=== PATIENT | female | born 1945 | race Caucasian/White ===

== ENCOUNTER 2016-09-06 06:02 | Inpatient (IN) | payer MEDICARE, OTHER ==
[2016-09-06] VITALS (20 sets, daily range): BP systolic 85–204; BP diastolic 44–160; PULSE 69–83; RESP 13–21; TEMP 97.1; Ht 154.9 cm; Wt 81.5 kg
[~2016-09-06] VITALS: Ht 154.9 cm; Wt 81.5 kg
[2016-09-06] MEDS ORDERED: ETOMIDATE 20 MG INJ IV STA (06:34)
[2016-09-06] MEDS ORDERED: ROCURONIUM 50 MG INJ IV STA (06:34)
[2016-09-06] MEDS ORDERED: CEFEPIME 2GM/50 ML (PMX) 50 ML IVPB STA (06:34)
[2016-09-06] MEDS ORDERED: ACET80SU5 PR (06:55)
[2016-09-06] MEDS ORDERED: ACET-2047 PO (06:56)
[2016-09-06] MEDS ORDERED: SOD CHLORIDE 0.9% 1,000 ML IV ONE (07:00)
[2016-09-06] MEDS ORDERED: VANCOMYCIN 1 GM (PMX) 250 ML IVPB ONE (07:00)
[2016-09-06] MEDS ORDERED: DIPH25CA6 PO (07:01)
[2016-09-06 07:05] LABS: HEMATOCRIT 26.2 % (37.0-47.0); HEMOGLOBIN 8.7 g/dl (12.0-16.0); MEAN CORPUSCULAR HEMOGLOBIN 28.8 pg (29.0-33.0); MEAN CORPUSCULAR VOLUME 87.2 fl (82.0-101.0); MEAN PLATELET VOLUME 6.9 fl (7.4-10.4); PLATELET COUNT 260 10^3/UL (140-440); RED BLOOD COUNT 3.01 10^6/ul (4.20-5.40); RED CELL DISTRIBUTION WIDTH 25.8 % (11.5-14.5); UNCORRECTED WBC 9.8 10^3/ul (4.8-10.8); WHITE BLOOD COUNT 9.8 10^3/ul (4.8-10.8)
[2016-09-06] MEDS ORDERED: IPRA3AMP INHALATION (07:06)
[2016-09-06] MEDS ORDERED: AMIO200T2 NGT (07:07)
[2016-09-06] MEDS ORDERED: AMLO5TAB4 PO (07:07)
[2016-09-06] MEDS ORDERED: CARV6.2579 PO (07:08)
[2016-09-06 07:09] LABS: INR 2.21; PROTIME 24.8 Sec (12.2-14.2); PT RATIO 1.9
[2016-09-06 07:10] LABS: PARTIAL THROMBOPLASTIN TIME 52.5 Sec (25.0-35.0)
[2016-09-06] MEDS ORDERED: FURO40TA4 IV* (07:10)
[2016-09-06] MEDS ORDERED: HEP30MU30 INTRACATH (07:11)
--- NOTE | 2016-09-06 07:11 | RADRPT ---
PROCEDURE: Chest. CLINICAL INDICATION: Chest pain. TECHNIQUE: Single frontal view of the chest was obtained. COMPARISON: None. FINDINGS: There is an endotracheal tube 1.5 cm above the josé. There is a right-sided Perma-Cath extending to the SVC. The cardiac silhouette is enlarged. The aortic arch is unremarkable. There is mild ce ntral vascular congestion. There is mild bibasilar atelectasis and small left pleural effusion. Th ere is no pneumothorax. IMPRESSION: Cardiomegaly and mild central vascular congestion. Mild bibasilar atelectasis and small left pleural effusion. Tube and line in place. .Max Bella MD, Date Time Electronically viewed and signed by .Max Bella MD, on 09/06/2016 07:11 .T/
[2016-09-06] MEDS ORDERED: INSU100C SQ (07:12)
[2016-09-06] MEDS ORDERED: LEVO500T10 PO (07:13)
[2016-09-06] MEDS ORDERED: METR500T14 PO (07:13)
[2016-09-06] MEDS ORDERED: PANT40TA3 IV* (07:15)
[2016-09-06] MEDS ORDERED: POTA20TA96 PO (07:16)
[2016-09-06] MEDS ORDERED: NEPH PO (07:17)
[2016-09-06] MEDS ORDERED: VANC125C3 PO (07:18)
[2016-09-06] MEDS ORDERED: LACT1CAP24 PO (07:18)
[2016-09-06 07:26] LABS: CONDITION 1; LH ANALYZER COMMENTS 1; SUSPECT 1
--- NOTE | 2016-09-06 07:30 | ERA ---
ER Documentation Chief Complaint Date/Time DATE: 09/06/16 TIME: 07:23 Chief [facility] H[facility] Who was admitted at an outside hospital over the past few weeks for apparent sepsis. The patient was transferred to a stepdown unit yesterday. Prior to arrival the patient's family was visiting and told staff that the patient had a decreased mental status and was having a very hard time breathing. The family is the one that called 911. Family is not here and cannot give me any more history. This history was given by EMS. On arrival the patient is obtunded and having agonal respirations. Unfortunately, no other history is obtainable ROS All systems reviewed and are negative except as per history of present illness. Medications Home Meds Reported Medications Lactobac #2-S. Therm-Bifido #1 (Vsl#3 Capsule) 1 Each Capsule, 1 EACH PO DAILY, CAP 09/06/16 Vancomycin Hcl (Vancomycin Hcl Oral) 125 Mg Capsule, 125 MG PO Q6, CAP 09/06/16 Multivit/Ca Carb/B Cmplx/Fa* (Rose-Kelsea*) 1 Tab Tab, 1 TAB PO QPM, TAB 09/06/16 Potassium Chloride* (Potassium Chloride*) 20 Meq Tablet.er, 20 MEQ PO DAILY, TAB.SA 09/06/16 Pantoprazole* (Protonix*) 40 Mg Tablet.dr, 40 MG IV* QAM, TAB 09/06/16 Metronidazole* (Metronidazole*) 500 Mg Tablet, 500 MG PO TID, TAB 09/06/16 Levofloxacin* (Levofloxacin*) 500 Mg Tablet, 500 MG PO Q48H, TAB 09/06/16 Insulin Lispro (Humalog) 100 Unit/1 Ml Cartridge, 0 SQ AC MEALS AND BEDTIME 09/06/16 Heparin Sod (Porcine) (Heparin) 1,000 Unit/Ml Soln, [id number] UNIT INTRACATH AFTER DIALYSIS 09/06/16 Furosemide* (Furosemide*) 40 Mg Tablet, 40 MG IV* DAILY, TAB 09/06/16 Carvedilol* (Carvedilol*) 6.25 Mg Tablet, 6.25 MG PO BID, #60 TAB 09/06/16 Amlodipine Besylate* (Norvasc*) 5 Mg Tablet, 5 MG PO DAILY, TAB 09/06/16 Amiodarone Hcl* (Amiodarone Hcl*) 200 Mg Tablet, 200 MG NGT BID, #60 TAB 09/06/16 Ipratropium-Albuterol (Ipratropium-Albuterol) 0.5-3 Mg/3 Ml Ampul.neb, 3 ML INHALATION Q4H WHILE AWAKE Y for SHORTNESS OF BREATH, #30 VIAL 09/06/16 Discontinued Reported Medications Diphenhydramine Hcl* (Diphenhydramine Hcl*) 25 Mg Capsule, 25 MG PO Q6 Y for ITCHING, CAP 09/06/16 Acetaminophen* (Acetaminophen*) 650 Mg Tablet, 650 MG PO Q4 Y for PAIN AND OR ELEVATED TEMP, #30 TAB 09/06/16 Acetaminophen* (Tylenol* Supp) 80 Mg Supp, 650 MG OH Q4 Y for FEVER, SUPP 09/06/16 Allergies Allergies: Coded Allergies: Unknown: Unable to obtain (Unverified , 09/06/16) PMhx/Soc Smoking Status: Unknown if ever smoked FmHx Unable to obtain due to mental status Physical Exam Vitals Vital Signs Date Time Temp Pulse Resp B/P Pulse Ox O2 Delivery O2 Flow Rate FiO2 09/06/16 08:15 84 14 196/103 100 Mechanical Ventilator 09/06/16 07:45 87 14 197/107 100 Mechanical Ventilator 09/06/16 07:15 88 14 100 100 09/06/16 06:23 79 14 100 100 09/06/16 06:09 97.1 74 18 111/68 100 Physical Exam Const: [] Obtunded Head: Atraumatic, normocephalic Eyes: Normal Conjunctiva ENT: Normal External Ears, Nose and Mouth. Neck: Full range of motion..~ No meningismus. Resp: Diffuse mild rhonchi scattered throughout both lung eagle, agonal respirations Cardio: Regular rate and rhythm, no murmurs Abd: Soft, non distended. Normal bowel sounds Skin: No petechiae or rashes Back: Not inspected Ext: No cyanosis, or edema Neur: GCS of 3 unable to do exam Psych: Unable to obtain Result Diagram: 09/06/16 0610 09/06/16 0610 Results 24 hrs Laboratory Tests Test 09/06/16 06:10 09/06/16 07:00 09/06/16 07:10 Activated Partial Thromboplast Time 52.5Sec Alanine Aminotransferase (ALT/SGPT) 53IU/L Albumin 3.0g/dl Albumin/Globulin Ratio 1.11 Alkaline Phosphatase 110IU/L Anion Gap 18 Aspartate Amino Transf (AST/SGOT) 29IU/L B-Type Natriuretic Peptide 16517MS/ML Band Neutrophils % 2.0% Basophilic Stippling MODERATE Basophils # 0.110^3/ul Basophils % 1.0% Blood Morphology Comment Blood Urea Nitrogen 37mg/dl Calcium Level 7.6mg/dl Carbon Dioxide Level 25mmol/L Chloride Level 103mmol/L Creatinine 1.92mg/dl Direct Bilirubin 0.00mg/dl Globulin 2.70g/dl Glucose Level 204mg/dl Hematocrit 26.2% Hemoglobin 8.7g/dl INR International Normalized Ratio 2.21 Indirect Bilirubin 0.0mg/dl Lactic Acid Level 0.9mmol/L Lymphocytes # 0.910^3/ul Lymphocytes % 9.0% Mean Corpuscular Hemoglobin 28.8pg Mean Corpuscular Hemoglobin Concent 33.0g/dl Mean Corpuscular Volume 87.2fl Mean Platelet Volume 6.9fl Metamyelocytes # 0.2 Metamyelocytes % 2.0% Monocytes # 0.810^3/ul Monocytes % 8.0% Myelocytes # 0.2 Myelocytes % 2.0% Neutrophils # 7.410^3/ul Neutrophils % 76.0% Platelet Count 90198^3/UL Potassium Level 4.8mmol/L Prothrombin Time 24.8Sec Prothrombin Time Ratio 1.9 Red Blood Count 3.0110^6/ul Red Cell Distribution Width 25.8% Schistocytes FEW Sodium Level 141mmol/L Total Bilirubin 0.0mg/dl Total Protein 5.7g/dl Troponin I 0.083ng/ml White Blood Count 9.810^3/ul Arterial Blood HCO3 21.2mmol/L Arterial Blood Base Excess -2.5mmol/L Arterial Blood Oxygen Saturation 99.4mmHG Sage Test ACCEPTAB Arterial Blood Gas Puncture Site Right Radial Arterial Blood Carboxyhemoglobin 0.3% Arterial Blood Date Drawn 09/06/2016 8:37:03 AM Arterial Blood Methemoglobin 0.2% Arterial Blood pCO2 (Temp correct) 32.3mmhg Arterial Blood pH (Temp corrected) 7.435 Arterial Blood pO2 (Temp corrected) 431.8mmHG Blood Gas A-a O2 Differential 248.9mmHg Blood Gas Actual Respiration Rate 14 Blood Gas Critical Value Read Back DR. POE Blood Gas Low PEEP Setting 5.0cmH2O Blood Gas Modality VENT - AC Blood Gas Notified Time 09/06/2016 8:51:53 AM Blood Gas Notified Whom GLENYS RT Blood Gas Respiration Rate 14.0 Blood Gas Specimen Source Blood arterial Blood Gas Temperature 37.0C Blood Gas Tidal Volume 512.0mL FiO2 100.0% Oxyhemoglobin Percent 98.9% Total Hemoglobin 9.8g/dl Urine Bacteria FEW Urine Bilirubin 1+ Urine Clarity SLIGHTLY CLOUDY Urine Color BROWN Urine Cystine Crystals MANY Urine Glucose 0.1%% Urine Hemoglobin 3+ Urine Ictotest NEGATIVE Urine Ketones TRACE Urine Leukocyte Esterase 1+ Urine Microscopic RBC >200/HPF Urine Microscopic WBC 5-10/HPF Urine Nitrite NEGATIVE Urine Specific [place] 1.025 Urine Squamous Epithelial Cells FEW Urine Total Protein 4+ Urine Urobilinogen 0.2 E.U./dL Urine pH 6.5 Current Medications Medications (Trade) Dose Ordered Sig/Rosemary Route PRN Reason Start Time Stop Time Status Last Admin Dose Admin Cefepime HCl 50 ml @ 100 mls/hr ONCE STAT IVPB 09/06/16 06:34 09/06/16 07:03 DC 09/06/16 08:56 Vancomycin HCl 250 ml @ 125 mls/hr ONCE ONCE IVPB 09/06/16 07:00 09/06/16 08:59 DC Sodium Chloride (NS) 1,000 ml @ 1,000 mls/hr Q1H ONCE IV 09/06/16 07:00 09/06/16 07:59 DC Rocuronium Butler (Zemuron) 70 mg ONCE STAT IV 09/06/16 06:34 09/06/16 06:40 DC Etomidate (Amidate) 20 mg ONCE STAT IV 09/06/16 06:34 09/06/16 06:41 DC Hydralazine HCl (Apresoline) 10 mg ONCE ONCE IV 09/06/16 08:00 09/06/16 08:01 DC 09/06/16 08:15 Procedures/MDM Endotracheal Intubation by me: Pre assessment performed. See preceding note for details. Pre-oxygenation performed with 100% oxygen RSI: Performed w/o complication or hypoxic events. Medications as ordered. Blade: Mac 4 ET Tube: 7.5 cm Depth: 23 cm at the lip Intubation confirmed by colorimetric CO2, equal breath sounds, quiet over the stomach. EKG: Rate/Rhythm: Normal sinus rhythm with supraventricular complexes, right bundle branch QRS, ST, QT: NORMAL OH, prolonged QRS, QT] Impression: Abnormal EKG PROCEDURE: Chest. CLINICAL INDICATION: Chest pain. TECHNIQUE: Single frontal view of the chest was obtained. COMPARISON: None. FINDINGS: There is an endotracheal tube 1.5 cm above the josé. There is a right-sided Perma-Cath extending to the SVC. The cardiac silhouette is enlarged. The aortic arch is unremarkable. There is mild central vascular congestion. There is mild bibasilar atelectasis and small left pleural effusion. There is no pneumothorax. IMPRESSION: Cardiomegaly and mild central vascular congestion. Mild bibasilar atelectasis and small left pleural effusion. Tube and line in place. .Max Bella MD, MD Date Time Electronically viewed and signed by .Max Bella MD, MD on 09/06/2016 07:11 .T/ CC: ARIELLE POE DO Critical Care: Time: 35 minutes Treatments/Evaluations: Close monitoring and treatment of unstable vital signs, cardiorespiratory, and neurologic status, while maintaining tight balance of fluid, respiratory, and cardiac interventions, outside of billable procedures. PROCEDURE: CT Brain without. CLINICAL INDICATION: Headache TECHNIQUE: A CT of the brain was performed utilizing axial sections from the skull base through the vertex without contrast. The scan was reviewed in soft tissue brain and high frequency resolution bone algorithm windows. Images were reviewed on a high-resolution PACS workstation. The exam CTDI = 43.48 mGy, and the DLP = 720.23 mGy-cm. COMPARISON: None available FINDINGS: There is moderate prominence of the lateral ventricles and cerebral sulci, consistent with diffuse cerebral atrophy. There is no intracranial hemorrhage, midline shift, or mass effect. No abnormal extra-axial fluid collections are identified. There is hypoattenuation of the periventricular white matter. The norris-white differentiation is well preserved. There is mineralization of the basal ganglia and dentate nuclei. The basal cisterns are patent. The posterior fossa is unremarkable. Vascular calcifications are noted within the intracranial portions of the vertebral and internal carotid arteries. The visualized portions of the orbits are unremarkable. There is partial opacification of the left maxillary sinus with dense material and remodelling of the sinus wall. There is mucosal thickening of the sphenoid sinus. There is partial opacification of the mastoid air cells. No calvarial fracture or abnormality are identified. The soft tissues are unremarkable. IMPRESSION: 1. No acute intracranial abnormality. 2. Mineralization of the basal ganglia and dentate nuclei. 3. Age related senescent changes with mild diffuse cerebral atrophy. 4. Patchy periventricular hypoattenuation, nonspecific finding, most commonly associated with microvascular ischemic changes. 5. Arterial atherosclerosis. 6. Chronic-appearing paranasal sinus disease. There is also partial opacification of the mastoid air cells. Clinical correlation for mastoiditis recommended. RPTAT: HH .Mitra Díaz MD, MD Date Time Electronically viewed and signed by .Mitra Díaz MD, MD on 09/06/2016 08 :16 .G/ CC: ARIELLE POE DO The patient has elevated BNP chest x-ray does not show CHF. She may have some heart failure contributing to her shortness of breath. Brain CT scan shows no acute process but probably need an MRI. Possibly CT chest. No clear evidence of why she is obtunded or having difficulty breathing We will admit her to the ICU for further workup Departure Diagnosis: Primary Impression: Respiratory failure Qualified Code: J96.00 - Acute respiratory failure, unspecified whether with hypoxia or hypercapnia Condition: Serious ARIELLE POE DO Sep 06, 2016 07:30
[2016-09-06 07:44] LABS: ADD UMIC YES; URINE BILIRUBIN (Dip) 1+ (NEGATIVE); URINE BLOOD (Dip) 3+ (NEGATIVE); URINE COLOR BROWN (YELLOW); URINE KETONES (Dip) TRACE (NEGATIVE); URINE LEUKOCYTE ESTERASE (Dip) 1+ (NEGATIVE); URINE NITRITE (Dip) NEGATIVE (NEGATIVE); URINE TOTAL PROTEIN (Dip) 4+ (NEGATIVE); URINE UROBILINOGEN (Dip) 0.2 E.U./dL (0.1-1.0)
[2016-09-06 07:56] LABS: BASOPHIL # 0.1 10^3/ul (0.0-0.1); LYMPHOCYTES # 0.9 10^3/ul (0.8-2.9); MONOCYTE # 0.8 10^3/ul (0.3-0.9); MYELOCYTES # 0.2; NEUTROPHIL # 7.4 10^3/ul (1.6-7.5)
[2016-09-06 07:58] LABS: BURR CELLS FEW; SCHISTOCYTES FEW
[2016-09-06] MEDS ORDERED: hydrALAzine 20 MG INJ IV ONE (08:00)
[2016-09-06 08:11] LABS: BACTERIA,URINE FEW; CYSTINE CRYSTALS,URINE MANY; SQUAMOUS EPITHELIAL CELL,UR FEW; URINE RBCS >200 /HPF (0)
[2016-09-06 08:13] LABS: ICTOTEST NEGATIVE (NEGATIVE)
--- NOTE | 2016-09-06 08:16 | RADRPT ---
PROCEDURE: CT Brain without. CLINICAL INDICATION: Headache TECHNIQUE: A CT of the brain was performed utilizing axial sections from the skull base through th e vertex without contrast. The scan was reviewed in soft tissue brain and high frequency resolution bone algorithm windows. Images were reviewed on a high-resolution PACS workstation. The exam CTDI = 43.48 mGy, and the DLP = 720.23 mGy-cm. COMPARISON: None available FINDINGS: There is moderate prominence of the lateral ventricles and cerebral sulci, consistent with diffuse c erebral atrophy. There is no intracranial hemorrhage, midline shift, or mass effect. No abnormal ex tra-axial fluid collections are identified. There is hypoattenuation of the periventricular white m atter. The norris-white differentiation is well preserved. There is mineralization of the basal gang gamaliel and dentate nuclei. The basal cisterns are patent. The posterior fossa is unremarkable. Vascul ar calcifications are noted within the intracranial portions of the vertebral and internal carotid a rteries. The visualized portions of the orbits are unremarkable. There is partial opacification of the left m axillary sinus with dense material and remodelling of the sinus wall. There is mucosal thickening o f the sphenoid sinus. There is partial opacification of the mastoid air cells. No calvarial fracture or abnormality are identified. The soft tissues are unremarkable. IMPRESSION: 1. No acute intracranial abnormality. 2. Mineralization of the basal ganglia and dentate nuclei. 3. Age related senescent changes with mild diffuse cerebral atrophy. 4. Patchy periventricular hypoattenuation, nonspecific finding, most commonly associated with micro vascular ischemic changes. 5. Arterial atherosclerosis. 6. Chronic-appearing paranasal sinus disease. There is also partial opacification of the mastoid a ir cells. Clinical correlation for mastoiditis recommended. RPTAT: HH .Mitra Díaz MD, Date Time Electronically viewed and signed by .Mitra Díaz MD, MD on 09/06/2016 08:16 .G/
[2016-09-06 08:28] LABS: POTASSIUM 4.8 mmol/L (3.5-5.1)
[2016-09-06 08:30] LABS: ALBUMIN/GLOBULIN RATIO 1.11; CALCIUM 7.6 mg/dl (8.4-10.2); CREATININE 1.92 mg/dl (0.44-1.00); TOTAL PROTEIN 5.7 g/dl (6.1-8.1)
[2016-09-06 08:43] LABS: TROPONIN-I 0.083 ng/ml (0.00-0.12)
[2016-09-06 08:52] LABS: AADO2 Arterial 248.9 mmHg (7.0-24.0); Allen Test ACCEPTAB; Arterial Base Excess -2.5 mmol/L (-3.0-3); Arterial COHb 0.3 % (0.0-3.0); Arterial Fraction of Oxyhgb 98.9 % (93.0-99.0); Arterial HCO3 21.2 mmol/L (22.0-26.0); Arterial MetHb 0.2 % (0.0-1.5); Arterial Total Hemglobin 9.8 g/dl (12.0-18.0); MODE VENT - AC
[2016-09-06] MEDS ORDERED: SOD CHLORIDE 0.9% 100 ML ONE (10:41)
[2016-09-06] MEDS ORDERED: IOHEXOL 100 ML ONE (10:41)
[2016-09-06] MEDS ORDERED: ONDANSETRON 4 MG INJ IV PRN (11:30)
[2016-09-06] MEDS ORDERED: GLUCOSE GEL 15 GRAM TUBE PO PRN ×2 (12:00)
[2016-09-06] MEDS ORDERED: GLUCAGON 1 MG INJ IM PRN (12:00)
[2016-09-06] MEDS ORDERED: DEXTROSE 50% 50 ML SYRINGE IV PRN ×2 (12:00)
[2016-09-06] MEDS ORDERED: GLUCOSE GEL 15 GRAM TUBE BUCCAL PRN (12:00)
--- NOTE | 2016-09-06 12:24 | RADRPT ---
AMENDMENT: 09/06/2016 3:05:16 PM Ellie Sandoval M.D There is no CT evidence for pulmonary embolus. PROCEDURE: CTA Chest. CLINICAL INDICATION: Shortness of breath TECHNIQUE: The study was performed utilizing a multidetector CT scanner. Direct spiral 1 mm axial sections were obtained from the thoracic inlet to the upper abdomen with the use of 100 cc of Omnipa que 350 nonionic intravenous contrast material and reformatted at 3 mm. Coronal and sagittal reforma tions were obtained. The images were reviewed on a PACS workstation. DLP 653 mGycm CTDIvol 84.5 and 18.3 mGy COMPARISON: No prior studies are available for comparison. FINDINGS: There is an endotracheal tube which extends into the right mainstem bronchus and should be repositio blossom. There is a right-sided central line catheter extends into the superior cavoatrial junction. The pulmonary arteries are enlarged with no filling defects present to suggest pulmonary embolus. A ortic and coronary artery atherosclerotic plaque and calcification are present with no evidence of d issection. There is mild to moderate cardiomegaly. There is bilateral partial collapse the lower lobes with consolidation. There is a linear focus of consolidation in the right upper lobe posteriorly. Trace bilateral layering pleural fluid is presen t. The airways are patent. There is no suspicious nodule or mass. The airways are patent. There ar e no enlarged mediastinal or axillary lymph nodes. Upper abdominal structures are within normal limits. Degenerative changes are seen in the lumbar sp ine with no evidence of acute osseous abnormality. IMPRESSION: The endotracheal tube extends into the right mainstem bronchus and should be pulled back by approxim ately 3-4 cm. Pulmonary arteries are enlarged suggestive for pulmonary arterial hypertension. CT evidence for pul monary embolus. There is no aortic dissection. Cardiomegaly is seen with atherosclerotic disease. There is bilateral partial collapse of the lower lobes with consolidation along with a linear focus of consolidation of the right upper lobe and this could represent atelectatic changes however pneumo joseph is not excluded. Trace bilateral layering pleural fluid is present. The findings were given to the nurse Kirk 12:20 p.m. on 09/06/2016 RPTAT: AVH .Ellie Sandoval MD, MD Date Time Electronically viewed and signed by .Ellie Sandoval MD, MD on 09/06/2016 15:05 .J/
[2016-09-06 12:40] LABS: CK-MB 2.84 ng/ml (0.0-2.4)
[2016-09-06 12:43] LABS: TROPONIN-I 0.088 ng/ml (0.00-0.12)
[2016-09-06] MEDS: metroNIDAZOLE 500 MG/NS (PMX) 100 ML IVPB SCH ×2 (13:13→22:21)
[2016-09-06] MEDS: SOD CHLORIDE 0.9% 1,000 ML IV SCH (13:13)
[2016-09-06] MEDS: INSULIN ASPART [NOVOLOG] 3 ML PEN SC SCH ×3 (13:22→21:00)
--- NOTE | 2016-09-06 13:41 | RADRPT ---
PROCEDURE: US bilateral lower extremity veins. CLINICAL INDICATION: Bilateral leg pain and swelling. Shortness of breath. TECHNIQUE: Multiple longitudinal and transverse images of the bilateral lower extremity veins were obtained with norris scale and color Doppler imaging. The common femoral vein, femoral vein, and popl iteal vein were evaluated. 2D grayscale measurements with compression sonography, color Doppler, and pulsed Doppler with augmentation. COMPARISON: No prior studies are available for comparison. FINDINGS: The bilateral common femoral, femoral and popliteal veins are normally compressible throughout. Col or flow demonstrates normal filling of the vessels. Normal waveforms are visualized and there is no rmal response to augmentation. IMPRESSION: 1. No evidence of deep vein thrombosis involving either lower extremity. RPTAT: QQ .Esvin Mak MD, MD Date Time Electronically viewed and signed by .Esvin Mak MD, on 09/06/2016 13:40 .R/
[2016-09-06] MEDS: PIPER-TAZO 2.25 GM (PMX) 50 ML IVPB SCH ×2 (14:21→21:38)
--- NOTE | 2016-09-06 17:52 | HP ---
DATE OF ADMISSION: 09/06/2016 TIME: 11:30. PRESENTING COMPLAINT: Altered mental status and difficulty breathing. HISTORY OF PRESENTING COMPLAINT: The history, unfortunately, it is not very detail because it was obtained from medical records which there are not a whole lot of, as well as the patient's sister who unfortunately is not familiar with the patient's clinical history. However, this is a 71-year-old Filipina female who was supposedly sent here from the [facility] visiting with her cousin, but had fallen ill since what sounds like for a couple of months and has spent the last 1 month in [facility] where, per her sister, she was intubated for a long time, eventually extubated and sent to a residential. She arrived at the residential last night and was found to be in some respiratory distress. This resolved with oxygen management. However, they found her this morning agonal, unresponsive. EMS were called and the patient was brought to the hospital obtunded and had to be intubated emergently in the emergency room. Now she is intubated. She is not on any pressors at this time. She seems to be able to comprehend when her sister speaks to her, but unfortunately she is unable to give us any more detailed history. To the sister's knowledge, there has been no fever. As far as the sister knows, medical history is only of diabetes. She cannot even tell what she was in the hospital for so long. She refers to the niece who they were visiting as a person who might have more information, but unfortunately, she is not available at this time. PAST MEDICAL HISTORY: 1. Diabetes mellitus. 2. Recent prolonged hospitalization that involves respiratory failure and endotracheal intubation. 3. New end-stage renal disease on hemodialysis, just from this last hospitalization. 4. Obesity. 5. History of cardiac arrest. 6. COPD/asthma. 7. Clostridium difficile colitis. 8. Urinary tract infection. 9. Anemia. 10. Paroxysmal atrial fibrillation. PAST SURGICAL HISTORY: Positive for a PermCath placement. ALLERGIES: Unknown. FAMILY HISTORY: Per her sister, there is no significant family history. SOCIAL HISTORY: Her sister denies that the patient actively smokes, drink alcohol, or uses illicit drugs. She says she might have smoked in her youth, but does not smoke actively at this time. HOME MEDICATIONS: 1. Lactobacillus and acidophilus one tab daily. 2. Vancomycin 125 mg p.o. q 6. 3. Rose-Kelsea 1 tablet at bedtime. 4. Potassium 20 mEq daily. 5. Protonix 40 mg daily. 6. Flagyl 500 p.o. t.i.d. 7. Levaquin 500 q. 48h. 8. Humalog sliding scale. 9. Heparin with dialysis. 10. Lasix 40 IV daily. 11. Coreg 6.25 b.i.d. 12. Amlodipine 5 mg daily. 13. Amiodarone 200 mg per NG tube b.i.d. 14. Albuterol. 15. Ipratropium 0.5 per 3 mL every 4 hours while awake and as needed for shortness of breath. PHYSICAL EXAMINATION VITAL SIGNS: Temperature 97.1, pulse 84, respirations 14, blood pressure 196/ 103, saturations 100% on mechanical ventilator, FIO2 of 100%. GENERAL: The patient looks comfortable on vent. As mentioned earlier, when her sister speaks to her, she seems to try to nod, and she is not sedated at this time. HEENT: Head is normocephalic, atraumatic. Pupils equal and round, and reactive to light. NECK: No obvious JVD. CHEST: No evidence of anterior chest wall abnormalities. The patient has diffusely reduced air entry on on both sides. Endotracheal tube in place to ventilator support. CARDIOVASCULAR: The patient currently is in normal sinus rhythm. No murmurs appreciated on this evaluation. ABDOMEN: Obese, soft, with normal bowel sounds. EXTREMITIES: Negative for edema. The patient has not moved any extremities for me to despite stimulation. PSYCHIATRIC: Unable to assess. SKIN: Devoid of any gross rash. LABORATORY VALUES: Hemoglobin is low at 8.7, hematocrit low as well at 26.2 and there is a low MCH consistent with hypochromia. She has a bandemia of 2%. On her chemistry BUN is 37, creatinine is 1.9, her glucose is elevated at 204. Her calcium is low at 7.6. Her liver profile is completely normal. First troponin is 0.283 which is within normal range. Her BNP was 30,900. Albumin was low. Lactic acid x3 has been normal at 12 hours apart. Her coagulation profile was revealing an INR of 2.2 with a PT of 24.8 and a PTT of 52.5 without thrombocytopenia and without acute abnormalities. The patient is likely on a blood thinner medication. Unfortunately, we did not have a list of all her drugs at this time; however, with the history of paroxysmal atrial fibrillation , this is likely the case. EKG reviewed shows normal sinus rhythm with supraventricular complexes with PVCs and right bundle branch block. IMAGING: Chest x-ray showed cardiomegaly and mild central vascular congestion with mild bibasilar atelectasis and small left pleural effusion. CT scan of the brain showed no acute abnormality. There is mineralization of the basal ganglia and the dentate, likely microvascular ischemic changes and some chronic mastoiditis as well as some atherosclerosis. IMPRESSION: A 71-year-old female sent from residential because of altered mental status secondary to severe respiratory distress now with the followin. Acute respiratory failure, now presents with a recurrent episode of acute respiratory failure, the patient's second time being ventilator dependent in the last couple of months. 2. Mild pulmonary vascular congestion suggestive of congestive heart failure. 3. Patient discharged from hospital with ongoing therapy for pneumonia. 4. Diabetes mellitus: uncontrolled. 5. Accelerated hypertension. 6. Chronic hypochromic anemia, likely secondary to chronic kidney disease. 7. End-stage renal disease on hemodialysis. 8. Bandemia . 9. Paroxysmal atrial fibrillation 10. Probable UTI. 12. C. diff colitis, on treatment. PLAN OF CARE: At this time, the patient will be admitted to the intensive care unit and continued on ventilator support as well as close monitoring. We will wean her as tolerated. I will be obtaining pulmonary as well as nephrology consultation to assist us in her care. I will be contacting the residential for more information. She will also be continued on empiric broad spectrum antibiotics. The patient will need an NG tube to continue her probiotics, amiodarone and blood pressure medicines. We will obtain a tighter blood glucose as well as blood pressure control while she is here. We will also include ruling out an acute coronary syndrome. Obtain lower extremity Dopplers. I am also going to obtain a CT angiogram of the chest to ensure the patient does not have a pulmonary embolism. I have discussed this in detail with her sister, multiple orders have been put in. Questions have been answered. For prophylaxis, for now will have her on heparin and intravenous PPI. She may need full anticoagulation but will defer to cardiology. Evaluation time has been an hour. Dictated By: PAMELA MARTE MD BA/NTS Conf#: [id number] DID#: [id number] MTDD
[2016-09-06 19:49] LABS: CK-MB 2.81 ng/ml (0.0-2.4)
[2016-09-06] MEDS: PROPOFOL 100 ML IV SCH (19:59)
[2016-09-06 20:07] LABS: TROPONIN-I 0.123 ng/ml (0.00-0.12)
[2016-09-06] MEDS ORDERED: MAGNESIUM SULFATE 1 GM/D5W 100 ML IVPB ONE (20:30)
[2016-09-06] MEDS ORDERED: SOD CHLORIDE 0.9% 250 ML IV ONE (20:30)
[2016-09-06] MEDS: HEPARIN 5,000 UNIT/0.5 ML SYG SC SCH (21:50)
[2016-09-06] MEDS ORDERED: NORepinephrine 8MG/250 ML (PMX 250 ML IV SCH (22:30)
[2016-09-07] VITALS (67 sets, daily range): BP systolic 73–183; BP diastolic 41–167; PULSE 66–83; RESP 11–26
--- NOTE | 2016-09-07 02:03 | CONS ---
DATE OF ADMISSION: 09/06/2016 DATE OF CONSULTATION: 09/06/2016 REASON FOR CONSULTATION: End-stage renal disease, volume overload. PHYSICIAN REQUESTING CONSULTATION: Dr. Pizarro. HISTORY OF PRESENT ILLNESS: This is a 71-year-old female with a past medical history of chronic kid ramya disease stage IV, recent history of acute kidney injury, currently dialysis dependent, history o f hypertension, history of anemia, history of respiratory failure, who presents to [facility] with acute shortness of breath. The patient was recently admitted to [facility] where she had a prolonged course including sepsis and respiratory failure. The patient during that hospital course was placed on hemodialysis as she went into acute kidney injury with a previous baseline GFR between 20 to 25 mL per minute per patient's family. The patient yesterday was appare ntly discharged from the hospital to a snf facility. While at the [facility], the patient was noted to be in respiratory distress, unresponsive. As a result, 911 was called a nd the patient was brought into the emergency room, where the patient was subsequently intubated due to respiratory distress. In the emergency room, the patient had a CT angio which showed findings c onsistent with pulmonary hypertension, no evidence of PE. The patient had a CT scan of the brain wh ich showed no acute findings, chest x-ray which showed findings of pulmonary congestion. The patien t in the emergency room was started on IV antibiotics. There have been no reports of hemoptysis or hemetemesis. In terms of patient's renal history, per patient's family, the patient had CKD stage IV before her r ecent hospitalization at [place] where the patient went into acute kidney injury and was initiated o n hemodialysis, as stated above. The patient has a history of hypertension, history of diabetes. T here have been no recent episodes of hematuria or hemoptysis, as stated above. PAST MEDICAL HISTORY: History of chronic kidney disease, history of hypertension, history of diabet es, recent history of sepsis. PAST SURGICAL HISTORY: Status post PermCath placement. ALLERGIES: NO KNOWN DRUG ALLERGIES. FAMILY HISTORY: No family history of kidney disease or heart disease. SOCIAL HISTORY: Lives at a skilled [facility]. MEDICATIONS: The patient's medications have been reviewed. REVIEW OF SYSTEMS: Unable to do adequate review of systems as patient is intubated. Pertinent posit althea obtained by reviewing medical records, speaking to hospital staff, stated in HPI, otherwise neg ative. PHYSICAL EXAMINATION: VITAL SIGNS: Blood pressure is 134/77, respiration is 16, pulse 74, temperature 97.1. HEENT: Head is normocephalic. Pupils are reactive. NECK: Supple. HEART: Regular rate. LUNGS: Show diminished breath sounds at the base. ABDOMEN: Soft, nontender to palpation. No rebound or guarding. EXTREMITIES: Negative for clubbing or cyanosis. Positive edema. DERMATOLOGIC: No rashes. MUSCULOSKELETAL: No joint effusions. NEUROLOGIC: Limited exam as the patient is currently intubated and obtunded. LABORATORY DATA: Shows white count 9.8, hemoglobin 8.7, hematocrit 26.2, platelet count is 260. So dium 141, potassium 4.8, chloride 103, BUN 37, creatinine 1.92. pH 7.43, pCO2 of 32, PaO2 431. IMAGING STUDIES: As stated in HPI. ASSESSMENT AND PLAN: This is a 71-year-old female who presents with: 1. Acute kidney injury on top of chronic kidney disease stage IV, possibly, end-stage renal disease . The patient is currently dialysis dependent with access of a PermCath. The patient may have evid ence of some renal recovery as current creatinine is 1.92 mg/dL. Given the patient's volume overloa d state, acute respiratory failure, plan is for hemodialysis today. Will dialyze the patient for 3 hours on a 3 K bath, calcium 2.5. Will ultrafiltrate as tolerated and monitor closely. 2. Volume overload. The patient has noted pulmonary congestion and lower extremity edema. We will plan for dialysis today and ultrafiltrate goal between 2 to 3 liters. 3. Acute hypoxemic respiratory failure. The patient is status post intubation. Underlying etiolog y is unclear, possibly pneumonic, possibly cardiac, or volume overload. Plan at this point is to co ntinue current treatment plan, continue dialysis, continue IV antibiotics. Follow up with Pulmonary . 4. Anemia of chronic disease. Continue to monitor H and H levels. We will give Epogen as needed. 5. Mineral bone disorder. Monitor calcium and phosphorus levels. No need for phosphate binders. 6. Possible sepsis secondary to pneumonia. Patient's chest x-ray shows findings of consolidation r ight upper lobe and/or atelectatic changes. We will continue current antibiotic regimen. Follow up cultures. 7. Diabetes. Continue Accu-Cheks, insulin sliding scale. Thank you, Dr. Pizarro, for this interesting consult. It will be a pleasure to follow patient with you throughout the hospital course. Dictated By: STEFFANY JESUS/ADRIA Conf#: [id number] DID#: [id number]
[2016-09-07] MEDS: PROPOFOL 100 ML IV SCH ×2 (05:47→09:58)
[2016-09-07] MEDS: PIPER-TAZO 2.25 GM (PMX) 50 ML IVPB SCH ×3 (05:47→21:03)
[2016-09-07] MEDS: PANTOPRAZOLE 40 MG INJ IV SCH (05:47)
[2016-09-07] MEDS: metroNIDAZOLE 500 MG/NS (PMX) 100 ML IVPB SCH ×3 (06:33→21:52)
[2016-09-07] MEDS: INSULIN ASPART [NOVOLOG] 3 ML PEN SC SCH ×4 (07:35→21:00)
[2016-09-07 07:43] LABS: HEMATOCRIT 26.8 % (37.0-47.0); HEMOGLOBIN 9.1 g/dl (12.0-16.0); MEAN CORPUSCULAR HEMOGLOBIN 29.5 pg (29.0-33.0); MEAN CORPUSCULAR HGB CONC 34.1 g/dl (32.0-37.0); MEAN CORPUSCULAR VOLUME 86.5 fl (82.0-101.0); MEAN PLATELET VOLUME 6.9 fl (7.4-10.4); PLATELET COUNT 262 10^3/UL (140-440); RED CELL DISTRIBUTION WIDTH 26.3 % (11.5-14.5); UNCORRECTED WBC 11.4 10^3/ul (4.8-10.8); WHITE BLOOD COUNT 11.4 10^3/ul (4.8-10.8)
[2016-09-07 07:58] LABS: INR 2.77; PROTIME 29.6 Sec (12.2-14.2); PT RATIO 2.3
[2016-09-07 07:59] LABS: PARTIAL THROMBOPLASTIN TIME 51.5 Sec (25.0-35.0)
[2016-09-07 08:01] LABS: CONDITION 1; IRON 38 ug/dl (35-150); SUSPECT 1
[2016-09-07 08:02] LABS: ALBUMIN 2.9 g/dl (3.3-4.9); LH ANALYZER COMMENTS 1; POTASSIUM 3.5 mmol/L (3.5-5.1)
[2016-09-07 08:04] LABS: CHOLESTEROL 223 mg/dl (100-200)
[2016-09-07 08:05] LABS: CALCIUM 7.2 mg/dl (8.4-10.2); CHOL/HDL RATIO 3.4 RATIO; CREATININE 1.36 mg/dl (0.44-1.00); HDL CHOLESTEROL 64 mg/dl (33-92); PHOSPHORUS 2.8 mg/dl (2.5-4.9)
[2016-09-07 08:10] LABS: TOTAL IRON BINDING CAPACITY 181 ug/dl (241-421)
[2016-09-07] MEDS: ALBUMIN HUMAN 25% 100 ML IV SCH ×2 (08:47→15:37)
[2016-09-07] MEDS: HEPARIN 5,000 UNIT/0.5 ML SYG SC SCH ×2 (08:50→21:00)
--- NOTE | 2016-09-07 09:35 | PN ---
Date/Time of Note Date/Time of Note DATE: 09/07/16 TIME: 09:24 Assessment/Plan VTE Prophylaxis VTE Prophylaxis Intervention: heparin Lines/Catheters IV C[facility]ter Type (from [facility] Peripheral IV Urinary Cath still in place: Yes Reason Cath still needed: other (indicate) (intubated) Assessment/Plan Assessment/Plan A 71-year-old female sent from snf because of altered mental status secondary to severe respiratory distress now with the followin. Acute respiratory failure, the patient's second time being ventilator dependent in the last couple of months. Now on CPAP 2. Congestive heart failure (diastolic) Significant pulm edema on CXR Diuresis with HD/ appreciate Nephrology and cardiology recs 3. Elevated troponins / NSTEMI Cardiology consult / ?Heparin drip / defer to cardiology 3. Augustin pneumonia. Cont abx Vanc / Zosyn. Patient was d/c from [place] [facility] 09/04 with same. 4. Diabetes mellitus Type 2 controlled/SSI/no diet for now 5. Sepsis with Septic Shock 2/2 UTI / Pneumonia Now off pressors / cont abx / supportive care / ID consult 6. Hypertension. Currently mildly hypotensive / hold all antihypertensives 7. End-stage renal disease on hemodialysis. Nephrology managing dialysis 8. Paroxysmal atrial fibrillation amiodarone/ INR at goal despite no meds / monitor / serially monitor 9. UTI Cultures pending / empiric zosyn 10 C. diff colitis, on treatment. IV metronidazole / ?oral vanco / precautions 11. Chronic hypochromic anemia, likely secondary to chronic kidney disease / serial monitoring/ intervene PRN Dispo -Continue ICU care and monitoring -Prophylaxis: Heparin/ IV PPI Subjective 24 Hr Interval Summary Free Text/Dictation Patient seen and examined. Intubated and sedated for comfort, now off pressor support. Subjective hx not possible: pt critical status Exam/Review of Systems Vital Signs Vitals Vital Signs Date Time Temp Pulse Resp B/P Pulse Ox O2 Delivery O2 Flow Rate FiO2 09/07/16 08:15 72 14 74/61 98 09/07/16 08:00 97.5 09/07/16 07:30 Mechanical Ventilator 09/07/16 05:26 30 Intake and Output 09/06/16 09/06/16 09/07/16 15:00 23:00 07:00 Intake Total 50 ml 204.280 ml Output Total 425 ml 240 ml Balance -375 ml -35.720 ml Exam GENERAL: The patient looks comfortable on vent. HEENT: Head is normocephalic, atraumatic. Pupils equal and round, and reactive to light. NECK: No obvious JVD. CHEST: No evidence of anterior chest wall abnormalities. The patient has diffusely reduced air entry on on both sides. Endotracheal tube in place to ventilator support. CARDIOVASCULAR: The patient currently is in normal sinus rhythm. No murmurs appreciated on this evaluation. ABDOMEN: Obese, soft, with normal bowel sounds. EXTREMITIES: Negative for edema. The patient has not moved any extremities for me to despite stimulation. PSYCHIATRIC: Unable to assess. SKIN: Devoid of any gross rash. NEUROLOGY: Patient can open her eyes and seems responsive when spoken to Results Result Diagram: 09/07/16 0722 09/07/16 0722 Results 24 hrs Laboratory Tests Test 09/06/16 11:00 09/06/16 13:01 09/06/16 17:37 09/06/16 19:07 Creatine Kinase 36 26 Creatine Kinase Index 7.9 10.8 Creatinine Kinase MB (Mass) 2.84 H 2.81 H Lactic Acid Level 0.9 Magnesium Level 1.8 Troponin I 0.088 0.123 *H Bedside Glucose 172 149 Test 09/06/16 21:39 09/07/16 07:22 09/07/16 08:34 Bedside Glucose 120 106 Activated Partial Thromboplast Time 51.5 H Albumin 2.9 L Anion Gap 17 H Blood Morphology Comment Blood Urea Nitrogen 20 # Calcium Level 7.2 L Carbon Dioxide Level 24 Chloride Level 99 Cholesterol Level 223 H Cholesterol/HDL Ratio 3.4 Creatinine 1.36 H Glucose Level 88 # HDL Cholesterol 64 Hematocrit 26.8 L Hemoglobin 9.1 L INR International Normalized Ratio 2.77 Iron Level 38 LDL Cholesterol, Calculated Pending Mean Corpuscular Hemoglobin 29.5 Mean Corpuscular Hemoglobin Concent 34.1 Mean Corpuscular Volume 86.5 Mean Platelet Volume 6.9 L Percent Iron Saturation 21 L Phosphorus Level 2.8 Platelet Count 262 Potassium Level 3.5 Prothrombin Time 29.6 H Prothrombin Time Ratio 2.3 Red Blood Count 3.10 L Red Cell Distribution Width 26.3 H Sodium Level 136 Thyroid Stimulating Hormone (TSH) 1.520 Total Iron Binding Capacity 181 L Triglycerides Level Pending White Blood Count 11.4 H Medications Medications Current Medications Piperacillin Sod/ Tazobactam Sod (Zosyn 2.25gm/ 50ml (Pmx)) 50 ml @ 100 mls/hr Q8 IVPB Last administered on 09/07/16at 05:47; Admin Dose 100 MLS/HR; Start at 14:00 Pantoprazole (Protonix Iv) 40 mg DAILY@06 IV Last administered on 09/07/16at 05 :47; Admin Dose 40 MG; Start 09/07/16 at 06:00 Ondansetron HCl 4 mg 4 mg Q6H PRN IV NAUSEA AND/OR VOMITING; Start 09/06/16 at 11:30 Sodium Chloride (NS) 1,000 ml @ 40 mls/hr Q24H IV Last administered on at 13:13; Admin Dose 40 MLS/HR; Start 09/06/16 at 11:30 Heparin Sodium (Porcine) (Heparin (5000 Units/0.5 ml)) 5,000 unit BID SC Last administered on 09/07/16at 08:50; Admin Dose 5,000 UNIT; Start 09/06/16 at 21: 00 Miscellaneous Information 1 ea NOTE XX ; Start 09/06/16 at 12:00 Glucose (Glutose) 15 gm Q15M PRN PO DECREASED GLUCOSE; Start 09/06/16 at 12:00 Glucose (Glutose) 22.5 gm Q15M PRN PO DECREASED GLUCOSE; Start 09/06/16 at 12: 00 Dextrose (D50w Syringe) 25 ml Q15M PRN IV DECREASED GLUCOSE; Start 09/06/16 at 12:00 Dextrose (D50w Syringe) 50 ml Q15M PRN IV DECREASED GLUCOSE; Start 09/06/16 at 12:00 Glucagon (Glucagen) 1 mg Q15M PRN IM DECREASED GLUCOSE; Start 09/06/16 at 12: 00 Glucose 15 gm 15 gm Q15M PRN BUCCAL DECREASED GLUCOSE; Start 09/06/16 at 12:00 Metronidazole 100 ml @ 100 mls/hr Q8 IVPB Last administered on 09/07/16at 06: 33; Admin Dose 100 MLS/HR; Start 09/06/16 at 14:00 Propofol 100 ml @ 2.445 mls/ hr Q12H IV Last administered on 09/07/16at 05:47 ; Admin Dose 9.78 MLS/HR; Start 09/06/16 at 19:00 Norepinephrine 250 ml @ 1.875 mls/ hr TITRATE IV Last administered on at 23:02; Admin Dose 9.375 MLS/HR; Start 09/06/16 at 22:30 Norepinephrine 16 mg/Dextrose 500 ml @ 1.87 mls/hr TITRATE IV ; Start at 10:00 Albumin Human (Albumin Human 25%) 100 ml @ 100 mls/hr Q8H IV Last administered on 09/07/16at 08:47; Admin Dose 100 MLS/HR; Start 09/07/16 at 08: 00; Stop 09/08/16 at 00:59 Procedures Procedures AMENDMENT: 09/06/2016 3:05:16 PM Ellie Sandoval M.D There is no CT evidence for pulmonary embolus. PROCEDURE: CTA Chest. CLINICAL INDICATION: Shortness of breath TECHNIQUE: The study was performed utilizing a multidetector CT scanner. Direct spiral 1 mm axial sections were obtained from the thoracic inlet to the upper abdomen with the use of 100 cc of Omnipaque 350 nonionic intravenous contrast material and reformatted at 3 mm. Coronal and sagittal reformations were obtained. The images were reviewed on a PACS workstation. DLP 653 mGycm CTDIvol 84.5 and 18.3 mGy COMPARISON: No prior studies are available for comparison. FINDINGS: There is an endotracheal tube which extends into the right mainstem bronchus and should be repositioned. There is a right-sided central line catheter extends into the superior cavoatrial junction. The pulmonary arteries are enlarged with no filling defects present to suggest pulmonary embolus. Aortic and coronary artery atherosclerotic plaque and calcification are present with no evidence of dissection. There is mild to moderate cardiomegaly. There is bilateral partial collapse the lower lobes with consolidation. There is a linear focus of consolidation in the right upper lobe posteriorly. Trace bilateral layering pleural fluid is present. The airways are patent. There is no suspicious nodule or mass. The airways are patent. There are no enlarged mediastinal or axillary lymph nodes. Upper abdominal structures are within normal limits. Degenerative changes are seen in the lumbar spine with no evidence of acute osseous abnormality. IMPRESSION: The endotracheal tube extends into the right mainstem bronchus and should be pulled back by approximately 3-4 cm. Pulmonary arteries are enlarged suggestive for pulmonary arterial hypertension. CT evidence for pulmonary embolus. There is no aortic dissection. Cardiomegaly is seen with atherosclerotic disease. There is bilateral partial collapse of the lower lobes with consolidation along with a linear focus of consolidation of the right upper lobe and this could represent atelectatic changes however pneumonia is not excluded. Trace bilateral layering pleural fluid is present. The findings were given to the nurse Kirk 12:20 p.m. on 09/06/2016 RPTAT: AVH .Ellie Sandoval MD, MD Date Time Electronically viewed and signed by .Ellie Sandoval MD, MD on 09/06/2016 15:05 PROCEDURE: US bilateral lower extremity veins. CLINICAL INDICATION: Bilateral leg pain and swelling. Shortness of breath. TECHNIQUE: Multiple longitudinal and transverse images of the bilateral lower extremity veins were obtained with norris scale and color Doppler imaging. The common femoral vein, femoral vein, and popliteal vein were evaluated. 2D grayscale measurements with compression sonography, color Doppler, and pulsed Doppler with augmentation. COMPARISON: No prior studies are available for comparison. FINDINGS: The bilateral common femoral, femoral and popliteal veins are normally compressible throughout. Color flow demonstrates normal filling of the vessels. Normal waveforms are visualized and there is normal response to augmentation. IMPRESSION: 1. No evidence of deep vein thrombosis involving either lower extremity. RPTAT: QQ .Esvin Mak MD, Date Time Electronically viewed and signed by .Esvin Mak MD, on 09/06/2016 13:40 PAMELA MARTE Sep 07, 2016 09:34
[2016-09-07] MEDS ORDERED: LIDOCAINE 1% (MDV) 20 ML INJ SC ONE (10:00)
[2016-09-07 10:15] LABS: EOSINOPHILS # 0.1 10^3/ul (0.0-0.5); LYMPHOCYTES # 0.7 10^3/ul (0.8-2.9); NEUTROPHIL # 9.6 10^3/ul (1.6-7.5)
[2016-09-07 10:16] LABS: ANISOCYTOSIS 2+; BURR CELLS RARE
[2016-09-07 10:34] LABS: TRIGLYCERIDES > 525 mg/dl (0-149)
--- NOTE | 2016-09-07 10:42 | RADRPT ---
PROCEDURE: XR Chest. CLINICAL INDICATION: Shortness of breath. TECHNIQUE: Single frontal view. COMPARISON: 09/06/2016 FINDINGS: The endotracheal tube and right internal jugular vein tunneled dialysis catheter remain in satisfact ory position. Pulmonary edema and mild atelectasis at the lung bases is unchanged. There is elevat ion of the right hemidiaphragm. The heart is enlarged. There is a small left pleural effusion. There is no right pleural effusion. There is no pneumothorax. IMPRESSION: 1. No change from 09/06/2016. RPTAT: QQ .Esvin Mak MD, MD Date Time Electronically viewed and signed by .Esvin Mak MD, MD on 09/07/2016 10:42 .R/
[2016-09-07] MEDS: SOD CHLORIDE 0.9% 1,000 ML IV SCH (13:34)
--- NOTE | 2016-09-07 13:34 | PN ---
DATE: 09/07/2016 NEPHROLOGY FOLLOW UP NOTE SUBJECTIVE: The patient is critically ill on pressor support, on full ventilatory support. The pat ient yesterday was dialyzed with 1 liter removed. No other events noted. No hemoptysis, hematemesi s, hematochezia. OBJECTIVE: VITAL SIGNS: Blood pressure ____/54, respirations 15, pulse 70, temperature 98.6. I's AND O'S: The patient had 250 in with 1 liter removed with hemodialysis. HEENT: Head is normocephalic. NECK: Supple. HEART: Regular rate. LUNGS: Showed diminished breath sounds at the base. ABDOMEN: Soft, nontender to palpation without rebound or guarding. EXTREMITIES: Negative for clubbing, cyanosis. Positive edema. DERMATOLOGIC: No rashes. MUSCULOSKELETAL: No joint effusions. NEUROLOGIC: No change in exam. MEDICATIONS: The patient's medications have been reviewed. LABORATORY DATA: Currently pending. ASSESSMENT AND PLAN: 1. Nonoliguric acute kidney injury on top of chronic kidney disease stage IV, now possibly end-stag e renal disease. The patient's acute kidney injury was secondary to sepsis at an outside hospital. The patient was initiated on dialysis and has been dialysis dependent. The patient may be showing signs of renal recovery as last creatinine was noted to be 1.92 ____. Patient did have urgent hemo dialysis yesterday due to volume removal. Plan at this point is to monitor renal function for ronni nued signs of recovery. We will hold dialysis today. Would otherwise continue supportive care. Wou ld renally dose all meds, avoid nephrotoxins. 2. Volume overload. The patient's underlying etiology is multifactorial secondary to acute kidney injury, congestive heart failure, possible capillary leak. The patient is currently in shock, on pr essor support. Will hold any dialysis or ultrafiltration this morning and will monitor closely. 3. Ventilator dependent respiratory failure. Etiology is multifactorial secondary to pneumonia, vo lume overload and possible cardiac. The patient's vent settings and ABG have been reviewed. Contin ue to monitor. Follow up with Pulmonary. 4. Anemia of chronic disease. Continue to monitor hemoglobin and hematocrit levels. Will give Epo gen as needed. 5. Mineral bone disorder. Continue to monitor calcium and phosphorus levels. No need for phosphat e binders. 6. Septic shock secondary to pneumonia. The patient is currently on pressor support, on IV antibio tics. The patient is being weaned off pressors. Will give the patient a course of IV albumin to he lp mobilize fluid from interstitial space, intravascular space. Will monitor closely. 7. Diabetes. Continue Accu-Cheks and sliding scale. 8. Acute encephalopathy, etiology is toxic metabolic. Continue to monitor. Please note, I spent over 40 minutes of critical care time with this patient, discussed the case wit h the hospital staff. Dictated By: STEFFANY JESUS/ADRIA Conf#: [id number] DID#: [id number]
[2016-09-07 14:51] LABS: AADO2 Arterial 84.5 mmHg (7.0-24.0); Allen Test ACCEPTAB; Arterial Base Excess -1.6 mmol/L (-3.0-3); Arterial COHb 0.4 % (0.0-3.0); Arterial Fraction of Oxyhgb 95.2 % (93.0-99.0); Arterial HCO3 23.2 mmol/L (22.0-26.0); Arterial MetHb 0.3 % (0.0-1.5); Arterial Total Hemglobin 8.5 g/dl (12.0-18.0); Blood Gas PS 10; MODE VENT - CPAP
--- NOTE | 2016-09-07 17:30 | CONS ---
DATE OF ADMISSION: 09/06/2016 DATE OF CONSULTATION: REASON FOR CONSULTATION: Shortness of breath. Thank you, Dr. Marte, for this consultation. HISTORY OF PRESENT ILLNESS: This is an unfortunate 71-year-old lady with multiple medical problems, came in yesterday with altered mental status, shortness of breath, orthopnea, PND, found to have si gnificant hypoxemic respiratory failure requiring emergent intubation, having failed noninvasive po sitive pressure ventilation. Per chart, the patient was intubated recently at [facility] [place] a mo nth ago and had a prolonged intubation and mechanical ventilation at that time. From there, she was [facility]. PAST MEDICAL HISTORY: 1. Morbid obesity. 2. End-stage renal failure on hemodialysis. 3. History of cardiac arrest. 4. Probable underlying chronic obstructive pulmonary disease. 5. Clostridium difficile leukocytosis. MEDICATIONS: Per chart. ALLERGIES: NONE. SOCIAL HISTORY: Nonsmoker, no alcohol, no history of drug use. FAMILY HISTORY: Noncontributory. SYSTEMS REVIEW: A 12-point review of systems currently unable to perform. PHYSICAL EXAMINATION: GENERAL: Morbidly obese lady, opens eyes, nods to questions. VITAL SIGNS: Currently afebrile, pulse is 80, blood pressure 100/40, O2 saturation 97% on FIO2 of 3 0%. NECK: Obese, soft, nontender. CARDIAC: S1, S2, tachycardia. CHEST: Diminished air entry bilaterally. ABDOMEN: Obese, also. No guarding or rebound. EXTREMITIES: No cyanosis, clubbing, or edema. NEUROLOGIC: Generalized weakness. No focal deficits. LABORATORY DATA: White count 11.4, hemoglobin 9.1, platelets 262. BUN 20, creatinine 1.36. INR 2. 77. DIAGNOSTIC DATA: 1. Chest x-ray was reviewed, shows low lung volumes, pulmonary edema. 2. Lower extremity Dopplers negative for deep vein thrombosis. 3. CT chest shows low lung volumes, bibasilar atelectasis, no definitive pulmonary embolus, has no evidence of filling defect noted, although technically difficult study, given significantly low lung volumes and morbid obesity. ASSESSMENT AND PLAN: Hypoxemic and hypercapnic respiratory failure secondary to likely volume overl oad on top of significant morbid obesity and restrictive lung disease. The patient will require: 1. CPAP weaning trial. 2. Renal failure with volume removal. 3. Nocturnal noninvasive positive pressure ventilation. 4. Aspiration precautions. 5. Deep vein thrombosis and gastrointestinal prophylaxis. 6. Given her body habitus, the patient is at risk of recurrent hypoxemic and hypercapnic respirator y failure. She will almost certainly require nocturnal noninvasive positive pressure ventilation. However, ultimately may require tracheostomy for recurrent respiratory failure. Dictated By: MARCIA BAIN MD SV/ADRIA Conf#: [id number] DID#: [id number] CC: PAMELA MARTE MD;*EndCC*
[2016-09-07] MEDS ORDERED: SOD CHLORIDE 0.9% 250 ML IV* ONE (18:32)
--- NOTE | 2016-09-07 18:40 | RADRPT ---
PROCEDURE: Chest xray. CLINICAL INDICATION: PICC placement TECHNIQUE: A portable supine AP view of the chest was obtained. COMPARISON: 09/07/2016 06:11 a.m. FINDINGS: There has been interval placement of a left arm PICC with its tip projecting in the lower superior v rishabh cava. Endotracheal tube tip is approximately 4.5 cm above the level of the josé. The right i nternal jugular approach hemodialysis catheter tip remains in the superior vena cava. There is stab le mild enlargement of the cardiac silhouette. There is persistent elevation of the right hemidiaph ragm. Pulmonary vascular congestion and mild diffuse interstitial pulmonary edema remain. The left lateral costophrenic sulcus is excluded from the field of view. There is no evidence of a right pl eural effusion. No pneumothorax is seen. IMPRESSION: Interval placement of a left arm PICC with its tip projecting in the lower superior vena cava. Stable cardiomegaly, pulmonary vascular congestion, and mild diffuse interstitial pulmonary edema. RPTAT:PP .Madeline Rae MD, Date Time Electronically viewed and signed by .Madeline Rae MD, on 09/07/2016 18:40 .K/
--- NOTE | 2016-09-07 18:49 | CONS ---
DATE OF ADMISSION: 09/06/2016 DATE OF CONSULTATION: 09/07/2016 TYPE OF CONSULTATION: Cardiology. REFERRING PHYSICIAN: Dr. Pizarro. REASON FOR EVALUATION: Acute respiratory decompensation, CHF, fluid overload. HISTORY OF PRESENT ILLNESS: Ms. Esteban is a 71-year-old woman with hypertension, dyslipidemia, his tory of end-stage renal disease on hemodialysis, a history of recent prolonged hospitalization at an other hospital with pneumonia and CHF exacerbation who comes to the hospital now for evaluation of a cute respiratory decompensation. The patient was noted the emergency room to be in acute respirator y response. She has been intubated in the field and had a CT angio which showed pulmonary hypertens ion with no pulmonary embolus. The patient is with flash pulmonary edema now, I have been asked to see patient in consultation for further reevaluation. I reviewed the patient's EKG carefully. Ches t some nonspecific ST-T changes but no evidence of ST elevation. There is might be some underlying ischemia, but troponin is only mildly elevated. For now, continue therapy. As expected, we will co ntinue to optimize physical therapy as warranted. Continue to treat the patient as necessary. The plan is for her to have additional hemodialysis. We will follow up with a 2D echo if recently has b een done. One of the notes states that the patient has LV thrombus. We are going to repeat echo an d continue anticoagulation as tolerated. PAST MEDICAL HISTORY: 1. Hypertension. 2. Dyslipidemia. 3. History of coronary artery disease. 4. History of a right bundle branch block. 5. History of unusual T-wave pattern in her leads V1, V2 consistent with some ischemia. ALLERGIES: NO KNOWN DRUG ALLERGIES. SOCIAL HISTORY: The patient does not smoke, does not drink, does not use drugs. FAMILY HISTORY: Negative for sudden cardiac . There is history of diabetes in the family. REVIEW OF SYSTEMS: The patient is unable to provide as she is intubated. Please refer to history o f present illness. HEENT: No changes in vision or hearing. CARDIAC: No chest pain reported now, shortness of breath is positive. RESPIRATORY: No shortness of breath. GASTROINTESTINAL: No nausea, vomiting HEENT. GENITOURINARY: No dysuria, hematuria. The patient's fluid overload. NEUROLOGIC: No focal deficits. HEMATOLOGIC: No easy bruising. : ____ disease. RENAL: History of renal failure, chronic. PHYSICAL EXAMINATION: VITAL SIGNS: Temperature 97.5, heart 70, blood pressure 98.4, pulse 61. GENERAL: Obese woman in no acute distress, not alert and oriented, but opening her eyes. HEAD: Normocephalic, atraumatic. Eyes anicteric. NECK: Supple. JVD 6-7 cm. There is no lymphadenopathy. HEART: Regular, but tachycardic and distant. LUNGS: Coarse with scattered wheezes. ABDOMEN: Distended, bowel sounds are present. There is no hepatosplenomegaly. GENITOURINARY: Grossly intact. EXTREMITIES: Shows significant degree of edema. LABORATORY DATA: White blood cells 1.4, hemoglobin is 9.1, platelets 261. INR is 2.3. Sodium 136, potassium 3.5. Her BUN is 20, creatinine 1.36, hemoglobin is 6.1. ASSESSMENT AND PLAN: 1. Shortness of breath. The patient has an acute episode of shortness of breath requiring intubati on. There is a significant fluid overload, hemodialysis to follow. Continue to optimize fluid stat us, rule her out for acute ischemia. 2. Cardiomyopathy. The patient with cardiomyopathy, last EF ____ 45%. Continue to follow. Contin ue to adjust therapy as necessary with diuresis. One of the notes reports that LV thrombus. The pa tient is anticoagulated with an INR of 2.3. We will continue to track INR to make sure the patient does not become subtherapeutic. 3. End-stage renal disease, hemodialysis. follow up, and to follow respiratory failure. Dr. Daniel follows. Continue medical optimization and care. I would like to thank Dr. Pizarro for referring this patient for my evaluation. Dictated By: MILLY ARIZMENDI MD ML/NTS Conf#: [id number] DID#: [id number]
[2016-09-07] MEDS ORDERED: PHYTONADIONE 10 MG in DEXTROSE 5% 50 ML IVPB ONE (19:00)
--- NOTE | 2016-09-07 19:05 | RADRPT ---
PROCEDURE: US guidance for PICC line CLINICAL INDICATION: PICC line placement TECHNIQUE: Multiple real-time images were acquired of the patient's arm utilizing a high resolutio n transducer. This was performed by the PICC line nurse for venous access. COMPARISON: None FINDINGS: Ultrasound guidance for PICC line placement. IMPRESSION: Ultrasound guidance for PICC line placement. RPTAT: AA .Kirk Santillan MD, MD Date Time Electronically viewed and signed by .Kirk Santillan MD, on 09/07/2016 19:05 .S/
[2016-09-07 23:24] LABS: PROTIME 32.4 Sec (12.2-14.2); PT RATIO 2.5
[2016-09-07 23:25] LABS: INR 3.1
[2016-09-08] VITALS (43 sets, daily range): BP systolic 104–163; BP diastolic 55–83; PULSE 65–92; RESP 12–26
[2016-09-08] MEDS: ALBUMIN HUMAN 25% 100 ML IV SCH (01:18)
[2016-09-08 05:17] LABS: INR 2.74; PROTIME 29.4 Sec (12.2-14.2); PT RATIO 2.3
[2016-09-08 05:18] LABS: ALBUMIN 3.2 g/dl (3.3-4.9); PARTIAL THROMBOPLASTIN TIME 54.1 Sec (25.0-35.0)
[2016-09-08 05:20] LABS: CREATININE 1.87 mg/dl (0.44-1.00)
[2016-09-08 05:21] LABS: CALCIUM 7.6 mg/dl (8.4-10.2)
[2016-09-08 05:26] LABS: POTASSIUM 2.9 mmol/L (3.5-5.1)
[2016-09-08 05:54] LABS: CREATININE 1.84 mg/dl (0.44-1.00)
[2016-09-08 05:55] LABS: CALCIUM 7.6 mg/dl (8.4-10.2)
[2016-09-08] MEDS: PANTOPRAZOLE 40 MG INJ IV SCH (06:01)
[2016-09-08] MEDS: PIPER-TAZO 2.25 GM (PMX) 50 ML IVPB SCH ×3 (06:01→21:43)
[2016-09-08] MEDS: metroNIDAZOLE 500 MG/NS (PMX) 100 ML IVPB SCH (06:02)
[2016-09-08 06:27] LABS: HEMATOCRIT 20.2 % (37.0-47.0); MEAN CORPUSCULAR HEMOGLOBIN 29.5 pg (29.0-33.0); MEAN CORPUSCULAR HGB CONC 34.3 g/dl (32.0-37.0); MEAN CORPUSCULAR VOLUME 85.9 fl (82.0-101.0); MEAN PLATELET VOLUME 6.8 fl (7.4-10.4); PLATELET COUNT 201 10^3/UL (140-440); RED BLOOD COUNT 2.35 10^6/ul (4.20-5.40); RED CELL DISTRIBUTION WIDTH 25.6 % (11.5-14.5); UNCORRECTED WBC 7.7 10^3/ul (4.8-10.8); WHITE BLOOD COUNT 7.7 10^3/ul (4.8-10.8)
[2016-09-08 06:28] LABS: POTASSIUM 2.9 mmol/L (3.5-5.1)
[2016-09-08 06:39] LABS: CONDITION 1; HEMOGLOBIN 6.9 g/dl (12.0-16.0); LH ANALYZER COMMENTS 1; SUSPECT 1
[2016-09-08] MEDS: PROPOFOL 100 ML IV SCH ×2 (07:00→19:00)
[2016-09-08] MEDS: INSULIN ASPART [NOVOLOG] 3 ML PEN SC SCH ×3 (07:35→20:39)
[2016-09-08] MEDS: POTASSIUM CHLORIDE 250 ML IVPB SCH ×2 (07:39→15:43)
--- NOTE | 2016-09-08 07:53 | RADRPT ---
PROCEDURE: Chest 1 views. CLINICAL INDICATION: Shortness of breath, pneumonia, congestive heart failure. TECHNIQUE: AP views of the chest were obtained. COMPARISON: September 07, 2016 FINDINGS: The heart is large. Endotracheal tube is stable and appears in grossly appropriate location. Right- sided dialysis catheter is unchanged. Elevation right hemidiaphragm is stable. Associated right mid dle and lower lobe atelectasis/consolidation is unchanged. Central pulmonary vascular congestion an d interstitial prominence in both lungs is unchanged. Perihilar infiltrates throughout the left mauricio g combined with small pleural effusion are stable. Osseous structures are intact. IMPRESSION: Cardiomegaly . Stable central pulmonary vascular congestion and interstitial prominence in both lungs. Stable elevation right hemidiaphragm with associated right middle and lower lobe atelectasis/consoli dation. Stable perihilar infiltrates throughout the left lung combined with small pleural effusion. RPTAT: AA .Fahad Winslow MD, MD Date Time Electronically viewed and signed by .Fahad Winslow MD, on 09/08/2016 07:53 .P/
[2016-09-08 08:29] LABS: AADO2 Arterial 85.6 mmHg (7.0-24.0); Allen Test ACCEPTAB; Arterial Base Excess -5.4 mmol/L (-3.0-3); Arterial Fraction of Oxyhgb 95.3 % (93.0-99.0); Arterial HCO3 18.3 mmol/L (22.0-26.0); Arterial MetHb 0.6 % (0.0-1.5); Arterial Total Hemglobin 5.5 g/dl (12.0-18.0); Blood Gas Low PEEP Setting 0 cmH2O; MODE VENT - AC
[2016-09-08] MEDS: HEPARIN 5,000 UNIT/0.5 ML SYG SC SCH ×2 (09:00→20:28)
[2016-09-08 09:35] LABS: BASOPHIL # 0.1 10^3/ul (0.0-0.1); LYMPHOCYTES # 0.7 10^3/ul (0.8-2.9); MONOCYTE # 0.5 10^3/ul (0.3-0.9); NEUTROPHIL # 6.1 10^3/ul (1.6-7.5)
[2016-09-08 09:36] LABS: TARGET CELLS 1+
--- NOTE | 2016-09-08 11:21 | CONS ---
Date/Time of Note Date/Time of Note DATE: 09/08/16 TIME: 11:17 Consult Date/Type/Reason Admit Date/Time Sep 06, 2016 at 11:22 Initial Consult Date Type of Consultation: pulmonary Subjective Significant epistaxis yesterday following an attempted nasogastric tube placement Significant drop in hemoglobin also noted Patient remained hemodynamically stable Weaning process could not be continued yesterday This morning she is awake alert and oriented family at bedside Objective Vital Signs Date Time Temp Pulse Resp B/P Pulse Ox O2 Delivery O2 Flow Rate FiO2 09/08/16 11:00 65 15 149/75 100 Mechanical Ventilator 09/08/16 08:00 97.7 09/08/16 05:00 30 Intake and Output 09/07/16 09/07/16 09/08/16 14:59 22:59 06:59 Intake Total 330.25 ml 570 ml 420 ml Output Total 43 ml 60 ml 80 ml Balance 287.25 ml 510 ml 340 ml PHYSICAL EXAMINATION: GENERAL: Morbidly obese lady, opens eyes, nods to questions. Orally intubated VITAL SIGNS: as above NECK: Obese, soft, nontender. CARDIAC: S1, S2, tachycardia. CHEST: Diminished air entry bilaterally. ABDOMEN: Obese, also. No guarding or rebound. EXTREMITIES: No cyanosis, clubbing, or edema. NEUROLOGIC: Generalized weakness. No focal deficits. Results/Medications Result Diagram: 09/08/16 0555 09/08/16 0555 Results 24 hrs Laboratory Tests Test 09/07/16 14:30 09/07/16 18:11 09/07/16 20:34 09/07/16 21:01 Arterial Blood HCO3 23.2 Arterial Blood Base Excess -1.6 Arterial Blood Oxygen Saturation 95.9 Sage Test ACCEPTAB Arterial Blood Gas Puncture Site Right Radial Arterial Blood Carboxyhemoglobin 0.4 Arterial Blood Date Drawn 09/07/2016 2:40:41 PM Arterial Blood Methemoglobin 0.3 Arterial Blood pCO2 (Temp correct) 39.1 Arterial Blood pH (Temp corrected) 7.391 Arterial Blood pO2 (Temp corrected) 83.5 Blood Gas A-a O2 Differential 84.5 H Blood Gas Actual Respiration Rate 15 Blood Gas Low PEEP Setting 5.0 Blood Gas Modality VENT - CPAP Blood Gas Notified Time 09/07/2016 2:51:10 PM Blood Gas Notified Whom HG Blood Gas Pressure Support 10 Blood Gas Specimen Source Blood arterial Blood Gas Temperature 37.0 FiO2 30.0 Oxyhemoglobin Percent 95.2 Total Hemoglobin 8.5 L Bedside Glucose 96 91 Activated Partial Thromboplast Time 63.2 H INR International Normalized Ratio 3.10 Magnesium Level 2.0 Prothrombin Time 32.4 H Prothrombin Time Ratio 2.5 Test 09/08/16 04:30 09/08/16 05:55 09/08/16 07:00 09/08/16 07:41 Activated Partial Thromboplast Time 54.1 H Albumin 3.2 L Anion Gap 21 H 21 H Blood Urea Nitrogen 25 H 25 H Calcium Level 7.6 L 7.6 L Carbon Dioxide Level 21 21 Chloride Level 104 105 Creatinine 1.87 H 1.84 H Glucose Level 73 73 INR International Normalized Ratio 2.74 Phosphorus Level 3.0 3.0 Potassium Level 2.9 *L 2.9 *L Prothrombin Time 29.4 H Prothrombin Time Ratio 2.3 Sodium Level 143 144 Band Neutrophils % 4.0 Basophils # 0.1 Basophils % 1.0 Blood Morphology Comment Hematocrit 20.2 #L Hemoglobin 6.9 #*L Lymphocytes # 0.7 L Lymphocytes % 9.0 L Magnesium Level 2.0 Mean Corpuscular Hemoglobin 29.5 Mean Corpuscular Hemoglobin Concent 34.3 Mean Corpuscular Volume 85.9 Mean Platelet Volume 6.8 L Monocytes # 0.5 Monocytes % 7.0 Neutrophils # 6.1 Neutrophils % 79.0 H Platelet Count 201 # Red Blood Count 2.35 #L Red Cell Distribution Width 25.6 H Target Cells 1+ White Blood Count 7.7 # Arterial Blood HCO3 18.3 L Arterial Blood Base Excess -5.4 L Arterial Blood Oxygen Saturation 96.8 Sage Test ACCEPTAB Arterial Blood Gas Puncture Site Right Radial Arterial Blood Carboxyhemoglobin 1.0 Arterial Blood Date Drawn 09/08/2016 7:50:34 AM Arterial Blood Methemoglobin 0.6 Arterial Blood pCO2 (Temp correct) 27.8 L Arterial Blood pH (Temp corrected) 7.437 Arterial Blood pO2 (Temp corrected) 95.6 Blood Gas A-a O2 Differential 85.6 H Blood Gas Actual Respiration Rate 18 Blood Gas Low PEEP Setting 0 Blood Gas Modality VENT - AC Blood Gas Notified Time 09/08/2016 8:29:23 AM Blood Gas Notified Whom JLD Blood Gas Respiration Rate 14.0 Blood Gas Specimen Source Blood arterial Blood Gas Temperature 37.0 Blood Gas Tidal Volume 500.0 FiO2 30.0 Oxyhemoglobin Percent 95.3 Total Hemoglobin 5.5 L Bedside Glucose 85 Medications Current Medications Piperacillin Sod/ Tazobactam Sod (Zosyn 2.25gm/ 50ml (Pmx)) 50 ml @ 100 mls/hr Q8 IVPB Last administered on 09/08/16at 06:01; Admin Dose 100 MLS/HR; Start at 14:00 Pantoprazole (Protonix Iv) 40 mg DAILY@06 IV Last administered on 09/08/16at 06 :01; Admin Dose 40 MG; Start 09/07/16 at 06:00 Ondansetron HCl 4 mg 4 mg Q6H PRN IV NAUSEA AND/OR VOMITING; Start 09/06/16 at 11:30 Sodium Chloride (NS) 1,000 ml @ 40 mls/hr Q24H IV Last administered on at 13:34; Admin Dose 40 MLS/HR; Start 09/06/16 at 11:30 Heparin Sodium (Porcine) (Heparin (5000 Units/0.5 ml)) 5,000 unit BID SC Last administered on 09/07/16at 08:50; Admin Dose 5,000 UNIT; Start 09/06/16 at 21: 00 Miscellaneous Information 1 ea NOTE XX ; Start 09/06/16 at 12:00 Glucose (Glutose) 15 gm Q15M PRN PO DECREASED GLUCOSE; Start 09/06/16 at 12:00 Glucose (Glutose) 22.5 gm Q15M PRN PO DECREASED GLUCOSE; Start 09/06/16 at 12: 00 Dextrose (D50w Syringe) 25 ml Q15M PRN IV DECREASED GLUCOSE; Start 09/06/16 at 12:00 Dextrose (D50w Syringe) 50 ml Q15M PRN IV DECREASED GLUCOSE; Start 09/06/16 at 12:00 Glucagon (Glucagen) 1 mg Q15M PRN IM DECREASED GLUCOSE; Start 09/06/16 at 12: 00 Glucose 15 gm 15 gm Q15M PRN BUCCAL DECREASED GLUCOSE; Start 09/06/16 at 12:00 Metronidazole 100 ml @ 100 mls/hr Q8 IVPB Last administered on 09/08/16at 06: 02; Admin Dose 100 MLS/HR; Start 09/06/16 at 14:00 Propofol 100 ml @ 2.445 mls/ hr Q12H IV Last administered on 09/07/16at 09:58 ; Admin Dose 4.89 MLS/HR; Start 09/06/16 at 19:00 Norepinephrine 16 mg/Dextrose 500 ml @ 1.87 mls/hr TITRATE IV ; Start at 10:00 Potassium Chloride (KCl 40 MEQ/250 ML NS) 250 ml @ 62.5 mls/hr Q4H IVPB Last administered on 09/08/16at 07:39; Admin Dose 62.5 MLS/HR; Start 09/08/16 at 06: 30; Stop 09/08/16 at 14:29 Assessment/Plan Chief Complaint/Hosp Course ASSESSMENT AND PLAN: 1.Hypoxemic and hypercapnic respiratory failure secondary to likely volume overload on top of significant morbid obesity and restrictive lung disease. 2. Morbid obesity 3. Chronic kidney disease 4. Significant anemia following epistaxis 5. Questionable distal pulmonary embolus doubt any hemodynamic significance, negative Dopplers for deep vein thrombosis Plan 1. CPAP weaning trial. After hemodialysis this morning 2. Renal failure with volume removal. 3. Nocturnal noninvasive positive pressure ventilation postextubation 4. Aspiration precautions. 5. Deep vein thrombosis and gastrointestinal prophylaxis. 6. Given her body habitus, the patient is at risk of recurrent hypoxemic and hypercapnic respiratory failure. Case was discussed with patient's next of kin Problems: MARCIA BAIN MD, [facility] Sep 08, 2016 11:21
[2016-09-08] MEDS: SOD CHLORIDE 0.9% 1,000 ML IV SCH ×2 (11:30→16:00)
--- NOTE | 2016-09-08 11:38 | PN ---
DATE: 09/08/2016 SUBJECTIVE: The patient remains critically ill, on ventilatory support. The patient is receiving b lood transfusion this morning. No new events noted. No hemoptysis, hematemesis or hematochezia. OBJECTIVE: VITAL SIGNS: Blood pressure is 120/65, respiration 16, pulse 72, temperature 97.7. I's AND O'S: The patient had 1300 in with 180 out. HEENT: Head is normocephalic. NECK: Supple. HEART: Regular rate. LUNGS: Show diminished breath sounds at the base. ABDOMEN: Soft, nontender to palpation. No rebound or guarding. EXTREMITIES: Negative for clubbing, cyanosis. Positive edema. DERMATOLOGIC: No rashes. MUSCULOSKELETAL: No joint effusions. NEUROLOGIC: No change in exam. MEDICATIONS: The patient's medications have been reviewed. LABORATORY DATA: Showed sodium 144, potassium 2.9, chloride 125, BUN 25, creatinine 1.84. White co unt 7.7, hemoglobin 6.9, hematocrit 20.2, platelet count is 201. The patient's imaging studies have been reviewed. ASSESSMENT AND PLAN: 1. Oliguric acute kidney injury on top of chronic kidney disease stage IV, now possibly end-stage r enal disease. The patient's etiology of acute kidney injury was secondary to sepsis at outside hosp [facility]. The patient is currently dialysis dependent. Plan for dialysis today for 3 hours, 4K bath, c alcium 2.5, will ultrafiltrate as tolerated. 2. Volume overload. Etiology is multifactorial secondary to congestive heart failure, acute kidney injury. Continue ultrafiltration with dialysis. 3. Hypokalemia. We will replete with potassium chloride. The patient will be dialyzed on a 4 pota ssium bath. 4. Anemia. The patient is receiving blood transfusion. We will continue. Will give Epogen follow ing dialysis. 5. Mineral bone disorder. Continue to monitor calcium and phosphorus levels. No need for phosphat e binders. 6. Ventilator dependent respiratory failure. Etiology secondary to pneumonia and volume overload. Vent settings reviewed. ABG is reviewed. Continue follow up with pulmonary. 7. Sepsis, status post shock. The patient is currently off pressor support and continue IV antibio tics, followup cultures. 8. Diabetes, continue Accu-Cheks and sliding scale. 9. Acute encephalopathy, etiology toxic metabolic. Continue to monitor. 10. Hypertension. We will ultrafiltrate with hemodialysis. 11. Arrhythmia, paroxysmal atrial fibrillation, continue medical management and follow up with card iology. 12. Clostridium difficile colitis, continue current treatment plan. 13. Elevated troponin, non-ST elevation myocardial infarction, possibly type 2. Continue medical m anagement and follow up with cardiology. Dictated By: STEFFANY JESUS/ADRIA Conf#: [id number] DID#: [id number]
[2016-09-08] MEDS ORDERED: INSULIN ASPART [NOVOLOG] 3 ML PEN SC SCH (12:00)
--- NOTE | 2016-09-08 14:04 | CONS ---
Date/Time of Note Date/Time of Note DATE: 09/08/16 TIME: 13:59 Assessment/Plan Assessment/Plan Chief Complaint/Hosp Course Imp: 1.Positive troponin-minmal in setting of esrd 2.CHF-? systolic vs diastolic acute 3.HTN 4.ESRD on HD 5.anemia-requiring transfusions 6.Coagulopathy 7.H/O PAF in SR currently Recc: -Tele -serial ecg's -trend cardiac enzymes -Will f/u echo -HD for volume removal -Transfuse PRBC's and follow hgb closely Problems: Consultation Date/Type/Reason Admit Date/Time Sep 06, 2016 at 11:22 Initial Consult Date 09/07/2016 Type of Consultation: Cardiology Reason for Consultation nstemi/CHF Referring Provider: PAMELA MARTE Exam/Review of Systems Vital Signs Vitals Vital Signs Date Time Temp Pulse Resp B/P Pulse Ox O2 Delivery O2 Flow Rate FiO2 09/08/16 13:15 71 09/08/16 13:00 15 149/78 100 Mechanical Ventilator 09/08/16 12:00 97.8 09/08/16 05:00 30 Intake and Output 09/07/16 09/07/16 09/08/16 15:00 23:00 07:00 Intake Total 356.70 ml 670 ml 320 ml Output Total 33 ml 75 ml 75 ml Balance 323.70 ml 595 ml 245 ml Exam Review of Systems: CONSTITUTIONAL: No fevers, chills. PULMONARY: intubated CARDIOVASCULAR: No obvious chest pain/palpitations GASTROINTESTINAL: No nausea/vomiting. GENITOURINARY: No hematuria/dysuria. MUSCULOSKELETAL: No obvious myagias/arthalgias. PSYCHIATRIC: No documented depression. NEUROLOGIC: sedated Constitutional: alert Psych: no complaints Head: normocephalic ENMT: mucosa pink and moist Neck: jvd (9cm water), supple Respiratory: diminished breath sounds (at bases/B) Cardiovascular: regular rate and rhythm Gastrointestinal: non-tender, soft Musculoskeletal: muscle tone (normal) Extremities: edema (trace/B) Neurological: other (sedated) Results Result Diagram: 09/08/16 0555 09/08/16 0555 Results 24 hrs Laboratory Tests Test 09/07/16 14:30 09/07/16 18:11 09/07/16 20:34 09/07/16 21:01 Arterial Blood HCO3 23.2 Arterial Blood Base Excess -1.6 Arterial Blood Oxygen Saturation 95.9 Sage Test ACCEPTAB Arterial Blood Gas Puncture Site Right Radial Arterial Blood Carboxyhemoglobin 0.4 Arterial Blood Date Drawn 09/07/2016 2:40:41 PM Arterial Blood Methemoglobin 0.3 Arterial Blood pCO2 (Temp correct) 39.1 Arterial Blood pH (Temp corrected) 7.391 Arterial Blood pO2 (Temp corrected) 83.5 Blood Gas A-a O2 Differential 84.5 H Blood Gas Actual Respiration Rate 15 Blood Gas Low PEEP Setting 5.0 Blood Gas Modality VENT - CPAP Blood Gas Notified Time 09/07/2016 2:51:10 PM Blood Gas Notified Whom HG Blood Gas Pressure Support 10 Blood Gas Specimen Source Blood arterial Blood Gas Temperature 37.0 FiO2 30.0 Oxyhemoglobin Percent 95.2 Total Hemoglobin 8.5 L Bedside Glucose 96 91 Activated Partial Thromboplast Time 63.2 H INR International Normalized Ratio 3.10 Magnesium Level 2.0 Prothrombin Time 32.4 H Prothrombin Time Ratio 2.5 Test 09/08/16 04:30 09/08/16 05:55 09/08/16 07:00 09/08/16 07:41 Activated Partial Thromboplast Time 54.1 H Albumin 3.2 L Anion Gap 21 H 21 H Blood Urea Nitrogen 25 H 25 H Calcium Level 7.6 L 7.6 L Carbon Dioxide Level 21 21 Chloride Level 104 105 Creatinine 1.87 H 1.84 H Glucose Level 73 73 INR International Normalized Ratio 2.74 Phosphorus Level 3.0 3.0 Potassium Level 2.9 *L 2.9 *L Prothrombin Time 29.4 H Prothrombin Time Ratio 2.3 Sodium Level 143 144 Band Neutrophils % 4.0 Basophils # 0.1 Basophils % 1.0 Blood Morphology Comment Hematocrit 20.2 #L Hemoglobin 6.9 #*L Lymphocytes # 0.7 L Lymphocytes % 9.0 L Magnesium Level 2.0 Mean Corpuscular Hemoglobin 29.5 Mean Corpuscular Hemoglobin Concent 34.3 Mean Corpuscular Volume 85.9 Mean Platelet Volume 6.8 L Monocytes # 0.5 Monocytes % 7.0 Neutrophils # 6.1 Neutrophils % 79.0 H Platelet Count 201 # Red Blood Count 2.35 #L Red Cell Distribution Width 25.6 H Target Cells 1+ White Blood Count 7.7 # Arterial Blood HCO3 18.3 L Arterial Blood Base Excess -5.4 L Arterial Blood Oxygen Saturation 96.8 Sage Test ACCEPTAB Arterial Blood Gas Puncture Site Right Radial Arterial Blood Carboxyhemoglobin 1.0 Arterial Blood Date Drawn 09/08/2016 7:50:34 AM Arterial Blood Methemoglobin 0.6 Arterial Blood pCO2 (Temp correct) 27.8 L Arterial Blood pH (Temp corrected) 7.437 Arterial Blood pO2 (Temp corrected) 95.6 Blood Gas A-a O2 Differential 85.6 H Blood Gas Actual Respiration Rate 18 Blood Gas Low PEEP Setting 0 Blood Gas Modality VENT - AC Blood Gas Notified Time 09/08/2016 8:29:23 AM Blood Gas Notified Whom JLD Blood Gas Respiration Rate 14.0 Blood Gas Specimen Source Blood arterial Blood Gas Temperature 37.0 Blood Gas Tidal Volume 500.0 FiO2 30.0 Oxyhemoglobin Percent 95.3 Total Hemoglobin 5.5 L Bedside Glucose 85 Test 09/08/16 11:33 Bedside Glucose 86 Medications Medications Current Medications Piperacillin Sod/ Tazobactam Sod (Zosyn 2.25gm/ 50ml (Pmx)) 50 ml @ 100 mls/hr Q8 IVPB Last administered on 09/08/16at 06:01; Admin Dose 100 MLS/HR; Start at 14:00 Pantoprazole (Protonix Iv) 40 mg DAILY@06 IV Last administered on 09/08/16at 06 :01; Admin Dose 40 MG; Start 09/07/16 at 06:00 Ondansetron HCl 4 mg 4 mg Q6H PRN IV NAUSEA AND/OR VOMITING; Start 09/06/16 at 11:30 Sodium Chloride (NS) 1,000 ml @ 40 mls/hr Q24H IV Last administered on at 13:34; Admin Dose 40 MLS/HR; Start 09/06/16 at 11:30 Heparin Sodium (Porcine) (Heparin (5000 Units/0.5 ml)) 5,000 unit BID SC Last administered on 09/07/16at 08:50; Admin Dose 5,000 UNIT; Start 09/06/16 at 21: 00 Miscellaneous Information 1 ea NOTE XX ; Start 09/06/16 at 12:00 Glucose (Glutose) 15 gm Q15M PRN PO DECREASED GLUCOSE; Start 09/06/16 at 12:00 Glucose (Glutose) 22.5 gm Q15M PRN PO DECREASED GLUCOSE; Start 09/06/16 at 12: 00 Dextrose (D50w Syringe) 25 ml Q15M PRN IV DECREASED GLUCOSE; Start 09/06/16 at 12:00 Dextrose (D50w Syringe) 50 ml Q15M PRN IV DECREASED GLUCOSE; Start 09/06/16 at 12:00 Glucagon (Glucagen) 1 mg Q15M PRN IM DECREASED GLUCOSE; Start 09/06/16 at 12: 00 Glucose 15 gm 15 gm Q15M PRN BUCCAL DECREASED GLUCOSE; Start 09/06/16 at 12:00 Metronidazole 100 ml @ 100 mls/hr Q8 IVPB Last administered on 09/08/16at 06: 02; Admin Dose 100 MLS/HR; Start 09/06/16 at 14:00 Propofol 100 ml @ 2.445 mls/ hr Q12H IV Last administered on 09/07/16at 09:58 ; Admin Dose 4.89 MLS/HR; Start 09/06/16 at 19:00 Norepinephrine 16 mg/Dextrose 500 ml @ 1.87 mls/hr TITRATE IV ; Start at 10:00 Potassium Chloride (KCl 40 MEQ/250 ML NS) 250 ml @ 62.5 mls/hr Q4H IVPB Last administered on 09/08/16at 07:39; Admin Dose 62.5 MLS/HR; Start 09/08/16 at 06: 30; Stop 09/08/16 at 14:29 Insulin Aspart (Novolog Insulin Pen) NOVOLOG *MODERATE* ALGORITHM Q6H SC ; Start 09/08/16 at 12:00 KAJAL MCKINNEY Sep 08, 2016 14:04
--- NOTE | 2016-09-08 14:42 | PN ---
Date/Time of Note Date/Time of Note DATE: 09/08/16 TIME: 14:29 Assessment/Plan VTE Prophylaxis VTE Prophylaxis Intervention: heparin Assessment/Plan Chief Complaint/Hosp Course 1. Acute respiratory failure weaning trials, pulmonology on case 2. Congestive heart failure (diastolic) Significant pulm edema on CXR, continue diuresis with HD, nephrology and cardiology on the case 3. Elevated troponins / NSTEMI secondary to demand Cardiology consult appreciated 3. Pneumonia possibly secondary to aspiration Cont Zosyn 4. Diabetes mellitus Type 2-controlled NISS 5. Sepsis with Septic Shock 2/2 Pneumonia Now off pressors / cont abx / supportive care 6. Hypertension-stable Continue hold antihypertensives 7. End-stage renal disease on hemodialysis Nephrology managing dialysis 8. Paroxysmal atrial fibrillation amiodarone/ INR at goal despite no meds / monitor / serially monitor 9. UTI secondary to yeast 10. History of C. diff colitis status post treatment C. difficile toxin is negative, DC Flagyl 11. Chronic hypochromic anemia secondary to chronic disease Monitor Prophylaxis: Heparin Problems: Subjective 24 Hr Interval Summary Subjective hx not possible: pt non-verbal Exam/Review of Systems Vital Signs Vitals Vital Signs Date Time Temp Pulse Resp B/P Pulse Ox O2 Delivery O2 Flow Rate FiO2 09/08/16 14:00 70 17 154/80 100 Mechanical Ventilator 09/08/16 12:00 97.8 09/08/16 05:00 30 Intake and Output 09/07/16 09/07/16 09/08/16 15:00 23:00 07:00 Intake Total 356.70 ml 670 ml 320 ml Output Total 33 ml 75 ml 75 ml Balance 323.70 ml 595 ml 245 ml Exam Constitutional: non-verbal ENMT: intubated Respiratory: clear to auscultation Cardiovascular: regular rate and rhythm Gastrointestinal: soft, No distended Musculoskeletal: nl extremities to inspection Results Result Diagram: 09/08/16 0555 09/08/16 0555 Results 24 hrs Laboratory Tests Test 09/07/16 14:30 09/07/16 18:11 09/07/16 20:34 09/07/16 21:01 Arterial Blood HCO3 23.2 Arterial Blood Base Excess -1.6 Arterial Blood Oxygen Saturation 95.9 Sage Test ACCEPTAB Arterial Blood Gas Puncture Site Right Radial Arterial Blood Carboxyhemoglobin 0.4 Arterial Blood Date Drawn 09/07/2016 2:40:41 PM Arterial Blood Methemoglobin 0.3 Arterial Blood pCO2 (Temp correct) 39.1 Arterial Blood pH (Temp corrected) 7.391 Arterial Blood pO2 (Temp corrected) 83.5 Blood Gas A-a O2 Differential 84.5 H Blood Gas Actual Respiration Rate 15 Blood Gas Low PEEP Setting 5.0 Blood Gas Modality VENT - CPAP Blood Gas Notified Time 09/07/2016 2:51:10 PM Blood Gas Notified Whom HG Blood Gas Pressure Support 10 Blood Gas Specimen Source Blood arterial Blood Gas Temperature 37.0 FiO2 30.0 Oxyhemoglobin Percent 95.2 Total Hemoglobin 8.5 L Bedside Glucose 96 91 Activated Partial Thromboplast Time 63.2 H INR International Normalized Ratio 3.10 Magnesium Level 2.0 Prothrombin Time 32.4 H Prothrombin Time Ratio 2.5 Test 09/08/16 04:30 09/08/16 05:55 09/08/16 07:00 09/08/16 07:41 Activated Partial Thromboplast Time 54.1 H Albumin 3.2 L Anion Gap 21 H 21 H Blood Urea Nitrogen 25 H 25 H Calcium Level 7.6 L 7.6 L Carbon Dioxide Level 21 21 Chloride Level 104 105 Creatinine 1.87 H 1.84 H Glucose Level 73 73 INR International Normalized Ratio 2.74 Phosphorus Level 3.0 3.0 Potassium Level 2.9 *L 2.9 *L Prothrombin Time 29.4 H Prothrombin Time Ratio 2.3 Sodium Level 143 144 Band Neutrophils % 4.0 Basophils # 0.1 Basophils % 1.0 Blood Morphology Comment Hematocrit 20.2 #L Hemoglobin 6.9 #*L Lymphocytes # 0.7 L Lymphocytes % 9.0 L Magnesium Level 2.0 Mean Corpuscular Hemoglobin 29.5 Mean Corpuscular Hemoglobin Concent 34.3 Mean Corpuscular Volume 85.9 Mean Platelet Volume 6.8 L Monocytes # 0.5 Monocytes % 7.0 Neutrophils # 6.1 Neutrophils % 79.0 H Platelet Count 201 # Red Blood Count 2.35 #L Red Cell Distribution Width 25.6 H Target Cells 1+ White Blood Count 7.7 # Arterial Blood HCO3 18.3 L Arterial Blood Base Excess -5.4 L Arterial Blood Oxygen Saturation 96.8 Sage Test ACCEPTAB Arterial Blood Gas Puncture Site Right Radial Arterial Blood Carboxyhemoglobin 1.0 Arterial Blood Date Drawn 09/08/2016 7:50:34 AM Arterial Blood Methemoglobin 0.6 Arterial Blood pCO2 (Temp correct) 27.8 L Arterial Blood pH (Temp corrected) 7.437 Arterial Blood pO2 (Temp corrected) 95.6 Blood Gas A-a O2 Differential 85.6 H Blood Gas Actual Respiration Rate 18 Blood Gas Low PEEP Setting 0 Blood Gas Modality VENT - AC Blood Gas Notified Time 09/08/2016 8:29:23 AM Blood Gas Notified Whom JLD Blood Gas Respiration Rate 14.0 Blood Gas Specimen Source Blood arterial Blood Gas Temperature 37.0 Blood Gas Tidal Volume 500.0 FiO2 30.0 Oxyhemoglobin Percent 95.3 Total Hemoglobin 5.5 L Bedside Glucose 85 Test 09/08/16 11:33 Bedside Glucose 86 Medications Medications Current Medications Piperacillin Sod/ Tazobactam Sod (Zosyn 2.25gm/ 50ml (Pmx)) 50 ml @ 100 mls/hr Q8 IVPB Last administered on 09/08/16at 06:01; Admin Dose 100 MLS/HR; Start at 14:00 Pantoprazole (Protonix Iv) 40 mg DAILY@06 IV Last administered on 09/08/16at 06 :01; Admin Dose 40 MG; Start 09/07/16 at 06:00 Ondansetron HCl 4 mg 4 mg Q6H PRN IV NAUSEA AND/OR VOMITING; Start 09/06/16 at 11:30 Sodium Chloride (NS) 1,000 ml @ 40 mls/hr Q24H IV Last administered on at 13:34; Admin Dose 40 MLS/HR; Start 09/06/16 at 11:30 Heparin Sodium (Porcine) (Heparin (5000 Units/0.5 ml)) 5,000 unit BID SC Last administered on 09/07/16at 08:50; Admin Dose 5,000 UNIT; Start 09/06/16 at 21: 00 Miscellaneous Information 1 ea NOTE XX ; Start 09/06/16 at 12:00 Glucose (Glutose) 15 gm Q15M PRN PO DECREASED GLUCOSE; Start 09/06/16 at 12:00 Glucose (Glutose) 22.5 gm Q15M PRN PO DECREASED GLUCOSE; Start 09/06/16 at 12: 00 Dextrose (D50w Syringe) 25 ml Q15M PRN IV DECREASED GLUCOSE; Start 09/06/16 at 12:00 Dextrose (D50w Syringe) 50 ml Q15M PRN IV DECREASED GLUCOSE; Start 09/06/16 at 12:00 Glucagon (Glucagen) 1 mg Q15M PRN IM DECREASED GLUCOSE; Start 09/06/16 at 12: 00 Glucose 15 gm 15 gm Q15M PRN BUCCAL DECREASED GLUCOSE; Start 09/06/16 at 12:00 Metronidazole 100 ml @ 100 mls/hr Q8 IVPB Last administered on 09/08/16at 06: 02; Admin Dose 100 MLS/HR; Start 09/06/16 at 14:00 Propofol 100 ml @ 2.445 mls/ hr Q12H IV Last administered on 09/07/16at 09:58 ; Admin Dose 4.89 MLS/HR; Start 09/06/16 at 19:00 Norepinephrine 16 mg/Dextrose 500 ml @ 1.87 mls/hr TITRATE IV ; Start at 10:00 Potassium Chloride (KCl 40 MEQ/250 ML NS) 250 ml @ 62.5 mls/hr Q4H IVPB Last administered on 09/08/16at 07:39; Admin Dose 62.5 MLS/HR; Start 09/08/16 at 06: 30; Stop 09/08/16 at 14:29 Insulin Aspart (Novolog Insulin Pen) NOVOLOG *MODERATE* ALGORITHM Q6H SC ; Start 09/08/16 at 12:00 CONSTANZA SALINAS Sep 08, 2016 14:41
[2016-09-08] MEDS ORDERED: HEPARIN 1000 UNITS/ML 10 ML INJ CATHETER ONE (15:30)
--- NOTE | 2016-09-08 18:35 | RADRPT ---
Echocardiogram Report Patient Name: ANUM BLANTON Gender: Female Date: 1945 Study Date: 06-Sep-2016 Hardboard Grinder: Rey [place] RDCS Location: Ref. Physician: PAMELA MARTE Quality: Good Procedures: Transthoracic echocardiogram with complete 2D, M-Mode, and doppler examination. Indications: Evaluate Left Ventricular function. 2D/M Mode Doppler Measurement Value Normal Ranges Measurement Value Normal Ranges LVIDd 2D 5.2 3.5 - 5.6 cm AV Peak Jose 1.8 m/sec LVIDs 2D 2.6 2.1 - 4.1 cm AV Peak PG 12.9 mmHg LVPWd 2D 0.9 0.6 - 1.1 cm LVOT Peak Jose 1.1 m/sec IVSd 2D 0.9 0.6 - 1.1 cm LVOT Peak PG 4.9 mmHg AoR Diam 2D 2.4 2.0 - 3.7 cm MV E Peak Jose 0.8 m/sec EDV 2D 129.4 cm3 MV A Peak Jose 1.4 m/sec ESV 2D 17.4 cm3 MV E/A 0.6 LA Dimen 2D 3.6 2.3 - 4.0 cm MV Decel Time 156 msec MV Decel Zapata 5 MV E/A 0.6 TR Peak Jose 2.9 m/sec TR Peak PG 33.3 mmHg RVSP 41.0 mmHg Findings Left Ventricle: Normal left ventricular cavity size. Normal left ventricular wall thickness. Moderate left ventricular systolic dysfunction. Ejection fraction is visually estimated at 4045 %. Tissue Doppler/Mitral Doppler indices are consistent with impaired relaxation (Stage I diastolic dysfunction). These segments of the LV are hypokinetic apex. Right Ventricle: Normal right ventricular size. Normal right ventricular systolic function. Left Atrium: The left atrium is normal in size. Right Atrium: The right atrium is normal in size. Mitral Valve: Mitral valve leaflets appear mildly thickened. Mild mitral annular calcification. Aortic Valve: Aortic sclerosis without stenosis. Aortic cusps appear mildly calcified. Trace aortic valve regurgitation. Tricuspid Valve: Normal appearance of the tricuspid valve. Estimated peak PA systolic pressure 41 mmHg. There is mild tricuspid regurgitation. Pulmonic Valve: There is mild pulmonic regurgitation. Pericardium: Normal pericardium with no significant pericardial effusion. Aorta: Normal aortic root. IVC: Inferior vena cava without respiratory collapse, however, patient on ventilator. Pulmonary Artery: Normal pulmonary artery size. Conclusions 1.The left ventricle is normal in size with moderately reduced systolic function. 2.Estimated left ventricular ejection fraction of 40-45%. The apex is hypokinetic. Electronically Signed By: Joey Crandall 08-Sep-2016 18:35:10 -0800 Patient Name: ANUM BLANTON Study Date: 06-Sep-2016 [id number]
--- NOTE | 2016-09-08 19:43 | RADRPT ---
Echocardiogram Report ADDENDUM Patient Name: ANUM BLANTON Gender: Female Date: 1945 Study Date: 07-Sep-2016 Order Management Specialist: Rey Hill [facility] Location: 118 Ref. Physician: MILLY ARIZMENDI Quality: Good Procedures: Transthoracic echocardiogram with complete 2D, M-Mode, and doppler examination. Indications: Evaluate Left Ventricular function. 2D/M Mode Doppler Measurement Value Normal Ranges Measurement Value Normal Ranges AV Peak Jose 2.1 m/sec AV Peak PG 17.3 mmHg LVOT Peak Jose 1.4 m/sec TR Peak Jose 2.3 m/sec TR Peak PG 22.0 mmHg RVSP 30.0 mmHg Findings Left Ventricle: Normal left ventricular cavity size. Normal left ventricular wall thickness. Mild left ventricular systolic dysfunction. Ejection fraction is visually estimated at 45 %. Probable thrombus seen. Tissue Doppler/Mitral Doppler indices are consistent with impaired relaxation (Stage I diastolic dysfunction). These segments of the LV are hypokinetic apex. Right Ventricle: Normal right ventricular size. Moderate right ventricular hypokinesis. Left Atrium: The left atrium is normal in size. Right Atrium: The right atrium is normal in size. Mitral Valve: Mitral valve leaflets appear mildly thickened. Mild mitral annular calcification. Trace mitral regurgitation. Aortic Valve: Aortic sclerosis without stenosis. Aortic cusps appear mildly calcified. Trace aortic valve regurgitation. Tricuspid Valve: Normal appearance of the tricuspid valve. Estimated peak PA systolic pressure 30 mmHg. There is mild tricuspid regurgitation. Pulmonic Valve: There is mild pulmonic regurgitation. Pericardium: Normal pericardium with no significant pericardial effusion. Aorta: Normal aortic root. IVC: Inferior vena cava without respiratory collapse, however, patient on ventilator. Pulmonary Artery: Normal pulmonary artery size. Conclusions 1.Normal left ventricular cavity size. Normal left ventricular wall thickness. Mild left ventricular systolic dysfunction. Ejection fraction is visually estimated at 45 %. Probable thrombus seen. Tissue Doppler/Mitral Doppler indices are consistent with impaired relaxation (Stage I diastolic dysfunction). These segments of the LV are hypokinetic apex. 2.Normal right ventricular size. Moderate right ventricular hypokinesis. 3.Mitral valve leaflets appear mildly thickened. Mild mitral annular calcification. Trace mitral regurgitation. 4.Aortic sclerosis without stenosis. Aortic cusps appear mildly calcified. Trace aortic valve regurgitation. Due to focal thickening of aortic valve leaflet cannot completely rule out associated vegetations. Clinical correlation necessary. 5.Normal appearance of the tricuspid valve. Estimated peak PA systolic pressure 30 mmHg. There is mild tricuspid regurgitation. 6.There is mild pulmonic regurgitation. Electronically Signed By: Sukh Del Toro 08-Sep-2016 19:55:49 -0800 [ADDENDUM] Patient Name: ANUM BLANTON Study Date: 07-Sep-2016 [id number]
[2016-09-09] VITALS (44 sets, daily range): BP systolic 95–166; BP diastolic 56–110; PULSE 67–159; RESP 14–36
[2016-09-09] MEDS: INSULIN ASPART [NOVOLOG] 3 ML PEN SC SCH ×6 (00:50→21:16)
[2016-09-09] MEDS: SOD CHLORIDE 0.9% 1,000 ML IV SCH (01:55)
[2016-09-09 05:32] LABS: CREATINE KINASE < 20 IU/L (23-200)
[2016-09-09 05:33] LABS: CK-MB 0.66 ng/ml (0.0-2.4); POTASSIUM 3.3 mmol/L (3.5-5.1)
[2016-09-09 05:36] LABS: ALBUMIN 2.9 g/dl (3.3-4.9); CREATININE 1.61 mg/dl (0.44-1.00); POTASSIUM 3.4 mmol/L (3.5-5.1); TROPONIN-I 0.099 ng/ml (0.00-0.12)
[2016-09-09 05:37] LABS: MAGNESIUM 1.9 mg/dl (1.7-2.5)
[2016-09-09] MEDS: PANTOPRAZOLE 40 MG INJ IV SCH (05:37)
[2016-09-09] MEDS: PIPER-TAZO 2.25 GM (PMX) 50 ML IVPB SCH ×3 (05:37→21:09)
[2016-09-09 05:38] LABS: CREATININE 1.52 mg/dl (0.44-1.00)
[2016-09-09 05:39] LABS: CALCIUM 7.9 mg/dl (8.4-10.2)
[2016-09-09 05:40] LABS: INR 2.92; PROTIME 30.9 Sec (12.2-14.2); PT RATIO 2.4
[2016-09-09 05:41] LABS: PARTIAL THROMBOPLASTIN TIME 56.6 Sec (25.0-35.0)
[2016-09-09 05:44] LABS: HEMATOCRIT 27.3 % (37.0-47.0); HEMOGLOBIN 9.2 g/dl (12.0-16.0); MEAN CORPUSCULAR HEMOGLOBIN 29.1 pg (29.0-33.0); MEAN CORPUSCULAR HGB CONC 33.6 g/dl (32.0-37.0); MEAN CORPUSCULAR VOLUME 86.4 fl (82.0-101.0); PLATELET COUNT 180 10^3/UL (140-440); RED BLOOD COUNT 3.16 10^6/ul (4.20-5.40); RED CELL DISTRIBUTION WIDTH 20.1 % (11.5-14.5); UNCORRECTED WBC 8.3 10^3/ul (4.8-10.8); WHITE BLOOD COUNT 8.3 10^3/ul (4.8-10.8)
[2016-09-09 05:55] LABS: CONDITION 1
[2016-09-09 05:56] LABS: LH ANALYZER COMMENTS 1
[2016-09-09] MEDS: PROPOFOL 100 ML IV SCH ×2 (07:00→23:02)
[2016-09-09 07:35] LABS: ANISOCYTOSIS 2+; LYMPHOCYTES # 1.1 10^3/ul (0.8-2.9); MONOCYTE # 0.7 10^3/ul (0.3-0.9); NEUTROPHIL # 6.2 10^3/ul (1.6-7.5)
[2016-09-09 07:36] LABS: BURR CELLS 1+; PLATELET ESTIMATE PLT APPEAR ADEQUATE
[2016-09-09] MEDS ORDERED: POTASSIUM CHLORIDE 20 MEQ in SOD CHLORIDE 0.9% 100 ML IVPB ONE (08:00)
[2016-09-09 08:05] LABS: AADO2 Arterial 86.5 mmHg (7.0-24.0); Allen Test ACCEPTAB; Arterial Base Excess -3.9 mmol/L (-3.0-3); Arterial COHb 0.2 % (0.0-3.0); Arterial Fraction of Oxyhgb 96.7 % (93.0-99.0); Arterial HCO3 18.8 mmol/L (22.0-26.0); Arterial MetHb 0.3 % (0.0-1.5); MODE VENT - AC
[2016-09-09] MEDS: HEPARIN 5,000 UNIT/0.5 ML SYG SC SCH ×2 (08:11→21:00)
--- NOTE | 2016-09-09 08:11 | CONS ---
Date/Time of Note Date/Time of Note DATE: 09/09/16 TIME: 08:09 Assessment/Plan Assessment/Plan Additional Assessment/Plan 1.Positive troponin-minmal in setting of esrd - no intervention planned now 2.CHF-? systolic vs diastolic acute - s/p HD yest to remove fluids - better now 3.HTN - wel lRx - con't med rx 4.ESRD on HD - renal team follows 5.anemia-requiring transfusions - with nasal bleed yest - better now 6.Coagulopathy 7.H/O PAF in SR currently - will monitor, stable on monitor Consultation Date/Type/Reason Admit Date/Time Sep 06, 2016 at 11:22 Initial Consult Date Type of Consultation: Cardiology Referring Provider: PAMELA MARTE 24 HR Interval Summary Free Text/Dictation NO acute change - BP stable - hope to wean and extubate soon - better fluid status. ROS: No fever, no chills, no nausea, no vomiting, no diarrhea/constipation No recent weight changes No chest pain, no PND, no orthopnea No dizziness, blurred vision No thirst, no heat or cold intolerance Exam/Review of Systems Vital Signs Vitals Vital Signs Date Time Temp Pulse Resp B/P Pulse Ox O2 Delivery O2 Flow Rate FiO2 09/09/16 06:00 76 18 125/93 96 Mechanical Ventilator 09/09/16 05:47 30 09/09/16 04:00 99.4 Intake and Output 09/08/16 09/08/16 09/09/16 15:00 23:00 07:00 Intake Total 1050 ml 830 ml 330 ml Output Total 85 ml 3345 ml 40 ml Balance 965 ml -2515 ml 290 ml Exam General: WN/WD/NAD, AOx 2-3 HEENT: Unicetric/atraumatic/EOMI (follows commands) NECK: JVD elevated, no thyromegaly Lymph: no lymphadenopathy HEART: regular with no S3, II/ systolic murmur at apex LUNGS: Coarse sounds ABD: soft, NT, ND, +BS : Intact Neuro: non focal SKIN: chronic changes EXT: trace edema Results Result Diagram: 09/09/16 0403 09/09/16402 Results 24 hrs Laboratory Tests Test 09/08/16 11:33 09/08/16 14:02 09/08/16 16:37 09/08/16 20:38 Bedside Glucose 86 113 79 Potassium Level 3.6 Test 09/09/16 00:04 09/09/16 04:03 09/09/16 05:36 09/09/16 07:00 Bedside Glucose 82 77 Activated Partial Thromboplast Time 56.6 H Albumin 2.9 L Anion Gap 20 H Anisocytosis 2+ Band Neutrophils % 4.0 Blood Morphology Comment Blood Urea Nitrogen 17 Calcium Level 7.9 L Carbon Dioxide Level 21 Chloride Level 103 Creatine Kinase < 20 L Creatine Kinase Index Creatinine 1.52 H Creatinine Kinase MB (Mass) 0.66 Glucose Level 69 L Hematocrit 27.3 #L Hemoglobin 9.2 #L INR International Normalized Ratio 2.92 Lymphocytes # 1.1 Lymphocytes % 13.0 L Magnesium Level 1.9 Mean Corpuscular Hemoglobin 29.1 Mean Corpuscular Hemoglobin Concent 33.6 Mean Corpuscular Volume 86.4 Mean Platelet Volume 7.0 L Monocytes # 0.7 Monocytes % 8.0 Neutrophils # 6.2 Neutrophils % 75.0 Phosphorus Level 2.0 L Platelet Count 180 Platelet Estimate PLT APPEAR ADEQUATE Potassium Level 3.4 L Prothrombin Time 30.9 H Prothrombin Time Ratio 2.4 Red Blood Count 3.16 #L Red Cell Distribution Width 20.1 #H Sodium Level 141 Troponin I 0.099 White Blood Count 8.3 Arterial Blood HCO3 18.8 L Arterial Blood Base Excess -3.9 L Arterial Blood Oxygen Saturation 97.2 Sage Test ACCEPTAB Arterial Blood Gas Puncture Site Right Radial Arterial Blood Carboxyhemoglobin 0.2 Arterial Blood Date Drawn 09/09/2016 7:30:53 AM Arterial Blood Methemoglobin 0.3 Arterial Blood pCO2 (Temp correct) 26.7 L Arterial Blood pH (Temp corrected) 7.465 H Arterial Blood pO2 (Temp corrected) 96.0 Blood Gas A-a O2 Differential 86.5 H Blood Gas Actual Respiration Rate 23 Blood Gas Low PEEP Setting 5.0 Blood Gas Modality VENT - AC Blood Gas Notified Time 09/09/2016 8:05:33 AM Blood Gas Notified Whom JLD Blood Gas Respiration Rate 14.0 Blood Gas Specimen Source Blood arterial Blood Gas Temperature 37.0 Blood Gas Tidal Volume 500.0 FiO2 30.0 Oxyhemoglobin Percent 96.7 Total Hemoglobin 10.0 L Medications Medications Current Medications Piperacillin Sod/ Tazobactam Sod (Zosyn 2.25gm/ 50ml (Pmx)) 50 ml @ 100 mls/hr Q8 IVPB Last administered on 09/09/16at 05:37; Admin Dose 100 MLS/HR; Start at 14:00 Pantoprazole (Protonix Iv) 40 mg DAILY@06 IV Last administered on 09/09/16at 05 :37; Admin Dose 40 MG; Start 09/07/16 at 06:00 Ondansetron HCl 4 mg 4 mg Q6H PRN IV NAUSEA AND/OR VOMITING; Start 09/06/16 at 11:30 Sodium Chloride (NS) 1,000 ml @ 40 mls/hr Q24H IV Last administered on at 01:55; Admin Dose 40 MLS/HR; Start 09/06/16 at 11:30 Heparin Sodium (Porcine) (Heparin (5000 Units/0.5 ml)) 5,000 unit BID SC Last administered on 09/07/16at 08:50; Admin Dose 5,000 UNIT; Start 09/06/16 at 21: 00 Miscellaneous Information 1 ea NOTE XX ; Start 09/06/16 at 12:00 Glucose (Glutose) 15 gm Q15M PRN PO DECREASED GLUCOSE; Start 09/06/16 at 12:00 Glucose (Glutose) 22.5 gm Q15M PRN PO DECREASED GLUCOSE; Start 09/06/16 at 12: 00 Dextrose (D50w Syringe) 25 ml Q15M PRN IV DECREASED GLUCOSE; Start 09/06/16 at 12:00 Dextrose (D50w Syringe) 50 ml Q15M PRN IV DECREASED GLUCOSE; Start 09/06/16 at 12:00 Glucagon (Glucagen) 1 mg Q15M PRN IM DECREASED GLUCOSE; Start 09/06/16 at 12: 00 Glucose 15 gm 15 gm Q15M PRN BUCCAL DECREASED GLUCOSE; Start 09/06/16 at 12:00 Propofol 100 ml @ 2.445 mls/ hr Q12H IV Last administered on 09/07/16at 09:58 ; Admin Dose 4.89 MLS/HR; Start 09/06/16 at 19:00 Norepinephrine/ Dextrose (Levophed/D5W) 500 ml @ 1.87 mls/hr TITRATE IV ; Start 09/07/16 at 10:00 Insulin Aspart NOVOLOG *MILD* ALGORI... Q4 SC ; Start 09/08/16 at 17:00 Potassium Phosphate/Sodium Chloride (K Phos (Mm)/NS) 255 ml @ 63.75 mls/ hr ONCE ONCE IVPB ; Start 09/09/16 at 09:30; Stop 09/09/16 at 13:29 MILLY ARIZMENDI MD Sep 09, 2016 08:11
--- NOTE | 2016-09-09 08:58 | RADRPT ---
PROCEDURE: XR Chest. CLINICAL INDICATION: Pneumonia, CHF TECHNIQUE: A single AP view of the chest was obtained. COMPARISON: Chest x-ray dated 09/08/2016 FINDINGS: The endotracheal tube tip is approximately 5.1 cm above the josé. There is a right chest Perma-C ath with tip in the mid SVC. There is a left upper extremity PICC line with tip near the cavoatrial junction. Lung volumes are low with compressive changes, vascular crowding and basilar atelectasis. There is e levation of the right diaphragm. No focal airspace opacity, pleural effusion or pneumothorax is seen . The cardiomediastinal silhouette is within normal limits for size. The osseous structures are un remarkable. IMPRESSION: 1. Low lung volumes with compressive changes and basilar atelectasis. Lung aeration is mildly impro alessandra when compared to the prior examination. 2. Tubes and lines, as described above. RPTAT: HH .Mitra Díaz MD, Date Time Electronically viewed and signed by .Mitra Díaz MD, on 09/09/2016 08:57 .G/
[2016-09-09] MEDS ORDERED: POTASSIUM PHOSPHATE 15 MM in SOD CHLORIDE 0.9% 250 ML IVPB ONE (09:30)
--- NOTE | 2016-09-09 10:00 | PN ---
DATE: 09/09/2016 SUBJECTIVE: The patient remains intubated. The patient had hemodialysis yesterday, tolerated well, with approximately 1.5 to 2 liters removed. No other acute events noted. OBJECTIVE: VITAL SIGNS: Blood pressure is 140/76, respiration is 16, pulse 72, temperature 98.6. I's AND O'S: The patient had 2 liters in with 2.9 liters removed. HEENT: Head is normocephalic. NECK: Supple. HEART: Regular rate. LUNGS: Show diminished breath sounds at the base. ABDOMEN: Soft, nontender to palpation. No rebound or guarding. EXTREMITIES: Negative for clubbing, cyanosis. Positive edema, diffuse anasarca. DERMATOLOGIC: No rashes. MUSCULOSKELETAL: No joint effusions. NEUROLOGIC: No change in exam. MEDICATIONS: The patient's medications have been reviewed. LABORATORY DATA: Shows a sodium of 141, potassium 3.4, chloride 103, bicarbonate 21, BUN 17, creati nine 1.72, calcium 7.9, phosphorus 2.0. White count is 8.3, hemoglobin 9.2, hematocrit 37.3, platel et count is 180. ASSESSMENT AND PLAN: 1. Oliguric acute kidney injury on top of chronic kidney disease stage IV, now possibly end-stage renal disease. Etiology of acute kidney injury is secondary to sepsis at outside hospital . The patient is currently dialysis dependent. Plan for dialysis again today for solute clearance and volume removal. 3. Volume overload secondary to congestive heart failure, acute kidney injury. Continue ultrafiltr ation dialysis. 4. Hypokalemia. Continue dialysis on a 4 potassium K. Continue replacement. 5. Mineral bone disorder. The patient's phosphorus levels are low, will give 15 millimoles of K ph osphate today and monitor. 6. Anemia. The patient is status post blood transfusion. Continue to monitor H and H levels. 7. Ventilator dependent respiratory failure. Vent settings have been reviewed. ABG has been revie wed. Continue to monitor. 8. Sepsis, status post shock, currently off pressors. Continue IV antibiotics. 9. Diabetes. Continue Accu-Cheks and sliding scale. 10. Acute encephalopathy, etiology toxic metabolic. Continue to monitor. 11. Hypertension. Blood pressure controlled. Continue ultrafiltration with dialysis. 12. Arrhythmia, atrial fibrillation. Continue current medical management. Follow up with Ca rdiology. 13. Clostridium difficile colitis. Continue current treatment plan. 14. Elevated troponin, possible non-ST elevation myocardial infarction type 2. Continue current nd dical management. Dictated By: STEFFANY JESUS/ADRIA Conf#: [id number] DID#: [id number]
[2016-09-09 10:13] LABS: AADO2 Arterial 80.7 mmHg (7.0-24.0); Allen Test ACCEPTAB; Arterial Base Excess -3.3 mmol/L (-3.0-3); Arterial COHb 0.7 % (0.0-3.0); Arterial Fraction of Oxyhgb 96.3 % (93.0-99.0); Arterial HCO3 20.8 mmol/L (22.0-26.0); Arterial MetHb 0.3 % (0.0-1.5); Arterial Total Hemglobin 9.9 g/dl (12.0-18.0); Blood Gas PS 10; MODE VENT - CPAP
[2016-09-09] MEDS ORDERED: ALBUTEROL/IPRATROPIUM (NEB) 3 ML AMP HHN PRN (11:00)
[2016-09-09] MEDS ORDERED: LEVALBUTEROL (NEB) 1.25 MG/0.5 ML AMP ONE (12:09)
[2016-09-09] MEDS ORDERED: IPRATROPIUM (NEB) 0.5 MG/2.5 ML AMP ONE (12:09)
[2016-09-09] MEDS ORDERED: RACEPINEPHRINE 2.25%(NEB) 0.5 ML AMP HHN ONE (12:30)
[2016-09-09] MEDS ORDERED: LEVALBUTEROL (NEB) 1.25 MG/0.5 ML AMP HHN SCH (13:00)
[2016-09-09 13:05] LABS: Allen Test ACCEPTAB; Arterial Base Excess -9.6 mmol/L (-3.0-3); Arterial COHb 0.6 % (0.0-3.0); Arterial Fraction of Oxyhgb 84.6 % (93.0-99.0); Arterial HCO3 20.9 mmol/L (22.0-26.0); Arterial MetHb 0.3 % (0.0-1.5); Arterial Total Hemglobin 12.3 g/dl (12.0-18.0); MODE MASK - SIMPLE
--- NOTE | 2016-09-09 13:35 | EN ---
Date/Time of Note Date/Time of Note DATE: 09/09/16 TIME: 13:32 ER Progress Note ER consult for intubation. Was called to the bed 118 over the patient was becoming increasingly hypoxic over the last hour. She been admitted for respiratory failure with renal disease. She was obtunded with optic breathing. ET intubation note: Patient is PICU diagnosis ventilation was not able to be oxygenated over 82%. RSI was used with 20 of etomidate and 100 of rocuronium. Size 7.5 ET tube was easily introduced her visualized cords using a Mac 4 blade with one attempt. The tube was 23 cm at the lip with good bilateral strong breath sounds. Within 20 seconds the patient saturation was 100%. She tolerated the procedure well or no complications. I recommended that the previous vent settings be reinstated. Patient was still saturating 100%. Vital signs were stable. HUMA OMNTES DO Sep 09, 2016 13:35
[2016-09-09 15:07] LABS: AADO2 Arterial 323.2 mmHg (7.0-24.0); Allen Test ACCEPTAB; Arterial Base Excess -6.5 mmol/L (-3.0-3); Arterial COHb 0.1 % (0.0-3.0); Arterial Fraction of Oxyhgb 98.9 % (93.0-99.0); Arterial HCO3 18.9 mmol/L (22.0-26.0); Arterial MetHb 0.4 % (0.0-1.5); Arterial Total Hemglobin 11.7 g/dl (12.0-18.0); MODE VENT - AC
--- NOTE | 2016-09-09 15:23 | RADRPT ---
PROCEDURE: XR Chest 1 view. CLINICAL INDICATION: Shortness of breath, status post intubation TECHNIQUE: AP views of the chest were obtained. COMPARISON: September 09, 2016 at 06:04 a.m. FINDINGS: The heart is large. Calcified atherosclerosis is noted in the aorta. Endotracheal tube has its tip approximately 3.0 cm above the josé. Left-sided PICC line is stable. Right-sided dialysis cathet er is unchanged. Elevation right hemidiaphragm continues to be identified. Right middle and lower lobe infiltrates have increased and may be combined with small pleural effusion. Patchy retrocardia c opacities are stable. Osseous structures are intact. IMPRESSION: Cardiomegaly with calcified atherosclerosis in the aorta. Endotracheal tube with its tip approximately 3.0 cm above the josé. Continued elevation right hemidiaphragm. Interval increase in right middle and lower lobe infiltrates, possibly combined small pleural effusi on. Continued patchy retrocardiac opacities that may reflect left lower lobe atelectasis or infiltrates. RPTAT: AA .Fahad Winslow MD, MD Date Time Electronically viewed and signed by .Fahad Winslow MD, on 09/09/2016 15:22 .P/
--- NOTE | 2016-09-09 16:08 | CONS ---
Date/Time of Note Date/Time of Note DATE: 09/09/16 TIME: 16:06 Consult Date/Type/Reason Admit Date/Time Sep 06, 2016 at 11:22 Type of Consultation: pulmonary Ordering Provider: PAMELA MARTE Subjective patient tolerated CPAP trial this morning did well and was extubated Shortly after extubation she developed stridor and respiratory distress and then became apneic She required emergent reintubation and is now back on mechanical ventilation Objective Vital Signs Date Time Temp Pulse Resp B/P Pulse Ox O2 Delivery O2 Flow Rate FiO2 09/09/16 14:00 100 16 133/71 100 Venturi Mask 09/09/16 13:25 100 09/09/16 13:00 99.0 Intake and Output 09/08/16 09/08/16 09/09/16 15:00 23:00 07:00 Intake Total 1050 ml 830 ml 330 ml Output Total 85 ml 3345 ml 40 ml Balance 965 ml -2515 ml 290 ml PHYSICAL EXAMINATION: GENERAL: Morbidly obese lady, opens eyes, nods to questions. Orally intubated VITAL SIGNS: as above NECK: Obese, soft, nontender. CARDIAC: S1, S2, tachycardia. CHEST: Diminished air entry bilaterally. ABDOMEN: Obese, also. No guarding or rebound. EXTREMITIES: No cyanosis, clubbing, or edema. NEUROLOGIC: Generalized weakness. No focal deficits. Results/Medications Result Diagram: 09/09/16 0403 09/09/16 0403 Results 24 hrs Laboratory Tests Test 09/08/16 16:37 09/08/16 20:38 09/09/16 00:04 09/09/16 04:03 Bedside Glucose 113 79 82 Activated Partial Thromboplast Time 56.6 H Albumin 2.9 L Anion Gap 20 H Anisocytosis 2+ Band Neutrophils % 4.0 Blood Morphology Comment Blood Urea Nitrogen 17 Calcium Level 7.9 L Carbon Dioxide Level 21 Chloride Level 103 Creatine Kinase < 20 L Creatine Kinase Index Creatinine 1.52 H Creatinine Kinase MB (Mass) 0.66 Glucose Level 69 L Hematocrit 27.3 #L Hemoglobin 9.2 #L INR International Normalized Ratio 2.92 Lymphocytes # 1.1 Lymphocytes % 13.0 L Magnesium Level 1.9 Mean Corpuscular Hemoglobin 29.1 Mean Corpuscular Hemoglobin Concent 33.6 Mean Corpuscular Volume 86.4 Mean Platelet Volume 7.0 L Monocytes # 0.7 Monocytes % 8.0 Neutrophils # 6.2 Neutrophils % 75.0 Phosphorus Level 2.0 L Platelet Count 180 Platelet Estimate PLT APPEAR ADEQUATE Potassium Level 3.4 L Prothrombin Time 30.9 H Prothrombin Time Ratio 2.4 Red Blood Count 3.16 #L Red Cell Distribution Width 20.1 #H Sodium Level 141 Troponin I 0.099 White Blood Count 8.3 Test 09/09/16 05:36 09/09/16 07:00 09/09/16 09:32 09/09/16 13:02 Bedside Glucose 77 Arterial Blood HCO3 18.8 L 20.8 L 20.9 L Arterial Blood Base Excess -3.9 L -3.3 L -9.6 L Arterial Blood Oxygen Saturation 97.2 97.3 85.4 L Sage Test ACCEPTAB ACCEPTAB ACCEPTAB Arterial Blood Gas Puncture Site Right Radial Right Radial Right Radial Arterial Blood Carboxyhemoglobin 0.2 0.7 0.6 Arterial Blood Date Drawn 09/09/2016 7:30:53 AM 09/09/2016 10:04:36 AM 09/09/2016 12:55:58 PM Arterial Blood Methemoglobin 0.3 0.3 0.3 Arterial Blood pCO2 (Temp correct) 26.7 L 33.5 L 69.1 H Arterial Blood pH (Temp corrected) 7.465 H 7.410 7.098 *L Arterial Blood pO2 (Temp corrected) 96.0 93.8 63.1 L Blood Gas A-a O2 Differential 86.5 H 80.7 H 296.0 H Blood Gas Actual Respiration Rate 23 21 Blood Gas Low PEEP Setting 5.0 5.0 Blood Gas Modality VENT - AC VENT - CPAP MASK - SIMPLE Blood Gas Notified Time 09/09/2016 8:05:33 AM 09/09/2016 10:13:11 AM 09/09/2016 1:05:53 PM Blood Gas Notified Whom LUZ ESCOBAR Blood Gas Respiration Rate 14.0 Blood Gas Specimen Source Blood arterial Blood arterial Blood arterial Blood Gas Temperature 37.0 37.0 37.0 Blood Gas Tidal Volume 500.0 FiO2 30.0 30.0 61.0 Oxyhemoglobin Percent 96.7 96.3 84.6 L Total Hemoglobin 10.0 L 9.9 L 12.3 Blood Gas Pressure Support 10 Blood Gas Critical Value Read Back L XIMENA SANTIZO Test 09/09/16 14:26 Arterial Blood HCO3 18.9 L Arterial Blood Base Excess -6.5 L Arterial Blood Oxygen Saturation 99.4 H Sage Test ACCEPTAB Arterial Blood Gas Puncture Site Right Radial Arterial Blood Carboxyhemoglobin 0.1 Arterial Blood Date Drawn 09/09/2016 2:55:22 PM Arterial Blood Methemoglobin 0.4 Arterial Blood pCO2 (Temp correct) 37.6 Arterial Blood pH (Temp corrected) 7.320 L Arterial Blood pO2 (Temp corrected) 352.2 H Blood Gas A-a O2 Differential 323.2 H Blood Gas Actual Respiration Rate 14 Blood Gas Low PEEP Setting 5.0 Blood Gas Modality VENT - AC Blood Gas Notified Time 09/09/2016 3:07:11 PM Blood Gas Notified Whom JLD Blood Gas Respiration Rate 14.0 Blood Gas Specimen Source Blood arterial Blood Gas Temperature 37.0 Blood Gas Tidal Volume 500.0 FiO2 100.0 Oxyhemoglobin Percent 98.9 Total Hemoglobin 11.7 L Medications Current Medications Piperacillin Sod/ Tazobactam Sod (Zosyn 2.25gm/ 50ml (Pmx)) 50 ml @ 100 mls/hr Q8 IVPB Last administered on 09/09/16at 05:37; Admin Dose 100 MLS/HR; Start at 14:00 Pantoprazole (Protonix Iv) 40 mg DAILY@06 IV Last administered on 09/09/16at 05 :37; Admin Dose 40 MG; Start 09/07/16 at 06:00 Ondansetron HCl 4 mg 4 mg Q6H PRN IV NAUSEA AND/OR VOMITING; Start 09/06/16 at 11:30 Sodium Chloride (NS) 1,000 ml @ 40 mls/hr Q24H IV Last administered on at 01:55; Admin Dose 40 MLS/HR; Start 09/06/16 at 11:30 Heparin Sodium (Porcine) (Heparin (5000 Units/0.5 ml)) 5,000 unit BID SC Last administered on 09/07/16at 08:50; Admin Dose 5,000 UNIT; Start 09/06/16 at 21: 00 Miscellaneous Information 1 ea NOTE XX ; Start 09/06/16 at 12:00 Glucose (Glutose) 15 gm Q15M PRN PO DECREASED GLUCOSE; Start 09/06/16 at 12:00 Glucose (Glutose) 22.5 gm Q15M PRN PO DECREASED GLUCOSE; Start 09/06/16 at 12: 00 Dextrose (D50w Syringe) 25 ml Q15M PRN IV DECREASED GLUCOSE; Start 09/06/16 at 12:00 Dextrose (D50w Syringe) 50 ml Q15M PRN IV DECREASED GLUCOSE; Start 09/06/16 at 12:00 Glucagon (Glucagen) 1 mg Q15M PRN IM DECREASED GLUCOSE; Start 09/06/16 at 12: 00 Glucose 15 gm 15 gm Q15M PRN BUCCAL DECREASED GLUCOSE; Start 09/06/16 at 12:00 Propofol 100 ml @ 2.445 mls/ hr Q12H IV Last administered on 09/07/16at 09:58 ; Admin Dose 4.89 MLS/HR; Start 09/06/16 at 19:00 Norepinephrine/ Dextrose (Levophed/D5W) 500 ml @ 1.87 mls/hr TITRATE IV ; Start 09/07/16 at 10:00 Insulin Aspart (Novolog Insulin Pen) NOVOLOG *MILD* ALGORI... Q4 SC ; Start at 17:00 Assessment/Plan Chief Complaint/Hosp Course ASSESSMENT AND PLAN: 1.Hypoxemic and hypercapnic respiratory failure secondary to likely volume overload on top of significant morbid obesity and restrictive lung disease. Failed extubation 2. Morbid obesity 3. Chronic kidney disease 4. Significant anemia following epistaxis 5. Questionable distal pulmonary embolus doubt any hemodynamic significance, negative Dopplers for deep vein thrombosis Plan 1. Continue assist-control mechanical ventilation 2. Renal failure with volume removal. 3. Nocturnal noninvasive positive pressure ventilation postextubation if extubated 4. Aspiration precautions. 5. Deep vein thrombosis and gastrointestinal prophylaxis. 6. Given her body habitus, the patient is at risk of recurrent hypoxemic and hypercapnic respiratory failure. Palliative care evaluation overall prognosis is guarded Problems: MARCIA BAIN MD, [facility] Sep 09, 2016 16:08
--- NOTE | 2016-09-09 18:59 | PN ---
Date/Time of Note Date/Time of Note DATE: 09/09/16 TIME: 18:49 Assessment/Plan VTE Prophylaxis VTE Prophylaxis Intervention: heparin Lines/Catheters IV Catheter Type (from Nrsg): PICC Line Central line still needed: Yes (for IV access ) Urinary Cath still in place: Yes Reason Cath still needed: other (indicate) (monitor UOP ) Assessment/Plan Assessment/Plan 71 yo female with 1. Acute respiratory failure: 2ry to CHF exacerbation and volume overload, on HD She had to be reintubated today due to stridors and respiratory failure, also on Solumedrol Continue weaning trials Dr Daniel following 2. Congestive heart failure, systolic, acute on chronic and also with ESRD On HD for volume management and Cardiology following Continue current medications Follow up Nephrology and cardiology recommendations 3. Elevated troponin / NSTEMI secondary to demand ischemia Appreciate Cardiology recommendations 3. Pneumonia possibly secondary to aspiration, continue Zosyn 4. Diabetes mellitus Type 2-controlled, continue SSI 5. Sepsis with Septic Shock 2/2 Pneumonia, off pressors, continue Zosyn and back on Vent. Continue supportive care. 6. Hypertension: Continue holding antihypertensives until more stable 7. End-stage renal disease on hemodialysis Follow up Nephrology. 8. Chronic hypochromic anemia secondary to chronic disease, stable H/H, continue monitor 9. Paroxysmal atrial fibrillation, controlled rate for now, monitor, further recs per cariology 10. UTI secondary to yeast: will monitor Prophylaxis: Heparin for DVT ppx and Protonix for GI ppx Disposition: Back on Vent today and HD now on Subjective 24 Hr Interval Summary Free Text/Dictation Patient had to be reintubated this AM after being extubated for a few hours on HD currently Exam/Review of Systems Vital Signs Vitals Vital Signs Date Time Temp Pulse Resp B/P Pulse Ox O2 Delivery O2 Flow Rate FiO2 09/09/16 18:30 30 09/09/16 18:00 83 14 95/69 100 Mechanical Ventilator 09/09/16 16:00 98.2 09/09/16 11:50 6.0 Intake and Output 09/08/16 09/08/16 09/09/16 15:00 23:00 07:00 Intake Total 1050 ml 830 ml 330 ml Output Total 85 ml 3345 ml 40 ml Balance 965 ml -2515 ml 290 ml Exam Constitutional: alert, other (awake on the vent ) Respiratory: diminished breath sounds (bilaterally ) Gastrointestinal: non-tender, soft Extremities: edema (+2 upper extremities and +1 lower ext ), normal pulses Neurological: other (inribated but awake ) Results Result Diagram: 09/09/16 0403 09/09/16 0403 Results 24 hrs Laboratory Tests Test 09/08/16 20:38 09/09/16 00:04 09/09/16 04:03 09/09/16 05:36 Bedside Glucose 79 82 77 Activated Partial Thromboplast Time 56.6 H Albumin 2.9 L Anion Gap 20 H Anisocytosis 2+ Band Neutrophils % 4.0 Blood Morphology Comment Blood Urea Nitrogen 17 Calcium Level 7.9 L Carbon Dioxide Level 21 Chloride Level 103 Creatine Kinase < 20 L Creatine Kinase Index Creatinine 1.52 H Creatinine Kinase MB (Mass) 0.66 Glucose Level 69 L Hematocrit 27.3 #L Hemoglobin 9.2 #L INR International Normalized Ratio 2.92 Lymphocytes # 1.1 Lymphocytes % 13.0 L Magnesium Level 1.9 Mean Corpuscular Hemoglobin 29.1 Mean Corpuscular Hemoglobin Concent 33.6 Mean Corpuscular Volume 86.4 Mean Platelet Volume 7.0 L Monocytes # 0.7 Monocytes % 8.0 Neutrophils # 6.2 Neutrophils % 75.0 Phosphorus Level 2.0 L Platelet Count 180 Platelet Estimate PLT APPEAR ADEQUATE Potassium Level 3.4 L Prothrombin Time 30.9 H Prothrombin Time Ratio 2.4 Red Blood Count 3.16 #L Red Cell Distribution Width 20.1 #H Sodium Level 141 Troponin I 0.099 White Blood Count 8.3 Test 09/09/16 07:00 09/09/16 09:32 09/09/16 13:02 09/09/16 14:26 Arterial Blood HCO3 18.8 L 20.8 L 20.9 L 18.9 L Arterial Blood Base Excess -3.9 L -3.3 L -9.6 L -6.5 L Arterial Blood Oxygen Saturation 97.2 97.3 85.4 L 99.4 H Sage Test ACCEPTAB ACCEPTAB ACCEPTAB ACCEPTAB Arterial Blood Gas Puncture Site Right Radial Right Radial Right Radial Right Radial Arterial Blood Carboxyhemoglobin 0.2 0.7 0.6 0.1 Arterial Blood Date Drawn 09/09/2016 7:30:53 AM 09/09/2016 10:04:36 AM 09/09/2016 12:55:58 PM 09/09/2016 2:55:22 PM Arterial Blood Methemoglobin 0.3 0.3 0.3 0.4 Arterial Blood pCO2 (Temp correct) 26.7 L 33.5 L 69.1 H 37.6 Arterial Blood pH (Temp corrected) 7.465 H 7.410 7.098 *L 7.320 L Arterial Blood pO2 (Temp corrected) 96.0 93.8 63.1 L 352.2 H Blood Gas A-a O2 Differential 86.5 H 80.7 H 296.0 H 323.2 H Blood Gas Actual Respiration Rate 23 21 14 Blood Gas Low PEEP Setting 5.0 5.0 5.0 Blood Gas Modality VENT - AC VENT - CPAP MASK - SIMPLE VENT - AC Blood Gas Notified Time 09/09/2016 8:05:33 AM 09/09/2016 10:13:11 AM 09/09/2016 1:05:53 PM 09/09/2016 3:07:11 PM Blood Gas Notified Whom LUZ ESCOBAR Blood Gas Respiration Rate 14.0 14.0 Blood Gas Specimen Source Blood arterial Blood arterial Blood arterial Blood arterial Blood Gas Temperature 37.0 37.0 37.0 37.0 Blood Gas Tidal Volume 500.0 500.0 FiO2 30.0 30.0 61.0 100.0 Oxyhemoglobin Percent 96.7 96.3 84.6 L 98.9 Total Hemoglobin 10.0 L 9.9 L 12.3 11.7 L Blood Gas Pressure Support 10 Blood Gas Critical Value Read Back L XIMENA RN Test 09/09/16 16:29 Bedside Glucose 142 Medications Medications Current Medications Piperacillin Sod/ Tazobactam Sod (Zosyn 2.25gm/ 50ml (Pmx)) 50 ml @ 100 mls/hr Q8 IVPB Last administered on 09/09/16at 16:10; Admin Dose 100 MLS/HR; Start at 14:00 Pantoprazole (Protonix Iv) 40 mg DAILY@06 IV Last administered on 09/09/16at 05 :37; Admin Dose 40 MG; Start 09/07/16 at 06:00 Ondansetron HCl 4 mg 4 mg Q6H PRN IV NAUSEA AND/OR VOMITING; Start 09/06/16 at 11:30 Sodium Chloride (NS) 1,000 ml @ 40 mls/hr Q24H IV Last administered on at 01:55; Admin Dose 40 MLS/HR; Start 09/06/16 at 11:30 Heparin Sodium (Porcine) (Heparin (5000 Units/0.5 ml)) 5,000 unit BID SC Last administered on 09/07/16at 08:50; Admin Dose 5,000 UNIT; Start 09/06/16 at 21: 00 Miscellaneous Information 1 ea NOTE XX ; Start 09/06/16 at 12:00 Glucose (Glutose) 15 gm Q15M PRN PO DECREASED GLUCOSE; Start 09/06/16 at 12:00 Glucose (Glutose) 22.5 gm Q15M PRN PO DECREASED GLUCOSE; Start 09/06/16 at 12: 00 Dextrose (D50w Syringe) 25 ml Q15M PRN IV DECREASED GLUCOSE; Start 09/06/16 at 12:00 Dextrose (D50w Syringe) 50 ml Q15M PRN IV DECREASED GLUCOSE; Start 09/06/16 at 12:00 Glucagon (Glucagen) 1 mg Q15M PRN IM DECREASED GLUCOSE; Start 09/06/16 at 12: 00 Glucose 15 gm 15 gm Q15M PRN BUCCAL DECREASED GLUCOSE; Start 09/06/16 at 12:00 Propofol 100 ml @ 2.445 mls/ hr Q12H IV Last administered on 09/07/16at 09:58 ; Admin Dose 4.89 MLS/HR; Start 09/06/16 at 19:00 Norepinephrine/ Dextrose (Levophed/D5W) 500 ml @ 1.87 mls/hr TITRATE IV ; Start 09/07/16 at 10:00 Insulin Aspart (Novolog Insulin Pen) NOVOLOG *MILD* ALGORI... Q4 SC ; Start at 17:00 Procedures Procedures PROCEDURE: XR Chest 1 view. CLINICAL INDICATION: Shortness of breath, status post intubation TECHNIQUE: AP views of the chest were obtained. COMPARISON: September 09, 2016 at 06:04 a.m. FINDINGS: The heart is large. Calcified atherosclerosis is noted in the aorta. Endotracheal tube has its tip approximately 3.0 cm above the josé. Left- sided PICC line is stable. Right-sided dialysis catheter is unchanged. Elevation right hemidiaphragm continues to be identified. Right middle and lower lobe infiltrates have increased and may be combined with small pleural effusion. Patchy retrocardiac opacities are stable. Osseous structures are intact. IMPRESSION: Cardiomegaly with calcified atherosclerosis in the aorta. Endotracheal tube with its tip approximately 3.0 cm above the josé. Continued elevation right hemidiaphragm. Interval increase in right middle and lower lobe infiltrates, possibly combined small pleural effusion. Continued patchy retrocardiac opacities that may reflect left lower lobe atelectasis or infiltrates. CRISTY INMAN Sep 09, 2016 18:59
[2016-09-09] MEDS: IPRATROPIUM (HFA) 12.9 GM INHALER INH SCH (20:34)
[2016-09-10] VITALS (64 sets, daily range): BP systolic 98–180; BP diastolic 43–134; PULSE 63–82; RESP 14–30
[2016-09-10] MEDS: INSULIN ASPART [NOVOLOG] 3 ML PEN SC SCH ×6 (01:28→21:36)
[2016-09-10] MEDS: IPRATROPIUM (HFA) 12.9 GM INHALER INH SCH ×4 (01:46→20:00)
[2016-09-10 04:55] LABS: HEMATOCRIT 29.1 % (37.0-47.0); HEMOGLOBIN 9.6 g/dl (12.0-16.0); MEAN CORPUSCULAR HEMOGLOBIN 28.5 pg (29.0-33.0); MEAN CORPUSCULAR HGB CONC 33.2 g/dl (32.0-37.0); MEAN CORPUSCULAR VOLUME 85.7 fl (82.0-101.0); MEAN PLATELET VOLUME 6.8 fl (7.4-10.4); PLATELET COUNT 198 10^3/UL (140-440); RED BLOOD COUNT 3.39 10^6/ul (4.20-5.40); RED CELL DISTRIBUTION WIDTH 20.4 % (11.5-14.5); UNCORRECTED WBC 7.6 10^3/ul (4.8-10.8); WHITE BLOOD COUNT 7.6 10^3/ul (4.8-10.8)
[2016-09-10 05:09] LABS: PHOSPHORUS 3.2 mg/dl (2.5-4.9)
[2016-09-10 05:10] LABS: CONDITION 1; LH ANALYZER COMMENTS 1; SUSPECT 1
[2016-09-10] MEDS: PANTOPRAZOLE 40 MG INJ IV SCH (05:25)
[2016-09-10] MEDS: PIPER-TAZO 2.25 GM (PMX) 50 ML IVPB SCH ×3 (05:25→21:32)
[2016-09-10 05:35] LABS: POTASSIUM 3.7 mmol/L (3.5-5.1)
[2016-09-10 05:38] LABS: CREATININE 1.63 mg/dl (0.44-1.00)
[2016-09-10 05:39] LABS: CALCIUM 8.6 mg/dl (8.4-10.2)
[2016-09-10] MEDS ORDERED: DEXTROSE 5%-0.45% NACL 1,000 ML IV SCH (07:00)
[2016-09-10] MEDS: PROPOFOL 100 ML IV SCH ×3 (07:00→19:38)
[2016-09-10 08:03] LABS: AADO2 Arterial 97.7 mmHg (7.0-24.0); Allen Test ACCEPTAB; Arterial Base Excess -3.7 mmol/L (-3.0-3); Arterial COHb 0.3 % (0.0-3.0); Arterial Fraction of Oxyhgb 94.9 % (93.0-99.0); Arterial HCO3 20.2 mmol/L (22.0-26.0); Arterial MetHb 0.3 % (0.0-1.5); Arterial Total Hemglobin 10.3 g/dl (12.0-18.0); MODE VENT - AC
--- NOTE | 2016-09-10 08:30 | RADRPT ---
PROCEDURE: XR Chest. CLINICAL INDICATION: Shortness of breath. TECHNIQUE: Single frontal view. COMPARISON: 09/09/2016. FINDINGS: The endotracheal tube, left arm PICC line, and tunneled right internal jugular vein dialysis cathete r are unchanged. There is elevation of the right hemidiaphragm, unchanged. Mild atelectasis is present at the lung b ases, unchanged. The heart is mildly enlarged. There is no pleural effusion. There is no pneumothorax. IMPRESSION: 1. No change from 09/09/2016. RPTAT: QQ .Esvin Mak MD, MD Date Time Electronically viewed and signed by .Esvin Mak MD, MD on 09/10/2016 08:29 .R/
[2016-09-10] MEDS: HEPARIN 5,000 UNIT/0.5 ML SYG SC SCH (09:00)
--- NOTE | 2016-09-10 09:06 | PN ---
DATE: 09/10/2016 SUBJECTIVE: The patient had hemodialysis yesterday with 3.5 liters removed, tolerated well. No oth er acute events noted overnight. No hemoptysis, hematemesis or hematochezia. OBJECTIVE: VITAL SIGNS: Blood pressure is 122/102, respirations 16, pulse 68, temperature 98.6. I's AND O'S: The patient had 500 in, 2.5 liters out. HEENT: Head is normocephalic. NECK: Supple. HEART: Regular rate. LUNGS: Show diminished breath sounds at base. ABDOMEN: Soft, nontender to palpation. No rebound or guarding. EXTREMITIES: Negative for clubbing, cyanosis. Positive edema. DERMATOLOGIC: No rashes. MUSCULOSKELETAL: No joint effusions. NEUROLOGIC: No change in exam. MEDICATIONS: The patient's medications have been reviewed. LABORATORY DATA: Sodium 145, potassium 2.7, chloride 107, BUN 15, creatinine 1.63. White count 7.6 , hemoglobin 9.6, hematocrit 29.1, platelet count 198. IMAGING: The patient's chest x-ray shows increase in right middle and lower lobe infiltrates. ASSESSMENT AND PLAN: 1. Oliguric acute kidney injury on top of chronic kidney disease stage IV with possible progression to end-stage renal disease. Etiology of acute kidney injury is secondary to sepsis from outside [facility]. The patient is currently dialysis dependent. The patient has been receiving daily dialysis for solute clearance and volume removal. Plan for dialysis again today for 2 hours with dry UF wit h goal of ultrafiltration 2 to 3 liters. 2. Volume overload secondary to congestive heart failure, acute kidney injury. Continue ultrafiltr ation with dialysis. 3. Hypokalemia, improved. Continue to monitor, continue repleting as needed. 4. Mineral bone disorder. Continue to monitor calcium and phosphorus levels. 5. Anemia. The patient is status post blood transfusion. Continue to monitor hemoglobin and hemat ocrit levels. 6. Ventilator dependent respiratory failure. Etiology secondary to pneumonia and pulmonary congest ion. Continue current treatment plan. Continue ultrafiltration dialysis. Continue antibiotics. A BG and vent settings have been reviewed. 7. Sepsis, status post shock. The patient is currently on pressors. Continue current antibiotic reg imen. 8. Diabetes. Continue Accu-Cheks and sliding scale. 9. Acute encephalopathy, etiology toxic metabolic. Continue to monitor. 10. Hypertension. Blood pressure controlled. Continue ultrafiltration dialysis. 11. Arrhythmia, currently stable. Continue medical management. Follow up with Cardiology. 12. History of Clostridium difficile colitis. The patient is status post treatment. 13. Elevated troponin, possible non-ST elevation myocardial infarction type 2. Continue to monitor . Continue current treatment plan. Follow up with cardiology. Dictated By: STEFFANY JESUS/ADRIA Conf#: [id number] DID#: [id number]
--- NOTE | 2016-09-10 10:19 | CONS ---
Date/Time of Note Date/Time of Note DATE: 09/10/16 TIME: 10:16 Assessment/Plan Assessment/Plan Chief Complaint/Hosp Course Imp: 1.Positive troponin-minmal in setting of esrd-Now trended negative 2.CHF-? systolic vs diastolic acute 3.HTN 4.ESRD on HD 5.anemia-requiring transfusions 6.Coagulopathy-ongoing 7.H/O PAF in SR currently Recc: -Tele -serial ecg's -trend cardiac enzymes -HD for volume removal -Follow hgb closely Problems: Consultation Date/Type/Reason Admit Date/Time Sep 06, 2016 at 11:22 Initial Consult Date 09/07/2016 Type of Consultation: Cardiology Reason for Consultation Nstemi Referring Provider: PAMELA MARTE Exam/Review of Systems Vital Signs Vitals Vital Signs Date Time Temp Pulse Resp B/P Pulse Ox O2 Delivery O2 Flow Rate FiO2 09/10/16 09:30 69 14 133/72 97 09/10/16 09:00 Mechanical Ventilator 09/10/16 08:40 30 09/10/16 08:00 96.9 09/09/16 11:50 6.0 Intake and Output 09/09/16 09/09/16 09/10/16 15:00 23:00 07:00 Intake Total 550 ml 76.88 ml Output Total 0 ml 3530 ml 90 ml Balance 0 ml -2980 ml -13.12 ml Exam Review of Systems: CONSTITUTIONAL: No fevers, chills. PULMONARY: intubated CARDIOVASCULAR: No chest pain/palpitations GASTROINTESTINAL: No nausea/vomiting. GENITOURINARY: No hematuria/dysuria. MUSCULOSKELETAL: No myagias/arthalgias. PSYCHIATRIC: The patient denies depression. NEUROLOGIC: sedated Constitutional: other (sedated) ENMT: intubated Neck: jvd (9 cm water), supple Respiratory: diminished breath sounds (at bases/B) Cardiovascular: regular rate and rhythm Gastrointestinal: non-tender, soft Musculoskeletal: muscle tone (normal) Extremities: edema (trace/B) Neurological: other (No focal deficits) Results Result Diagram: 09/10/16 0428 09/10/16 0428 Results 24 hrs Laboratory Tests Test 09/09/16 13:02 09/09/16 14:26 09/09/16 16:29 09/09/16 21:14 Arterial Blood HCO3 20.9 L 18.9 L Arterial Blood Base Excess -9.6 L -6.5 L Arterial Blood Oxygen Saturation 85.4 L 99.4 H Sage Test ACCEPTAB ACCEPTAB Arterial Blood Gas Puncture Site Right Radial Right Radial Arterial Blood Carboxyhemoglobin 0.6 0.1 Arterial Blood Date Drawn 09/09/2016 12:55:58 PM 09/09/2016 2:55:22 PM Arterial Blood Methemoglobin 0.3 0.4 Arterial Blood pCO2 (Temp correct) 69.1 H 37.6 Arterial Blood pH (Temp corrected) 7.098 *L 7.320 L Arterial Blood pO2 (Temp corrected) 63.1 L 352.2 H Blood Gas A-a O2 Differential 296.0 H 323.2 H Blood Gas Critical Value Read Back L XIMENA RN Blood Gas Modality MASK - SIMPLE VENT - AC Blood Gas Notified Time 09/09/2016 1:05:53 PM 09/09/2016 3:07:11 PM Blood Gas Notified Whom LUZ ESCOBAR Blood Gas Specimen Source Blood arterial Blood arterial Blood Gas Temperature 37.0 37.0 FiO2 61.0 100.0 Oxyhemoglobin Percent 84.6 L 98.9 Total Hemoglobin 12.3 11.7 L Blood Gas Actual Respiration Rate 14 Blood Gas Low PEEP Setting 5.0 Blood Gas Respiration Rate 14.0 Blood Gas Tidal Volume 500.0 Bedside Glucose 142 160 Test 09/10/16 01:26 09/10/16 04:28 09/10/16 05:20 09/10/16 07:00 Bedside Glucose 146 141 Anion Gap 19 H Blood Morphology Comment Blood Urea Nitrogen 15 Calcium Level 8.6 Carbon Dioxide Level 23 Chloride Level 107 Creatinine 1.63 H Glucose Level 161 Hematocrit 29.1 L Hemoglobin 9.6 L Magnesium Level 2.0 Mean Corpuscular Hemoglobin 28.5 L Mean Corpuscular Hemoglobin Concent 33.2 Mean Corpuscular Volume 85.7 Mean Platelet Volume 6.8 L Phosphorus Level 3.2 Platelet Count 198 Potassium Level 3.7 Red Blood Count 3.39 L Red Cell Distribution Width 20.4 H Sodium Level 145 H White Blood Count 7.6 Arterial Blood HCO3 20.2 L Arterial Blood Base Excess -3.7 L Arterial Blood Oxygen Saturation 95.5 Sage Test ACCEPTAB Arterial Blood Gas Puncture Site Right Radial Arterial Blood Carboxyhemoglobin 0.3 Arterial Blood Date Drawn 09/10/2016 7:42:13 AM Arterial Blood Methemoglobin 0.3 Arterial Blood pCO2 (Temp correct) 32.6 L Arterial Blood pH (Temp corrected) 7.410 Arterial Blood pO2 (Temp corrected) 77.9 L Blood Gas A-a O2 Differential 97.7 H Blood Gas Actual Respiration Rate 14 Blood Gas Low PEEP Setting 5.0 Blood Gas Modality VENT - AC Blood Gas Notified Time 09/10/2016 8:02:53 AM Blood Gas Notified Whom JLD Blood Gas Respiration Rate 14.0 Blood Gas Specimen Source Blood arterial Blood Gas Temperature 37.0 Blood Gas Tidal Volume 500.0 FiO2 30.0 Oxyhemoglobin Percent 94.9 Total Hemoglobin 10.3 L Test 09/10/16 08:07 Bedside Glucose 136 Medications Medications Current Medications Piperacillin Sod/ Tazobactam Sod (Zosyn 2.25gm/ 50ml (Pmx)) 50 ml @ 100 mls/hr Q8 IVPB Last administered on 09/10/16at 05:25; Admin Dose 100 MLS/HR; Start at 14:00 Pantoprazole (Protonix Iv) 40 mg DAILY@06 IV Last administered on 09/10/16at 05 :25; Admin Dose 40 MG; Start 09/07/16 at 06:00 Ondansetron HCl (Zofran Inj) 4 mg Q6H PRN IV NAUSEA AND/OR VOMITING; Start at 11:30 Heparin Sodium (Porcine) (Heparin (5000 Units/0.5 ml)) 5,000 unit BID SC Last administered on 09/07/16at 08:50; Admin Dose 5,000 UNIT; Start 09/06/16 at 21: 00 Miscellaneous Information 1 ea NOTE XX ; Start 09/06/16 at 12:00 Glucose (Glutose) 15 gm Q15M PRN PO DECREASED GLUCOSE; Start 09/06/16 at 12:00 Glucose (Glutose) 22.5 gm Q15M PRN PO DECREASED GLUCOSE; Start 09/06/16 at 12: 00 Dextrose (D50w Syringe) 25 ml Q15M PRN IV DECREASED GLUCOSE; Start 09/06/16 at 12:00 Dextrose (D50w Syringe) 50 ml Q15M PRN IV DECREASED GLUCOSE; Start 09/06/16 at 12:00 Glucagon (Glucagen) 1 mg Q15M PRN IM DECREASED GLUCOSE; Start 09/06/16 at 12: 00 Glucose 15 gm 15 gm Q15M PRN BUCCAL DECREASED GLUCOSE; Start 09/06/16 at 12:00 Propofol 100 ml @ 2.445 mls/ hr Q12H IV Last administered on 09/09/16at 23:02 ; Admin Dose 2.445 MLS/HR; Start 09/06/16 at 19:00 Norepinephrine/ Dextrose (Levophed/D5W) 500 ml @ 1.87 mls/hr TITRATE IV ; Start 09/07/16 at 10:00 Insulin Aspart NOVOLOG *MILD* ALGORI... Q4 SC Last administered on 09/10/16at 05:24; Admin Dose 1 UNIT; Start 09/08/16 at 17:00 Dextrose/Sodium Chloride (D5-1/2ns) 1,000 ml @ 40 mls/hr Q24H IV Last administered on 09/10/16at 09:58; Admin Dose 40 MLS/HR; Start 09/10/16 at 07:00 KAJAL MCKINNEY Sep 10, 2016 10:19
[2016-09-10 10:25] LABS: ANISOCYTOSIS 2+; EOSINOPHILS # 0.1 10^3/ul (0.0-0.5); LYMPHOCYTES # 0.4 10^3/ul (0.8-2.9); MONOCYTE # 0.8 10^3/ul (0.3-0.9); NEUTROPHIL # 6.3 10^3/ul (1.6-7.5)
[2016-09-10 10:26] LABS: BURR CELLS FEW; HYPOCHROMASIA 1+
--- NOTE | 2016-09-10 10:28 | CONS ---
Date/Time of Note Date/Time of Note DATE: 09/10/16 TIME: 10:26 Consult Date/Type/Reason Admit Date/Time Sep 06, 2016 at 11:22 Type of Consultation: pulmonary Ordering Provider: PAMELA MARTE Subjective Patient reintubated yesterday following stridor post extubation Continues mechanical ventilation Awake alert oriented and agitated Family at bedside Objective Vital Signs Date Time Temp Pulse Resp B/P Pulse Ox O2 Delivery O2 Flow Rate FiO2 09/10/16 09:30 69 14 133/72 97 09/10/16 09:00 Mechanical Ventilator 09/10/16 08:40 30 09/10/16 08:00 96.9 09/09/16 11:50 6.0 Intake and Output 09/09/16 09/09/16 09/10/16 15:00 23:00 07:00 Intake Total 550 ml 76.88 ml Output Total 0 ml 3530 ml 90 ml Balance 0 ml -2980 ml -13.12 ml PHYSICAL EXAMINATION: GENERAL: Morbidly obese lady, opens eyes, nods to questions. Orally intubated VITAL SIGNS: as above NECK: Obese, soft, nontender. CARDIAC: S1, S2, tachycardia. CHEST: Diminished air entry bilaterally. ABDOMEN: Obese, also. No guarding or rebound. EXTREMITIES: No cyanosis, clubbing, or edema. NEUROLOGIC: Generalized weakness. No focal deficits. Results/Medications Result Diagram: 09/10/16 0428 09/10/16 0428 Results 24 hrs Laboratory Tests Test 09/09/16 13:02 09/09/16 14:26 09/09/16 16:29 09/09/16 21:14 Arterial Blood HCO3 20.9 L 18.9 L Arterial Blood Base Excess -9.6 L -6.5 L Arterial Blood Oxygen Saturation 85.4 L 99.4 H Sage Test ACCEPTAB ACCEPTAB Arterial Blood Gas Puncture Site Right Radial Right Radial Arterial Blood Carboxyhemoglobin 0.6 0.1 Arterial Blood Date Drawn 09/09/2016 12:55:58 PM 09/09/2016 2:55:22 PM Arterial Blood Methemoglobin 0.3 0.4 Arterial Blood pCO2 (Temp correct) 69.1 H 37.6 Arterial Blood pH (Temp corrected) 7.098 *L 7.320 L Arterial Blood pO2 (Temp corrected) 63.1 L 352.2 H Blood Gas A-a O2 Differential 296.0 H 323.2 H Blood Gas Critical Value Read Back L XIMENA RN Blood Gas Modality MASK - SIMPLE VENT - AC Blood Gas Notified Time 09/09/2016 1:05:53 PM 09/09/2016 3:07:11 PM Blood Gas Notified Whom LUZ ESCOBAR Blood Gas Specimen Source Blood arterial Blood arterial Blood Gas Temperature 37.0 37.0 FiO2 61.0 100.0 Oxyhemoglobin Percent 84.6 L 98.9 Total Hemoglobin 12.3 11.7 L Blood Gas Actual Respiration Rate 14 Blood Gas Low PEEP Setting 5.0 Blood Gas Respiration Rate 14.0 Blood Gas Tidal Volume 500.0 Bedside Glucose 142 160 Test 09/10/16 01:26 09/10/16 04:28 09/10/16 05:20 09/10/16 07:00 Bedside Glucose 146 141 Anion Gap 19 H Blood Morphology Comment Blood Urea Nitrogen 15 Calcium Level 8.6 Carbon Dioxide Level 23 Chloride Level 107 Creatinine 1.63 H Differential Comment MANUAL DIFF Glucose Level 161 Hematocrit 29.1 L Hemoglobin 9.6 L Magnesium Level 2.0 Mean Corpuscular Hemoglobin 28.5 L Mean Corpuscular Hemoglobin Concent 33.2 Mean Corpuscular Volume 85.7 Mean Platelet Volume 6.8 L Phosphorus Level 3.2 Platelet Count 198 Potassium Level 3.7 Red Blood Count 3.39 L Red Cell Distribution Width 20.4 H Sodium Level 145 H White Blood Count 7.6 Arterial Blood HCO3 20.2 L Arterial Blood Base Excess -3.7 L Arterial Blood Oxygen Saturation 95.5 Sage Test ACCEPTAB Arterial Blood Gas Puncture Site Right Radial Arterial Blood Carboxyhemoglobin 0.3 Arterial Blood Date Drawn 09/10/2016 7:42:13 AM Arterial Blood Methemoglobin 0.3 Arterial Blood pCO2 (Temp correct) 32.6 L Arterial Blood pH (Temp corrected) 7.410 Arterial Blood pO2 (Temp corrected) 77.9 L Blood Gas A-a O2 Differential 97.7 H Blood Gas Actual Respiration Rate 14 Blood Gas Low PEEP Setting 5.0 Blood Gas Modality VENT - AC Blood Gas Notified Time 09/10/2016 8:02:53 AM Blood Gas Notified Whom LUZ Blood Gas Respiration Rate 14.0 Blood Gas Specimen Source Blood arterial Blood Gas Temperature 37.0 Blood Gas Tidal Volume 500.0 FiO2 30.0 Oxyhemoglobin Percent 94.9 Total Hemoglobin 10.3 L Test 09/10/16 08:07 Bedside Glucose 136 Medications Current Medications Piperacillin Sod/ Tazobactam Sod (Zosyn 2.25gm/ 50ml (Pmx)) 50 ml @ 100 mls/hr Q8 IVPB Last administered on 09/10/16at 05:25; Admin Dose 100 MLS/HR; Start at 14:00 Pantoprazole (Protonix Iv) 40 mg DAILY@06 IV Last administered on 09/10/16at 05 :25; Admin Dose 40 MG; Start 09/07/16 at 06:00 Ondansetron HCl (Zofran Inj) 4 mg Q6H PRN IV NAUSEA AND/OR VOMITING; Start at 11:30 Heparin Sodium (Porcine) (Heparin (5000 Units/0.5 ml)) 5,000 unit BID SC Last administered on 09/07/16at 08:50; Admin Dose 5,000 UNIT; Start 09/06/16 at 21: 00 Miscellaneous Information 1 ea NOTE XX ; Start 09/06/16 at 12:00 Glucose (Glutose) 15 gm Q15M PRN PO DECREASED GLUCOSE; Start 09/06/16 at 12:00 Glucose (Glutose) 22.5 gm Q15M PRN PO DECREASED GLUCOSE; Start 09/06/16 at 12: 00 Dextrose (D50w Syringe) 25 ml Q15M PRN IV DECREASED GLUCOSE; Start 09/06/16 at 12:00 Dextrose (D50w Syringe) 50 ml Q15M PRN IV DECREASED GLUCOSE; Start 09/06/16 at 12:00 Glucagon (Glucagen) 1 mg Q15M PRN IM DECREASED GLUCOSE; Start 09/06/16 at 12: 00 Glucose 15 gm 15 gm Q15M PRN BUCCAL DECREASED GLUCOSE; Start 09/06/16 at 12:00 Propofol 100 ml @ 2.445 mls/ hr Q12H IV Last administered on 09/09/16at 23:02 ; Admin Dose 2.445 MLS/HR; Start 09/06/16 at 19:00 Norepinephrine/ Dextrose (Levophed/D5W) 500 ml @ 1.87 mls/hr TITRATE IV ; Start 09/07/16 at 10:00 Insulin Aspart NOVOLOG *MILD* ALGORI... Q4 SC Last administered on 09/10/16at 05:24; Admin Dose 1 UNIT; Start 09/08/16 at 17:00 Dextrose/Sodium Chloride (D5-1/2ns) 1,000 ml @ 40 mls/hr Q24H IV Last administered on 09/10/16at 09:58; Admin Dose 40 MLS/HR; Start 09/10/16 at 07:00 Assessment/Plan Chief Complaint/Hosp Course ASSESSMENT AND PLAN: 1.Hypoxemic and hypercapnic respiratory failure secondary to likely volume overload on top of significant morbid obesity and restrictive lung disease. Failed extubation 2. Morbid obesity 3. Chronic kidney disease 4. Significant anemia following epistaxis 5. Questionable distal pulmonary embolus doubt any hemodynamic significance, negative Dopplers for deep vein thrombosis Plan 1. Continue assist-control mechanical ventilation 2. Renal failure with volume removal. 3. Nocturnal noninvasive positive pressure ventilation postextubation if extubated 4. Aspiration precautions. 5. Deep vein thrombosis and gastrointestinal prophylaxis. 6. Given her body habitus, the patient is at risk of recurrent hypoxemic and hypercapnic respiratory failure. 7. Trial of steroids for probable laryngeal edema Palliative care evaluation overall prognosis is guarded Problems: MARCIA BAIN MD, [facility] Sep 10, 2016 10:28
[2016-09-10] MEDS: METHYLPREDNISOLONE 125 MG INJ IV SCH ×2 (10:54→17:24)
--- NOTE | 2016-09-10 14:06 | PN ---
Date/Time of Note Date/Time of Note DATE: 09/10/16 TIME: 13:59 Assessment/Plan VTE Prophylaxis VTE Prophylaxis Intervention: heparin Lines/Catheters IV Catheter Type (from Nrsg): PICC Line Central line still needed: Yes (IV access ) Urinary Cath still in place: Yes Reason Cath still needed: other (indicate) (Lazo catheter ) Assessment/Plan Assessment/Plan 71 yo female with 1. Acute respiratory failure: 2ry to CHF exacerbation and volume overload, on HD She had to be reintubated yesterday due to stridors and respiratory failure, also on Solumedrol Continue weaning trials Dr Daniel following 2. Congestive heart failure, systolic acute on chronic, cardiomyopathy with LVEF 40-45,and also with ESRD On HD for volume management and Cardiology following Continue current medications Follow up Nephrology and cardiology recommendations 3. Elevated troponin / NSTEMI secondary to demand ischemia Appreciate Cardiology recommendations 3. Pneumonia possibly secondary to aspiration, continue Zosyn 4. Diabetes mellitus Type 2-controlled, continue SSI 5. Sepsis with Septic Shock 2/2 Pneumonia, off pressors, continue Zosyn and back on Vent. Continue supportive care. 6. Hypertension: Continue holding antihypertensives until more stable 7. End-stage renal disease on hemodialysis Follow up Nephrology. 8. Chronic hypochromic anemia secondary to chronic disease, stable H/H, continue monitor 9. Paroxysmal atrial fibrillation, controlled rate for now, monitor, further recs per cardiology, patient coagulopathic and in SR, f/u further Cardiology recs 10. UTI secondary to yeast: will monitor and repeat UA and cx for decision regarding treatment Prophylaxis: Heparin for DVT ppx and Protonix for GI ppx Disposition: Back on Vent and HD now Subjective 24 Hr Interval Summary Free Text/Dictation Patient sedated with Propofol Intubated and stable in Sinus, controlled rate Afebrile and WBC wnl Exam/Review of Systems Vital Signs Vitals Vital Signs Date Time Temp Pulse Resp B/P Pulse Ox O2 Delivery O2 Flow Rate FiO2 09/10/16 13:00 70 14 157/74 99 Mechanical Ventilator 09/10/16 12:00 98.3 09/10/16 11:46 30 09/09/16 11:50 6.0 Intake and Output 09/09/16 09/09/16 09/10/16 15:00 23:00 07:00 Intake Total 550 ml 76.88 ml Output Total 0 ml 3530 ml 90 ml Balance 0 ml -2980 ml -13.12 ml Exam Constitutional: other (sedated and intubated ) Respiratory: clear to auscultation, normal air movement Cardiovascular: nl pulses, regular rate and rhythm Gastrointestinal: non-tender, soft Musculoskeletal: nl extremities to inspection Extremities: edema (Upper ext better today ), normal pulses, other ( clubbing or cyanosis ) Neurological: other (sedated and intubated ) Results Result Diagram: 09/10/168 09/10/16 0428 Results 24 hrs Laboratory Tests Test 09/09/16 14:26 09/09/16 16:29 09/09/16 21:14 09/10/16 01:26 Arterial Blood HCO3 18.9 L Arterial Blood Base Excess -6.5 L Arterial Blood Oxygen Saturation 99.4 H Sage Test ACCEPTAB Arterial Blood Gas Puncture Site Right Radial Arterial Blood Carboxyhemoglobin 0.1 Arterial Blood Date Drawn 09/09/2016 2:55:22 PM Arterial Blood Methemoglobin 0.4 Arterial Blood pCO2 (Temp correct) 37.6 Arterial Blood pH (Temp corrected) 7.320 L Arterial Blood pO2 (Temp corrected) 352.2 H Blood Gas A-a O2 Differential 323.2 H Blood Gas Actual Respiration Rate 14 Blood Gas Low PEEP Setting 5.0 Blood Gas Modality VENT - AC Blood Gas Notified Time 09/09/2016 3:07:11 PM Blood Gas Notified Whom JLD Blood Gas Respiration Rate 14.0 Blood Gas Specimen Source Blood arterial Blood Gas Temperature 37.0 Blood Gas Tidal Volume 500.0 FiO2 100.0 Oxyhemoglobin Percent 98.9 Total Hemoglobin 11.7 L Bedside Glucose 142 160 146 Test 09/10/16 04:28 09/10/16 05:20 09/10/16 07:00 09/10/16 08:07 Anion Gap 19 H Anisocytosis 2+ Blood Morphology Comment Blood Urea Nitrogen 15 Calcium Level 8.6 Carbon Dioxide Level 23 Chloride Level 107 Creatinine 1.63 H Differential Comment MANUAL DIFF Dimorphic Red Blood Cells RARE Eosinophils # 0.1 Eosinophils % 1.0 Glucose Level 161 Hematocrit 29.1 L Hemoglobin 9.6 L Hypochromasia 1+ Lymphocytes # 0.4 L Lymphocytes % 5.0 L Magnesium Level 2.0 Mean Corpuscular Hemoglobin 28.5 L Mean Corpuscular Hemoglobin Concent 33.2 Mean Corpuscular Volume 85.7 Mean Platelet Volume 6.8 L Monocytes # 0.8 Monocytes % 11.0 Neutrophils # 6.3 Neutrophils % 83.0 H Phosphorus Level 3.2 Platelet Count 198 Potassium Level 3.7 Red Blood Count 3.39 L Red Cell Distribution Width 20.4 H Sodium Level 145 H White Blood Count 7.6 Bedside Glucose 141 136 Arterial Blood HCO3 20.2 L Arterial Blood Base Excess -3.7 L Arterial Blood Oxygen Saturation 95.5 Sage Test ACCEPTAB Arterial Blood Gas Puncture Site Right Radial Arterial Blood Carboxyhemoglobin 0.3 Arterial Blood Date Drawn 09/10/2016 7:42:13 AM Arterial Blood Methemoglobin 0.3 Arterial Blood pCO2 (Temp correct) 32.6 L Arterial Blood pH (Temp corrected) 7.410 Arterial Blood pO2 (Temp corrected) 77.9 L Blood Gas A-a O2 Differential 97.7 H Blood Gas Actual Respiration Rate 14 Blood Gas Low PEEP Setting 5.0 Blood Gas Modality VENT - AC Blood Gas Notified Time 09/10/2016 8:02:53 AM Blood Gas Notified Whom JLD Blood Gas Respiration Rate 14.0 Blood Gas Specimen Source Blood arterial Blood Gas Temperature 37.0 Blood Gas Tidal Volume 500.0 FiO2 30.0 Oxyhemoglobin Percent 94.9 Total Hemoglobin 10.3 L Test 09/10/16 12:29 Bedside Glucose 152 Medications Medications Current Medications Piperacillin Sod/ Tazobactam Sod (Zosyn 2.25gm/ 50ml (Pmx)) 50 ml @ 100 mls/hr Q8 IVPB Last administered on 09/10/16at 05:25; Admin Dose 100 MLS/HR; Start at 14:00 Pantoprazole (Protonix Iv) 40 mg DAILY@06 IV Last administered on 09/10/16at 05 :25; Admin Dose 40 MG; Start 09/07/16 at 06:00 Ondansetron HCl (Zofran Inj) 4 mg Q6H PRN IV NAUSEA AND/OR VOMITING; Start at 11:30 Heparin Sodium (Porcine) (Heparin (5000 Units/0.5 ml)) 5,000 unit BID SC Last administered on 09/07/16at 08:50; Admin Dose 5,000 UNIT; Start 09/06/16 at 21: 00 Miscellaneous Information 1 ea NOTE XX ; Start 09/06/16 at 12:00 Glucose (Glutose) 15 gm Q15M PRN PO DECREASED GLUCOSE; Start 09/06/16 at 12:00 Glucose (Glutose) 22.5 gm Q15M PRN PO DECREASED GLUCOSE; Start 09/06/16 at 12: 00 Dextrose (D50w Syringe) 25 ml Q15M PRN IV DECREASED GLUCOSE; Start 09/06/16 at 12:00 Dextrose (D50w Syringe) 50 ml Q15M PRN IV DECREASED GLUCOSE; Start 09/06/16 at 12:00 Glucagon (Glucagen) 1 mg Q15M PRN IM DECREASED GLUCOSE; Start 09/06/16 at 12: 00 Glucose 15 gm 15 gm Q15M PRN BUCCAL DECREASED GLUCOSE; Start 09/06/16 at 12:00 Propofol 100 ml @ 2.445 mls/ hr Q12H IV Last administered on 09/10/16at 12:00 ; Admin Dose 7.335 MLS/HR; Start 09/06/16 at 19:00 Norepinephrine/ Dextrose (Levophed/D5W) 500 ml @ 1.87 mls/hr TITRATE IV ; Start 09/07/16 at 10:00 Insulin Aspart NOVOLOG *MILD* ALGORI... Q4 SC Last administered on 09/10/16at 12:30; Admin Dose 1 UNIT; Start 09/08/16 at 17:00 Dextrose/Sodium Chloride (D5-1/2ns) 1,000 ml @ 40 mls/hr Q24H IV Last administered on 09/10/16at 09:58; Admin Dose 40 MLS/HR; Start 09/10/16 at 07:00 Methylprednisolone Sodium Succinate (Solu-Medrol) 60 mg Q6 IV Last administered on 09/10/16at 10:54; Admin Dose 60 MG; Start 09/10/16 at 11:00 Procedures Procedures PROCEDURE: XR Chest. CLINICAL INDICATION: Shortness of breath. TECHNIQUE: Single frontal view. COMPARISON: 09/09/2016. FINDINGS: The endotracheal tube, left arm PICC line, and tunneled right internal jugular vein dialysis catheter are unchanged. There is elevation of the right hemidiaphragm, unchanged. Mild atelectasis is present at the lung bases, unchanged. The heart is mildly enlarged. There is no pleural effusion. There is no pneumothorax. IMPRESSION: 1. No change from 09/09/2016. RPTAT: CRISTY WINN Sep 10, 2016 14:06
[2016-09-10 18:07] LABS: ADD UMIC YES; URINE BILIRUBIN (Dip) 2+ (NEGATIVE); URINE BLOOD (Dip) 2+ (NEGATIVE); URINE COLOR YELLOW (YELLOW); URINE GLUCOSE (Dip) NEGATIVE (NEGATIVE); URINE KETONES (Dip) 15 (NEGATIVE); URINE LEUKOCYTE ESTERASE (Dip) 2+ (NEGATIVE); URINE NITRITE (Dip) NEGATIVE (NEGATIVE); URINE TOTAL PROTEIN (Dip) 4+ (NEGATIVE); URINE UROBILINOGEN (Dip) 0.2 E.U./dL (0.1-1.0)
[2016-09-10 18:21] LABS: BACTERIA,URINE MODERATE; ICTOTEST NEGATIVE (NEGATIVE)
--- NOTE | 2016-09-10 20:56 | RADRPT ---
PROCEDURE: Left upper extremity Doppler US. CLINICAL INDICATION: Left upper extremity swelling. TECHNIQUE: Multiple sonographic images of the left upper extremity were obtained with and without Doppler interrogation. The images were reviewed on a PACS workstation. COMPARISON: No prior studies are available for comparison. FINDINGS: The left internal jugular, subclavian and axillary veins are normal in appearance without evidence o f thrombus. There is a PICC seen in the left axillary and subclavian vein, however the tip is not d emonstrated in the upper arm veins. There is no evidence of thrombus adjacent to the PIP. There is thrombus seen in the left cephalic vein in the upper arm, without significant induration of the adj acent soft tissues. The left brachial, basilic, radial and ulnar veins are normal in appearance wit hout evidence of thrombus. No evidence of DVT. There is no significant soft tissue swelling. IMPRESSION: 1. Superficial venous thrombosis in the left cephalic vein in the upper arm. 2. Otherwise, normal left upper extremity Doppler ultrasound. No evidence of DVT. 3. PICC seen in the axillary and subclavian veins without evidence of adjacent thrombus. Of note, the PICC is not demonstrated in the upper arm veins. The above findings were discussed with Patient's Nurse Jane by telephone on 09/10/2016 8:53:34 P M. RPTAT: HGAS .Butch Anne MD, Date Time Electronically viewed and signed by .Butch Anne MD, on 09/10/2016 20:55 .S/
[2016-09-11] VITALS (74 sets, daily range): BP systolic 82–170; BP diastolic 43–119; PULSE 63–81; RESP 13–24
[2016-09-11] MEDS: METHYLPREDNISOLONE 125 MG INJ IV SCH ×4 (00:26→18:34)
[2016-09-11] MEDS: INSULIN ASPART [NOVOLOG] 3 ML PEN SC SCH ×6 (00:30→21:15)
[2016-09-11] MEDS: PROPOFOL 100 ML IV SCH ×5 (00:49→20:22)
[2016-09-11] MEDS: IPRATROPIUM (HFA) 12.9 GM INHALER INH SCH ×4 (03:24→19:40)
[2016-09-11] MEDS: PIPER-TAZO 2.25 GM (PMX) 50 ML IVPB SCH ×3 (05:31→21:13)
[2016-09-11] MEDS: PANTOPRAZOLE 40 MG INJ IV SCH (05:31)
[2016-09-11 06:12] LABS: HEMOGLOBIN 10.3 g/dl (12.0-16.0); MEAN CORPUSCULAR HEMOGLOBIN 30.4 pg (29.0-33.0); MEAN CORPUSCULAR HGB CONC 35.5 g/dl (32.0-37.0); MEAN CORPUSCULAR VOLUME 85.6 fl (82.0-101.0); MEAN PLATELET VOLUME 7.4 fl (7.4-10.4); PLATELET COUNT 191 10^3/UL (140-440); RED BLOOD COUNT 3.38 10^6/ul (4.20-5.40); RED CELL DISTRIBUTION WIDTH 20.4 % (11.5-14.5); UNCORRECTED WBC 4.9 10^3/ul (4.8-10.8); WHITE BLOOD COUNT 4.9 10^3/ul (4.8-10.8)
[2016-09-11 06:22] LABS: INR 1.86; PROTIME 21.6 Sec (12.2-14.2); PT RATIO 1.7
[2016-09-11 06:23] LABS: PARTIAL THROMBOPLASTIN TIME 39.2 Sec (25.0-35.0)
[2016-09-11 06:30] LABS: CONDITION 1; LH ANALYZER COMMENTS 1; POTASSIUM 3.2 mmol/L (3.5-5.1)
[2016-09-11 06:34] LABS: CALCIUM 8.3 mg/dl (8.4-10.2); CREATININE 1.82 mg/dl (0.44-1.00); MAGNESIUM 1.9 mg/dl (1.7-2.5); PHOSPHORUS 3.2 mg/dl (2.5-4.9)
[2016-09-11 07:37] LABS: LYMPHOCYTES # 0.3 10^3/ul (0.8-2.9); MONOCYTE # 0.2 10^3/ul (0.3-0.9); NEUTROPHIL # 4.2 10^3/ul (1.6-7.5)
[2016-09-11] MEDS ORDERED: POTASSIUM CHLORIDE 50 ML IVPB ONE (07:45)
[2016-09-11] MEDS ORDERED: POTASSIUM CHLORIDE 250 ML IVPB ONE (08:30)
--- NOTE | 2016-09-11 09:00 | RADRPT ---
PROCEDURE: XR Chest. CLINICAL INDICATION: Shortness of breath. TECHNIQUE: Single frontal view. COMPARISON: 09/10/2016. FINDINGS: The endotracheal tube, left arm PICC line, and right internal jugular vein tunneled dialysis cathete r remain in satisfactory position. The heart is enlarged. Mild pulmonary edema is slightly worse than seen previously. There is mild left basilar atelectasis and elevation of the right hemidiaphragm. There is no pleural effusion or pneumothorax. There is right shoulder calcific tendonitis. IMPRESSION: 1. Slightly worse appearance of the lungs. 2. No other change from 09/10/2016. RPTAT: QQ .Esvin Mak MD, MD Date Time Electronically viewed and signed by .Esvin Mak MD, MD on 09/11/2016 08:59 .R/
[2016-09-11] MEDS: SOD CHLORIDE 0.45% 1,000 ML IV SCH (09:34)
--- NOTE | 2016-09-11 10:40 | PN ---
DATE: 09/11/2016 SUBJECTIVE: The patient remains critically ill, on pressor support. The patient had dialysis yeste rday, with 3.5 liters removed. No other events noted. OBJECTIVE: VITAL SIGNS: Blood pressure is 150/80, respirations 15, pulse 65, temperature 98.6. HEENT: Head is normocephalic. NECK: Supple. HEART: Regular rate. LUNGS: Showed diminished breath sounds at the base. ABDOMEN: Soft, nontender to palpation. No rebound or guarding. EXTREMITIES: Negative for clubbing or cyanosis. Positive edema. DERMATOLOGIC: No rashes. MUSCULOSKELETAL: Have no joint effusion. NEUROLOGIC: No change in exam. MEDICATIONS: The patient's medications have been reviewed. LABORATORY DATA: Showed sodium 137, potassium , chloride 100, bicarbonate 16, BUN 17, creatini ne 1.82, calcium 8.3. White count 4.9, hemoglobin 10.2, hematocrit 29.0, platelet count is 191. Th e patient's chest x-ray was reviewed. Upper extremity ultrasound shows superficial venous thrombosi s. ASSESSMENT AND PLAN: 1. Oliguric acute kidney injury on top of chronic kidney disease stage IV, with likely progression to end-stage renal disease. The patient is currently dialysis dependent with an access Perm-A-Cath. The patient has been receiving daily dialysis for solute clearance and volume removal. Plan for d ialysis again for 3 hours on a 4K bath, calcium 2.5, with an ultrafiltration goal of 2-3 liters. 2. Volume overload secondary to acute kidney injury and congestive heart failure. Continue ultrafi ltration dialysis. 3. Hypokalemia. Will replete with 40 mEq of potassium chloride. Will dialyze on a 4 potassium bat h. 4. Anemia. Continue to monitor H and H levels. Will transfuse as needed. 5. Ventilator-dependent respiratory failure. Vent settings have been reviewed. ABG has been revie wed. Continue to monitor. Follow up with pulmonary. 6. Sepsis. Status post shock. Currently on antibiotics. Will continue. 7. Diabetes. Continue Accu-Cheks and insulin sliding scale. 8. Hypertension. Blood pressure is elevated. Continue the current blood pressure regimen. Contin ue ultrafiltration dialysis. 9. Acute encephalopathy. Etiology is toxic metabolic. Continue to monitor. 10. Arrhythmia. Currently stable. Follow up with cardiology. 11. History of Clostridium difficile colitis. Status post treatment. 12. Elevated troponin and possible non-ST elevation myocardial infarction. Continue current medica l management. Dictated By: STEFFANY JESUS/ADRIA Conf#: [id number] DID#: [id number]
--- NOTE | 2016-09-11 11:57 | PN ---
Date/Time of Note Date/Time of Note DATE: 09/11/16 TIME: 11:33 Assessment/Plan VTE Prophylaxis VTE Prophylaxis Intervention: SCD's Lines/Catheters IV Catheter Type (from Nrsg): permacath Urinary Cath still in place: Yes Reason Cath still needed: other (indicate) (monitor UOP ) Assessment/Plan Assessment/Plan 71 yo female with 1. Acute respiratory failure: 2ry to CHF exacerbation and volume overload, on HD She had to be reintubated this week due to stridors and respiratory failure, On Solumedrol now Continue weaning trials Pulmonary/Dr Daniel following 2. Congestive heart failure, systolic acute on chronic, cardiomyopathy with LVEF 40-45,and also with ESRD On HD for volume management and Cardiology following Continue current medications Follow up Nephrology and cardiology recommendations 3. Elevated troponin / NSTEMI secondary to demand ischemia Appreciate Cardiology recommendations 3. Pneumonia possibly secondary to aspiration, continue Zosyn 4. Diabetes mellitus Type 2, now with hyperglycemia due to D5 fluids and also on steroids now Change to moderate SSI Glucerna Lantus if needed 5. Sepsis with Septic Shock 2/2 Pneumonia, off pressors, continue Zosyn and back on Vent. Continue supportive care. 6. Hypertension: Continue holding antihypertensives until more stable 7. End-stage renal disease on hemodialysis. HD today again for volume management. Follow up Nephrology. 8. Chronic hypochromic anemia secondary to chronic disease, stable H/H, continue monitor 9. Paroxysmal atrial fibrillation, controlled rate for now, monitor, further recs per cardiology, patient coagulopathic and in SR, f/u further Cardiology recs 10. UTI secondary to yeast: will monitor Repeat UA with LE and yeast, may need Voriconazole and change Lazo 11. Coagulopathy: resolving slowly Episode of bleeding with suctioning yesterday so d/c Heparin ppx 12. Superficial venous thrombosis in the left cephalic vein in the upper arm. warm compresses since patient with coagulopathy Repeat Doppler in 1 to 2 weeks Prophylaxis: Heparin for DVT ppx and Protonix for GI ppx Disposition: Back on Vent and HD today. Subjective 24 Hr Interval Summary Free Text/Dictation Patient remains stable HD today again Apparently to be extubated after Smoot Exam/Review of Systems Vital Signs Vitals Vital Signs Date Time Temp Pulse Resp B/P Pulse Ox O2 Delivery O2 Flow Rate FiO2 12/22/16 11:00 67 15 152/77 97 Mechanical Ventilator 09/11/16 08:33 30 09/11/16 08:00 98.0 09/09/16 11:50 6.0 Intake and Output 09/10/16 09/10/16 09/11/16 15:00 23:00 07:00 Intake Total 745.790 ml 1037.580 ml 474.255 ml Output Total 3545 ml 60 ml Balance 745.790 ml -2507.420 ml 414.255 ml Exam Constitutional: other (sedated and intubated ) Respiratory: diminished breath sounds (bilaterally ), other (on Vent ) Cardiovascular: nl pulses, regular rate and rhythm Gastrointestinal: non-tender, soft Musculoskeletal: nl extremities to inspection Extremities: normal pulses, other (no edema, clubbing or cyanosis ) Neurological: [employer] II-XII intact, other (sedated and intubated ) Results Result Diagram: 09/11/16 0400 09/11/16 0400 Results 24 hrs Laboratory Tests Test 09/10/16 12:29 09/10/16 17:00 09/10/16 17:23 09/10/16 21:34 Bedside Glucose 152 204 238 H Urine Bacteria MODERATE Urine Bilirubin 2+ H Urine Clarity CLOUDY Urine Color YELLOW Urine Epithelial Cells FEW Urine Glucose NEGATIVE Urine Hemoglobin 2+ H Urine Ictotest NEGATIVE Urine Ketones 15 Urine Leukocyte Esterase 2+ H Urine Microscopic RBC 10-25 Urine Microscopic WBC 25-50 Urine Nitrite NEGATIVE Urine Specific [place] 1.020 Urine Total Protein 4+ H Urine Urobilinogen 0.2 E.U./dL Urine Yeast MANY Urine pH 6.0 Test 09/11/16 00:27 09/11/16 04:00 09/11/16 04:51 09/11/16 09:21 Bedside Glucose 266 H 243 H 251 H Activated Partial Thromboplast Time 39.2 H Anion Gap 24 H Band Neutrophils % 4.0 Blood Morphology Comment Blood Urea Nitrogen 17 Calcium Level 8.3 L Carbon Dioxide Level 16 L Chloride Level 100 Creatinine 1.82 H Differential Comment MANUAL DIFF Glucose Level 194 Hematocrit 29.0 L Hemoglobin 10.3 L INR International Normalized Ratio 1.86 Lymphocytes # 0.3 L Lymphocytes % 6.0 L Magnesium Level 1.9 Mean Corpuscular Hemoglobin 30.4 Mean Corpuscular Hemoglobin Concent 35.5 Mean Corpuscular Volume 85.6 Mean Platelet Volume 7.4 Monocytes # 0.2 L Monocytes % 5.0 Neutrophils # 4.2 Neutrophils % 85.0 H Phosphorus Level 3.2 Platelet Count 191 Potassium Level 3.2 L Prothrombin Time 21.6 #H Prothrombin Time Ratio 1.7 Red Blood Count 3.38 L Red Cell Distribution Width 20.4 H Sodium Level 137 White Blood Count 4.9 # Medications Medications Current Medications Piperacillin Sod/ Tazobactam Sod (Zosyn 2.25gm/ 50ml (Pmx)) 50 ml @ 100 mls/hr Q8 IVPB Last administered on 09/11/16at 05:31; Admin Dose 100 MLS/HR; Start at 14:00 Pantoprazole (Protonix Iv) 40 mg DAILY@06 IV Last administered on 09/11/16at 05 :31; Admin Dose 40 MG; Start 09/07/16 at 06:00 Ondansetron HCl (Zofran Inj) 4 mg Q6H PRN IV NAUSEA AND/OR VOMITING; Start at 11:30 Miscellaneous Information 1 ea NOTE XX ; Start 09/06/16 at 12:00 Glucose (Glutose) 15 gm Q15M PRN PO DECREASED GLUCOSE; Start 09/06/16 at 12:00 Glucose (Glutose) 22.5 gm Q15M PRN PO DECREASED GLUCOSE; Start 09/06/16 at 12: 00 Dextrose (D50w Syringe) 25 ml Q15M PRN IV DECREASED GLUCOSE; Start 09/06/16 at 12:00 Dextrose (D50w Syringe) 50 ml Q15M PRN IV DECREASED GLUCOSE; Start 09/06/16 at 12:00 Glucagon (Glucagen) 1 mg Q15M PRN IM DECREASED GLUCOSE; Start 09/06/16 at 12: 00 Glucose 15 gm 15 gm Q15M PRN BUCCAL DECREASED GLUCOSE; Start 09/06/16 at 12:00 Propofol 100 ml @ 2.445 mls/ hr Q12H IV Last administered on 09/11/16at 06:05 ; Admin Dose 19.56 MLS/HR; Start 09/06/16 at 19:00 Norepinephrine/ Dextrose (Levophed/D5W) 500 ml @ 1.87 mls/hr TITRATE IV ; Start 09/07/16 at 10:00 Insulin Aspart (Novolog Insulin Pen) NOVOLOG *MILD* ALGORI... Q4 SC Last administered on 09/11/16at 09:35; Admin Dose 3 UNIT; Start 09/08/16 at 17:00 Methylprednisolone Sodium Succinate 60 mg 60 mg Q6 IV Last administered on at 05:31; Admin Dose 60 MG; Start 09/10/16 at 11:00 Potassium Chloride 250 ml @ 62.5 mls/hr ONCE ONCE IVPB Last administered on 09/11/16at 09:33; Admin Dose 62.5 MLS/HR; Start 09/11/16 at 08:30; Stop at 12:29 Sodium Chloride (1/2 NS) 1,000 ml @ 50 mls/hr Q20H IV Last administered on at 09:34; Admin Dose 50 MLS/HR; Start 09/11/16 at 08:30 Procedures Procedures PROCEDURE: Left upper extremity Doppler US. CLINICAL INDICATION: Left upper extremity swelling. TECHNIQUE: Multiple sonographic images of the left upper extremity were obtained with and without Doppler interrogation. The images were reviewed on a PACS workstation. COMPARISON: No prior studies are available for comparison. FINDINGS: The left internal jugular, subclavian and axillary veins are normal in appearance without evidence of thrombus. There is a PICC seen in the left axillary and subclavian vein, however the tip is not demonstrated in the upper arm veins. There is no evidence of thrombus adjacent to the PIP. There is thrombus seen in the left cephalic vein in the upper arm, without significant induration of the adjacent soft tissues. The left brachial, basilic, radial and ulnar veins are normal in appearance without evidence of thrombus. No evidence of DVT. There is no significant soft tissue swelling. IMPRESSION: 1. 2. Otherwise, normal left upper extremity Doppler ultrasound. No evidence of DVT. 3. PICC seen in the axillary and subclavian veins without evidence of adjacent thrombus. Of note, the PICC is not demonstrated in the upper arm veins. The above findings were discussed with Patient's Nurse Jane by telephone on 09/10/2016 8:53:34 PM. CRISTY INMAN Sep 11, 2016 11:43
[2016-09-11 12:48] LABS: INR 1.61; PROTIME 19.3 Sec (12.2-14.2); PT RATIO 1.5
[2016-09-11 12:49] LABS: PARTIAL THROMBOPLASTIN TIME 34.3 Sec (25.0-35.0)
[2016-09-11] MEDS ORDERED: HYPOGLYCEMIA PROTOCOL when Glucose is <70 mg/dL or symptomatic <90 mg/dL. XX ONE (13:00)
[2016-09-11] MEDS ORDERED: Discontinue Glyburide, Glipizide, and/or Glimepiride prior to starting Insulin XX ONE (13:00)
[2016-09-11] MEDS ORDERED: ALBUMIN HUMAN 25% 100 ML ONE (13:55)
[2016-09-11] MEDS ORDERED: ALBUMIN HUMAN 25% 100 ML IV ONE (14:00)
--- NOTE | 2016-09-11 14:16 | CONS ---
Date/Time of Note Date/Time of Note DATE: 09/11/16 TIME: 14:10 Assessment/Plan Assessment/Plan Chief Complaint/Hosp Course Imp: 1.Positive troponin-minmal in setting of esrd-Now trended negative 2.CHF-? systolic vs diastolic acute 3.HTN 4.ESRD on HD 5.anemia-requiring transfusions 6.Coagulopathy-ongoing 7.H/O PAF in SR currently Recc: -Tele -serial ecg's -trend cardiac enzymes -HD for volume removal -Follow hgb closely -start low dose BB as tolerated -PRN IVP anti-hypertensives Problems: Consultation Date/Type/Reason Admit Date/Time Sep 06, 2016 at 11:22 Initial Consult Date 09/07/2016 Type of Consultation: Cardiology Reason for Consultation CHF Referring Provider: PAMELA MARTE Exam/Review of Systems Vital Signs Vitals Vital Signs Date Time Temp Pulse Resp B/P Pulse Ox O2 Delivery O2 Flow Rate FiO2 09/11/16 13:30 67 09/11/16 12:00 14 09/11/16 11:26 100 30 09/11/16 11:00 152/77 Mechanical Ventilator 09/11/16 08:00 98.0 09/09/16 11:50 6.0 Intake and Output 09/10/16 09/10/16 09/11/16 15:00 23:00 07:00 Intake Total 745.790 ml 1037.580 ml 474.255 ml Output Total 3545 ml 60 ml Balance 745.790 ml -2507.420 ml 414.255 ml Exam Review of Systems: CONSTITUTIONAL: No fevers, chills. PULMONARY: No sob CARDIOVASCULAR: No chest pain/palpitations GASTROINTESTINAL: No nausea/vomiting. GENITOURINARY: No hematuria/dysuria. MUSCULOSKELETAL: No myagias/arthalgias. PSYCHIATRIC: The patient denies depression. NEUROLOGIC: No weakness Constitutional: other (sedated) Head: normocephalic ENMT: intubated Neck: jvd (9 cm water), supple Respiratory: diminished breath sounds (at bases/B) Cardiovascular: regular rate and rhythm Gastrointestinal: non-tender, soft Musculoskeletal: muscle tone (normal) Extremities: pitting pedal edema (Bilateral ) Neurological: other (sedated) Results Result Diagram: 09/11/16 0400 09/11/16 0400 Results 24 hrs Laboratory Tests Test 09/10/16 17:00 09/10/16 17:23 09/10/16 21:34 09/11/16 00:27 Urine Bacteria MODERATE Urine Bilirubin 2+ H Urine Clarity CLOUDY Urine Color YELLOW Urine Epithelial Cells FEW Urine Glucose NEGATIVE Urine Hemoglobin 2+ H Urine Ictotest NEGATIVE Urine Ketones 15 Urine Leukocyte Esterase 2+ H Urine Microscopic RBC 10-25 Urine Microscopic WBC 25-50 Urine Nitrite NEGATIVE Urine Specific [place] 1.020 Urine Total Protein 4+ H Urine Urobilinogen 0.2 E.U./dL Urine Yeast MANY Urine pH 6.0 Bedside Glucose 204 238 H 266 H Test 09/11/16 04:00 09/11/16 04:51 09/11/16 09:21 09/11/16 11:32 Activated Partial Thromboplast Time 39.2 H Anion Gap 24 H Band Neutrophils % 4.0 Blood Morphology Comment Blood Urea Nitrogen 17 Calcium Level 8.3 L Carbon Dioxide Level 16 L Chloride Level 100 Creatinine 1.82 H Differential Comment MANUAL DIFF Glucose Level 194 Hematocrit 29.0 L Hemoglobin 10.3 L INR International Normalized Ratio 1.86 Lymphocytes # 0.3 L Lymphocytes % 6.0 L Magnesium Level 1.9 Mean Corpuscular Hemoglobin 30.4 Mean Corpuscular Hemoglobin Concent 35.5 Mean Corpuscular Volume 85.6 Mean Platelet Volume 7.4 Monocytes # 0.2 L Monocytes % 5.0 Neutrophils # 4.2 Neutrophils % 85.0 H Phosphorus Level 3.2 Platelet Count 191 Potassium Level 3.2 L Prothrombin Time 21.6 #H Prothrombin Time Ratio 1.7 Red Blood Count 3.38 L Red Cell Distribution Width 20.4 H Sodium Level 137 White Blood Count 4.9 # Bedside Glucose 243 H 251 H 240 H Test 09/11/16 12:15 Activated Partial Thromboplast Time 34.3 INR International Normalized Ratio 1.61 Prothrombin Time 19.3 H Prothrombin Time Ratio 1.5 Medications Medications Current Medications Piperacillin Sod/ Tazobactam Sod (Zosyn 2.25gm/ 50ml (Pmx)) 50 ml @ 100 mls/hr Q8 IVPB Last administered on 09/11/16at 13:11; Admin Dose 100 MLS/HR; Start at 14:00 Pantoprazole (Protonix Iv) 40 mg DAILY@06 IV Last administered on 09/11/16at 05 :31; Admin Dose 40 MG; Start 09/07/16 at 06:00 Ondansetron HCl (Zofran Inj) 4 mg Q6H PRN IV NAUSEA AND/OR VOMITING; Start at 11:30 Miscellaneous Information 1 ea NOTE XX ; Start 09/06/16 at 12:00 Glucose (Glutose) 15 gm Q15M PRN PO DECREASED GLUCOSE; Start 09/06/16 at 12:00 Glucose (Glutose) 22.5 gm Q15M PRN PO DECREASED GLUCOSE; Start 09/06/16 at 12: 00 Dextrose (D50w Syringe) 25 ml Q15M PRN IV DECREASED GLUCOSE; Start 09/06/16 at 12:00 Dextrose (D50w Syringe) 50 ml Q15M PRN IV DECREASED GLUCOSE; Start 09/06/16 at 12:00 Glucagon (Glucagen) 1 mg Q15M PRN IM DECREASED GLUCOSE; Start 09/06/16 at 12: 00 Glucose 15 gm 15 gm Q15M PRN BUCCAL DECREASED GLUCOSE; Start 09/06/16 at 12:00 Propofol 100 ml @ 2.445 mls/ hr Q12H IV Last administered on 09/11/16at 06:05 ; Admin Dose 19.56 MLS/HR; Start 09/06/16 at 19:00 Norepinephrine/ Dextrose (Levophed/D5W) 500 ml @ 1.87 mls/hr TITRATE IV ; Start 09/07/16 at 10:00 Methylprednisolone Sodium Succinate 60 mg 60 mg Q6 IV Last administered on at 13:11; Admin Dose 60 MG; Start 09/10/16 at 11:00 Sodium Chloride (1/2 NS) 1,000 ml @ 50 mls/hr Q20H IV Last administered on at 09:34; Admin Dose 50 MLS/HR; Start 09/11/16 at 08:30 Insulin Aspart NOVOLOG *MODERATE* ALGORI... Q4 SC ; Start 09/11/16 at 13:00 Albumin Human (Albumin Human 25%) 100 ml @ 100 mls/hr ONCE ONCE IV ; Start at 14:00; Stop 09/11/16 at 14:59 KAJAL MCKINNEY Sep 11, 2016 14:16
[2016-09-11] MEDS ORDERED: INSULIN ASPART [NOVOLOG] 3 ML PEN SC SCH (17:35)
--- NOTE | 2016-09-11 17:38 | RADRPT ---
PROCEDURE: XR Abdomen. CLINICAL INDICATION: Orogastric tube placement. TECHNIQUE: Single AP view of the abdomen is available for review. COMPARISON: Chest radiograph from earlier the same date.. FINDINGS: There is an orogastric tube with the tip descending into the body of the stomach. Right sided tunne led catheter and endotracheal tube appear chain unchanged from the prior study. Abdominal gas patter n appears unremarkable. There is no evidence of obstruction. There are no abnormal calcifications overlying the urinary tra cts. There is a ureteral stent on the left. The osseous structures are unremarkable. IMPRESSION: 1. Orogastric tube with the tip descending into the body of the stomach. RPTAT: [facility] Physician Arnold Date Time Electronically viewed and signed by Physician Arnold on 09/11/2016 17:38 HOLLY/
[2016-09-11] MEDS: ALBUTEROL HFA 8 GM INHALER INH PRN (19:40)
[2016-09-12] VITALS (59 sets, daily range): BP systolic 93–160; BP diastolic 59–110; PULSE 7–82; RESP 14–22
[2016-09-12] MEDS: IPRATROPIUM (HFA) 12.9 GM INHALER INH SCH ×4 (01:16→19:39)
[2016-09-12] MEDS: ALBUTEROL HFA 8 GM INHALER INH PRN ×4 (01:16→19:39)
[2016-09-12] MEDS ORDERED: ACCUCHECK XX SCH (02:00)
[2016-09-12] MEDS: INSULIN ASPART [NOVOLOG] 3 ML PEN SC SCH ×5 (02:01→17:45)
[2016-09-12] MEDS: PROPOFOL 100 ML IV SCH ×5 (02:08→22:41)
[2016-09-12] MEDS: SOD CHLORIDE 0.45% 1,000 ML IV SCH (05:21)
[2016-09-12] MEDS: PIPER-TAZO 2.25 GM (PMX) 50 ML IVPB SCH ×2 (05:21→14:13)
[2016-09-12] MEDS: PANTOPRAZOLE 40 MG INJ IV SCH (05:21)
[2016-09-12] MEDS: METHYLPREDNISOLONE 125 MG INJ IV SCH ×4 (05:21→17:38)
[2016-09-12 05:34] LABS: HEMOGLOBIN 9.9 g/dl (12.0-16.0); MEAN CORPUSCULAR HEMOGLOBIN 29.9 pg (29.0-33.0); MEAN CORPUSCULAR HGB CONC 35.1 g/dl (32.0-37.0); MEAN CORPUSCULAR VOLUME 85.1 fl (82.0-101.0); MEAN PLATELET VOLUME 7.2 fl (7.4-10.4); PLATELET COUNT 191 10^3/UL (140-440); RED CELL DISTRIBUTION WIDTH 20.4 % (11.5-14.5); UNCORRECTED WBC 4.1 10^3/ul (4.8-10.8); WHITE BLOOD COUNT 4.1 10^3/ul (4.8-10.8)
[2016-09-12 05:46] LABS: CONDITION 1; LH ANALYZER COMMENTS 1
[2016-09-12 06:00] LABS: POTASSIUM 3.4 mmol/L (3.5-5.1)
[2016-09-12 06:03] LABS: CREATININE 1.79 mg/dl (0.44-1.00)
[2016-09-12 06:04] LABS: CALCIUM 8.2 mg/dl (8.4-10.2); MAGNESIUM 1.7 mg/dl (1.7-2.5); PHOSPHORUS 2.9 mg/dl (2.5-4.9)
[2016-09-12] MEDS ORDERED: POTASSIUM CHLORIDE 250 ML IVPB ONE (08:30)
[2016-09-12 10:56] LABS: EOSINOPHILS # 0.1 10^3/ul (0.0-0.5); LYMPHOCYTES # 0.2 10^3/ul (0.8-2.9); NEUTROPHIL # 3.6 10^3/ul (1.6-7.5)
--- NOTE | 2016-09-12 13:21 | CONS ---
Date/Time of Note Date/Time of Note DATE: 09/12/16 TIME: 13:19 Assessment/Plan Assessment/Plan Chief Complaint/Hosp Course Imp: 1.Positive troponin-minmal in setting of esrd-Now trended negative 2.CHF-? systolic vs diastolic acute 3.HTN 4.ESRD on HD 5.anemia-requiring transfusions 6.Coagulopathy-ongoing 7.H/O PAF in SR currently 8. Edema-LE Recc: -Tele -serial ecg's -trend cardiac enzymes -HD for volume removal -Follow hgb closely -start low dose BB as tolerated only Problems: Consultation Date/Type/Reason Admit Date/Time Sep 06, 2016 at 11:22 Initial Consult Date 09/07/2016 Type of Consultation: Cardiology Reason for Consultation positive troponin Referring Provider: PAMELA MARTE Exam/Review of Systems Vital Signs Vitals Vital Signs Date Time Temp Pulse Resp B/P Pulse Ox O2 Delivery O2 Flow Rate FiO2 09/12/16 13:00 64 09/12/16 12:45 14 100 30 09/12/16 12:30 105/66 Mechanical Ventilator 09/12/16 12:00 98.1 09/09/16 11:50 6.0 Intake and Output 09/11/16 09/11/16 09/12/16 15:00 23:00 07:00 Intake Total 918.98 ml 1206.48 ml 449.56 ml Output Total 3045 ml 2665 ml 180 ml Balance -2126.02 ml -1458.52 ml 269.56 ml Exam Review of Systems: CONSTITUTIONAL: No fevers, chills. PULMONARY: No sob CARDIOVASCULAR: No chest pain/palpitations GASTROINTESTINAL: No nausea/vomiting. GENITOURINARY: No hematuria/dysuria. MUSCULOSKELETAL: No myagias/arthalgias. PSYCHIATRIC: The patient denies depression. NEUROLOGIC: No weakness Constitutional: other (sedated) Psych: no complaints Head: normocephalic ENMT: intubated, mucosa pink and moist Neck: jvd (9 cm water), supple Respiratory: diminished breath sounds (at bases/B) Cardiovascular: regular rate and rhythm Gastrointestinal: non-tender, soft Musculoskeletal: muscle tone (normal) Extremities: pitting pedal edema (Bilateral LE) Neurological: other (No focal deficits) Results Result Diagram: 09/12/16 04209/12/16 0420 Results 24 hrs Laboratory Tests Test 09/11/16 14:22 09/11/16 16:48 09/11/16 21:13 09/12/16 01:59 Bedside Glucose 235 H 245 H 204 307 H Test 09/12/16 04:20 09/12/16 05:30 09/12/16 09:16 Anion Gap 21 H Band Neutrophils % 5.0 Blood Morphology Comment Blood Urea Nitrogen 27 H Calcium Level 8.2 L Carbon Dioxide Level 21 Chloride Level 97 Creatinine 1.79 H Eosinophils # 0.1 Eosinophils % 3.0 Glucose Level 282 H Hematocrit 28.0 L Hemoglobin 9.9 L Lymphocytes # 0.2 L Lymphocytes % 5.0 L Magnesium Level 1.7 Mean Corpuscular Hemoglobin 29.9 Mean Corpuscular Hemoglobin Concent 35.1 Mean Corpuscular Volume 85.1 Mean Platelet Volume 7.2 L Neutrophils # 3.6 Neutrophils % 87.0 H Phosphorus Level 2.9 Platelet Count 191 Potassium Level 3.4 L Red Blood Count 3.30 L Red Cell Distribution Width 20.4 H Sodium Level 136 White Blood Count 4.1 L Bedside Glucose 342 H 322 H Medications Medications Current Medications Piperacillin Sod/ Tazobactam Sod (Zosyn 2.25gm/ 50ml (Pmx)) 50 ml @ 100 mls/hr Q8 IVPB Last administered on 09/12/16at 05:21; Admin Dose 100 MLS/HR; Start at 14:00 Pantoprazole (Protonix Iv) 40 mg DAILY@06 IV Last administered on 09/12/16at 05 :21; Admin Dose 40 MG; Start 09/07/16 at 06:00 Ondansetron HCl (Zofran Inj) 4 mg Q6H PRN IV NAUSEA AND/OR VOMITING; Start at 11:30 Miscellaneous Information 1 ea NOTE XX ; Start 09/06/16 at 12:00 Glucose (Glutose) 15 gm Q15M PRN PO DECREASED GLUCOSE; Start 09/06/16 at 12:00 Glucose (Glutose) 22.5 gm Q15M PRN PO DECREASED GLUCOSE; Start 09/06/16 at 12: 00 Dextrose (D50w Syringe) 25 ml Q15M PRN IV DECREASED GLUCOSE; Start 09/06/16 at 12:00 Dextrose (D50w Syringe) 50 ml Q15M PRN IV DECREASED GLUCOSE; Start 09/06/16 at 12:00 Glucagon (Glucagen) 1 mg Q15M PRN IM DECREASED GLUCOSE; Start 09/06/16 at 12: 00 Glucose 15 gm 15 gm Q15M PRN BUCCAL DECREASED GLUCOSE; Start 09/06/16 at 12:00 Propofol 100 ml @ 2.445 mls/ hr Q12H IV Last administered on 09/12/16at 11:37 ; Admin Dose 20.538 MLS/HR; Start 09/06/16 at 19:00 Norepinephrine/ Dextrose (Levophed/D5W) 500 ml @ 1.87 mls/hr TITRATE IV ; Start 09/07/16 at 10:00 Methylprednisolone Sodium Succinate 60 mg 60 mg Q6 IV Last administered on at 05:21; Admin Dose 60 MG; Start 09/10/16 at 11:00 Sodium Chloride (1/2 NS) 1,000 ml @ 50 mls/hr Q20H IV Last administered on at 05:21; Admin Dose 50 MLS/HR; Start 09/11/16 at 08:30 Insulin Aspart (Novolog Insulin Pen) NOVOLOG *MODERATE* ALGORI... Q4 SC Last administered on 09/12/16at 09:18; Admin Dose 10 UNIT; Start 09/11/16 at 13:00 Epoetin Kobi (Epogen (Esrd)) 10,000 units MoWeFr@17 SC ; Start 09/12/16 at 17: 00 KAJAL MCKINNEY Sep 12, 2016 13:21
--- NOTE | 2016-09-12 14:37 | PN ---
DATE: 09/12/2016 SUBJECTIVE: The patient had hemodialysis yesterday with approximately .5 liters removed. No o ther acute events noted. No hemoptysis, hematemesis or hematochezia. OBJECTIVE: VITAL SIGNS: Blood pressure is 134/71, respirations 15, pulse 75, temperature 98.3. I's AND O'S: The patient had 2.4 L in, 3.3 liters out. HEENT: Head is normocephalic. NECK: Supple. HEART: Regular rate. LUNGS: Show diminished breath sounds at the base. ABDOMEN: Soft, nontender to palpation. No rebound or guarding. EXTREMITIES: Negative for clubbing, cyanosis. Positive edema, improved. DERMATOLOGIC: No rashes. MUSCULOSKELETAL EXAMINATION: No joint effusions. NEUROLOGIC: No change in exam. MEDICATIONS: The patient's medications have been reviewed. LABORATORY DATA: Shows sodium 136, potassium 3.4, chloride 97, BUN 27, creatinine 1.79. White coun t 4.1, hemoglobin .9, hematocrit of 28.0, platelet count is 191. IMAGING: Chest x-ray on 09/11/2016 shows worsening infiltrates. ASSESSMENT AND PLAN: 1. Anuric acute kidney injury on top of chronic kidney disease stage IV, most likely with progressi on to end-stage renal disease. The patient is currently dialysis dependent. The patient has been r eceiving daily dialysis for solute clearance and volume removal. We will plan for 2 hours of dry ul trafiltration today with a goal of approximately 2 to 3 liters volume removal. We will monitor clos don. 2. Volume overload secondary to congestive heart failure, acute kidney injury. The patient is near ing euvolemic status. We will continue ultrafiltration with dialysis today. 3. Hypokalemia, replete with potassium chloride. We will use 4 potassium bath with dialysis. 4. Anemia. Continue to monitor hemoglobin and hematocrit levels, transfuse as needed. We will give Epogen as needed as well. 5. Respiratory dependent respiratory failure. Vent settings have been reviewed. ABG has been revi ewed. Continue to monitor. 6. Sepsis, status post shock, currently on antibiotics, continue. 7. Diabetes. Continue current insulin regimen. 8. Hypertension. Continue current blood pressure regimen. Continue ultrafiltration dialysis. 9. Acute encephalopathy. Etiology is toxic metabolic. Continue to monitor. 10. Arrhythmia, currently stable. Follow up with cardiology. 11. History of Clostridium difficile colitis status post treatment. 12. Elevated troponin, possible non-ST segment elevation myocardial infarction, questionable demand ischemia. Continue current medical management. Dictated By: STEFFANY JESUS/ADRIA Conf#: [id number] DID#: [id number]
[2016-09-12] MEDS: EPOETIN 10000 UNITS/1 ML INJ (ESRD) SC SCH (17:40)
--- NOTE | 2016-09-12 18:37 | PN ---
Date/Time of Note Date/Time of Note DATE: 09/12/16 TIME: 18:33 Assessment/Plan VTE Prophylaxis VTE Prophylaxis Intervention: SCD's Lines/Catheters IV Catheter Type (from Nrs): Permacath Urinary Cath still in place: Yes Reason Cath still needed: other (indicate) (monitor UOP ) Assessment/Plan Assessment/Plan 71 yo female with 1. Acute respiratory failure: 2ry to CHF exacerbation and volume overload, on HD She had to be reintubated this week due to stridors and respiratory failure, On Solumedrol now Continue weaning trials Pulmonary/Dr Daniel following 2. Congestive heart failure, systolic acute on chronic, cardiomyopathy with LVEF 40-45,and also with ESRD On HD for volume management and Cardiology following Continue current medications Follow up Nephrology and cardiology recommendations 3. Elevated troponin / NSTEMI secondary to demand ischemia Appreciate Cardiology recommendations 3. Pneumonia possibly secondary to aspiration, continue Zosyn for now 4. Diabetes mellitus Type 2, now with hyperglycemia due to D5 fluids and also on steroids now Change to moderate SSI Continue tube feeding to goal of 50 cc/hr will start Lantus 15 u qhs 5. Sepsis with Septic Shock 2/2 Pneumonia, off pressors, continue Zosyn and back on Vent. Continue supportive care. 6. Hypertension: Continue holding antihypertensives until more stable 7. End-stage renal disease on hemodialysis. HD today with removal of 2L. Follow up Nephrology. 8. Chronic hypochromic anemia secondary to chronic disease, stable H/H, continue monitor 9. Paroxysmal atrial fibrillation, controlled rate for now, monitor, further recs per cardiology, patient coagulopathic and in SR, f/u further Cardiology recs 10. UTI secondary to yeast: Repeat UA with LE and culture with yeast >100K, likely non albicans again. Start Voriconazole 200 mg per OGT bid D/c Lazo 11. Coagulopathy: resolving slowly Episode of bleeding with suctioning yesterday so d/c Heparin ppx 12. Superficial venous thrombosis in the left cephalic vein in the upper arm. warm compresses since patient with coagulopathy Repeat Doppler in 1 to 2 weeks Prophylaxis: SCDs for DVT ppx and Protonix for GI ppx Disposition: On Vent and s/p HD today. Subjective 24 Hr Interval Summary Free Text/Dictation Patient on the vent for now and on Steroids No acute events, HD today -2L Exam/Review of Systems Vital Signs Vitals Vital Signs Date Time Temp Pulse Resp B/P Pulse Ox O2 Delivery O2 Flow Rate FiO2 09/12/16 17:29 74 15 100 30 09/12/16 15:30 120/79 09/12/16 14:30 Mechanical Ventilator 09/12/16 12:00 98.1 09/09/16 11:50 6.0 Intake and Output 09/11/16 09/11/16 09/12/16 15:00 23:00 07:00 Intake Total 918.98 ml 1206.48 ml 449.56 ml Output Total 3045 ml 2665 ml 180 ml Balance -2126.02 ml -1458.52 ml 269.56 ml Exam Constitutional: alert, oriented, well developed Respiratory: clear to auscultation, normal air movement Cardiovascular: nl pulses, regular rate and rhythm Gastrointestinal: non-tender, soft Extremities: edema (much improved anasarca ), normal pulses, other (no clubbing or cyanosis ) Neurological: lethargic, other (sedated and intubated ) Results Result Diagram: 09/12/16 0420 09/12/16 0420 Results 24 hrs Laboratory Tests Test 09/11/16 21:13 09/12/16 01:59 09/12/16 04:20 09/12/16 05:30 Bedside Glucose 204 307 H 342 H Anion Gap 21 H Band Neutrophils % 5.0 Blood Morphology Comment Blood Urea Nitrogen 27 H Calcium Level 8.2 L Carbon Dioxide Level 21 Chloride Level 97 Creatinine 1.79 H Eosinophils # 0.1 Eosinophils % 3.0 Glucose Level 282 H Hematocrit 28.0 L Hemoglobin 9.9 L Lymphocytes # 0.2 L Lymphocytes % 5.0 L Magnesium Level 1.7 Mean Corpuscular Hemoglobin 29.9 Mean Corpuscular Hemoglobin Concent 35.1 Mean Corpuscular Volume 85.1 Mean Platelet Volume 7.2 L Neutrophils # 3.6 Neutrophils % 87.0 H Phosphorus Level 2.9 Platelet Count 191 Potassium Level 3.4 L Red Blood Count 3.30 L Red Cell Distribution Width 20.4 H Sodium Level 136 White Blood Count 4.1 L Test 09/12/16 09:16 09/12/16 14:09 09/12/16 17:42 Bedside Glucose 322 H 339 H 378 H Medications Medications Current Medications Piperacillin Sod/ Tazobactam Sod (Zosyn 2.25gm/ 50ml (Pmx)) 50 ml @ 100 mls/hr Q8 IVPB Last administered on 09/12/16at 14:13; Admin Dose 100 MLS/HR; Start at 14:00 Pantoprazole (Protonix Iv) 40 mg DAILY@06 IV Last administered on 09/12/16at 05 :21; Admin Dose 40 MG; Start 09/07/16 at 06:00 Ondansetron HCl (Zofran Inj) 4 mg Q6H PRN IV NAUSEA AND/OR VOMITING; Start at 11:30 Miscellaneous Information 1 ea NOTE XX ; Start 09/06/16 at 12:00 Glucose (Glutose) 15 gm Q15M PRN PO DECREASED GLUCOSE; Start 09/06/16 at 12:00 Glucose (Glutose) 22.5 gm Q15M PRN PO DECREASED GLUCOSE; Start 09/06/16 at 12: 00 Dextrose (D50w Syringe) 25 ml Q15M PRN IV DECREASED GLUCOSE; Start 09/06/16 at 12:00 Dextrose (D50w Syringe) 50 ml Q15M PRN IV DECREASED GLUCOSE; Start 09/06/16 at 12:00 Glucagon (Glucagen) 1 mg Q15M PRN IM DECREASED GLUCOSE; Start 09/06/16 at 12: 00 Glucose 15 gm 15 gm Q15M PRN BUCCAL DECREASED GLUCOSE; Start 09/06/16 at 12:00 Propofol 100 ml @ 2.445 mls/ hr Q12H IV Last administered on 09/12/16at 17:09 ; Admin Dose 20.53 MLS/HR; Start 09/06/16 at 19:00 Norepinephrine/ Dextrose (Levophed/D5W) 500 ml @ 1.87 mls/hr TITRATE IV ; Start 09/07/16 at 10:00 Methylprednisolone Sodium Succinate 60 mg 60 mg Q6 IV Last administered on at 17:38; Admin Dose 60 MG; Start 09/10/16 at 11:00 Sodium Chloride (1/2 NS) 1,000 ml @ 50 mls/hr Q20H IV Last administered on at 05:21; Admin Dose 50 MLS/HR; Start 09/11/16 at 08:30 Insulin Aspart (Novolog Insulin Pen) NOVOLOG *MODERATE* ALGORI... Q4 SC Last administered on 09/12/16at 17:45; Admin Dose 12 UNIT; Start 09/11/16 at 13:00 Epoetin Kobi (Epogen (Esrd)) 10,000 units MoWeFr@17 SC Last administered on at 17:40; Admin Dose 10,000 UNITS; Start 09/12/16 at 17:00 Metoprolol Tartrate (Lopressor) 12.5 mg BID PO ; Start 09/12/16 at 21:00 CRISTY INMAN Sep 12, 2016 18:37
[2016-09-12] MEDS ORDERED: INSULIN GLARGINE [LANtus] 3 ML PEN SC SCH (21:00)
[2016-09-12] MEDS: METOPROLOL 25 MG TAB PO SCH (23:09)
[2016-09-12] MEDS: VORICONAZOLE 200 MG TAB NGT SCH (23:10)
[2016-09-13] VITALS (62 sets, daily range): BP systolic 77–164; BP diastolic 7–91; PULSE 63–95; RESP 14–30
[2016-09-13] MEDS: INSULIN ASPART [NOVOLOG] 3 ML PEN SC SCH ×7 (00:37→21:19)
[2016-09-13] MEDS: PIPER-TAZO 2.25 GM (PMX) 50 ML IVPB SCH ×4 (00:43→21:20)
[2016-09-13] MEDS: METHYLPREDNISOLONE 125 MG INJ IV SCH ×5 (00:54→23:52)
[2016-09-13] MEDS: IPRATROPIUM (HFA) 12.9 GM INHALER INH SCH ×4 (01:04→19:26)
[2016-09-13] MEDS ORDERED: INSULIN GLARGINE [LANtus] 3 ML PEN SC ONE (02:00)
[2016-09-13] MEDS: PROPOFOL 100 ML IV SCH ×5 (03:43→23:52)
[2016-09-13] MEDS: PANTOPRAZOLE 40 MG INJ IV SCH (05:22)
[2016-09-13 06:54] LABS: HEMATOCRIT 28.3 % (37.0-47.0); MEAN CORPUSCULAR HEMOGLOBIN 30.3 pg (29.0-33.0); MEAN CORPUSCULAR HGB CONC 35.4 g/dl (32.0-37.0); MEAN CORPUSCULAR VOLUME 85.8 fl (82.0-101.0); MEAN PLATELET VOLUME 7.4 fl (7.4-10.4); PLATELET COUNT 184 10^3/UL (140-440); RED BLOOD COUNT 3.31 10^6/ul (4.20-5.40); RED CELL DISTRIBUTION WIDTH 19.9 % (11.5-14.5); UNCORRECTED WBC 5.5 10^3/ul (4.8-10.8); WHITE BLOOD COUNT 5.5 10^3/ul (4.8-10.8)
[2016-09-13 07:00] LABS: POTASSIUM 3.8 mmol/L (3.5-5.1)
[2016-09-13 07:02] LABS: CREATININE 2.2 mg/dl (0.44-1.00)
[2016-09-13 07:03] LABS: CALCIUM 8.3 mg/dl (8.4-10.2); MAGNESIUM 1.8 mg/dl (1.7-2.5); PHOSPHORUS 2.7 mg/dl (2.5-4.9)
[2016-09-13 07:10] LABS: CONDITION 1; LH ANALYZER COMMENTS 1
[2016-09-13] MEDS: ALBUTEROL HFA 8 GM INHALER INH PRN ×2 (08:11→19:26)
[2016-09-13] MEDS: METOPROLOL 25 MG TAB PO SCH ×2 (08:33→21:17)
[2016-09-13] MEDS: VORICONAZOLE 200 MG TAB NGT SCH ×2 (08:33→21:16)
--- NOTE | 2016-09-13 09:28 | CONS ---
Date/Time of Note Date/Time of Note DATE: 09/13/16 TIME: 09:25 Consult Date/Type/Reason Admit Date/Time Sep 06, 2016 at 11:22 Initial Consult Date Type of Consultation: neph Ordering Provider: PAMELA MARTE The patient is on hd today. poc reviewed with dr. cornelius and nurse. No other acute events noted. No hemoptysis, hematemesis or hematochezia. Objective Vital Signs Date Time Temp Pulse Resp B/P Pulse Ox O2 Delivery O2 Flow Rate FiO2 09/13/16 08:30 68 14 136/62 97 Mechanical Ventilator 09/13/16 08:02 30 09/13/16 08:00 98.0 09/09/16 11:50 6.0 Intake and Output 09/12/16 09/12/16 09/13/16 15:00 23:00 07:00 Intake Total 1300.36 ml 603.750 ml 743.766 ml Output Total 2630 ml 40 ml 200 ml Balance -1329.64 ml 563.750 ml 543.766 ml HEENT: Head is normocephalic. NECK: Supple. HEART: Regular rate. LUNGS: Show diminished breath sounds at the base. ABDOMEN: Soft, nontender to palpation. No rebound or guarding. EXTREMITIES: Negative for clubbing, cyanosis. Positive edema, improved. DERMATOLOGIC: No rashes. MUSCULOSKELETAL EXAMINATION: No joint effusions. NEUROLOGIC: No change in exam. Results/Medications Result Diagram: 09/13/16 0500 09/13/16 0500 Results 24 hrs Laboratory Tests Test 09/12/16 14:09 09/12/16 17:42 09/12/16 22:51 09/12/16 23:09 Bedside Glucose 339 H 378 H 402 *H Glucose Level 405 *H Test 09/13/16 01:21 09/13/16 01:38 09/13/16 05:00 09/13/16 05:19 Bedside Glucose 428 *H 282 H Glucose Level 369 H 270 H Anion Gap 19 H Blood Morphology Comment Blood Urea Nitrogen 47 #H Calcium Level 8.3 L Carbon Dioxide Level 21 Chloride Level 99 Creatinine 2.20 H Hematocrit 28.3 L Hemoglobin 10.0 L Magnesium Level 1.8 Mean Corpuscular Hemoglobin 30.3 Mean Corpuscular Hemoglobin Concent 35.4 Mean Corpuscular Volume 85.8 Mean Platelet Volume 7.4 Phosphorus Level 2.7 Platelet Count 184 Potassium Level 3.8 Red Blood Count 3.31 L Red Cell Distribution Width 19.9 H Sodium Level 135 White Blood Count 5.5 # Test 09/13/16 08:37 Bedside Glucose 303 H Medications Current Medications Piperacillin Sod/ Tazobactam Sod (Zosyn 2.25gm/ 50ml (Pmx)) 50 ml @ 100 mls/hr Q8 IVPB Last administered on 09/13/16at 05:22; Admin Dose 100 MLS/HR; Start at 14:00 Pantoprazole (Protonix Iv) 40 mg DAILY@06 IV Last administered on 09/13/16at 05 :22; Admin Dose 40 MG; Start 09/07/16 at 06:00 Ondansetron HCl (Zofran Inj) 4 mg Q6H PRN IV NAUSEA AND/OR VOMITING; Start at 11:30 Miscellaneous Information 1 ea NOTE XX ; Start 09/06/16 at 12:00 Glucose (Glutose) 15 gm Q15M PRN PO DECREASED GLUCOSE; Start 09/06/16 at 12:00 Glucose (Glutose) 22.5 gm Q15M PRN PO DECREASED GLUCOSE; Start 09/06/16 at 12: 00 Dextrose (D50w Syringe) 25 ml Q15M PRN IV DECREASED GLUCOSE; Start 09/06/16 at 12:00 Dextrose (D50w Syringe) 50 ml Q15M PRN IV DECREASED GLUCOSE; Start 09/06/16 at 12:00 Glucagon (Glucagen) 1 mg Q15M PRN IM DECREASED GLUCOSE; Start 09/06/16 at 12: 00 Glucose 15 gm 15 gm Q15M PRN BUCCAL DECREASED GLUCOSE; Start 09/06/16 at 12:00 Propofol 100 ml @ 2.445 mls/ hr Q12H IV Last administered on 09/13/16at 09:25 ; Admin Dose 20.538 MLS/HR; Start 09/06/16 at 19:00 Norepinephrine/ Dextrose (Levophed/D5W) 500 ml @ 1.87 mls/hr TITRATE IV ; Start 09/07/16 at 10:00 Methylprednisolone Sodium Succinate (Solu-Medrol) 60 mg Q6 IV Last administered on 09/13/16at 05:22; Admin Dose 60 MG; Start 09/10/16 at 11:00 Insulin Aspart (Novolog Insulin Pen) NOVOLOG *MODERATE* ALGORI... Q4 SC Last administered on 09/13/16at 08:38; Admin Dose 10 UNIT; Start 09/11/16 at 13:00 Epoetin Kobi (Epogen (Esrd)) 10,000 units MoWeFr@17 SC Last administered on at 17:40; Admin Dose 10,000 UNITS; Start 09/12/16 at 17:00 Metoprolol Tartrate (Lopressor) 12.5 mg BID PO Last administered on 09/13/16at 08:33; Admin Dose 12.5 MG; Start 09/12/16 at 21:00 Voriconazole (Vfend) 200 mg BID NGT Last administered on 09/13/16at 08:33; Admin Dose 200 MG; Start 09/12/16 at 21:00 Insulin Glargine (Lantus) 20 unit BID SC ; Start 09/13/16 at 09:30 Heparin Sodium (Porcine) (Heparin (5000 Units/0.5 ml)) 5,000 unit BID SC ; Start 09/13/16 at 21:00; Status UNV Assessment/Plan Chief Complaint/Hosp Course 1. Anuric acute kidney injury on top of chronic kidney disease stage IV, most likely with progression to end-stage renal disease. The patient is currently dialysis dependent. The patient has been receiving daily dialysis for solute clearance and volume removal. We will plan for 2 hours of dry ultrafiltration today with a goal of approximately 2 to 3 liters volume removal. We will monitor closely. 2. Volume overload secondary to congestive heart failure, acute kidney injury. The patient is nearing euvolemic status. We will continue ultrafiltration with dialysis today. 3. Hypokalemia, replete with potassium chloride. We will use 4 potassium bath with dialysis. 4. Anemia. Continue to monitor hemoglobin and hematocrit levels, transfuse as needed. We will give Epogen as needed as well. 5. Respiratory dependent respiratory failure. Vent settings have been reviewed. ABG has been reviewed. Continue to monitor. 6. Sepsis, status post shock, currently on antibiotics, continue. 7. Diabetes. Continue current insulin regimen. 8. Hypertension. Continue current blood pressure regimen. Continue ultrafiltration dialysis. 9. Acute encephalopathy. Etiology is toxic metabolic. Continue to monitor. 10. Arrhythmia, currently stable. Follow up with cardiology. 11. History of Clostridium difficile colitis status post treatment. 12. Elevated troponin, possible non-ST segment elevation myocardial infarction , questionable demand ischemia. Continue current medical management. Problems: GORDY CHAMBERLAIN MD Sep 13, 2016 09:28
--- NOTE | 2016-09-13 09:33 | PN ---
Date/Time of Note Date/Time of Note DATE: 09/13/16 TIME: 09:14 Assessment/Plan VTE Prophylaxis VTE Prophylaxis Intervention: SCD's Lines/Catheters IV Catheter Type (from Nrs): permacath Urinary Cath still in place: No Assessment/Plan Assessment/Plan 71 yo female with 1. Acute respiratory failure: 2ry to CHF exacerbation and volume overload, on HD She had to be reintubated this week due to stridors and respiratory failure, On Solumedrol now Pulmonary/Dr Daniel following Weaning after [place] 2. Congestive heart failure, systolic acute on chronic, cardiomyopathy with LVEF 40-45,and also with ESRD On HD for volume management and Cardiology following Continue current medications Follow up Nephrology and cardiology recommendations 3. Elevated troponin / NSTEMI secondary to demand ischemia Appreciate Cardiology recommendations 3. Pneumonia possibly secondary to aspiration, continue Zosyn for now 4. Diabetes mellitus Type 2, now with hyperglycemia due to D5 fluids and also on steroids now, d/c IVF and increase Lantus to 20 units bid, continue moderate SSI Continue tube feeding to goal of 50 cc/hr 5. Sepsis with Septic Shock 2/2 Pneumonia, off pressors, continue Zosyn and back on Vent. Continue supportive care. Afebrile and WBC wnl 6. Hypertension: Back on low dose Bblock. 7. End-stage renal disease on hemodialysis. HD thu/thu/thu. Follow up Nephrology. 8. Chronic hypochromic anemia secondary to chronic disease, stable H/H, continue monitor. 9. Paroxysmal atrial fibrillation, controlled rate for now, monitor, further recs per cardiology, patient coagulopathic and in SR, f/u further Cardiology recs 10. UTI secondary to yeast: Repeat UA with LE and culture with yeast >100K, likely non albicans again. Start Voriconazole 200 mg per OGT bid D/c [place] 11. Coagulopathy: resolving slowly Episode of bleeding with suctioning yesterday so d/c Heparin ppx 12. Superficial venous thrombosis in the left cephalic vein in the upper arm. warm compresses since patient with coagulopathy Repeat Doppler in 1 to 2 weeks Prophylaxis: SCDs for DVT ppx and Protonix for GI ppx Disposition: On Vent and HD today. Subjective 24 Hr Interval Summary Free Text/Dictation Patient doing Ok, remains stable HD today Exam/Review of Systems Vital Signs Vitals Vital Signs Date Time Temp Pulse Resp B/P Pulse Ox O2 Delivery O2 Flow Rate FiO2 09/13/16 08:30 68 14 136/62 97 Mechanical Ventilator 09/13/16 08:02 30 09/13/16 08:00 98.0 09/09/16 11:50 6.0 Intake and Output 09/12/16 09/12/16 09/13/16 15:00 23:00 07:00 Intake Total 1300.36 ml 603.750 ml 743.766 ml Output Total 2630 ml 40 ml 200 ml Balance -1329.64 ml 563.750 ml 543.766 ml Exam Constitutional: other (sedated and intubated ) Respiratory: clear to auscultation, normal air movement Cardiovascular: nl pulses, regular rate and rhythm Gastrointestinal: non-tender, soft Musculoskeletal: nl extremities to inspection, other Extremities: normal pulses, other (no edema, clubbingor cyanosis ) Neurological: other (sedated and intubated ) Results Result Diagram: 09/13/16 0500 09/13/16 0500 Results 24 hrs Laboratory Tests Test 09/12/16 09:16 09/12/16 14:09 09/12/16 17:42 09/12/16 22:51 Bedside Glucose 322 H 339 H 378 H 402 *H Test 09/12/16 23:09 09/13/16 01:21 09/13/16 01:38 09/13/16 05:00 Glucose Level 405 *H 369 H 270 H Bedside Glucose 428 *H Anion Gap 19 H Blood Morphology Comment Blood Urea Nitrogen 47 #H Calcium Level 8.3 L Carbon Dioxide Level 21 Chloride Level 99 Creatinine 2.20 H Hematocrit 28.3 L Hemoglobin 10.0 L Magnesium Level 1.8 Mean Corpuscular Hemoglobin 30.3 Mean Corpuscular Hemoglobin Concent 35.4 Mean Corpuscular Volume 85.8 Mean Platelet Volume 7.4 Phosphorus Level 2.7 Platelet Count 184 Potassium Level 3.8 Red Blood Count 3.31 L Red Cell Distribution Width 19.9 H Sodium Level 135 White Blood Count 5.5 # Test 09/13/16 05:19 09/13/16 08:37 Bedside Glucose 282 H 303 H Medications Medications Current Medications Piperacillin Sod/ Tazobactam Sod (Zosyn 2.25gm/ 50ml (Pmx)) 50 ml @ 100 mls/hr Q8 IVPB Last administered on 09/13/16at 05:22; Admin Dose 100 MLS/HR; Start at 14:00 Pantoprazole (Protonix Iv) 40 mg DAILY@06 IV Last administered on 09/13/16at 05 :22; Admin Dose 40 MG; Start 09/07/16 at 06:00 Ondansetron HCl (Zofran Inj) 4 mg Q6H PRN IV NAUSEA AND/OR VOMITING; Start at 11:30 Miscellaneous Information 1 ea NOTE XX ; Start 09/06/16 at 12:00 Glucose (Glutose) 15 gm Q15M PRN PO DECREASED GLUCOSE; Start 09/06/16 at 12:00 Glucose (Glutose) 22.5 gm Q15M PRN PO DECREASED GLUCOSE; Start 09/06/16 at 12: 00 Dextrose (D50w Syringe) 25 ml Q15M PRN IV DECREASED GLUCOSE; Start 09/06/16 at 12:00 Dextrose (D50w Syringe) 50 ml Q15M PRN IV DECREASED GLUCOSE; Start 09/06/16 at 12:00 Glucagon (Glucagen) 1 mg Q15M PRN IM DECREASED GLUCOSE; Start 09/06/16 at 12: 00 Glucose 15 gm 15 gm Q15M PRN BUCCAL DECREASED GLUCOSE; Start 09/06/16 at 12:00 Propofol 100 ml @ 2.445 mls/ hr Q12H IV Last administered on 09/13/16at 03:43 ; Admin Dose 20.538 MLS/HR; Start 09/06/16 at 19:00 Norepinephrine/ Dextrose (Levophed/D5W) 500 ml @ 1.87 mls/hr TITRATE IV ; Start 09/07/16 at 10:00 Methylprednisolone Sodium Succinate (Solu-Medrol) 60 mg Q6 IV Last administered on 09/13/16at 05:22; Admin Dose 60 MG; Start 09/10/16 at 11:00 Insulin Aspart (Novolog Insulin Pen) NOVOLOG *MODERATE* ALGORI... Q4 SC Last administered on 09/13/16at 08:38; Admin Dose 10 UNIT; Start 09/11/16 at 13:00 Epoetin Kobi (Epogen (Esrd)) 10,000 units MoWeFr@17 SC Last administered on at 17:40; Admin Dose 10,000 UNITS; Start 09/12/16 at 17:00 Metoprolol Tartrate (Lopressor) 12.5 mg BID PO Last administered on 09/13/16at 08:33; Admin Dose 12.5 MG; Start 09/12/16 at 21:00 Voriconazole (Vfend) 200 mg BID NGT Last administered on 09/13/16at 08:33; Admin Dose 200 MG; Start 09/12/16 at 21:00 Insulin Glargine (Lantus) 20 unit BID SC ; Start 09/13/16 at 09:30; Status UNCRISTY WARREN Sep 13, 2016 09:26
[2016-09-13] MEDS: INSULIN GLARGINE [LANtus] 3 ML PEN SC SCH ×2 (10:02→21:20)
[2016-09-13 10:47] LABS: LYMPHOCYTES # 0.4 10^3/ul (0.8-2.9); MONOCYTE # 0.3 10^3/ul (0.3-0.9); MYELOCYTES # 0.1; NEUTROPHIL # 4.1 10^3/ul (1.6-7.5)
--- NOTE | 2016-09-13 15:10 | CONS ---
Date/Time of Note Date/Time of Note DATE: 09/13/16 TIME: 15:03 Assessment/Plan Assessment/Plan Additional Assessment/Plan Abnormal electrocardiogram with PAF, CHF, VDRF, Anemia ESRD on HD Hemodynamically stable Heart failure clinically compensated Continue Vent support Continue Metoprolol Continue Voriconazole Continue GI and DVT Prophylaxis Continue Pulmonary Toiletry HD as scheduled Consultation Date/Type/Reason Admit Date/Time Sep 06, 2016 at 11:22 Psychological: no complaints Social History Smoking Status: Unknown if ever smoked Exam/Review of Systems Vital Signs Vitals Vital Signs Date Time Temp Pulse Resp B/P Pulse Ox O2 Delivery O2 Flow Rate FiO2 09/13/16 14:46 82 14 09/13/16 13:00 146/62 99 Mechanical Ventilator 09/13/16 12:30 98.3 09/13/16 11:40 30 09/09/16 11:50 6.0 Intake and Output 09/12/16 09/12/16 09/13/16 15:00 23:00 07:00 Intake Total 1300.36 ml 603.750 ml 764.304 ml Output Total 2630 ml 40 ml 200 ml Balance -1329.64 ml 563.750 ml 564.304 ml Exam Intubated and sedated Heent: NAD Neck No JVD CVS; RRR, no m/r/g Chest Mechanical breath sounds heard bilaterally Abdomen Soft BS present Extremities: Bilateral pedal edema Results Result Diagram: 09/13/16 0500 09/13/16 0500 Results 24 hrs Laboratory Tests Test 09/12/16 17:42 09/12/16 22:51 09/12/16 23:09 09/13/16 01:21 Bedside Glucose 378 H 402 *H 428 *H Glucose Level 405 *H Test 09/13/16 01:38 09/13/16 05:00 09/13/16 05:19 09/13/16 08:37 Glucose Level 369 H 270 H Anion Gap 19 H Band Neutrophils % 11.0 H Blood Morphology Comment Blood Urea Nitrogen 47 #H Calcium Level 8.3 L Carbon Dioxide Level 21 Chloride Level 99 Creatinine 2.20 H Hematocrit 28.3 L Hemoglobin 10.0 L Lymphocytes # 0.4 L Lymphocytes % 7.0 L Magnesium Level 1.8 Mean Corpuscular Hemoglobin 30.3 Mean Corpuscular Hemoglobin Concent 35.4 Mean Corpuscular Volume 85.8 Mean Platelet Volume 7.4 Monocytes # 0.3 Monocytes % 6.0 Myelocytes # 0.1 Myelocytes % 1.0 H Neutrophils # 4.1 Neutrophils % 75.0 Phosphorus Level 2.7 Platelet Count 184 Potassium Level 3.8 Red Blood Count 3.31 L Red Cell Distribution Width 19.9 H Sodium Level 135 White Blood Count 5.5 # Bedside Glucose 282 H 303 H Test 09/13/16 13:55 Bedside Glucose 257 H Medications Medications Current Medications Piperacillin Sod/ Tazobactam Sod (Zosyn 2.25gm/ 50ml (Pmx)) 50 ml @ 100 mls/hr Q8 IVPB Last administered on 09/13/16at 05:22; Admin Dose 100 MLS/HR; Start at 14:00 Pantoprazole (Protonix Iv) 40 mg DAILY@06 IV Last administered on 09/13/16at 05 :22; Admin Dose 40 MG; Start 09/07/16 at 06:00 Ondansetron HCl (Zofran Inj) 4 mg Q6H PRN IV NAUSEA AND/OR VOMITING; Start at 11:30 Miscellaneous Information 1 ea NOTE XX ; Start 09/06/16 at 12:00 Glucose (Glutose) 15 gm Q15M PRN PO DECREASED GLUCOSE; Start 09/06/16 at 12:00 Glucose (Glutose) 22.5 gm Q15M PRN PO DECREASED GLUCOSE; Start 09/06/16 at 12: 00 Dextrose (D50w Syringe) 25 ml Q15M PRN IV DECREASED GLUCOSE; Start 09/06/16 at 12:00 Dextrose (D50w Syringe) 50 ml Q15M PRN IV DECREASED GLUCOSE; Start 09/06/16 at 12:00 Glucagon (Glucagen) 1 mg Q15M PRN IM DECREASED GLUCOSE; Start 09/06/16 at 12: 00 Glucose 15 gm 15 gm Q15M PRN BUCCAL DECREASED GLUCOSE; Start 09/06/16 at 12:00 Propofol 100 ml @ 2.445 mls/ hr Q12H IV Last administered on 09/13/16at 14:31 ; Admin Dose 20.538 MLS/HR; Start 09/06/16 at 19:00 Norepinephrine/ Dextrose (Levophed/D5W) 500 ml @ 1.87 mls/hr TITRATE IV ; Start 09/07/16 at 10:00 Methylprednisolone Sodium Succinate (Solu-Medrol) 60 mg Q6 IV Last administered on 09/13/16at 05:22; Admin Dose 60 MG; Start 09/10/16 at 11:00 Insulin Aspart (Novolog Insulin Pen) NOVOLOG *MODERATE* ALGORI... Q4 SC Last administered on 09/13/16at 14:03; Admin Dose 6 UNIT; Start 09/11/16 at 13:00 Epoetin Kobi (Epogen (Esrd)) 10,000 units MoWeFr@17 SC Last administered on at 17:40; Admin Dose 10,000 UNITS; Start 09/12/16 at 17:00 Metoprolol Tartrate (Lopressor) 12.5 mg BID PO Last administered on 09/13/16at 08:33; Admin Dose 12.5 MG; Start 09/12/16 at 21:00 Voriconazole (Vfend) 200 mg BID NGT Last administered on 09/13/16at 08:33; Admin Dose 200 MG; Start 09/12/16 at 21:00 Insulin Glargine (Lantus) 20 unit BID SC Last administered on 09/13/16at 10:02 ; Admin Dose 20 UNIT; Start 09/13/16 at 09:30 Heparin Sodium (Porcine) (Heparin (5000 Units/0.5 ml)) 5,000 unit BID SC ; Start 09/13/16 at 21:00 GREGG SANCHEZ M.D. Sep 13, 2016 15:10
[2016-09-13] MEDS: HEPARIN 5,000 UNIT/0.5 ML SYG SC SCH (21:19)
[2016-09-14] VITALS (53 sets, daily range): BP systolic 126–160; BP diastolic 61–94; PULSE 64–77; RESP 14–19
[2016-09-14] MEDS: INSULIN ASPART [NOVOLOG] 3 ML PEN SC SCH ×6 (01:07→22:14)
[2016-09-14] MEDS: PROPOFOL 100 ML IV SCH ×4 (05:00→20:04)
[2016-09-14] MEDS: PANTOPRAZOLE 40 MG INJ IV SCH (05:07)
[2016-09-14] MEDS: METHYLPREDNISOLONE 125 MG INJ IV SCH ×2 (05:07→14:16)
[2016-09-14] MEDS: PIPER-TAZO 2.25 GM (PMX) 50 ML IVPB SCH ×3 (05:08→22:01)
[2016-09-14 05:42] LABS: INR 0.98
[2016-09-14 05:43] LABS: HEMATOCRIT 30.8 % (37.0-47.0); HEMOGLOBIN 10.6 g/dl (12.0-16.0); MEAN CORPUSCULAR HEMOGLOBIN 29.8 pg (29.0-33.0); MEAN CORPUSCULAR HGB CONC 34.5 g/dl (32.0-37.0); MEAN CORPUSCULAR VOLUME 86.4 fl (82.0-101.0); MEAN PLATELET VOLUME 7.7 fl (7.4-10.4); PARTIAL THROMBOPLASTIN TIME 30.8 Sec (25.0-35.0); PLATELET COUNT 186 10^3/UL (140-440); RED BLOOD COUNT 3.56 10^6/ul (4.20-5.40); RED CELL DISTRIBUTION WIDTH 19.6 % (11.5-14.5); UNCORRECTED WBC 6.9 10^3/ul (4.8-10.8); WHITE BLOOD COUNT 6.9 10^3/ul (4.8-10.8)
[2016-09-14 05:47] LABS: MAGNESIUM 1.8 mg/dl (1.7-2.5); PHOSPHORUS 2.3 mg/dl (2.5-4.9)
[2016-09-14 05:48] LABS: POTASSIUM 3.9 mmol/L (3.5-5.1)
[2016-09-14 05:50] LABS: CREATININE 2.05 mg/dl (0.44-1.00)
[2016-09-14 05:51] LABS: CALCIUM 8.3 mg/dl (8.4-10.2)
[2016-09-14 05:52] LABS: CONDITION 1; LH ANALYZER COMMENTS 1
[2016-09-14] MEDS: IPRATROPIUM (HFA) 12.9 GM INHALER INH SCH ×3 (08:34→20:22)
[2016-09-14] MEDS: ALBUTEROL HFA 8 GM INHALER INH PRN ×3 (08:34→20:22)
[2016-09-14 08:38] LABS: ANISOCYTOSIS 1+; HYPOCHROMASIA 1+; LYMPHOCYTES # 0.3 10^3/ul (0.8-2.9); MONOCYTE # 0.1 10^3/ul (0.3-0.9); NEUTROPHIL # 6.4 10^3/ul (1.6-7.5); PLATELET ESTIMATE PLT APPEAR ADEQUATE
[2016-09-14] MEDS: HEPARIN 5,000 UNIT/0.5 ML SYG SC SCH ×2 (08:38→22:07)
[2016-09-14] MEDS: VORICONAZOLE 200 MG TAB NGT SCH ×2 (08:41→22:01)
[2016-09-14] MEDS: METOPROLOL 25 MG TAB PO SCH ×2 (08:41→22:02)
[2016-09-14] MEDS: INSULIN GLARGINE [LANtus] 3 ML PEN SC SCH ×2 (08:53→22:13)
--- NOTE | 2016-09-14 09:38 | CONS ---
Date/Time of Note Date/Time of Note DATE: 09/14/16 TIME: 09:35 Consult Date/Type/Reason Admit Date/Time Sep 06, 2016 at 11:22 Type of Consultation: neph Ordering Provider: PAMELA MARTE Subjective The patient tolerated hd yesterday. poc reviewed with dr. cornelius and nurse. No other acute events noted. No hemoptysis, hematemesis or hematochezia. HEENT: Head is normocephalic. NECK: Supple. HEART: Regular rate. LUNGS: Show diminished breath sounds at the base. ABDOMEN: Soft, nontender to palpation. No rebound or guarding. EXTREMITIES: Negative for clubbing, cyanosis. Positive edema, improved. DERMATOLOGIC: No rashes. MUSCULOSKELETAL EXAMINATION: No joint effusions. NEUROLOGIC: No change in exam. Objective Vital Signs Date Time Temp Pulse Resp B/P Pulse Ox O2 Delivery O2 Flow Rate FiO2 09/14/16 06:30 64 15 141/74 99 Mechanical Ventilator 09/14/16 04:44 30 09/14/16 04:00 98.1 Intake and Output 09/13/16 09/13/16 09/14/16 15:00 23:00 07:00 Intake Total 1264.296 ml 623.228 ml 493.766 ml Output Total 2000 ml 75 ml 200 ml Balance -735.704 ml 548.228 ml 293.766 ml Results/Medications Result Diagram: 09/14/16 0400 09/14/16 0400 Results 24 hrs Laboratory Tests Test 09/13/16 13:55 09/13/16 16:11 09/13/16 21:16 09/14/16 01:05 Bedside Glucose 257 H 327 H 387 H 386 H Test 09/14/16 04:00 09/14/16 05:06 09/14/16 08:49 Activated Partial Thromboplast Time 30.8 Anion Gap 21 H Anisocytosis 1+ Band Neutrophils % 2.0 Blood Morphology Comment Blood Urea Nitrogen 52 H Calcium Level 8.3 L Carbon Dioxide Level 21 Chloride Level 97 Creatinine 2.05 H Glucose Level 324 H Hematocrit 30.8 L Hemoglobin 10.6 L Hypochromasia 1+ INR International Normalized Ratio 0.98 Lymphocytes # 0.3 L Lymphocytes % 4.0 L Magnesium Level 1.8 Mean Corpuscular Hemoglobin 29.8 Mean Corpuscular Hemoglobin Concent 34.5 Mean Corpuscular Volume 86.4 Mean Platelet Volume 7.7 Monocytes # 0.1 L Monocytes % 1.0 Neutrophils # 6.4 Neutrophils % 93.0 H Nucleated Red Blood Cells % 2.0 H Phosphorus Level 2.3 L Platelet Count 186 Platelet Estimate PLT APPEAR ADEQUATE Potassium Level 3.9 Prothrombin Time 13.0 # Prothrombin Time Ratio 1.0 Red Blood Count 3.56 L Red Cell Distribution Width 19.6 H Sodium Level 135 White Blood Count 6.9 # Bedside Glucose 376 H 300 H Medications Current Medications Piperacillin Sod/ Tazobactam Sod (Zosyn 2.25gm/ 50ml (Pmx)) 50 ml @ 100 mls/hr Q8 IVPB Last administered on 09/14/16at 05:08; Admin Dose 100 MLS/HR; Start at 14:00 Pantoprazole (Protonix Iv) 40 mg DAILY@06 IV Last administered on 09/14/16at 05 :07; Admin Dose 40 MG; Start 09/07/16 at 06:00 Ondansetron HCl (Zofran Inj) 4 mg Q6H PRN IV NAUSEA AND/OR VOMITING; Start at 11:30 Miscellaneous Information 1 ea NOTE XX ; Start 09/06/16 at 12:00 Glucose (Glutose) 15 gm Q15M PRN PO DECREASED GLUCOSE; Start 09/06/16 at 12:00 Glucose (Glutose) 22.5 gm Q15M PRN PO DECREASED GLUCOSE; Start 09/06/16 at 12: 00 Dextrose (D50w Syringe) 25 ml Q15M PRN IV DECREASED GLUCOSE; Start 09/06/16 at 12:00 Dextrose (D50w Syringe) 50 ml Q15M PRN IV DECREASED GLUCOSE; Start 09/06/16 at 12:00 Glucagon (Glucagen) 1 mg Q15M PRN IM DECREASED GLUCOSE; Start 09/06/16 at 12: 00 Glucose 15 gm 15 gm Q15M PRN BUCCAL DECREASED GLUCOSE; Start 09/06/16 at 12:00 Propofol 100 ml @ 2.445 mls/ hr Q12H IV Last administered on 09/14/16at 05:00 ; Admin Dose 20.538 MLS/HR; Start 09/06/16 at 19:00 Norepinephrine/ Dextrose (Levophed/D5W) 500 ml @ 1.87 mls/hr TITRATE IV ; Start 09/07/16 at 10:00 Methylprednisolone Sodium Succinate (Solu-Medrol) 60 mg Q6 IV Last administered on 09/14/16 05:07; Admin Dose 60 MG; Start 09/10/16 at 11:00 Insulin Aspart (Novolog Insulin Pen) NOVOLOG *MODERATE* ALGORI... Q4 SC Last administered on 09/14/16 08:51; Admin Dose 8 UNIT; Start 09/11/16 at 13:00 Epoetin Kobi (Epogen (Esrd)) 10,000 units MoWeFr@17 SC Last administered on 17:40; Admin Dose 10,000 UNITS; Start 09/12/16 at 17:00 Metoprolol Tartrate (Lopressor) 12.5 mg BID PO Last administered on 09/14/16 08:41; Admin Dose 12.5 MG; Start 09/12/16 at 21:00 Voriconazole (Vfend) 200 mg BID NGT Last administered on 09/14/16 08:41; Admin Dose 200 MG; Start 09/12/16 at 21:00 Insulin Glargine (Lantus) 20 unit BID SC Last administered on 09/14/16 08:53 ; Admin Dose 20 UNIT; Start 09/13/16 at 09:30 Heparin Sodium (Porcine) (Heparin (5000 Units/0.5 ml)) 5,000 unit BID SC Last administered on 09/14/16 08:38; Admin Dose 5,000 UNIT; Start 09/13/16 at 21: 00 Assessment/Plan Chief Complaint/Hosp Course 1. Anuric acute kidney injury on top of chronic kidney disease stage IV, most likely with progression to end-stage renal disease. The patient is currently dialysis dependent. The patient has been receiving daily dialysis for solute clearance and volume removal. We will plan for 2 hours of dry ultrafiltration tomorrow with a goal of approximately 2 to 3 liters volume removal. We will monitor closely. 2. Volume overload secondary to congestive heart failure, acute kidney injury. The patient is nearing euvolemic status. We will continue ultrafiltration with dialysis as needed. 3. Hypokalemia, repleted with potassium chloride. 4. Anemia. Continue to monitor hemoglobin and hematocrit levels, transfuse as needed. We will give Epogen as needed as well. 5. Respiratory dependent respiratory failure. Vent settings have been reviewed. ABG has been reviewed. Continue to monitor. 6. Sepsis, status post shock, currently on antibiotics, continue. 7. Diabetes. Continue current insulin regimen. 8. Hypertension. Continue current blood pressure regimen. Continue ultrafiltration dialysis. 9. Acute encephalopathy. Etiology is toxic metabolic. Continue to monitor. 10. Arrhythmia, currently stable. Follow up with cardiology. 11. History of Clostridium difficile colitis status post treatment. 12. Elevated troponin, possible non-ST segment elevation myocardial infarction , questionable demand ischemia. Continue current medical management. Problems: GORDY CHAMBERLAIN MD Sep 14, 2016 09:38
--- NOTE | 2016-09-14 14:48 | PN ---
Date/Time of Note Date/Time of Note DATE: 09/14/16 TIME: 14:42 Assessment/Plan VTE Prophylaxis VTE Prophylaxis Intervention: SCD's Lines/Catheters IV Catheter Type (from Nrsg): PT. PERMACATH Urinary Cath still in place: No Assessment/Plan Assessment/Plan 71 yo female with 1. Acute respiratory failure: 2ry to CHF exacerbation and volume overload, on HD She had to be reintubated this week due to stridors and respiratory failure, On Solumedrol, will decrease to 40 mg IV q12 after discussion with Pulmonary Pulmonary/Dr Daniel following Weaning after [place] 2. Congestive heart failure, systolic acute on chronic, cardiomyopathy with LVEF 40-45,and also with ESRD On HD for volume management and Cardiology following Continue current medications Follow up Nephrology and cardiology recommendations 3. Elevated troponin / NSTEMI secondary to demand ischemia Appreciate Cardiology recommendations 3. Pneumonia possibly secondary to aspiration, continue Zosyn for now 4. Diabetes mellitus Type 2, now with hyperglycemia due to D5 fluids and also on steroids now, d/c IVF and increase Lantus to 30 units bid, continue moderate SSI Continue tube feeding to goal of 50 cc/hr 5. Sepsis with Septic Shock 2/2 Pneumonia, off pressors, continue Zosyn and back on Vent. Continue supportive care. Afebrile and WBC wnl 6. Hypertension: Back on low dose Bblock. 7. End-stage renal disease on hemodialysis. HD mon/thu/fri. Follow up Nephrology. 8. Chronic hypochromic anemia secondary to chronic disease, stable H/H, continue monitor. 9. Paroxysmal atrial fibrillation, controlled rate for now, monitor, further recs per cardiology, patient coagulopathic and in SR, f/u further Cardiology recs 10. UTI secondary to yeast: Repeat UA with LE and culture with yeast >100K, likely non albicans again. Start Voriconazole 200 mg per OGT bid D/c Violet 11. Coagulopathy: resolving slowly Episode of bleeding with suctioning yesterday so d/c Heparin ppx 12. Superficial venous thrombosis in the left cephalic vein in the upper arm. warm compresses since patient with coagulopathy Repeat Doppler in 1 to 2 weeks Prophylaxis: SCDs for DVT ppx and Protonix for GI ppx Disposition: On Vent and HD today. Subjective 24 Hr Interval Summary Free Text/Dictation Patient still intubated and sedated awaiting family decision re extubation/ DNR vs trach as patient with multiple intubations. Afebrile and remains stable Exam/Review of Systems Vital Signs Vitals Vital Signs Date Time Temp Pulse Resp B/P Pulse Ox O2 Delivery O2 Flow Rate FiO2 09/14/16 12:00 73 09/14/16 11:00 16 149/69 98 Mechanical Ventilator 09/14/16 07:30 98.3 09/14/16 04:44 30 Intake and Output 09/13/16 09/13/16 09/14/16 15:00 23:00 07:00 Intake Total 1264.296 ml 623.228 ml 514.304 ml Output Total 2000 ml 75 ml 200 ml Balance -735.704 ml 548.228 ml 314.304 ml Exam Constitutional: other (Intubated and sedated ) Respiratory: clear to auscultation, normal air movement Cardiovascular: nl pulses, regular rate and rhythm Gastrointestinal: non-tender, soft Musculoskeletal: other (much less edema and anasarca ) Extremities: normal pulses Neurological: other (sedated and intubated ) Results Result Diagram: 09/14/16 0400 09/14/16 0400 Results 24 hrs Laboratory Tests Test 09/13/16 16:11 09/13/16 21:16 09/14/16 01:05 09/14/16 04:00 Bedside Glucose 327 H 387 H 386 H Activated Partial Thromboplast Time 30.8 Anion Gap 21 H Anisocytosis 1+ Band Neutrophils % 2.0 Blood Morphology Comment Blood Urea Nitrogen 52 H Calcium Level 8.3 L Carbon Dioxide Level 21 Chloride Level 97 Creatinine 2.05 H Glucose Level 324 H Hematocrit 30.8 L Hemoglobin 10.6 L Hypochromasia 1+ INR International Normalized Ratio 0.98 Lymphocytes # 0.3 L Lymphocytes % 4.0 L Magnesium Level 1.8 Mean Corpuscular Hemoglobin 29.8 Mean Corpuscular Hemoglobin Concent 34.5 Mean Corpuscular Volume 86.4 Mean Platelet Volume 7.7 Monocytes # 0.1 L Monocytes % 1.0 Neutrophils # 6.4 Neutrophils % 93.0 H Nucleated Red Blood Cells % 2.0 H Phosphorus Level 2.3 L Platelet Count 186 Platelet Estimate PLT APPEAR ADEQUATE Potassium Level 3.9 Prothrombin Time 13.0 # Prothrombin Time Ratio 1.0 Red Blood Count 3.56 L Red Cell Distribution Width 19.6 H Sodium Level 135 White Blood Count 6.9 # Test 09/14/16 05:06 09/14/16 08:49 09/14/16 14:17 Bedside Glucose 376 H 300 H 393 H Medications Medications Current Medications Piperacillin Sod/ Tazobactam Sod (Zosyn 2.25gm/ 50ml (Pmx)) 50 ml @ 100 mls/hr Q8 IVPB Last administered on 09/14/16at 14:16; Admin Dose 100 MLS/HR; Start at 14:00 Pantoprazole (Protonix Iv) 40 mg DAILY@06 IV Last administered on 09/14/16at 05 :07; Admin Dose 40 MG; Start 09/07/16 at 06:00 Ondansetron HCl (Zofran Inj) 4 mg Q6H PRN IV NAUSEA AND/OR VOMITING; Start at 11:30 Miscellaneous Information 1 ea NOTE XX ; Start 09/06/16 at 12:00 Glucose (Glutose) 15 gm Q15M PRN PO DECREASED GLUCOSE; Start 09/06/16 at 12:00 Glucose (Glutose) 22.5 gm Q15M PRN PO DECREASED GLUCOSE; Start 09/06/16 at 12: 00 Dextrose (D50w Syringe) 25 ml Q15M PRN IV DECREASED GLUCOSE; Start 09/06/16 at 12:00 Dextrose (D50w Syringe) 50 ml Q15M PRN IV DECREASED GLUCOSE; Start 09/06/16 at 12:00 Glucagon (Glucagen) 1 mg Q15M PRN IM DECREASED GLUCOSE; Start 09/06/16 at 12: 00 Glucose 15 gm 15 gm Q15M PRN BUCCAL DECREASED GLUCOSE; Start 09/06/16 at 12:00 Propofol 100 ml @ 2.445 mls/ hr Q12H IV Last administered on 09/14/16at 09:41 ; Admin Dose 20.528 MLS/HR; Start 09/06/16 at 19:00 Norepinephrine/ Dextrose (Levophed/D5W) 500 ml @ 1.87 mls/hr TITRATE IV ; Start 09/07/16 at 10:00 Methylprednisolone Sodium Succinate (Solu-Medrol) 60 mg Q6 IV Last administered on 09/14/16at 14:16; Admin Dose 60 MG; Start 12/21/16 at 11:00 Insulin Aspart (Novolog Insulin Pen) NOVOLOG *MODERATE* ALGORI... Q4 SC Last administered on 09/14/16 14:20; Admin Dose 12 UNIT; Start 09/11/16 at 13:00 Epoetin Kobi (Epogen (Esrd)) 10,000 units MoWeFr@17 SC Last administered on 17:40; Admin Dose 10,000 UNITS; Start 09/12/16 at 17:00 Metoprolol Tartrate (Lopressor) 12.5 mg BID PO Last administered on 09/14/16 08:41; Admin Dose 12.5 MG; Start 09/12/16 at 21:00 Voriconazole (Vfend) 200 mg BID NGT Last administered on 09/14/16 08:41; Admin Dose 200 MG; Start 09/12/16 at 21:00 Insulin Glargine (Lantus) 20 unit BID SC Last administered on 09/14/16 08:53 ; Admin Dose 20 UNIT; Start 09/13/16 at 09:30 Heparin Sodium (Porcine) (Heparin (5000 Units/0.5 ml)) 5,000 unit BID SC Last administered on 09/14/16 08:38; Admin Dose 5,000 UNIT; Start 09/13/16 at 21: 00 CRISTY INMAN Sep 14, 2016 14:48
--- NOTE | 2016-09-14 16:44 | CONS ---
Date/Time of Note Date/Time of Note DATE: 09/14/16 TIME: 16:42 Assessment/Plan Assessment/Plan Additional Assessment/Plan Abnormal electrocardiogram with PAF, CHF, VDRF, Anemia ESRD on HD Hemodynamically stable Heart failure clinically compensated Continue Vent support Continue Metoprolol Continue Voriconazole Continue GI and DVT Prophylaxis Continue Pulmonary Toiletry HD as scheduled Consultation Date/Type/Reason Admit Date/Time Sep 06, 2016 at 11:22 Initial Consult Date Type of Consultation: neph Referring Provider: PAMELA MARTE Exam/Review of Systems Vital Signs Vitals Vital Signs Date Time Temp Pulse Resp B/P Pulse Ox O2 Delivery O2 Flow Rate FiO2 09/14/16 16:23 67 09/14/16 15:28 15 99 30 09/14/16 11:00 149/69 Mechanical Ventilator 09/14/16 07:30 98.3 Intake and Output 09/13/16 09/13/16 09/14/16 15:00 23:00 07:00 Intake Total 1264.296 ml 623.228 ml 514.304 ml Output Total 2000 ml 75 ml 200 ml Balance -735.704 ml 548.228 ml 314.304 ml Exam Intubated and sedated Heent: NAD Neck No JVD CVS; RRR, no m/r/g Chest Mechanical breath sounds heard bilaterally Abdomen Soft BS present Extremities: Bilateral pedal edema Results Result Diagram: 09/14/16 0400 09/14/16 0400 Results 24 hrs Laboratory Tests Test 09/13/16 21:16 09/14/16 01:05 09/14/16 04:00 09/14/16 05:06 Bedside Glucose 387 H 386 H 376 H Activated Partial Thromboplast Time 30.8 Anion Gap 21 H Anisocytosis 1+ Band Neutrophils % 2.0 Blood Morphology Comment Blood Urea Nitrogen 52 H Calcium Level 8.3 L Carbon Dioxide Level 21 Chloride Level 97 Creatinine 2.05 H Glucose Level 324 H Hematocrit 30.8 L Hemoglobin 10.6 L Hypochromasia 1+ INR International Normalized Ratio 0.98 Lymphocytes # 0.3 L Lymphocytes % 4.0 L Magnesium Level 1.8 Mean Corpuscular Hemoglobin 29.8 Mean Corpuscular Hemoglobin Concent 34.5 Mean Corpuscular Volume 86.4 Mean Platelet Volume 7.7 Monocytes # 0.1 L Monocytes % 1.0 Neutrophils # 6.4 Neutrophils % 93.0 H Nucleated Red Blood Cells % 2.0 H Phosphorus Level 2.3 L Platelet Count 186 Platelet Estimate PLT APPEAR ADEQUATE Potassium Level 3.9 Prothrombin Time 13.0 # Prothrombin Time Ratio 1.0 Red Blood Count 3.56 L Red Cell Distribution Width 19.6 H Sodium Level 135 White Blood Count 6.9 # Test 09/14/16 08:49 09/14/16 14:17 Bedside Glucose 300 H 393 H Medications Medications Current Medications Piperacillin Sod/ Tazobactam Sod (Zosyn 2.25gm/ 50ml (Pmx)) 50 ml @ 100 mls/hr Q8 IVPB Last administered on 09/14/16at 14:16; Admin Dose 100 MLS/HR; Start at 14:00 Pantoprazole (Protonix Iv) 40 mg DAILY@06 IV Last administered on 09/14/16at 05 :07; Admin Dose 40 MG; Start 09/07/16 at 06:00 Ondansetron HCl (Zofran Inj) 4 mg Q6H PRN IV NAUSEA AND/OR VOMITING; Start at 11:30 Miscellaneous Information 1 ea NOTE XX ; Start 09/06/16 at 12:00 Glucose (Glutose) 15 gm Q15M PRN PO DECREASED GLUCOSE; Start 09/06/16 at 12:00 Glucose (Glutose) 22.5 gm Q15M PRN PO DECREASED GLUCOSE; Start 09/06/16 at 12: 00 Dextrose (D50w Syringe) 25 ml Q15M PRN IV DECREASED GLUCOSE; Start 09/06/16 at 12:00 Dextrose (D50w Syringe) 50 ml Q15M PRN IV DECREASED GLUCOSE; Start 09/06/16 at 12:00 Glucagon (Glucagen) 1 mg Q15M PRN IM DECREASED GLUCOSE; Start 09/06/16 at 12: 00 Glucose 15 gm 15 gm Q15M PRN BUCCAL DECREASED GLUCOSE; Start 09/06/16 at 12:00 Propofol 100 ml @ 2.445 mls/ hr Q12H IV Last administered on 09/14/16at 15:38 ; Admin Dose 20.528 MLS/HR; Start 09/06/16 at 19:00 Norepinephrine/ Dextrose (Levophed/D5W) 500 ml @ 1.87 mls/hr TITRATE IV ; Start 09/07/16 at 10:00 Insulin Aspart (Novolog Insulin Pen) NOVOLOG *MODERATE* ALGORI... Q4 SC Last administered on 09/14/16 14:20; Admin Dose 12 UNIT; Start 09/11/16 at 13:00 Epoetin Kobi (Epogen (Esrd)) 10,000 units MoWeFr@17 SC Last administered on 17:40; Admin Dose 10,000 UNITS; Start 09/12/16 at 17:00 Metoprolol Tartrate (Lopressor) 12.5 mg BID PO Last administered on 09/14/16 08:41; Admin Dose 12.5 MG; Start 09/12/16 at 21:00 Voriconazole (Vfend) 200 mg BID NGT Last administered on 09/14/16 08:41; Admin Dose 200 MG; Start 09/12/16 at 21:00 Heparin Sodium (Porcine) (Heparin (5000 Units/0.5 ml)) 5,000 unit BID SC Last administered on 09/14/16at 08:38; Admin Dose 5,000 UNIT; Start 09/13/16 at 21: 00 Insulin Glargine (Lantus) 30 unit BID SC ; Start 09/14/16 at 21:00 Methylprednisolone Sodium Succinate (Solu-Medrol) 40 mg Q12 IV ; Start at 21:00 GREGG SANCHEZ M.D. Sep 14, 2016 16:44
--- NOTE | 2016-09-14 19:06 | RADRPT ---
PROCEDURE: XR Chest. CLINICAL INDICATION: Shortness of breath. TECHNIQUE: Single frontal view. COMPARISON: 09/11/1960. FINDINGS: The endotracheal tube and right internal jugular vein dialysis catheter remain in satisfactory posit ion. There is a new nasogastric tube with the tip in the stomach. The left arm PICC line is in sat isfactory and unchanged position with the tip in the cavoatrial junction region. The heart is enlarged. There is calcification in the aorta consistent with atherosclerosis. There is mild pulmonary edema, improved. There is mild atelectasis at the lung bases. There is no pleural effusion. There is no pneumothorax. IMPRESSION: 1. New nasogastric tube tip in the stomach. 2. Mild pulmonary edema, improved. 3. No other change from 09/11/2016. RPTAT: QQ .Esvin Mak MD, MD Date Time Electronically viewed and signed by .Esvin Mak MD, MD on 09/14/2016 19:06 .R/
[2016-09-14] MEDS: METHYLPREDNISOLONE 40 MG INJ IV SCH (22:01)
[2016-09-15] VITALS (72 sets, daily range): BP systolic 53–149; BP diastolic 44–94; PULSE 66–129; RESP 13–19
[2016-09-15] MEDS: PROPOFOL 100 ML IV SCH ×5 (01:01→17:20)
[2016-09-15] MEDS: INSULIN ASPART [NOVOLOG] 3 ML PEN SC SCH ×6 (01:04→21:26)
[2016-09-15] MEDS: IPRATROPIUM (HFA) 12.9 GM INHALER INH SCH ×4 (01:36→19:51)
[2016-09-15] MEDS: ALBUTEROL HFA 8 GM INHALER INH PRN ×3 (01:36→14:21)
[2016-09-15] MEDS: PANTOPRAZOLE 40 MG INJ IV SCH (05:50)
[2016-09-15] MEDS: PIPER-TAZO 2.25 GM (PMX) 50 ML IVPB SCH ×3 (05:50→21:20)
[2016-09-15 05:54] LABS: HEMATOCRIT 31.8 % (37.0-47.0); MEAN CORPUSCULAR HEMOGLOBIN 29.5 pg (29.0-33.0); MEAN CORPUSCULAR HGB CONC 34.6 g/dl (32.0-37.0); MEAN CORPUSCULAR VOLUME 85.1 fl (82.0-101.0); MEAN PLATELET VOLUME 7.9 fl (7.4-10.4); PLATELET COUNT 201 10^3/UL (140-440); RED BLOOD COUNT 3.74 10^6/ul (4.20-5.40); RED CELL DISTRIBUTION WIDTH 19.2 % (11.5-14.5); UNCORRECTED WBC 9.1 10^3/ul (4.8-10.8); WHITE BLOOD COUNT 9.1 10^3/ul (4.8-10.8)
[2016-09-15 06:15] LABS: CONDITION 1; LH ANALYZER COMMENTS 1
[2016-09-15 06:41] LABS: CREATININE 2.44 mg/dl (0.44-1.00); PHOSPHORUS 2.8 mg/dl (2.5-4.9)
[2016-09-15 06:42] LABS: CALCIUM 8.7 mg/dl (8.4-10.2); MAGNESIUM 1.9 mg/dl (1.7-2.5)
[2016-09-15] MEDS: VORICONAZOLE 200 MG TAB NGT SCH ×2 (08:49→21:19)
[2016-09-15] MEDS: METHYLPREDNISOLONE 40 MG INJ IV SCH ×2 (08:50→21:20)
[2016-09-15] MEDS: METOPROLOL 25 MG TAB PO SCH ×2 (08:50→21:19)
[2016-09-15] MEDS: INSULIN GLARGINE [LANtus] 3 ML PEN SC SCH ×2 (08:55→21:26)
[2016-09-15] MEDS: HEPARIN 5,000 UNIT/0.5 ML SYG SC SCH ×2 (08:55→21:25)
[2016-09-15 09:02] LABS: LYMPHOCYTES # 0.6 10^3/ul (0.8-2.9); MONOCYTE # 0.5 10^3/ul (0.3-0.9); NEUTROPHIL # 7.5 10^3/ul (1.6-7.5)
[2016-09-15 09:03] LABS: BURR CELLS 2+; POLYCHROMASIA 1+
--- NOTE | 2016-09-15 10:01 | PN ---
DATE: 09/15/2016 SUBJECTIVE: The patient remains critically ill on full ventilatory support. No other acute events noted, no hemoptysis, no hematemesis, hematochezia. OBJECTIVE: VITAL SIGNS: Blood pressure is 120/67, respirations 15, pulse 72, temperature 98.9. HEENT: Head is normocephalic. NECK: Supple. HEART: Regular rate. LUNGS: Show diminished breath sounds at the base. ABDOMEN: Soft, nontender to palpation. No rebound or guarding. EXTREMITIES: Negative for clubbing, cyanosis. Patient is positive for edema. DERMATOLOGIC: No rashes. MUSCULOSKELETAL: No joint effusions. NEUROLOGIC: No change in exam. LABORATORY DATA: Shows sodium 134, potassium 4.0, chloride 95, BUN 74, creatinine 2.44. White coun t 9.1, hemoglobin 11.0, hematocrit 31.8, platelet count is 201. ASSESSMENT AND PLAN: 1. Anuric acute kidney injury on top of chronic kidney disease stage IV with likely progression to end-stage renal disease. The patient is currently dialysis dependent, has been receiving daily dial ysis for solute clearance and volume removal. Plan for dialysis today for 3 hours, 3K bath calcium 2.5, will ultrafiltrate as tolerated. 4. Volume overload secondary to heart failure, acute kidney injury. We will continue daily dialysi s with ultrafiltration. 5. Hypokalemia, improved. 6. Anemia. Continue to monitor hemoglobin and hematocrit levels. Will give Epogen as needed. 7. Ventilator dependent respiratory failure. Vent settings have been reviewed. ABG reviewed. Con tinue to monitor. Follow up with Pulmonary. Continue weaning trials. 8. Sepsis, status post shock. Continue current antibiotic regimen. 9. Diabetes. Follow up with endocrinology for management. 10. Hypertension. Continue current blood pressure regimen. 11. Acute encephalopathy. Etiology is toxic metabolic. Continue to monitor. 12. Arrhythmia, currently stable. Continue to monitor. 13. Coronary artery disease, history of non-STEMI. Continue medical management. Dictated By: STEFFANY JESUS/ADRIA Conf#: [id number] DID#: [id number]
--- NOTE | 2016-09-15 10:21 | PN ---
Date/Time of Note Date/Time of Note DATE: 09/15/16 TIME: 09:56 Assessment/Plan VTE Prophylaxis VTE Prophylaxis Intervention: heparin Lines/Catheters IV Catheter Type (from Nrsg): PICC Line Central line still needed: Yes (for IV access ) Urinary Cath still in place: No Assessment/Plan Assessment/Plan 71 yo female with 1. Acute respiratory failure: 2ry to CHF exacerbation and volume overload, on HD. She also had to be reintubated this week due to stridors and respiratory failure, On Solumedrol, will decrease to 40 mg IV q12 after discussion with Pulmonary yesterday Pulmonary/Dr Daniel following Weaning protocol today after HD? discussed with family, they will discuss re DNR post extubation if able to wean vs Terminal wean vs Trach 2. Congestive heart failure, systolic acute on chronic, cardiomyopathy with LVEF 40-45,and also with ESRD On HD for volume management and Cardiology following, HD today again Continue current medications Follow up Nephrology and cardiology recommendations 3. Elevated troponin / NSTEMI secondary to demand ischemia Appreciate Cardiology recommendations 3. Pneumonia possibly secondary to aspiration, continue Zosyn for now 4. Diabetes mellitus Type 2, now with hyperglycemia due to D5 fluids and also on steroids now, on Lantus to 30 units bid, continue moderate SSI Continue tube feeding to goal of 50 cc/hr 5. Sepsis with Septic Shock 2/2 Pneumonia, off pressors, continue Zosyn and back on Vent. Continue supportive care. Afebrile and WBC wnl 6. Hypertension: Back on low dose Bblock. 7. End-stage renal disease on hemodialysis. HD mon/wed/fri. Follow up Nephrology. 8. Chronic hypochromic anemia secondary to chronic disease, stable H/H, continue monitor. 9. Paroxysmal atrial fibrillation, controlled rate for now, monitor, further recs per cardiology, in SR, f/u further Cardiology recs 10. UTI secondary to yeast: Repeat UA with LE and culture with yeast >100K, likely non albicans again. On Voriconazole 200 mg per OGT bid D/c [place] 11. Coagulopathy: resolved, resuming Heparin ppx dose 12. Superficial venous thrombosis in the left cephalic vein in the upper arm. warm compresses since patient with coagulopathy Repeat Doppler in 1 to 2 weeks Prophylaxis: Heparin for DVT ppx and Protonix for GI ppx Disposition: On Vent and HD today again and weaning protocol. Subjective 24 Hr Interval Summary Free Text/Dictation Patient sedated and intubated, HD today fo volume overload and weaning protocol if possible. Discussed with sisters and asked for them to make a decision regarding code status DNR do not re intubate after weaning and extubation if able to. Will attempt weaning but if not able will need to decide trach vs terminal extubation also Exam/Review of Systems Vital Signs Vitals Vital Signs Date Time Temp Pulse Resp B/P Pulse Ox O2 Delivery O2 Flow Rate FiO2 09/15/16 08:00 69 09/15/16 06:00 15 120/67 99 09/15/16 05:58 30 09/15/16 04:00 98.9 09/15/16 00:00 Mechanical Ventilator Intake and Output 09/14/16 09/14/16 09/15/16 15:00 23:00 07:00 Intake Total 56710.650 ml 532.496 ml 450 ml Output Total 0 ml 50 ml 300 ml Balance 08794.650 ml 482.496 ml 150 ml Exam Constitutional: other (sedated and intubated ) Respiratory: diminished breath sounds (bases ), other (on Vent ) Cardiovascular: nl pulses, regular rate and rhythm Gastrointestinal: non-tender, soft Extremities: normal pulses, other (diffuse anasarca ) Neurological: other (sedated and intubated ) Results Result Diagram: 09/15/16 0500 09/15/16 0500 Results 24 hrs Laboratory Tests Test 09/14/16 14:17 09/14/16 18:50 09/14/16 22:03 09/15/16 01:02 Bedside Glucose 393 H 333 H 363 H 302 H Test 09/15/16 04:50 09/15/16 05:00 09/15/16 08:43 Bedside Glucose 203 204 Anion Gap 24 H Band Neutrophils % 2.0 Blood Morphology Comment Blood Urea Nitrogen 74 H Calcium Level 8.7 Carbon Dioxide Level 19 L Chloride Level 95 L Creatinine 2.44 H Differential Comment MANUAL DIFF Glucose Level 167 # Hematocrit 31.8 L Hemoglobin 11.0 L Lymphocytes # 0.6 L Lymphocytes % 7.0 L Magnesium Level 1.9 Mean Corpuscular Hemoglobin 29.5 Mean Corpuscular Hemoglobin Concent 34.6 Mean Corpuscular Volume 85.1 Mean Platelet Volume 7.9 Metamyelocytes # 0.3 Metamyelocytes % 3.0 H Monocytes # 0.5 Monocytes % 6.0 Neutrophils # 7.5 Neutrophils % 82.0 H Nucleated Red Blood Cells # Nucleated Red Blood Cells % 4.0 H Phosphorus Level 2.8 Platelet Count 201 Polychromasia 1+ Potassium Level 4.0 Red Blood Count 3.74 L Red Cell Distribution Width 19.2 H Sodium Level 134 L White Blood Count 9.1 # Medications Medications Current Medications Piperacillin Sod/ Tazobactam Sod (Zosyn 2.25gm/ 50ml (Pmx)) 50 ml @ 100 mls/hr Q8 IVPB Last administered on 09/15/16at 05:50; Admin Dose 100 MLS/HR; Start at 14:00 Pantoprazole (Protonix Iv) 40 mg DAILY@06 IV Last administered on 09/15/16at 05 :50; Admin Dose 40 MG; Start 09/07/16 at 06:00 Ondansetron HCl (Zofran Inj) 4 mg Q6H PRN IV NAUSEA AND/OR VOMITING; Start at 11:30 Miscellaneous Information 1 ea NOTE XX ; Start 09/06/16 at 12:00 Glucose (Glutose) 15 gm Q15M PRN PO DECREASED GLUCOSE; Start 09/06/16 at 12:00 Glucose (Glutose) 22.5 gm Q15M PRN PO DECREASED GLUCOSE; Start 09/06/16 at 12: 00 Dextrose (D50w Syringe) 25 ml Q15M PRN IV DECREASED GLUCOSE; Start 09/06/16 at 12:00 Dextrose (D50w Syringe) 50 ml Q15M PRN IV DECREASED GLUCOSE; Start 09/06/16 at 12:00 Glucagon (Glucagen) 1 mg Q15M PRN IM DECREASED GLUCOSE; Start 09/06/16 at 12: 00 Glucose 15 gm 15 gm Q15M PRN BUCCAL DECREASED GLUCOSE; Start 09/06/16 at 12:00 Propofol 100 ml @ 2.445 mls/ hr Q12H IV Last administered on 09/15/16at 08:03 ; Admin Dose 19.56 MLS/HR; Start 09/06/16 at 19:00 Norepinephrine/ Dextrose (Levophed/D5W) 500 ml @ 1.87 mls/hr TITRATE IV ; Start 09/07/16 at 10:00 Insulin Aspart (Novolog Insulin Pen) NOVOLOG *MODERATE* ALGORI... Q4 SC Last administered on 09/15/16 08:54; Admin Dose 4 UNIT; Start 09/11/16 at 13:00 Epoetin Kobi (Epogen (Esrd)) 10,000 units MoWeFr@17 SC Last administered on 17:40; Admin Dose 10,000 UNITS; Start 09/12/16 at 17:00 Metoprolol Tartrate (Lopressor) 12.5 mg BID PO Last administered on 09/15/16 08:50; Admin Dose 12.5 MG; Start 09/12/16 at 21:00 Voriconazole (Vfend) 200 mg BID NGT Last administered on 09/15/16 08:49; Admin Dose 200 MG; Start 09/12/16 at 21:00 Heparin Sodium (Porcine) (Heparin (5000 Units/0.5 ml)) 5,000 unit BID SC Last administered on 09/15/16 08:55; Admin Dose 5,000 UNIT; Start 09/13/16 at 21: 00 Insulin Glargine (Lantus) 30 unit BID SC Last administered on 09/15/16 08:55 ; Admin Dose 30 UNIT; Start 09/14/16 at 21:00 Methylprednisolone Sodium Succinate (Solu-Medrol) 40 mg Q12 IV Last administered on 09/15/16 08:50; Admin Dose 40 MG; Start 09/14/16 at 21:00 CRISTY INMAN Sep 15, 2016 10:21
[2016-09-15] MEDS ORDERED: HEPARIN 5,000 UNIT/0.5 ML SYG SC SCH (10:30)
--- NOTE | 2016-09-15 16:56 | CONS ---
Date/Time of Note Date/Time of Note DATE: 09/15/16 TIME: 16:54 Assessment/Plan Assessment/Plan Additional Assessment/Plan Abnormal electrocardiogram with PAF, CHF, VDRF, Anemia ESRD on HD Hemodynamically stable Heart failure clinically compensated Getting Dialyzed Continue Vent support Continue Metoprolol Continue Voriconazole Continue Insulin Continue GI and DVT Prophylaxis Continue Pulmonary Toiletry HD as scheduled Consultation Date/Type/Reason Admit Date/Time Sep 06, 2016 at 11:22 Type of Consultation: neph Referring Provider: PAMELA MARTE Exam/Review of Systems Vital Signs Vitals Vital Signs Date Time Temp Pulse Resp B/P Pulse Ox O2 Delivery O2 Flow Rate FiO2 09/15/16 16:15 80 16 99/65 100 09/15/16 16:00 98.0 09/15/16 16:00 30 09/15/16 00:00 Mechanical Ventilator Intake and Output 09/14/16 09/14/16 09/15/16 14:59 22:59 06:59 Intake Total 97684.660 ml 553.024 ml 500 ml Output Total 0 ml 50 ml 300 ml Balance 43635.660 ml 503.024 ml 200 ml Exam Intubated and sedated Heent: NAD Neck No JVD CVS; RRR, no m/r/g Chest Mechanical breath sounds heard bilaterally Abdomen Soft BS present Extremities: Bilateral pedal edema Results Result Diagram: 09/15/16 0500 09/15/16 0500 Results 24 hrs Laboratory Tests Test 09/14/16 18:50 09/14/16 22:03 09/15/16 01:02 09/15/16 04:50 Bedside Glucose 333 H 363 H 302 H 203 Test 09/15/16 05:00 09/15/16 08:43 09/15/16 13:06 Anion Gap 24 H Band Neutrophils % 2.0 Blood Morphology Comment Blood Urea Nitrogen 74 H Calcium Level 8.7 Carbon Dioxide Level 19 L Chloride Level 95 L Creatinine 2.44 H Differential Comment MANUAL DIFF Glucose Level 167 # Hematocrit 31.8 L Hemoglobin 11.0 L Lymphocytes # 0.6 L Lymphocytes % 7.0 L Magnesium Level 1.9 Mean Corpuscular Hemoglobin 29.5 Mean Corpuscular Hemoglobin Concent 34.6 Mean Corpuscular Volume 85.1 Mean Platelet Volume 7.9 Metamyelocytes # 0.3 Metamyelocytes % 3.0 H Monocytes # 0.5 Monocytes % 6.0 Neutrophils # 7.5 Neutrophils % 82.0 H Nucleated Red Blood Cells # Nucleated Red Blood Cells % 4.0 H Phosphorus Level 2.8 Platelet Count 201 Polychromasia 1+ Potassium Level 4.0 Red Blood Count 3.74 L Red Cell Distribution Width 19.2 H Sodium Level 134 L White Blood Count 9.1 # Bedside Glucose 204 337 H Medications Medications Current Medications Piperacillin Sod/ Tazobactam Sod (Zosyn 2.25gm/ 50ml (Pmx)) 50 ml @ 100 mls/hr Q8 IVPB Last administered on 09/15/16at 14:16; Admin Dose 100 MLS/HR; Start at 14:00 Pantoprazole (Protonix Iv) 40 mg DAILY@06 IV Last administered on 09/15/16at 05 :50; Admin Dose 40 MG; Start 09/07/16 at 06:00 Ondansetron HCl (Zofran Inj) 4 mg Q6H PRN IV NAUSEA AND/OR VOMITING; Start at 11:30 Miscellaneous Information 1 ea NOTE XX ; Start 09/06/16 at 12:00 Glucose (Glutose) 15 gm Q15M PRN PO DECREASED GLUCOSE; Start 09/06/16 at 12:00 Glucose (Glutose) 22.5 gm Q15M PRN PO DECREASED GLUCOSE; Start 09/06/16 at 12: 00 Dextrose (D50w Syringe) 25 ml Q15M PRN IV DECREASED GLUCOSE; Start 09/06/16 at 12:00 Dextrose (D50w Syringe) 50 ml Q15M PRN IV DECREASED GLUCOSE; Start 09/06/16 at 12:00 Glucagon (Glucagen) 1 mg Q15M PRN IM DECREASED GLUCOSE; Start 09/06/16 at 12: 00 Glucose 15 gm 15 gm Q15M PRN BUCCAL DECREASED GLUCOSE; Start 09/06/16 at 12:00 Propofol 100 ml @ 2.445 mls/ hr Q12H IV Last administered on 09/15/16at 11:30 ; Admin Dose 22.005 MLS/HR; Start 09/06/16 at 19:00 Norepinephrine/ Dextrose (Levophed/D5W) 500 ml @ 1.87 mls/hr TITRATE IV ; Start 09/07/16 at 10:00 Insulin Aspart (Novolog Insulin Pen) NOVOLOG *MODERATE* ALGORI... Q4 SC Last administered on 09/15/16 13:12; Admin Dose 10 UNIT; Start 09/11/16 at 13:00 Epoetin Kobi (Epogen (Esrd)) 10,000 units MoWeFr@17 SC Last administered on 17:40; Admin Dose 10,000 UNITS; Start 09/12/16 at 17:00 Metoprolol Tartrate (Lopressor) 12.5 mg BID PO Last administered on 09/15/16 08:50; Admin Dose 12.5 MG; Start 09/12/16 at 21:00 Voriconazole (Vfend) 200 mg BID NGT Last administered on 09/15/16 08:49; Admin Dose 200 MG; Start 09/12/16 at 21:00 Heparin Sodium (Porcine) (Heparin (5000 Units/0.5 ml)) 5,000 unit BID SC Last administered on 09/15/16 08:55; Admin Dose 5,000 UNIT; Start 09/13/16 at 21: 00 Insulin Glargine (Lantus) 30 unit BID SC Last administered on 09/15/16 08:55 ; Admin Dose 30 UNIT; Start 09/14/16 at 21:00 Methylprednisolone Sodium Succinate (Solu-Medrol) 40 mg Q12 IV Last administered on 09/15/16 08:50; Admin Dose 40 MG; Start 09/14/16 at 21:00 GREGG SANCHEZ M.D. Sep 15, 2016 16:56
[2016-09-15] MEDS: EPOETIN 10000 UNITS/1 ML INJ (ESRD) SC SCH (17:38)
[2016-09-16] VITALS (60 sets, daily range): BP systolic 82–159; BP diastolic 25–91; PULSE 69–103; RESP 14–21
[2016-09-16] MEDS: IPRATROPIUM (HFA) 12.9 GM INHALER INH SCH ×4 (01:25→19:18)
[2016-09-16] MEDS: ALBUTEROL HFA 8 GM INHALER INH PRN ×2 (01:26→19:18)
[2016-09-16] MEDS: INSULIN ASPART [NOVOLOG] 3 ML PEN SC SCH ×6 (01:33→21:15)
[2016-09-16 02:19] LABS: ALBUMIN 3.1 g/dl (3.3-4.9)
[2016-09-16 02:20] LABS: POTASSIUM 4.1 mmol/L (3.5-5.1)
[2016-09-16 02:22] LABS: ALBUMIN/GLOBULIN RATIO 1.06; BILIRUBIN,DIRECT 1.1 mg/dl (0.00-0.20); BILIRUBIN,INDIRECT 0.1 mg/dl (0-1.1); BILIRUBIN,TOTAL 1.2 mg/dl (0.2-1.3); CREATININE 1.67 mg/dl (0.44-1.00)
[2016-09-16 02:23] LABS: CALCIUM 8.4 mg/dl (8.4-10.2); MAGNESIUM 1.8 mg/dl (1.7-2.5)
[2016-09-16 05:21] LABS: HEMATOCRIT 32.2 % (37.0-47.0); HEMOGLOBIN 10.9 g/dl (12.0-16.0); MEAN CORPUSCULAR VOLUME 85.4 fl (82.0-101.0); PLATELET COUNT 218 10^3/UL (140-440); POTASSIUM 4.4 mmol/L (3.5-5.1); RED BLOOD COUNT 3.77 10^6/ul (4.20-5.40); RED CELL DISTRIBUTION WIDTH 19.6 % (11.5-14.5); UNCORRECTED WBC 10.8 10^3/ul (4.8-10.8); WHITE BLOOD COUNT 10.8 10^3/ul (4.8-10.8)
[2016-09-16] MEDS: PANTOPRAZOLE 40 MG INJ IV SCH (05:21)
[2016-09-16] MEDS: PIPER-TAZO 2.25 GM (PMX) 50 ML IVPB SCH ×3 (05:22→21:12)
[2016-09-16 05:23] LABS: CREATININE 1.66 mg/dl (0.44-1.00)
[2016-09-16 05:24] LABS: CALCIUM 8.3 mg/dl (8.4-10.2); MAGNESIUM 1.8 mg/dl (1.7-2.5); PHOSPHORUS 2.8 mg/dl (2.5-4.9)
[2016-09-16 05:55] LABS: CONDITION 1; LH ANALYZER COMMENTS 1
[2016-09-16] MEDS: PROPOFOL 100 ML IV SCH ×2 (07:10→21:11)
--- NOTE | 2016-09-16 08:47 | RADRPT ---
PROCEDURE: XR Chest. CLINICAL INDICATION: Respiratory distress TECHNIQUE: A single AP view of the chest was obtained. COMPARISON: Chest x-ray dated 09/14/2016 FINDINGS: The endotracheal tube tip is approximately 3.4 cm above the josé. The tip of the enteric tube ex tends below the left diaphragm. There is a right upper extremity PICC line with tip near the cavoatr ial junction. There is a right chest Perm-A-Cath with tip in the mid SVC. Lung volumes are low with compressive changes, vascular crowding and basilar atelectasis. There are small bilateral pleural effusions. No pneumothorax is seen. The cardiomediastinal silhouette is wi thin normal limits for size. The osseous structures are unremarkable. IMPRESSION: 1. Low lung volumes with interstitial edema and small bilateral pleural effusions. Lung aeration is mildly improved when compared to the prior examination. 2. Mild cardiomegaly and aortic atherosclerosis. 3. Tubes and lines, as described above. RPTAT: .Mitra Díaz MD, MD Date Time Electronically viewed and signed by .Mitra Díaz MD, on 09/16/2016 08:47 .G/
[2016-09-16] MEDS: METOPROLOL 25 MG TAB PO SCH ×2 (09:00→21:12)
[2016-09-16] MEDS: INSULIN GLARGINE [LANtus] 3 ML PEN SC SCH ×2 (09:05→21:16)
--- NOTE | 2016-09-16 09:11 | PN ---
DATE: 09/16/2016 SUBJECTIVE: The patient is stable, had hemodialysis yesterday with 1500 mL removed. No other event s noted. No hemoptysis, hematemesis or hematochezia. OBJECTIVE: VITAL SIGNS: Blood pressure 127/78, respirations 17, pulse 79, temperature 98.7. HEENT: Head is normocephalic. NECK: Supple. HEART: Regular rate. LUNGS: Show diminished breath sounds at the base. ABDOMEN: Soft, nontender to palpation without rebound or guarding. EXTREMITIES: Negative for clubbing, cyanosis. Positive edema. DERMATOLOGIC: No rashes. MUSCULOSKELETAL: No joint effusions. NEUROLOGIC: No change in exam. MEDICATIONS: The patient's medications have been reviewed. LABORATORY DATA: Shows sodium 133, potassium 4.4, chloride 95, BUN 56, creatinine 1.66. White coun t 10.8, hemoglobin 10.9, hematocrit 32.2, platelet count is 218. ASSESSMENT AND PLAN: 1. Anuric acute kidney injury on top of chronic kidney disease stage IV with likely progression to end-stage renal disease. The patient is currently dialysis dependent, has been receiving daily dial ysis with solute clearance and volume removal. Anticipate 2 hours of dry UF today, possible hemodia lysis tomorrow. 2. Volume overload secondary to acute kidney injury. Will continue ultrafiltration with hemodialysi s. The patient still is edematous. 3. Hypokalemia, improved. 4. Anemia. Continue to monitor hemoglobin and hematocrit levels. Continue Epogen with dialysis. 5. Ventilator dependent respiratory failure. Vent settings have been reviewed. ABG has been revie wed. Continue to monitor. Follow up with pulmonary. 6. Sepsis, status post shock. Continue current antibiotic regimen. 7. Diabetes, continue management per endocrinology. 8. Hypertension. Current blood pressure regimen. 9. Encephalopathy, etiology toxic metabolic. Continue to monitor. 10. Arrhythmia, stable. 11. Dysphagia status post nasogastric 0G-tube. Continue tube feeding. 12. History of coronary artery disease. Continue medical management. Dictated By: STEFFANY JESUS/ADRIA Conf#: [id number] DID#: [id number]
[2016-09-16] MEDS: HEPARIN 5,000 UNIT/0.5 ML SYG SC SCH ×2 (09:13→21:15)
[2016-09-16] MEDS: VORICONAZOLE 200 MG TAB NGT SCH ×2 (09:13→21:11)
[2016-09-16] MEDS: METHYLPREDNISOLONE 40 MG INJ IV SCH ×2 (09:16→21:12)
[2016-09-16 10:47] LABS: AADO2 Arterial 82.1 mmHg (7.0-24.0); Allen Test ACCEPTAB; Arterial Base Excess -1.6 mmol/L (-3.0-3); Arterial COHb 0.1 % (0.0-3.0); Arterial Fraction of Oxyhgb 96.4 % (93.0-99.0); Arterial HCO3 22.6 mmol/L (22.0-26.0); Arterial MetHb 0.2 % (0.0-1.5); Arterial Total Hemglobin 12.1 g/dl (12.0-18.0); Blood Gas PS 15; MODE VENT - SIMV
[2016-09-16 11:08] LABS: LYMPHOCYTES # 0.5 10^3/ul (0.8-2.9); MONOCYTE # 1.3 10^3/ul (0.3-0.9); NEUTROPHIL # 7.6 10^3/ul (1.6-7.5)
--- NOTE | 2016-09-16 12:24 | CONS ---
Date/Time of Note Date/Time of Note DATE: 09/16/16 TIME: 12:21 Assessment/Plan Assessment/Plan Chief Complaint/Hosp Course Imp: 1.Positive troponin-minmal in setting of esrd-Now trended negative 2.CHF-? systolic vs diastolic acute 3.HTN 4.ESRD on HD 5.anemia-requiring transfusions 6.Coagulopathy-resolved 7.H/O PAF in SR currently 8. Edema-LE ongoing Recc: -Tele -serial ecg's -trend cardiac enzymes -HD for volume removal -Follow hgb closely -Contiue low dose BB as tolerated only -Continue abx's/anti-fungals Problems: Consultation Date/Type/Reason Admit Date/Time Sep 06, 2016 at 11:22 Initial Consult Date 09/07/2016 Type of Consultation: Cardiology Reason for Consultation CHF/nstemi Referring Provider: PAMELA MARTE Exam/Review of Systems Vital Signs Vitals Vital Signs Date Time Temp Pulse Resp B/P Pulse Ox O2 Delivery O2 Flow Rate FiO2 09/16/16 10:00 78 19 135/80 98 Mechanical Ventilator 09/16/16 08:00 98.4 09/16/16 08:00 30 Intake and Output 09/15/16 09/15/16 09/16/16 15:00 23:00 07:00 Intake Total 807.825 ml 2094.005 ml 562.22 ml Output Total 0 ml 2780 ml 30 ml Balance 807.825 ml -685.995 ml 532.22 ml Exam Review of Systems: CONSTITUTIONAL: No fevers, chills. PULMONARY: intubated CARDIOVASCULAR: No obvious chest pain/palpitations GASTROINTESTINAL: No nausea/vomiting. GENITOURINARY: No hematuria/dysuria. MUSCULOSKELETAL: No obvious myagias/arthalgias. PSYCHIATRIC: No documented depression. NEUROLOGIC: sedated Constitutional: other (sedated) ENMT: intubated Neck: jvd (9 cm water), supple Respiratory: diminished breath sounds (at bases/B) Cardiovascular: regular rate and rhythm Gastrointestinal: non-tender, soft Musculoskeletal: muscle tone (normal) Extremities: edema (trace Bilateral) Neurological: other (No focal deficits) Results Result Diagram: 09/16/16 0400 09/16/16 0400 Results 24 hrs Laboratory Tests Test 09/15/16 13:06 09/15/16 17:43 09/15/16 21:18 09/16/16 01:31 Bedside Glucose 337 H 242 H 277 H 247 H Test 09/16/16 02:00 09/16/16 04:00 09/16/16 05:21 09/16/16 06:00 Alanine Aminotransferase (ALT/SGPT) 83 H Albumin 3.1 L Albumin/Globulin Ratio 1.06 Alkaline Phosphatase 193 H Anion Gap 21 H 20 H Aspartate Amino Transf (AST/SGOT) 44 Blood Urea Nitrogen 51 H 56 H Calcium Level 8.4 8.3 L Carbon Dioxide Level 22 22 Chloride Level 95 L 95 L Creatinine 1.67 H 1.66 H Direct Bilirubin 1.10 H Globulin 2.90 Glucose Level 201 159 Indirect Bilirubin 0.1 Magnesium Level 1.8 1.8 Potassium Level 4.1 4.4 Sodium Level 134 L 133 L Total Bilirubin 1.2 Total Protein 6.0 L Band Neutrophils % 9.0 H Blood Morphology Comment Differential Comment MANUAL DIFF Hematocrit 32.2 L Hemoglobin 10.9 L Lymphocytes # 0.5 L Lymphocytes % 5.0 L Mean Corpuscular Hemoglobin 29.0 Mean Corpuscular Hemoglobin Concent 34.0 Mean Corpuscular Volume 85.4 Mean Platelet Volume 8.0 Metamyelocytes # 0.4 Metamyelocytes % 4.0 H Monocytes # 1.3 H Monocytes % 12.0 H Neutrophils # 7.6 H Neutrophils % 70.0 Nucleated Red Blood Cells # Nucleated Red Blood Cells % 4.0 H Phosphorus Level 2.8 Platelet Count 218 Red Blood Count 3.77 L Red Cell Distribution Width 19.6 H White Blood Count 10.8 Bedside Glucose 164 Arterial Blood HCO3 22.6 Arterial Blood Base Excess -1.6 Arterial Blood Oxygen Saturation 96.7 Sage Test ACCEPTAB Arterial Blood Gas Puncture Site Right Radial Arterial Blood Carboxyhemoglobin 0.1 Arterial Blood Date Drawn 09/16/2016 5:55:00 AM Arterial Blood Methemoglobin 0.2 Arterial Blood pCO2 (Temp correct) 36.7 Arterial Blood pH (Temp corrected) 7.408 Arterial Blood pO2 (Temp corrected) 88.7 Blood Gas A-a O2 Differential 82.1 H Blood Gas Actual Respiration Rate 16 Blood Gas Inspiratory Pressure 20.0 Blood Gas Low PEEP Setting 5.0 Blood Gas Modality VENT - SIMV Blood Gas Notified Time 09/16/2016 6:06:00 AM Blood Gas Notified Whom KM Blood Gas Pressure Support 15 Blood Gas Respiration Rate 8.0 Blood Gas Specimen Source Blood arterial Blood Gas Temperature 37.0 Blood Gas Tidal Volume 500.0 FiO2 30.0 Oxyhemoglobin Percent 96.4 Total Hemoglobin 12.1 Test 09/16/16 09:02 Bedside Glucose 197 Medications Medications Current Medications Piperacillin Sod/ Tazobactam Sod (Zosyn 2.25gm/ 50ml (Pmx)) 50 ml @ 100 mls/hr Q8 IVPB Last administered on 09/16/16at 05:22; Admin Dose 100 MLS/HR; Start at 14:00 Pantoprazole (Protonix Iv) 40 mg DAILY@06 IV Last administered on 09/16/16at 05 :21; Admin Dose 40 MG; Start 09/07/16 at 06:00 Ondansetron HCl (Zofran Inj) 4 mg Q6H PRN IV NAUSEA AND/OR VOMITING; Start at 11:30 Miscellaneous Information 1 ea NOTE XX ; Start 09/06/16 at 12:00 Glucose (Glutose) 15 gm Q15M PRN PO DECREASED GLUCOSE; Start 09/06/16 at 12:00 Glucose (Glutose) 22.5 gm Q15M PRN PO DECREASED GLUCOSE; Start 09/06/16 at 12: 00 Dextrose (D50w Syringe) 25 ml Q15M PRN IV DECREASED GLUCOSE; Start 09/06/16 at 12:00 Dextrose (D50w Syringe) 50 ml Q15M PRN IV DECREASED GLUCOSE; Start 09/06/16 at 12:00 Glucagon (Glucagen) 1 mg Q15M PRN IM DECREASED GLUCOSE; Start 09/06/16 at 12: 00 Glucose 15 gm 15 gm Q15M PRN BUCCAL DECREASED GLUCOSE; Start 09/06/16 at 12:00 Propofol 100 ml @ 2.445 mls/ hr Q12H IV Last administered on 09/16/16at 07:10 ; Admin Dose 4.89 MLS/HR; Start 09/06/16 at 19:00 Norepinephrine/ Dextrose (Levophed/D5W) 500 ml @ 1.87 mls/hr TITRATE IV ; Start 09/07/16 at 10:00 Insulin Aspart (Novolog Insulin Pen) NOVOLOG *MODERATE* ALGORI... Q4 SC Last administered on 09/16/16 09:05; Admin Dose 4 UNIT; Start 09/11/16 at 13:00 Epoetin Kobi (Epogen (Esrd)) 10,000 units MoWeFr@17 SC Last administered on 17:38; Admin Dose 10,000 UNITS; Start 09/12/16 at 17:00 Metoprolol Tartrate (Lopressor) 12.5 mg BID PO Last administered on 09/15/16 21:19; Admin Dose 12.5 MG; Start 09/12/16 at 21:00 Voriconazole (Vfend) 200 mg BID NGT Last administered on 09/16/16 09:13; Admin Dose 200 MG; Start 09/12/16 at 21:00 Heparin Sodium (Porcine) (Heparin (5000 Units/0.5 ml)) 5,000 unit BID SC Last administered on 09/16/16 09:13; Admin Dose 5,000 UNIT; Start 09/13/16 at 21: 00 Insulin Glargine (Lantus) 30 unit BID SC Last administered on 09/16/16 09:05 ; Admin Dose 30 UNIT; Start 09/14/16 at 21:00 Methylprednisolone Sodium Succinate (Solu-Medrol) 40 mg Q12 IV Last administered on 09/16/16 09:16; Admin Dose 40 MG; Start 09/14/16 at 21:00 KAJAL MCKINNEY Sep 16, 2016 12:24
[2016-09-16] MEDS ORDERED: ALBUMIN HUMAN 25% 100 ML IV ONE (12:30)
--- NOTE | 2016-09-16 15:30 | PN ---
Date/Time of Note Date/Time of Note DATE: 09/16/16 TIME: 15:24 Assessment/Plan VTE Prophylaxis VTE Prophylaxis Intervention: heparin Lines/Catheters IV Catheter Type (from Nrs): HD CATHETER Urinary Cath still in place: No Assessment/Plan Assessment/Plan 71 yo female with 1. Acute respiratory failure: 2ry to CHF exacerbation and volume overload, on HD. She also had to be reintubated this week due to stridors and respiratory failure, On Solumedrol, decreased to 40 mg IV q12 after discussion with Pulmonary. Pulmonary/Dr Daniel following Weaning protocol started yesterday, Family to decide/discuss re DNR post extubation if able to wean vs Terminal wean vs Trach 2. Congestive heart failure, systolic acute on chronic, cardiomyopathy with LVEF 40-45,and also with ESRD On HD for volume management and Cardiology following, HD today again Continue current medications Follow up Nephrology and cardiology recommendations 3. Elevated troponin / NSTEMI secondary to demand ischemia Appreciate Cardiology recommendations 3. Pneumonia possibly secondary to aspiration, continue Zosyn for now 4. Diabetes mellitus Type 2, now with hyperglycemia due to D5 fluids and also on steroids now, on Lantus to 30 units bid, continue moderate SSI Continue tube feeding to goal of 50 cc/hr 5. Sepsis with Septic Shock 2/2 Pneumonia, off pressors, continue Zosyn and back on Vent. Continue supportive care. Afebrile and WBC wnl 6. Hypertension: Back on low dose Bblock. 7. End-stage renal disease on hemodialysis. HD mon/thu/thu. Follow up Nephrology. 8. Chronic hypochromic anemia secondary to chronic disease, stable H/H, continue monitor. 9. Paroxysmal atrial fibrillation, controlled rate for now, monitor, further recs per cardiology, in SR, f/u further Cardiology recs 10. UTI secondary to yeast: Repeat UA with LE and culture with yeast >100K, non albicans again. Continue Voriconazole 200 mg per OGT bid D/c'd Violet 11. Coagulopathy: resolved, resumed Heparin ppx dose 12. Superficial venous thrombosis in the left cephalic vein in the upper arm. warm compresses since patient with coagulopathy Repeat Doppler in 1 to 2 weeks Prophylaxis: Heparin for DVT ppx and Protonix for GI ppx Disposition: On Vent and HD today again and weaning protocol ongoing. Subjective 24 Hr Interval Summary Free Text/Dictation Patient on vent weaning protocol HD today Family still deciding re DNR? Exam/Review of Systems Vital Signs Vitals Vital Signs Date Time Temp Pulse Resp B/P Pulse Ox O2 Delivery O2 Flow Rate FiO2 09/16/16 14:15 71 09/16/16 14:00 17 111/58 99 Mechanical Ventilator 09/16/16 12:30 98.0 09/16/16 08:00 30 Intake and Output 09/15/16 09/15/16 09/16/16 15:00 23:00 07:00 Intake Total 807.825 ml 2094.005 ml 562.22 ml Output Total 0 ml 2780 ml 30 ml Balance 807.825 ml -685.995 ml 532.22 ml Exam Constitutional: other (sedated and intubated ) Respiratory: diminished breath sounds (bases bilaterally ), other (on vent ) Cardiovascular: nl pulses, regular rate and rhythm Gastrointestinal: non-tender, soft Musculoskeletal: nl extremities to inspection Extremities: normal pulses, other (still with anasarca +2 at least ) Neurological: other (sedated and intubated ) Results Result Diagram: 09/16/16 0400 09/16/16 0400 Results 24 hrs Laboratory Tests Test 09/15/16 17:43 09/15/16 21:18 09/16/16 01:31 09/16/16 02:00 Bedside Glucose 242 H 277 H 247 H Alanine Aminotransferase (ALT/SGPT) 83 H Albumin 3.1 L Albumin/Globulin Ratio 1.06 Alkaline Phosphatase 193 H Anion Gap 21 H Aspartate Amino Transf (AST/SGOT) 44 Blood Urea Nitrogen 51 H Calcium Level 8.4 Carbon Dioxide Level 22 Chloride Level 95 L Creatinine 1.67 H Direct Bilirubin 1.10 H Globulin 2.90 Glucose Level 201 Indirect Bilirubin 0.1 Magnesium Level 1.8 Potassium Level 4.1 Sodium Level 134 L Total Bilirubin 1.2 Total Protein 6.0 L Test 09/16/16 04:00 09/16/16 05:21 09/16/16 06:00 09/16/16 09:02 Anion Gap 20 H Band Neutrophils % 9.0 H Blood Morphology Comment Blood Urea Nitrogen 56 H Calcium Level 8.3 L Carbon Dioxide Level 22 Chloride Level 95 L Creatinine 1.66 H Differential Comment MANUAL DIFF Glucose Level 159 Hematocrit 32.2 L Hemoglobin 10.9 L Lymphocytes # 0.5 L Lymphocytes % 5.0 L Magnesium Level 1.8 Mean Corpuscular Hemoglobin 29.0 Mean Corpuscular Hemoglobin Concent 34.0 Mean Corpuscular Volume 85.4 Mean Platelet Volume 8.0 Metamyelocytes # 0.4 Metamyelocytes % 4.0 H Monocytes # 1.3 H Monocytes % 12.0 H Neutrophils # 7.6 H Neutrophils % 70.0 Nucleated Red Blood Cells # Nucleated Red Blood Cells % 4.0 H Phosphorus Level 2.8 Platelet Count 218 Potassium Level 4.4 Red Blood Count 3.77 L Red Cell Distribution Width 19.6 H Sodium Level 133 L White Blood Count 10.8 Bedside Glucose 164 197 Arterial Blood HCO3 22.6 Arterial Blood Base Excess -1.6 Arterial Blood Oxygen Saturation 96.7 Sage Test ACCEPTAB Arterial Blood Gas Puncture Site Right Radial Arterial Blood Carboxyhemoglobin 0.1 Arterial Blood Date Drawn 09/16/2016 5:55:00 AM Arterial Blood Methemoglobin 0.2 Arterial Blood pCO2 (Temp correct) 36.7 Arterial Blood pH (Temp corrected) 7.408 Arterial Blood pO2 (Temp corrected) 88.7 Blood Gas A-a O2 Differential 82.1 H Blood Gas Actual Respiration Rate 16 Blood Gas Inspiratory Pressure 20.0 Blood Gas Low PEEP Setting 5.0 Blood Gas Modality VENT - SIMV Blood Gas Notified Time 09/16/2016 6:06:00 AM Blood Gas Notified Whom KM Blood Gas Pressure Support 15 Blood Gas Respiration Rate 8.0 Blood Gas Specimen Source Blood arterial Blood Gas Temperature 37.0 Blood Gas Tidal Volume 500.0 FiO2 30.0 Oxyhemoglobin Percent 96.4 Total Hemoglobin 12.1 Test 09/16/16 12:55 Bedside Glucose 186 Medications Medications Current Medications Piperacillin Sod/ Tazobactam Sod (Zosyn 2.25gm/ 50ml (Pmx)) 50 ml @ 100 mls/hr Q8 IVPB Last administered on 09/16/16at 13:49; Admin Dose 100 MLS/HR; Start at 14:00 Pantoprazole (Protonix Iv) 40 mg DAILY@06 IV Last administered on 09/16/16at 05 :21; Admin Dose 40 MG; Start 09/07/16 at 06:00 Ondansetron HCl (Zofran Inj) 4 mg Q6H PRN IV NAUSEA AND/OR VOMITING; Start at 11:30 Miscellaneous Information 1 ea NOTE XX ; Start 09/06/16 at 12:00 Glucose (Glutose) 15 gm Q15M PRN PO DECREASED GLUCOSE; Start 09/06/16 at 12:00 Glucose (Glutose) 22.5 gm Q15M PRN PO DECREASED GLUCOSE; Start 09/06/16 at 12: 00 Dextrose (D50w Syringe) 25 ml Q15M PRN IV DECREASED GLUCOSE; Start 09/06/16 at 12:00 Dextrose (D50w Syringe) 50 ml Q15M PRN IV DECREASED GLUCOSE; Start 09/06/16 at 12:00 Glucagon (Glucagen) 1 mg Q15M PRN IM DECREASED GLUCOSE; Start 09/06/16 at 12: 00 Glucose 15 gm 15 gm Q15M PRN BUCCAL DECREASED GLUCOSE; Start 09/06/16 at 12:00 Propofol 100 ml @ 2.445 mls/ hr Q12H IV Last administered on 09/16/16at 07:10 ; Admin Dose 4.89 MLS/HR; Start 09/06/16 at 19:00 Norepinephrine/ Dextrose (Levophed/D5W) 500 ml @ 1.87 mls/hr TITRATE IV ; Start 09/07/16 at 10:00 Insulin Aspart (Novolog Insulin Pen) NOVOLOG *MODERATE* ALGORI... Q4 SC Last administered on 09/16/16at 12:58; Admin Dose 4 UNIT; Start 09/11/16 at 13:00 Epoetin Kobi (Epogen (Esrd)) 10,000 units MoWeFr@17 SC Last administered on at 17:38; Admin Dose 10,000 UNITS; Start 09/12/16 at 17:00 Voriconazole (Vfend) 200 mg BID NGT Last administered on 09/16/16at 09:13; Admin Dose 200 MG; Start 09/12/16 at 21:00 Heparin Sodium (Porcine) (Heparin (5000 Units/0.5 ml)) 5,000 unit BID SC Last administered on 09/16/16at 09:13; Admin Dose 5,000 UNIT; Start 09/13/16 at 21: 00 Insulin Glargine (Lantus) 30 unit BID SC Last administered on 09/16/16at 09:05 ; Admin Dose 30 UNIT; Start 09/14/16 at 21:00 Methylprednisolone Sodium Succinate (Solu-Medrol) 40 mg Q12 IV Last administered on 09/16/16at 09:16; Admin Dose 40 MG; Start 09/14/16 at 21:00 Metoprolol Tartrate (Lopressor) 25 mg BID PO ; Start 09/16/16 at 21:00 CRISTY INMAN Sep 16, 2016 15:30
[2016-09-17] VITALS (60 sets, daily range): BP systolic 123–167; BP diastolic 56–129; PULSE 75–97; RESP 14–25
[2016-09-17] MEDS: INSULIN ASPART [NOVOLOG] 3 ML PEN SC SCH ×6 (01:25→21:10)
[2016-09-17] MEDS: IPRATROPIUM (HFA) 12.9 GM INHALER INH SCH ×4 (01:32→19:51)
[2016-09-17] MEDS: ALBUTEROL HFA 8 GM INHALER INH PRN ×4 (01:32→19:51)
[2016-09-17 05:02] LABS: HEMATOCRIT 29.2 % (37.0-47.0); MEAN CORPUSCULAR HEMOGLOBIN 29.5 pg (29.0-33.0); MEAN CORPUSCULAR HGB CONC 34.1 g/dl (32.0-37.0); MEAN CORPUSCULAR VOLUME 86.3 fl (82.0-101.0); MEAN PLATELET VOLUME 7.9 fl (7.4-10.4); PLATELET COUNT 216 10^3/UL (140-440); RED BLOOD COUNT 3.39 10^6/ul (4.20-5.40); RED CELL DISTRIBUTION WIDTH 19.2 % (11.5-14.5); UNCORRECTED WBC 11.6 10^3/ul (4.8-10.8); WHITE BLOOD COUNT 11.6 10^3/ul (4.8-10.8)
[2016-09-17 05:11] LABS: CONDITION 1; LH ANALYZER COMMENTS 1; SUSPECT 1
[2016-09-17 05:19] LABS: CREATININE 1.99 mg/dl (0.44-1.00)
[2016-09-17 05:20] LABS: CALCIUM 8.3 mg/dl (8.4-10.2)
[2016-09-17 05:24] LABS: MAGNESIUM 1.7 mg/dl (1.7-2.5); PHOSPHORUS 3.5 mg/dl (2.5-4.9)
[2016-09-17] MEDS: PANTOPRAZOLE 40 MG INJ IV SCH (05:27)
[2016-09-17] MEDS: PIPER-TAZO 2.25 GM (PMX) 50 ML IVPB SCH ×3 (05:27→20:56)
[2016-09-17] MEDS: HEPARIN 5,000 UNIT/0.5 ML SYG SC SCH ×2 (08:39→21:09)
[2016-09-17] MEDS: VORICONAZOLE 200 MG TAB NGT SCH ×2 (08:45→20:56)
[2016-09-17] MEDS: METOPROLOL 25 MG TAB PO SCH ×2 (08:46→20:56)
[2016-09-17] MEDS: METHYLPREDNISOLONE 40 MG INJ IV SCH ×2 (08:50→20:55)
[2016-09-17] MEDS: INSULIN GLARGINE [LANtus] 3 ML PEN SC SCH ×2 (08:53→21:09)
[2016-09-17 09:26] LABS: LYMPHOCYTES # 0.8 10^3/ul (0.8-2.9); MONOCYTE # 0.5 10^3/ul (0.3-0.9); MYELOCYTES # 0.2; NEUTROPHIL # 9.3 10^3/ul (1.6-7.5)
[2016-09-17] MEDS: PROPOFOL 100 ML IV SCH ×2 (09:31→16:24)
[2016-09-17 09:49] LABS: AADO2 Arterial 108.9 mmHg (7.0-24.0); Allen Test ACCEPTAB; Arterial Base Excess -7.7 mmol/L (-3.0-3); Arterial COHb 0.3 % (0.0-3.0); Arterial Fraction of Oxyhgb 93.4 % (93.0-99.0); Arterial HCO3 16.7 mmol/L (22.0-26.0); Arterial MetHb 0.3 % (0.0-1.5); Arterial Total Hemglobin 10.9 g/dl (12.0-18.0); Blood Gas PS 10; MODE VENT - CPAP
--- NOTE | 2016-09-17 10:44 | PN ---
DATE: 09/17/2016 SUBJECTIVE: The patient yesterday had hemodialysis with ultrafiltration with 3.5 L removed. The pa tient tolerated the procedure well. No other acute events noted. No hemoptysis, hematemesis or hem atochezia. The patient is currently on CPAP trial. OBJECTIVE: VITAL SIGNS: Blood pressure 145/88, respiration 16, pulse 78, temperature 98.6. I'S AND O'S: The patient had 2.3 liters in, 3.1 liters out. HEENT: Head is normocephalic. NECK: Supple. HEART: Regular rate. LUNGS: Show diminished breath sounds at the base. ABDOMEN: Soft, nontender to palpation without rebound or guarding. EXTREMITIES: Negative for clubbing, cyanosis. Trace edema. DERMATOLOGIC: No rashes. MUSCULOSKELETAL: No joint effusions. NEUROLOGIC: No change in exam. MEDICATIONS: The patient's medications have been reviewed. LABORATORY DATA: Shows a sodium 131, potassium 5.0, chloride 93, BUN 83, creatinine 1.99. White co unt 11.6, hemoglobin is 10.0, hematocrit 29.2, platelet count 216. The patient's chest x-ray shows low lung volumes, improved aeration. ASSESSMENT AND PLAN: 1. Anuric acute kidney injury on top of chronic kidney disease stage IV with likely progression to end-stage renal disease. The patient is currently dialysis dependent, had dialysis yesterday for vo lume removal. Anticipate hemodialysis again tomorrow for solute clearance and volume overload. 3. Volume overload secondary to acute kidney injury, congestive heart failure. The patient is impro ving, nearing euvolemic status. Continue ultrafiltration dialysis. 4. Hypokalemia, improved. 5. Hyponatremia, etiology is multifactorial secondary to end-stage renal disease in conjunction wit h free water flushes. Plan is to discontinue all free water flushes. The patient will be dialyzed on 140 sodium bath. We will monitor closely. 6. Ventilatory dependent respiratory failure. Vent settings reviewed. ABG is reviewed. Continue CPAP trial. 7. Sepsis, status post shock. Continue current antibiotic regimen. 8. Diabetes, continue current management per endocrinology. 9. Hypertension. Current blood pressure regimen. 10. Encephalopathy. Etiology is toxic metabolic. Continue to monitor. 11. Arrhythmia sable. 12. Dysphagia, status post NG tube. Continue tube feeds. 13. History of coronary artery disease. Continue current medical management. Dictated By: STEFFANY JESUS/ADRIA Conf#: [id number] DID#: [id number]
--- NOTE | 2016-09-17 12:25 | CONS ---
Date/Time of Note Date/Time of Note DATE: 09/17/16 TIME: 12:24 Consult Date/Type/Reason Admit Date/Time Sep 06, 2016 at 11:22 Type of Consultation: pulmonary Ordering Provider: PAMELA MARTE Subjective Continues mechanical ventilation intubated sedated follows simple commands Objective Vital Signs Date Time Temp Pulse Resp B/P Pulse Ox O2 Delivery O2 Flow Rate FiO2 09/17/16 10:30 78 21 153/69 97 09/17/16 10:00 Mechanical Ventilator 09/17/16 08:15 30 09/17/16 08:00 98.4 Intake and Output 09/16/16 09/16/16 09/17/16 15:00 23:00 07:00 Intake Total 608.64 ml 1108.64 ml 553.76 ml Output Total 5600 ml 50 ml Balance 608.64 ml -4491.36 ml 503.76 ml PHYSICAL EXAMINATION GENERAL: Elderly lady intubated on mechanical ventilation VITAL SIGNS: see below. HEENT: Pupils equal, round, and reactive to light. CARDIAC: S1, S2, CHEST: Diminished air entry bilaterally. ABDOMEN: Mildly distended. No bowel sounds. EXTREMITIES: No cyanosis, clubbing edema +2 NEUROLOGIC: Generalized weakness Results/Medications Result Diagram: 09/17/16 0430 09/17/16 0430 Results 24 hrs Laboratory Tests Test 09/16/16 12:55 09/16/16 17:33 09/16/16 21:10 09/17/16 01:22 Bedside Glucose 186 182 170 178 Test 09/17/16 04:30 09/17/16 05:19 09/17/16 08:48 09/17/16 09:00 Anion Gap 23 H Band Neutrophils % 7.0 H Blood Morphology Comment Blood Urea Nitrogen 83 H Calcium Level 8.3 L Carbon Dioxide Level 20 L Chloride Level 93 L Creatinine 1.99 H Glucose Level 149 Hematocrit 29.2 L Hemoglobin 10.0 L Lymphocytes # 0.8 Lymphocytes % 7.0 L Magnesium Level 1.7 Mean Corpuscular Hemoglobin 29.5 Mean Corpuscular Hemoglobin Concent 34.1 Mean Corpuscular Volume 86.3 Mean Platelet Volume 7.9 Monocytes # 0.5 Monocytes % 4.0 Myelocytes # 0.2 Myelocytes % 2.0 H Neutrophils # 9.3 H Neutrophils % 80.0 H Phosphorus Level 3.5 Platelet Count 216 Potassium Level 5.0 Red Blood Count 3.39 L Red Cell Distribution Width 19.2 H Sodium Level 131 L White Blood Count 11.6 H Bedside Glucose 152 156 Arterial Blood HCO3 16.7 L Arterial Blood Base Excess -7.7 L Arterial Blood Oxygen Saturation 94.0 L Sage Test ACCEPTAB Arterial Blood Gas Puncture Site Right Radial Arterial Blood Carboxyhemoglobin 0.3 Arterial Blood Date Drawn 09/17/2016 9:30:46 AM Arterial Blood Methemoglobin 0.3 Arterial Blood pCO2 (Temp correct) 30.4 L Arterial Blood pH (Temp corrected) 7.358 Arterial Blood pO2 (Temp corrected) 69.3 L Blood Gas A-a O2 Differential 108.9 H Blood Gas Actual Respiration Rate 21 Blood Gas Low PEEP Setting 5.0 Blood Gas Modality VENT - CPAP Blood Gas Notified Time 09/17/2016 9:49:19 AM Blood Gas Notified Whom JLD Blood Gas Pressure Support 10 Blood Gas Specimen Source Blood arterial Blood Gas Temperature 37.0 FiO2 30.0 Oxyhemoglobin Percent 93.4 Total Hemoglobin 10.9 L Medications Current Medications Piperacillin Sod/ Tazobactam Sod (Zosyn 2.25gm/ 50ml (Pmx)) 50 ml @ 100 mls/hr Q8 IVPB Last administered on 09/17/16at 05:27; Admin Dose 100 MLS/HR; Start at 14:00 Pantoprazole (Protonix Iv) 40 mg DAILY@06 IV Last administered on 09/17/16at 05 :27; Admin Dose 40 MG; Start 09/07/16 at 06:00 Ondansetron HCl (Zofran Inj) 4 mg Q6H PRN IV NAUSEA AND/OR VOMITING; Start at 11:30 Miscellaneous Information 1 ea NOTE XX ; Start 09/06/16 at 12:00 Glucose (Glutose) 15 gm Q15M PRN PO DECREASED GLUCOSE; Start 09/06/16 at 12:00 Glucose (Glutose) 22.5 gm Q15M PRN PO DECREASED GLUCOSE; Start 09/06/16 at 12: 00 Dextrose (D50w Syringe) 25 ml Q15M PRN IV DECREASED GLUCOSE; Start 09/06/16 at 12:00 Dextrose (D50w Syringe) 50 ml Q15M PRN IV DECREASED GLUCOSE; Start 09/06/16 at 12:00 Glucagon (Glucagen) 1 mg Q15M PRN IM DECREASED GLUCOSE; Start 09/06/16 at 12: 00 Glucose 15 gm 15 gm Q15M PRN BUCCAL DECREASED GLUCOSE; Start 09/06/16 at 12:00 Propofol 100 ml @ 2.445 mls/ hr Q12H IV Last administered on 09/17/16 09:31 ; Admin Dose 9.78 MLS/HR; Start 09/06/16 at 19:00 Norepinephrine/ Dextrose (Levophed/D5W) 500 ml @ 1.87 mls/hr TITRATE IV ; Start 09/07/16 at 10:00 Insulin Aspart (Novolog Insulin Pen) NOVOLOG *MODERATE* ALGORI... Q4 SC Last administered on 09/17/16 08:52; Admin Dose 2 UNIT; Start 09/11/16 at 13:00 Epoetin Kobi (Epogen (Esrd)) 10,000 units MoWeFr@17 SC Last administered on 17:38; Admin Dose 10,000 UNITS; Start 09/12/16 at 17:00 Voriconazole (Vfend) 200 mg BID NGT Last administered on 09/17/16 08:45; Admin Dose 200 MG; Start 09/12/16 at 21:00 Heparin Sodium (Porcine) (Heparin (5000 Units/0.5 ml)) 5,000 unit BID SC Last administered on 09/17/16 08:39; Admin Dose 5,000 UNIT; Start 09/13/16 at 21: 00 Insulin Glargine (Lantus) 30 unit BID SC Last administered on 09/17/16 08:53 ; Admin Dose 30 UNIT; Start 09/14/16 at 21:00 Methylprednisolone Sodium Succinate (Solu-Medrol) 40 mg Q12 IV Last administered on 09/17/16 08:50; Admin Dose 40 MG; Start 09/14/16 at 21:00 Metoprolol Tartrate (Lopressor) 25 mg BID PO Last administered on 09/17/16 08 :46; Admin Dose 25 MG; Start 09/16/16 at 21:00 Assessment/Plan Chief Complaint/Hosp Course ASSESSMENT AND PLAN: 1.Hypoxemic and hypercapnic respiratory failure secondary to likely volume overload on top of significant morbid obesity and restrictive lung disease. Failed extubation continues mechanical ventilation 2. Morbid obesity 3. Chronic kidney disease 4. Significant anemia following epistaxis 5. Questionable distal pulmonary embolus doubt any hemodynamic significance, negative Dopplers for deep vein thrombosis Plan 1. Continue assist-control mechanical ventilation 2. Renal failure with volume removal. 3. Nocturnal noninvasive positive pressure ventilation postextubation if extubated 4. Aspiration precautions. 5. Deep vein thrombosis and gastrointestinal prophylaxis. 6. Given her body habitus, the patient is at risk of recurrent hypoxemic and hypercapnic respiratory failure. 7. Trial of steroids Discussed with family regarding possibility of reintubation if extubated They will discuss options including tracheostomy. Anticipate CPAP weaning trial tomorrow Problems: MARCIA BAIN MD, [facility] Sep 17, 2016 12:25
--- NOTE | 2016-09-17 12:42 | CONS ---
Date/Time of Note Date/Time of Note DATE: 09/17/16 TIME: 12:39 Assessment/Plan Assessment/Plan Chief Complaint/Hosp Course Imp: 1.Positive troponin-minmal in setting of esrd-Now trended negative 2.CHF-? systolic vs diastolic acute 3.HTN 4.ESRD on HD 5.anemia-requiring transfusions 6.Coagulopathy-resolved 7.H/O PAF in SR currently 8. Edema-LE ongoing Recc: -Tele -serial ecg's -trend cardiac enzymes -Continue HD for volume removal -Follow hgb closely -Contiune BB and add hydralazine to improve BP contol -Continue abx's/anti-fungals -Wean vent as tolerated Problems: Consultation Date/Type/Reason Admit Date/Time Sep 06, 2016 at 11:22 Initial Consult Date 09/07/2016 Type of Consultation: Cardiology Reason for Consultation CHF Referring Provider: PAMELA MARTE Exam/Review of Systems Vital Signs Vitals Vital Signs Date Time Temp Pulse Resp B/P Pulse Ox O2 Delivery O2 Flow Rate FiO2 09/17/16 10:30 78 21 153/69 97 09/17/16 10:00 Mechanical Ventilator 09/17/16 08:15 30 09/17/16 08:00 98.4 Intake and Output 09/16/16 09/16/16 09/17/16 15:00 23:00 07:00 Intake Total 608.64 ml 1108.64 ml 553.76 ml Output Total 5600 ml 50 ml Balance 608.64 ml -4491.36 ml 503.76 ml Exam Review of Systems: CONSTITUTIONAL: No fevers, chills. PULMONARY: intubated CARDIOVASCULAR: No obvious chest pain/palpitations GASTROINTESTINAL: No nausea/vomiting. GENITOURINARY: No hematuria/dysuria. MUSCULOSKELETAL: No obvious myagias/arthalgias. PSYCHIATRIC: The patient denies depression. NEUROLOGIC: sedated Constitutional: other (sedated) Psych: no complaints Head: normocephalic ENMT: mucosa pink and moist Neck: jvd (9 cm water), supple Respiratory: diminished breath sounds (at bases/B) Cardiovascular: regular rate and rhythm Gastrointestinal: non-tender, soft Musculoskeletal: muscle tone (normal) Extremities: pitting pedal edema (bilateral) Neurological: other (sedated) Results Result Diagram: 09/17/16 0430 09/17/16 0430 Results 24 hrs Laboratory Tests Test 09/16/16 12:55 09/16/16 17:33 09/16/16 21:10 09/17/16 01:22 Bedside Glucose 186 182 170 178 Test 09/17/16 04:30 09/17/16 05:19 09/17/16 08:48 09/17/16 09:00 Anion Gap 23 H Band Neutrophils % 7.0 H Blood Morphology Comment Blood Urea Nitrogen 83 H Calcium Level 8.3 L Carbon Dioxide Level 20 L Chloride Level 93 L Creatinine 1.99 H Glucose Level 149 Hematocrit 29.2 L Hemoglobin 10.0 L Lymphocytes # 0.8 Lymphocytes % 7.0 L Magnesium Level 1.7 Mean Corpuscular Hemoglobin 29.5 Mean Corpuscular Hemoglobin Concent 34.1 Mean Corpuscular Volume 86.3 Mean Platelet Volume 7.9 Monocytes # 0.5 Monocytes % 4.0 Myelocytes # 0.2 Myelocytes % 2.0 H Neutrophils # 9.3 H Neutrophils % 80.0 H Phosphorus Level 3.5 Platelet Count 216 Potassium Level 5.0 Red Blood Count 3.39 L Red Cell Distribution Width 19.2 H Sodium Level 131 L White Blood Count 11.6 H Bedside Glucose 152 156 Arterial Blood HCO3 16.7 L Arterial Blood Base Excess -7.7 L Arterial Blood Oxygen Saturation 94.0 L Sage Test ACCEPTAB Arterial Blood Gas Puncture Site Right Radial Arterial Blood Carboxyhemoglobin 0.3 Arterial Blood Date Drawn 09/17/2016 9:30:46 AM Arterial Blood Methemoglobin 0.3 Arterial Blood pCO2 (Temp correct) 30.4 L Arterial Blood pH (Temp corrected) 7.358 Arterial Blood pO2 (Temp corrected) 69.3 L Blood Gas A-a O2 Differential 108.9 H Blood Gas Actual Respiration Rate 21 Blood Gas Low PEEP Setting 5.0 Blood Gas Modality VENT - CPAP Blood Gas Notified Time 09/17/2016 9:49:19 AM Blood Gas Notified Whom JLD Blood Gas Pressure Support 10 Blood Gas Specimen Source Blood arterial Blood Gas Temperature 37.0 FiO2 30.0 Oxyhemoglobin Percent 93.4 Total Hemoglobin 10.9 L Test 09/17/16 12:36 Bedside Glucose 193 Medications Medications Current Medications Piperacillin Sod/ Tazobactam Sod (Zosyn 2.25gm/ 50ml (Pmx)) 50 ml @ 100 mls/hr Q8 IVPB Last administered on 09/17/16at 05:27; Admin Dose 100 MLS/HR; Start at 14:00 Pantoprazole (Protonix Iv) 40 mg DAILY@06 IV Last administered on 09/17/16at 05 :27; Admin Dose 40 MG; Start 09/07/16 at 06:00 Ondansetron HCl (Zofran Inj) 4 mg Q6H PRN IV NAUSEA AND/OR VOMITING; Start at 11:30 Miscellaneous Information 1 ea NOTE XX ; Start 09/06/16 at 12:00 Glucose (Glutose) 15 gm Q15M PRN PO DECREASED GLUCOSE; Start 09/06/16 at 12:00 Glucose (Glutose) 22.5 gm Q15M PRN PO DECREASED GLUCOSE; Start 09/06/16 at 12: 00 Dextrose (D50w Syringe) 25 ml Q15M PRN IV DECREASED GLUCOSE; Start 09/06/16 at 12:00 Dextrose (D50w Syringe) 50 ml Q15M PRN IV DECREASED GLUCOSE; Start 09/06/16 at 12:00 Glucagon (Glucagen) 1 mg Q15M PRN IM DECREASED GLUCOSE; Start 09/06/16 at 12: 00 Glucose 15 gm 15 gm Q15M PRN BUCCAL DECREASED GLUCOSE; Start 09/06/16 at 12:00 Propofol 100 ml @ 2.445 mls/ hr Q12H IV Last administered on 09/17/16at 09:31 ; Admin Dose 9.78 MLS/HR; Start 09/06/16 at 19:00 Norepinephrine/ Dextrose (Levophed/D5W) 500 ml @ 1.87 mls/hr TITRATE IV ; Start 09/07/16 at 10:00 Insulin Aspart (Novolog Insulin Pen) NOVOLOG *MODERATE* ALGORI... Q4 SC Last administered on 09/17/16at 08:52; Admin Dose 2 UNIT; Start 09/11/16 at 13:00 Epoetin Kobi (Epogen (Esrd)) 10,000 units MoWeFr@17 SC Last administered on at 17:38; Admin Dose 10,000 UNITS; Start 09/12/16 at 17:00 Voriconazole (Vfend) 200 mg BID NGT Last administered on 09/17/16 08:45; Admin Dose 200 MG; Start 09/12/16 at 21:00 Heparin Sodium (Porcine) (Heparin (5000 Units/0.5 ml)) 5,000 unit BID SC Last administered on 09/17/16 08:39; Admin Dose 5,000 UNIT; Start 09/13/16 at 21: 00 Insulin Glargine (Lantus) 30 unit BID SC Last administered on 09/17/16 08:53 ; Admin Dose 30 UNIT; Start 09/14/16 at 21:00 Methylprednisolone Sodium Succinate (Solu-Medrol) 40 mg Q12 IV Last administered on 09/17/16 08:50; Admin Dose 40 MG; Start 09/14/16 at 21:00 Metoprolol Tartrate (Lopressor) 25 mg BID PO Last administered on 09/17/16 08 :46; Admin Dose 25 MG; Start 09/16/16 at 21:00 KAJAL MCKINNEY Sep 17, 2016 12:41
[2016-09-17] MEDS: EPOETIN 10000 UNITS/1 ML INJ (ESRD) SC SCH (16:40)
--- NOTE | 2016-09-17 23:56 | PN ---
Date/Time of Note Date/Time of Note DATE: 09/17/16 TIME: 23:55 Assessment/Plan VTE Prophylaxis VTE Prophylaxis Intervention: heparin Lines/Catheters IV [facility] [place] Urinary Cath still in place: No Assessment/Plan Assessment/Plan [facility] 1. Hospital day 12 for this 71 yo woman with acute respiratory failure secondary to CHF exacerbation and volume overload, on hemodialysis. Reintubated this past week due to stridor and respiratory failure. No wheezing now on exam. * Continue Solumedrol, decreased to 40 mg IV q12 per Dr Daniel * Weaning trials for extubation 2. Congestive heart failure, systolic acute on chronic, cardiomyopathy with LVEF 40-45. Elevated troponin / NSTEMI secondary to demand ischemia. Paroxysmal atrial fibrillation. 3. End stage renal disease, on hemodialysis for volume management -- most recently yesterday 4. Pneumonia possibly secondary to aspiration * Continue Zosyn 5. Diabetes type 2, now with good glycemic control today despite ongoing prednisone. * Lantus 30 units SQ BID * Continue tube feeding to goal of 50 cc/hr 6. Sepsis with septic shock secondary to pneumonia. Now off pressors, afebrile , and with normalized WBC. * Continue Zosyn 7. Hypertension * Continue low-dose Lopressor 8. Chronic hypochromic anemia secondary to chronic disease, stable H/H. 9. UTI secondary to yeast. Repeat UA positive for leukocyte esterase and culture showing yeast >100K, non-albicans again. * Continue Voriconazole 200 mg per OGT bid 10. Coagulopathy. Upper extremity DVT. Now with cords in the right calf. She had a negative lower extremity Doppler on admission (09/06/16). * Resumed Heparin for DVT prevention. * Doppler study tomorrow morning on the right lower leg. 11. Superficial venous thrombosis in the left cephalic vein in the upper arm. * Warm compresses since patient had a coagulopathy * Repeat Doppler anticipated in 1 to 2 weeks 12. Prophylaxis: Heparin for DVT ppx and Protonix for GI ppx 13. Disposition: On ventilator, with hemodialysis anticipated again tomorrow, followed by weaning protocol ongoing. Vivian Alatorre MD PhD [phone] Subjective 24 Hr Interval Summary Free Text/Dictation Shaking her head, she denied chest or other pain, nausea, or leg tenderness. Exam/Review of Systems Vital Signs Vitals Vital Signs Date Time Temp Pulse Resp B/P Pulse Ox O2 Delivery O2 Flow Rate FiO2 09/17/16 23:15 77 15 100 30 09/17/16 19:00 139/74 Mechanical Ventilator 09/17/16 16:00 97.9 Intake and Output 09/16/16 09/16/16 09/17/16 15:00 23:00 07:00 Intake Total 608.64 ml 1108.64 ml 713.54 ml Output Total 5600 ml 50 ml Balance 608.64 ml -4491.36 ml 663.54 ml Exam Constitutional: Alert, awake, responsive to questions on ventilator Respiratory: Clear lungs, no crackles or wheezes. Cardiovascular: nl pulses, regular rate and rhythm Gastrointestinal: non-tender, soft, non-tympanic Musculoskeletal: Cords in right calf. 1-2+ pitting edema. Neurological: moving all extremities. Toes downgoing. Results Result Diagram: 09/17/16 0430 09/17/16 0430 Results 24 hrs Laboratory Tests Test 09/17/16 01:22 09/17/16 04:30 09/17/16 05:19 09/17/16 08:48 Bedside Glucose 178 152 156 Anion Gap 23 H Band Neutrophils % 7.0 H Blood Morphology Comment Blood Urea Nitrogen 83 H Calcium Level 8.3 L Carbon Dioxide Level 20 L Chloride Level 93 L Creatinine 1.99 H Glucose Level 149 Hematocrit 29.2 L Hemoglobin 10.0 L Lymphocytes # 0.8 Lymphocytes % 7.0 L Magnesium Level 1.7 Mean Corpuscular Hemoglobin 29.5 Mean Corpuscular Hemoglobin Concent 34.1 Mean Corpuscular Volume 86.3 Mean Platelet Volume 7.9 Monocytes # 0.5 Monocytes % 4.0 Myelocytes # 0.2 Myelocytes % 2.0 H Neutrophils # 9.3 H Neutrophils % 80.0 H Phosphorus Level 3.5 Platelet Count 216 Potassium Level 5.0 Red Blood Count 3.39 L Red Cell Distribution Width 19.2 H Sodium Level 131 L White Blood Count 11.6 H Test 09/17/16 09:00 09/17/16 12:36 09/17/16 16:38 09/17/16 21:03 Arterial Blood HCO3 16.7 L Arterial Blood Base Excess -7.7 L Arterial Blood Oxygen Saturation 94.0 L Sage Test ACCEPTAB Arterial Blood Gas Puncture Site Right Radial Arterial Blood Carboxyhemoglobin 0.3 Arterial Blood Date Drawn 09/17/2016 9:30:46 AM Arterial Blood Methemoglobin 0.3 Arterial Blood pCO2 (Temp correct) 30.4 L Arterial Blood pH (Temp corrected) 7.358 Arterial Blood pO2 (Temp corrected) 69.3 L Blood Gas A-a O2 Differential 108.9 H Blood Gas Actual Respiration Rate 21 Blood Gas Low PEEP Setting 5.0 Blood Gas Modality VENT - CPAP Blood Gas Notified Time 09/17/2016 9:49:19 AM Blood Gas Notified Whom JLD Blood Gas Pressure Support 10 Blood Gas Specimen Source Blood arterial Blood Gas Temperature 37.0 FiO2 30.0 Oxyhemoglobin Percent 93.4 Total Hemoglobin 10.9 L Bedside Glucose 193 209 202 Medications Medications Current Medications Piperacillin Sod/ Tazobactam Sod (Zosyn 2.25gm/ 50ml (Pmx)) 50 ml @ 100 mls/hr Q8 IVPB Last administered on 09/17/16at 20:56; Admin Dose 100 MLS/HR; Start at 14:00 Pantoprazole (Protonix Iv) 40 mg DAILY@06 IV Last administered on 09/17/16at 05 :27; Admin Dose 40 MG; Start 09/07/16 at 06:00 Ondansetron HCl (Zofran Inj) 4 mg Q6H PRN IV NAUSEA AND/OR VOMITING; Start at 11:30 Miscellaneous Information 1 ea NOTE XX ; Start 09/06/16 at 12:00 Glucose (Glutose) 15 gm Q15M PRN PO DECREASED GLUCOSE; Start 09/06/16 at 12:00 Glucose (Glutose) 22.5 gm Q15M PRN PO DECREASED GLUCOSE; Start 09/06/16 at 12: 00 Dextrose (D50w Syringe) 25 ml Q15M PRN IV DECREASED GLUCOSE; Start 09/06/16 at 12:00 Dextrose (D50w Syringe) 50 ml Q15M PRN IV DECREASED GLUCOSE; Start 09/06/16 at 12:00 Glucagon (Glucagen) 1 mg Q15M PRN IM DECREASED GLUCOSE; Start 09/06/16 at 12: 00 Glucose 15 gm 15 gm Q15M PRN BUCCAL DECREASED GLUCOSE; Start 09/06/16 at 12:00 Propofol 100 ml @ 2.445 mls/ hr Q12H IV Last administered on 09/17/16 16:24 ; Admin Dose 9.78 MLS/HR; Start 09/06/16 at 19:00 Norepinephrine/ Dextrose (Levophed/D5W) 500 ml @ 1.87 mls/hr TITRATE IV ; Start 09/07/16 at 10:00 Insulin Aspart (Novolog Insulin Pen) NOVOLOG *MODERATE* ALGORI... Q4 SC Last administered on 09/17/16 21:10; Admin Dose 4 UNIT; Start 09/11/16 at 13:00 Epoetin Kobi (Epogen (Esrd)) 10,000 units MoWeFr@17 SC Last administered on 16:40; Admin Dose 10,000 UNITS; Start 09/12/16 at 17:00 Voriconazole (Vfend) 200 mg BID NGT Last administered on 09/17/16 20:56; Admin Dose 200 MG; Start 09/12/16 at 21:00 Heparin Sodium (Porcine) (Heparin (5000 Units/0.5 ml)) 5,000 unit BID SC Last administered on 09/17/16 21:09; Admin Dose 5,000 UNIT; Start 09/13/16 at 21: 00 Insulin Glargine (Lantus) 30 unit BID SC Last administered on 09/17/16 21:09 ; Admin Dose 30 UNIT; Start 09/14/16 at 21:00 Methylprednisolone Sodium Succinate (Solu-Medrol) 40 mg Q12 IV Last administered on 09/17/16 20:55; Admin Dose 40 MG; Start 09/14/16 at 21:00 Metoprolol Tartrate (Lopressor) 25 mg BID PO Last administered on 09/17/16 20 :56; Admin Dose 25 MG; Start 09/16/16 at 21:00 Hydralazine HCl (Apresoline) 25 mg Q8 PO Last administered on 09/17/16 20:57 ; Admin Dose 25 MG; Start 09/17/16 at 14:00 MARISA ALATORRE M.D. Sep 17, 2016 23:56
[2016-09-18] VITALS (65 sets, daily range): BP systolic 90–181; BP diastolic 51–155; PULSE 71–91; RESP 13–25
[2016-09-18] MEDS: PROPOFOL 100 ML IV SCH ×4 (00:54→21:53)
[2016-09-18] MEDS: INSULIN ASPART [NOVOLOG] 3 ML PEN SC SCH ×6 (01:05→21:28)
[2016-09-18] MEDS: ALBUTEROL HFA 8 GM INHALER INH PRN ×2 (02:48→20:03)
[2016-09-18] MEDS: IPRATROPIUM (HFA) 12.9 GM INHALER INH SCH ×4 (02:48→20:03)
[2016-09-18 05:34] LABS: POTASSIUM 5.6 mmol/L (3.5-5.1)
[2016-09-18 05:37] LABS: CREATININE 2.58 mg/dl (0.44-1.00); PHOSPHORUS 4.1 mg/dl (2.5-4.9)
[2016-09-18 05:38] LABS: CALCIUM 8.3 mg/dl (8.4-10.2); MAGNESIUM 1.8 mg/dl (1.7-2.5)
[2016-09-18] MEDS: PIPER-TAZO 2.25 GM (PMX) 50 ML IVPB SCH ×3 (05:40→21:40)
[2016-09-18] MEDS: PANTOPRAZOLE 40 MG INJ IV SCH (05:40)
[2016-09-18 05:42] LABS: HEMATOCRIT 29.3 % (37.0-47.0); HEMOGLOBIN 10.2 g/dl (12.0-16.0); MEAN CORPUSCULAR HEMOGLOBIN 30.1 pg (29.0-33.0); MEAN CORPUSCULAR HGB CONC 34.8 g/dl (32.0-37.0); MEAN CORPUSCULAR VOLUME 86.5 fl (82.0-101.0); MEAN PLATELET VOLUME 7.7 fl (7.4-10.4); PLATELET COUNT 228 10^3/UL (140-440); RED BLOOD COUNT 3.38 10^6/ul (4.20-5.40); RED CELL DISTRIBUTION WIDTH 19.6 % (11.5-14.5); UNCORRECTED WBC 12.6 10^3/ul (4.8-10.8); WHITE BLOOD COUNT 12.6 10^3/ul (4.8-10.8)
[2016-09-18 06:26] LABS: CONDITION 1; LH ANALYZER COMMENTS 1
[2016-09-18] MEDS: VORICONAZOLE 200 MG TAB NGT SCH ×2 (08:38→21:37)
[2016-09-18] MEDS: METHYLPREDNISOLONE 40 MG INJ IV SCH (08:38)
[2016-09-18] MEDS: METOPROLOL 25 MG TAB PO SCH ×2 (08:39→21:38)
[2016-09-18] MEDS: HEPARIN 5,000 UNIT/0.5 ML SYG SC SCH ×2 (08:41→21:39)
[2016-09-18] MEDS: INSULIN GLARGINE [LANtus] 3 ML PEN SC SCH ×2 (08:43→21:30)
[2016-09-18 09:22] LABS: LYMPHOCYTES # 0.9 10^3/ul (0.8-2.9); MONOCYTE # 0.3 10^3/ul (0.3-0.9); NEUTROPHIL # 10.5 10^3/ul (1.6-7.5)
[2016-09-18] MEDS ORDERED: ALBUMIN HUMAN 25% 100 ML IV ONE (10:00)
[2016-09-18] MEDS ORDERED: ALBUMIN HUMAN 25% 100 ML ONE (10:02)
--- NOTE | 2016-09-18 11:32 | PN ---
DATE: 09/18/2016 SUBJECTIVE: The patient was unable to be weaned yesterday as she failed a weaning trial. The patie nt is currently scheduled for hemodialysis today. No other acute events noted. No hemoptysis, carla temesis or hematochezia. OBJECTIVE: VITAL SIGNS: Blood pressure 154/120, respirations 17, pulse 81, temperature 98.6. I's AND O'S: The patient had 1.9 liters in and 40 mL out. HEENT: Head is normocephalic. NECK: Supple. HEART: Regular rate. LUNGS: Show diminished breath sounds at the base. ABDOMEN: Soft, nontender to palpation. No rebound or guarding. EXTREMITIES: Negative for clubbing, cyanosis. Positive edema. DERMATOLOGIC: No rashes. MUSCULOSKELETAL: No joint effusions. NEUROLOGIC: No change in exam. MEDICATIONS: The patient's medications have been reviewed. LABORATORY DATA: Shows a sodium of 129, potassium 5.6, chloride 91, bicarbonate 17, BUN 103, creati nine 2.58. White count 12.6, hemoglobin 10.2, hematocrit 29.3, platelet count 228. ASSESSMENT AND PLAN: 1. Anuric acute kidney injury, now chronic kidney disease stage IV, now likely progressed to end-st age renal disease. The patient is receiving almost daily dialysis for solute clearance and volume r emoval. Plan for dialysis today for 3 hours on a 2K bath, calcium 2.5. Will ultrafiltrate as brandon ated. 2. Volume overload. Continue ultrafiltration with dialysis. 3. Hyperkalemia. The patient will be dialyzed on 2 potassium bath. 4. Hypernatremia. The patient will be dialyzed on a 140 sodium bath. All free water flushes were discontinued. 5. Ventilator dependent respiratory failure. Vent settings reviewed. ABG is reviewed. Continue C PAP trial. 6. Sepsis, status post shock. Continue current antibiotic regimen. 7. Diabetes. Continue Accu-Cheks, insulin sliding scale. 8. Hypertension. Continue current blood pressure regimen. 9. Encephalopathy, etiology toxic metabolic. Continue to monitor. 10. Dysphagia status post nasogastric tube. Continue tube feeding. 11. History of coronary artery disease. Continue medical management. Dictated By: STEFFANY JESUS/ADRIA Conf#: [id number] DID#: [id number]
--- NOTE | 2016-09-18 15:09 | CONS ---
Date/Time of Note Date/Time of Note DATE: 09/18/16 TIME: 15:07 Consult Date/Type/Reason Admit Date/Time Sep 06, 2016 at 11:22 Type of Consultation: pulmonary Ordering Provider: PAMELA MARTE Subjective Patient stable on mechanical ventilation Continues hemodialysis Family at bedside Objective Vital Signs Date Time Temp Pulse Resp B/P Pulse Ox O2 Delivery O2 Flow Rate FiO2 09/18/16 14:30 87 15 158/115 99 09/18/16 14:00 Mechanical Ventilator 09/18/16 13:29 30 09/18/16 12:00 97.8 Intake and Output 09/17/16 09/17/16 09/18/16 14:59 22:59 06:59 Intake Total 683.24 ml 648.02 ml 598.032 ml Output Total 40 ml Balance 683.24 ml 648.02 ml 558.032 ml PHYSICAL EXAMINATION GENERAL: Elderly lady intubated on mechanical ventilation VITAL SIGNS: see below. HEENT: Pupils equal, round, and reactive to light. CARDIAC: S1, S2, CHEST: Diminished air entry bilaterally. ABDOMEN: Mildly distended. No bowel sounds. EXTREMITIES: No cyanosis, clubbing edema +2 NEUROLOGIC: Generalized weakness Results/Medications Result Diagram: 09/18/16 0400 09/18/16 0400 Results 24 hrs Laboratory Tests Test 09/17/16 16:38 09/17/16 21:03 09/18/16 00:57 09/18/16 04:00 Bedside Glucose 209 202 202 Anion Gap 27 H Band Neutrophils % 5.0 Blood Morphology Comment Blood Urea Nitrogen 103 H Calcium Level 8.3 L Carbon Dioxide Level 17 L Chloride Level 91 L Creatinine 2.58 H Glucose Level 185 Hematocrit 29.3 L Hemoglobin 10.2 L Lymphocytes # 0.9 Lymphocytes % 7.0 L Magnesium Level 1.8 Mean Corpuscular Hemoglobin 30.1 Mean Corpuscular Hemoglobin Concent 34.8 Mean Corpuscular Volume 86.5 Mean Platelet Volume 7.7 Monocytes # 0.3 Monocytes % 2.0 Neutrophils # 10.5 H Neutrophils % 83.0 H Phosphorus Level 4.1 Platelet Count 228 Potassium Level 5.6 H Promyelocytes # 0.4 Promyelocytes % 3.0 H Red Blood Count 3.38 L Red Cell Distribution Width 19.6 H Sodium Level 129 L White Blood Count 12.6 H Test 12/29/16 05:22 09/18/16 08:37 09/18/16 12:40 Bedside Glucose 213 207 201 Medications Current Medications Piperacillin Sod/ Tazobactam Sod (Zosyn 2.25gm/ 50ml (Pmx)) 50 ml @ 100 mls/hr Q8 IVPB Last administered on 09/18/16at 13:28; Admin Dose 100 MLS/HR; Start at 14:00 Pantoprazole (Protonix Iv) 40 mg DAILY@06 IV Last administered on 09/18/16at 05 :40; Admin Dose 40 MG; Start 09/07/16 at 06:00 Ondansetron HCl (Zofran Inj) 4 mg Q6H PRN IV NAUSEA AND/OR VOMITING; Start at 11:30 Miscellaneous Information 1 ea NOTE XX ; Start 09/06/16 at 12:00 Glucose (Glutose) 15 gm Q15M PRN PO DECREASED GLUCOSE; Start 09/06/16 at 12:00 Glucose (Glutose) 22.5 gm Q15M PRN PO DECREASED GLUCOSE; Start 09/06/16 at 12: 00 Dextrose (D50w Syringe) 25 ml Q15M PRN IV DECREASED GLUCOSE; Start 09/06/16 at 12:00 Dextrose (D50w Syringe) 50 ml Q15M PRN IV DECREASED GLUCOSE; Start 09/06/16 at 12:00 Glucagon (Glucagen) 1 mg Q15M PRN IM DECREASED GLUCOSE; Start 09/06/16 at 12: 00 Glucose 15 gm 15 gm Q15M PRN BUCCAL DECREASED GLUCOSE; Start 09/06/16 at 12:00 Propofol 100 ml @ 2.445 mls/ hr Q12H IV Last administered on 09/18/16at 15:04 ; Admin Dose 9.78 MLS/HR; Start 09/06/16 at 19:00 Norepinephrine/ Dextrose (Levophed/D5W) 500 ml @ 1.87 mls/hr TITRATE IV ; Start 09/07/16 at 10:00 Insulin Aspart (Novolog Insulin Pen) NOVOLOG *MODERATE* ALGORI... Q4 SC Last administered on 09/18/16at 12:41; Admin Dose 4 UNIT; Start 09/11/16 at 13:00 Epoetin Kobi (Epogen (Esrd)) 10,000 units MoWeFr@17 SC Last administered on 16:40; Admin Dose 10,000 UNITS; Start 09/12/16 at 17:00 Voriconazole (Vfend) 200 mg BID NGT Last administered on 09/18/16at 08:38; Admin Dose 200 MG; Start 09/12/16 at 21:00 Heparin Sodium (Porcine) (Heparin (5000 Units/0.5 ml)) 5,000 unit BID SC Last administered on 09/18/16 08:41; Admin Dose 5,000 UNIT; Start 09/13/16 at 21: 00 Insulin Glargine (Lantus) 30 unit BID SC Last administered on 09/18/16 08:43 ; Admin Dose 30 UNIT; Start 09/14/16 at 21:00 Methylprednisolone Sodium Succinate (Solu-Medrol) 40 mg Q12 IV Last administered on 09/18/16 08:38; Admin Dose 40 MG; Start 09/14/16 at 21:00 Metoprolol Tartrate (Lopressor) 25 mg BID PO Last administered on 09/18/16 08 :39; Admin Dose 25 MG; Start 09/16/16 at 21:00 Hydralazine HCl (Apresoline) 25 mg Q8 PO Last administered on 09/18/16at 13:28 ; Admin Dose 25 MG; Start 09/17/16 at 14:00 Assessment/Plan Chief Complaint/Hosp Course ASSESSMENT AND PLAN: 1.Hypoxemic and hypercapnic respiratory failure secondary to likely volume overload on top of significant morbid obesity and restrictive lung disease. Failed extubation continues mechanical ventilation 2. Morbid obesity 3. Chronic kidney disease 4. Significant anemia following epistaxis 5. Questionable distal pulmonary embolus doubt any hemodynamic significance, negative Dopplers for deep vein thrombosis Plan 1. Continue assist-control mechanical ventilation 2. Renal failure with volume removal. 3. Nocturnal noninvasive positive pressure ventilation postextubation if extubated 4. Aspiration precautions. 5. Deep vein thrombosis and gastrointestinal prophylaxis. 6. Given her body habitus, the patient is at risk of recurrent hypoxemic and hypercapnic respiratory failure. Long discussion with patient's family at bedside They wished to continue all current measures but change to chemical code only not for CPR In addition they have requested tracheostomy and G-tube feeding if necessary however should the patient's condition declined significantly and quality of life. Much worse, they would wish for comfort measures. Problems: MARCIA BANI MD, [facility] Sep 18, 2016 15:09
[2016-09-18 15:14] LABS: AADO2 Arterial 91.4 mmHg (7.0-24.0); Allen Test ACCEPTAB; Arterial Base Excess -2.4 mmol/L (-3.0-3); Arterial COHb 0 % (0.0-3.0); Arterial HCO3 22.4 mmol/L (22.0-26.0); Arterial MetHb 0.2 % (0.0-1.5); Arterial Total Hemglobin 10.4 g/dl (12.0-18.0); Blood Gas PS 10; MODE VENT - CPAP
--- NOTE | 2016-09-18 15:56 | CONS ---
Date/Time of Note Date/Time of Note DATE: 09/18/16 TIME: 15:54 Assessment/Plan Assessment/Plan Chief Complaint/Hosp Course Imp: 1.Positive troponin-minmal in setting of esrd-Now trended negative 2.CHF-? systolic vs diastolic acute 3.HTN 4.ESRD on HD 5.anemia-requiring transfusions 6.Coagulopathy-resolved 7.H/O PAF in SR currently 8. Edema-LE ongoing Recc: -Tele -serial ecg's -trend cardiac enzymes -Continue HD for volume removal -Follow hgb closely -Contiune BB/hydralazine and f/u BP closely -Continue abx's/anti-fungals -Wean vent as tolerated Problems: Consultation Date/Type/Reason Admit Date/Time Sep 06, 2016 at 11:22 Initial Consult Date 09/07/2016 Type of Consultation: Cardiology Reason for Consultation CHF/nstemi Referring Provider: PAMELA MARTE Exam/Review of Systems Vital Signs Vitals Vital Signs Date Time Temp Pulse Resp B/P Pulse Ox O2 Delivery O2 Flow Rate FiO2 09/18/16 14:30 87 15 158/115 99 09/18/16 14:00 Mechanical Ventilator 09/18/16 13:29 30 09/18/16 12:00 97.8 Intake and Output 09/17/16 09/17/16 09/18/16 14:59 22:59 06:59 Intake Total 683.24 ml 648.02 ml 598.032 ml Output Total 40 ml Balance 683.24 ml 648.02 ml 558.032 ml Exam Review of Systems: CONSTITUTIONAL: No fevers, chills. PULMONARY: intubated CARDIOVASCULAR: No chest pain/palpitations GASTROINTESTINAL: No nausea/vomiting. GENITOURINARY: No hematuria/dysuria. MUSCULOSKELETAL: No obvious myagias/arthalgias. PSYCHIATRIC: The patient denies depression. NEUROLOGIC: No weakness Constitutional: alert, oriented ENMT: intubated, mucosa pink and moist Neck: jvd (9 cm water), supple Respiratory: diminished breath sounds (at bases/B) Cardiovascular: regular rate and rhythm Gastrointestinal: non-tender, soft Musculoskeletal: muscle tone (normal) Extremities: edema (none) Neurological: other (No focal deficits) Results Result Diagram: 09/18/16 0400 09/18/16 0400 Results 24 hrs Laboratory Tests Test 12/28/16 16:38 09/17/16 21:03 09/18/16 00:57 09/18/16 04:00 Bedside Glucose 209 202 202 Anion Gap 27 H Band Neutrophils % 5.0 Blood Morphology Comment Blood Urea Nitrogen 103 H Calcium Level 8.3 L Carbon Dioxide Level 17 L Chloride Level 91 L Creatinine 2.58 H Glucose Level 185 Hematocrit 29.3 L Hemoglobin 10.2 L Lymphocytes # 0.9 Lymphocytes % 7.0 L Magnesium Level 1.8 Mean Corpuscular Hemoglobin 30.1 Mean Corpuscular Hemoglobin Concent 34.8 Mean Corpuscular Volume 86.5 Mean Platelet Volume 7.7 Monocytes # 0.3 Monocytes % 2.0 Neutrophils # 10.5 H Neutrophils % 83.0 H Phosphorus Level 4.1 Platelet Count 228 Potassium Level 5.6 H Promyelocytes # 0.4 Promyelocytes % 3.0 H Red Blood Count 3.38 L Red Cell Distribution Width 19.6 H Sodium Level 129 L White Blood Count 12.6 H Test 09/18/16 05:22 09/18/16 08:37 09/18/16 12:40 09/18/16 15:15 Bedside Glucose 213 207 201 Arterial Blood HCO3 22.4 Arterial Blood Base Excess -2.4 Arterial Blood Oxygen Saturation 95.2 Sage Test ACCEPTAB Arterial Blood Gas Puncture Site Right Radial Arterial Blood Carboxyhemoglobin 0 Arterial Blood Date Drawn 09/18/2016 3:05:41 PM Arterial Blood Methemoglobin 0.2 Arterial Blood pCO2 (Temp correct) 38.5 Arterial Blood pH (Temp corrected) 7.383 Arterial Blood pO2 (Temp corrected) 77.3 L Blood Gas A-a O2 Differential 91.4 H Blood Gas Actual Respiration Rate 15 Blood Gas Low PEEP Setting 5.0 Blood Gas Modality VENT - CPAP Blood Gas Notified Time 09/18/2016 3:14:19 PM Blood Gas Notified Whom JLD Blood Gas Pressure Support 10 Blood Gas Specimen Source Blood arterial Blood Gas Temperature 37.0 FiO2 30.0 Oxyhemoglobin Percent 95.0 Total Hemoglobin 10.4 L Medications Medications Current Medications Piperacillin Sod/ Tazobactam Sod (Zosyn 2.25gm/ 50ml (Pmx)) 50 ml @ 100 mls/hr Q8 IVPB Last administered on 09/18/16at 13:28; Admin Dose 100 MLS/HR; Start 12 /17/16 at 14:00 Pantoprazole (Protonix Iv) 40 mg DAILY@06 IV Last administered on 09/18/16at 05 :40; Admin Dose 40 MG; Start 09/07/16 at 06:00 Ondansetron HCl (Zofran Inj) 4 mg Q6H PRN IV NAUSEA AND/OR VOMITING; Start at 11:30 Miscellaneous Information 1 ea NOTE XX ; Start 09/06/16 at 12:00 Glucose (Glutose) 15 gm Q15M PRN PO DECREASED GLUCOSE; Start 09/06/16 at 12:00 Glucose (Glutose) 22.5 gm Q15M PRN PO DECREASED GLUCOSE; Start 09/06/16 at 12: 00 Dextrose (D50w Syringe) 25 ml Q15M PRN IV DECREASED GLUCOSE; Start 09/06/16 at 12:00 Dextrose (D50w Syringe) 50 ml Q15M PRN IV DECREASED GLUCOSE; Start 09/06/16 at 12:00 Glucagon (Glucagen) 1 mg Q15M PRN IM DECREASED GLUCOSE; Start 09/06/16 at 12: 00 Glucose 15 gm 15 gm Q15M PRN BUCCAL DECREASED GLUCOSE; Start 09/06/16 at 12:00 Propofol 100 ml @ 2.445 mls/ hr Q12H IV Last administered on 09/18/16at 15:04 ; Admin Dose 9.78 MLS/HR; Start 09/06/16 at 19:00 Norepinephrine/ Dextrose (Levophed/D5W) 500 ml @ 1.87 mls/hr TITRATE IV ; Start 09/07/16 at 10:00 Insulin Aspart (Novolog Insulin Pen) NOVOLOG *MODERATE* ALGORI... Q4 SC Last administered on 09/18/16at 12:41; Admin Dose 4 UNIT; Start 09/11/16 at 13:00 Epoetin Kobi (Epogen (Esrd)) 10,000 units MoWeFr@17 SC Last administered on at 16:40; Admin Dose 10,000 UNITS; Start 09/12/16 at 17:00 Voriconazole (Vfend) 200 mg BID NGT Last administered on 09/18/16at 08:38; Admin Dose 200 MG; Start 09/12/16 at 21:00 Heparin Sodium (Porcine) (Heparin (5000 Units/0.5 ml)) 5,000 unit BID SC Last administered on 09/18/16 08:41; Admin Dose 5,000 UNIT; Start 09/13/16 at 21: 00 Insulin Glargine (Lantus) 30 unit BID SC Last administered on 09/18/16 08:43 ; Admin Dose 30 UNIT; Start 09/14/16 at 21:00 Methylprednisolone Sodium Succinate (Solu-Medrol) 40 mg Q12 IV Last administered on 09/18/16 08:38; Admin Dose 40 MG; Start 09/14/16 at 21:00 Metoprolol Tartrate (Lopressor) 25 mg BID PO Last administered on 09/18/16 08 :39; Admin Dose 25 MG; Start 09/16/16 at 21:00 Hydralazine HCl (Apresoline) 25 mg Q8 PO Last administered on 09/18/16 13:28 ; Admin Dose 25 MG; Start 09/17/16 at 14:00 KAJAL MCKINNEY Sep 18, 2016 15:56
--- NOTE | 2016-09-18 16:49 | RADRPT ---
PROCEDURE: US bilateral lower extremity veins. CLINICAL INDICATION: Bilateral leg pain and swelling. TECHNIQUE: Multiple longitudinal and transverse images of the bilateral lower extremity veins were obtained with norris scale and color Doppler imaging. The common femoral vein, femoral vein, and popl iteal vein were evaluated. 2D grayscale measurements with compression sonography, color Doppler, and pulsed Doppler with augmentation. COMPARISON: No prior studies are available for comparison. FINDINGS: The bilateral common femoral, femoral and popliteal veins are normally compressible throughout. Col or flow demonstrates normal filling of the vessels. Normal waveforms are visualized and there is no rmal response to augmentation. IMPRESSION: 1. No evidence of deep vein thrombosis involving either lower extremity. RPTAT: QQ .Esvin Mak MD, MD Date Time Electronically viewed and signed by .Esvin Mak MD, on 09/18/2016 16:48 .R/
--- NOTE | 2016-09-18 17:54 | PN ---
Date/Time of Note Date/Time of Note DATE: 09/18/16 TIME: 17:53 Assessment/Plan VTE Prophylaxis VTE Prophylaxis Intervention: LMWH Lines/Catheters IV [facility]from [facility] JUAN PABLO Urinary Cath still in place: No Assessment/Plan Assessment/Plan [facility] 1. Hospital day 12 for this 71 yo woman with acute respiratory failure secondary to CHF exacerbation and volume overload, on hemodialysis. Reintubated this past week due to stridor and respiratory failure. No wheezing now on exam. * Continue Solumedrol, consolidating dose in AM at 60 mg IV q24h * Weaning trials for extubation 2. Congestive heart failure, systolic acute on chronic, cardiomyopathy with LVEF 40-45. Elevated troponin / NSTEMI secondary to demand ischemia. Paroxysmal atrial fibrillation. 3. End stage renal disease, on hemodialysis for volume management -- most recently today 4. Pneumonia possibly secondary to aspiration * Continue Zosyn 5. Diabetes type 2, with sugars in the low 200s today. * Increase Lantus to 35 units SQ BID, beginning tomorrow -- target is blood sugar of 180 for continuous tube feeding. * Continue tube feeding to goal of 50 cc/hr 6. Sepsis with septic shock secondary to pneumonia. Now off pressors, afebrile , and with normalized WBC. * Continue Zosyn 7. Hypertension * Continue low-dose Lopressor 8. Chronic hypochromic anemia secondary to chronic disease, stable Hct at 29.3% . 9. UTI secondary to yeast. Repeat UA was positive for leukocyte esterase and culture showing yeast >100K, non-albicans again. * Continue Voriconazole 200 mg per OGT bid 10. Coagulopathy. Upper extremity DVT. Now with cords in the right calf. She had a negative lower extremity Doppler on admission (09/06/16), and again today showing no lower extremity DVT. * Resumed Heparin for DVT prevention. 11. Superficial venous thrombosis in the left cephalic vein in the upper arm. * Warm compresses since patient had a coagulopathy * Repeat Doppler anticipated in 1 to 2 weeks 12. Prophylaxis: Heparin for DVT ppx and Protonix for GI ppx 13. Disposition: On ventilator, hemodialysis today, followed by weaning protocol ongoing. Vivian Alatorre MD PhD [phone] Subjective 24 Hr Interval Summary Free Text/Dictation Intubated, ventilated. Calm, and responsive to yes-no questions, indicating no pain, headache, nausea, or visual change. Exam/Review of Systems Vital Signs Vitals Vital Signs Date Time Temp Pulse Resp B/P Pulse Ox O2 Delivery O2 Flow Rate FiO2 09/18/16 16:20 88 18 100 30 09/18/16 14:30 158/115 09/18/16 14:00 Mechanical Ventilator 09/18/16 12:00 97.8 Intake and Output 09/17/16 09/17/16 09/18/16 15:00 23:00 07:00 Intake Total 633.24 ml 598.02 ml 598.032 ml Output Total 40 ml Balance 633.24 ml 598.02 ml 558.032 ml Exam Constitutional: Alert, awake, responsive to questions on ventilator Respiratory: Clear lungs, no crackles or wheezes. Cardiovascular: nl pulses, regular rate and rhythm Gastrointestinal: non-tender, soft, non-tympanic Musculoskeletal: Cords in right calf. 1-2+ pitting edema. Neurological: moving all extremities. Toes downgoing. Results Result Diagram: 09/18/16 0400 09/18/16 0400 Results 24 hrs Laboratory Tests Test 09/17/16 21:03 09/18/16 00:57 09/18/16 04:00 09/18/16 05:22 Bedside Glucose 202 202 213 Anion Gap 27 H Band Neutrophils % 5.0 Blood Morphology Comment Blood Urea Nitrogen 103 H Calcium Level 8.3 L Carbon Dioxide Level 17 L Chloride Level 91 L Creatinine 2.58 H Glucose Level 185 Hematocrit 29.3 L Hemoglobin 10.2 L Lymphocytes # 0.9 Lymphocytes % 7.0 L Magnesium Level 1.8 Mean Corpuscular Hemoglobin 30.1 Mean Corpuscular Hemoglobin Concent 34.8 Mean Corpuscular Volume 86.5 Mean Platelet Volume 7.7 Monocytes # 0.3 Monocytes % 2.0 Neutrophils # 10.5 H Neutrophils % 83.0 H Phosphorus Level 4.1 Platelet Count 228 Potassium Level 5.6 H Promyelocytes # 0.4 Promyelocytes % 3.0 H Red Blood Count 3.38 L Red Cell Distribution Width 19.6 H Sodium Level 129 L White Blood Count 12.6 H Test 09/18/16 08:37 09/18/16 12:40 09/18/16 15:15 09/18/16 16:53 Bedside Glucose 207 201 227 H Arterial Blood HCO3 22.4 Arterial Blood Base Excess -2.4 Arterial Blood Oxygen Saturation 95.2 Sage Test ACCEPTAB Arterial Blood Gas Puncture Site Right Radial Arterial Blood Carboxyhemoglobin 0 Arterial Blood Date Drawn 09/18/2016 3:05:41 PM Arterial Blood Methemoglobin 0.2 Arterial Blood pCO2 (Temp correct) 38.5 Arterial Blood pH (Temp corrected) 7.383 Arterial Blood pO2 (Temp corrected) 77.3 L Blood Gas A-a O2 Differential 91.4 H Blood Gas Actual Respiration Rate 15 Blood Gas Low PEEP Setting 5.0 Blood Gas Modality VENT - CPAP Blood Gas Notified Time 09/18/2016 3:14:19 PM Blood Gas Notified Whom JLD Blood Gas Pressure Support 10 Blood Gas Specimen Source Blood arterial Blood Gas Temperature 37.0 FiO2 30.0 Oxyhemoglobin Percent 95.0 Total Hemoglobin 10.4 L Medications Medications Current Medications Piperacillin Sod/ Tazobactam Sod (Zosyn 2.25gm/ 50ml (Pmx)) 50 ml @ 100 mls/hr Q8 IVPB Last administered on 09/18/16at 13:28; Admin Dose 100 MLS/HR; Start at 14:00 Pantoprazole (Protonix Iv) 40 mg DAILY@06 IV Last administered on 09/18/16at 05 :40; Admin Dose 40 MG; Start 09/07/16 at 06:00 Ondansetron HCl (Zofran Inj) 4 mg Q6H PRN IV NAUSEA AND/OR VOMITING; Start at 11:30 Miscellaneous Information 1 ea NOTE XX ; Start 09/06/16 at 12:00 Glucose (Glutose) 15 gm Q15M PRN PO DECREASED GLUCOSE; Start 09/06/16 at 12:00 Glucose (Glutose) 22.5 gm Q15M PRN PO DECREASED GLUCOSE; Start 09/06/16 at 12: 00 Dextrose (D50w Syringe) 25 ml Q15M PRN IV DECREASED GLUCOSE; Start 09/06/16 at 12:00 Dextrose (D50w Syringe) 50 ml Q15M PRN IV DECREASED GLUCOSE; Start 09/06/16 at 12:00 Glucagon (Glucagen) 1 mg Q15M PRN IM DECREASED GLUCOSE; Start 09/06/16 at 12: 00 Glucose 15 gm 15 gm Q15M PRN BUCCAL DECREASED GLUCOSE; Start 09/06/16 at 12:00 Propofol 100 ml @ 2.445 mls/ hr Q12H IV Last administered on 09/18/16at 15:04 ; Admin Dose 9.78 MLS/HR; Start 09/06/16 at 19:00 Norepinephrine/ Dextrose (Levophed/D5W) 500 ml @ 1.87 mls/hr TITRATE IV ; Start 09/07/16 at 10:00 Insulin Aspart (Novolog Insulin Pen) NOVOLOG *MODERATE* ALGORI... Q4 SC Last administered on 09/18/16 16:56; Admin Dose 6 UNIT; Start 09/11/16 at 13:00 Epoetin Kobi (Epogen (Esrd)) 10,000 units MoWeFr@17 SC Last administered on 16:40; Admin Dose 10,000 UNITS; Start 09/12/16 at 17:00 Voriconazole (Vfend) 200 mg BID NGT Last administered on 09/18/16 08:38; Admin Dose 200 MG; Start 09/12/16 at 21:00 Heparin Sodium (Porcine) (Heparin (5000 Units/0.5 ml)) 5,000 unit BID SC Last administered on 09/18/16 08:41; Admin Dose 5,000 UNIT; Start 09/13/16 at 21: 00 Insulin Glargine (Lantus) 30 unit BID SC Last administered on 09/18/16 08:43 ; Admin Dose 30 UNIT; Start 09/14/16 at 21:00 Metoprolol Tartrate (Lopressor) 25 mg BID PO Last administered on 09/18/16at 08 :39; Admin Dose 25 MG; Start 09/16/16 at 21:00 Hydralazine HCl (Apresoline) 25 mg Q8 PO Last administered on 09/18/16 13:28 ; Admin Dose 25 MG; Start 09/17/16 at 14:00 Methylprednisolone Sodium Succinate (Solu-Medrol) 40 mg Q12 IV ; Start at 09:00 Methylprednisolone Sodium Succinate (Solu-Medrol) 80 mg ONCE ONCE IV ; Start 09/18/16 at 21:00; Stop 09/18/16 at 21:01 MARISA ALATORRE M.D. Sep 18, 2016 17:54
[2016-09-18] MEDS ORDERED: METHYLPREDNISOLONE 125 MG INJ IV ONE (21:00)
[2016-09-19] VITALS (62 sets, daily range): BP systolic 92–169; BP diastolic 55–120; PULSE 73–158; RESP 14–32
[2016-09-19] MEDS: INSULIN ASPART [NOVOLOG] 3 ML PEN SC SCH ×6 (01:00→21:55)
[2016-09-19] MEDS: ALBUTEROL HFA 8 GM INHALER INH PRN ×2 (01:28→07:44)
[2016-09-19] MEDS: IPRATROPIUM (HFA) 12.9 GM INHALER INH SCH ×2 (01:29→07:43)
[2016-09-19 05:08] LABS: HEMATOCRIT 28.2 % (37.0-47.0); MEAN CORPUSCULAR HEMOGLOBIN 30.8 pg (29.0-33.0); MEAN CORPUSCULAR HGB CONC 35.6 g/dl (32.0-37.0); MEAN CORPUSCULAR VOLUME 86.4 fl (82.0-101.0); MEAN PLATELET VOLUME 7.9 fl (7.4-10.4); PLATELET COUNT 226 10^3/UL (140-440); RED BLOOD COUNT 3.26 10^6/ul (4.20-5.40); RED CELL DISTRIBUTION WIDTH 20.8 % (11.5-14.5); UNCORRECTED WBC 12.4 10^3/ul (4.8-10.8); WHITE BLOOD COUNT 12.4 10^3/ul (4.8-10.8)
[2016-09-19] MEDS: PANTOPRAZOLE 40 MG INJ IV SCH (05:13)
[2016-09-19] MEDS: PIPER-TAZO 2.25 GM (PMX) 50 ML IVPB SCH ×3 (05:14→22:15)
[2016-09-19 05:16] LABS: POTASSIUM 4.7 mmol/L (3.5-5.1)
[2016-09-19 05:18] LABS: CONDITION 1; LH ANALYZER COMMENTS 1
[2016-09-19 05:19] LABS: CREATININE 1.99 mg/dl (0.44-1.00)
[2016-09-19 05:20] LABS: CALCIUM 8.4 mg/dl (8.4-10.2); MAGNESIUM 1.9 mg/dl (1.7-2.5); PHOSPHORUS 4.1 mg/dl (2.5-4.9)
--- NOTE | 2016-09-19 08:13 | PN ---
DATE: 09/19/2016 SUBJECTIVE: The patient remains critically ill, on full ventilatory support. Attempting CPAP trial today. No other acute events noted. No hemoptysis, hematemesis or hematochezia. OBJECTIVE: VITAL SIGNS: Blood pressure is 159/75, respirations 20, pulse 83, temperature 98.6. I's AND O'S: The patient had 2.3 liters in, 3.5 liters out. HEENT: Head is normocephalic. NECK: Supple. HEART: Regular rate. LUNGS: Showed diminished breath sounds at the base. ABDOMEN: Soft, nontender to palpation. No rebound or guarding. EXTREMITIES: Negative for clubbing or cyanosis. Positive edema. DERMATOLOGIC: No rashes. MUSCULOSKELETAL: Have no joint effusion. NEUROLOGIC: No change in exam. MEDICATIONS: The patient's medications have been reviewed. LABORATORY DATA: Shows sodium 133, potassium 4.7, chloride 94, BUN 81, creatinine 1.99. White coun t 12.4, hemoglobin 10.0, hematocrit 28.2, platelet count is 226. IMAGING: The patient's chest x-ray 09/16/2016 was reviewed. ASSESSMENT AND PLAN: 1. Anuric acute kidney injury on top of chronic kidney disease stage IV, now likely progressed to e nd-stage renal disease. The patient has been receiving near daily dialysis for solute clearance and volume removal. Anticipate dialysis again today for 3 hours on a 3K bath, calcium 2.5. Will ultra filtrate as tolerated. 2. Volume overload. Continue ultrafiltration dialysis. 3. Hypokalemia. Improved. Will continue dialysis on a low potassium bath. 4. Hyponatremia. Improving. Continue dialysis on a 140 sodium bath. Continue to hold free water flushes. 5. Ventilator-dependent respiratory failure. Vent settings have been reviewed. ABG has been revie wed. Continue CPAP trials. 6. Sepsis. Status post shock. Continue antibiotic therapy. 7. Diabetes. Continue current insulin regimen. 8. Hypertension. Continue the current blood pressure regimen. 9. Encephalopathy. Etiology is toxic metabolic. Continue to monitor. 10. Dysphagia. Status post nasogastric tube. Continue tube feeding. 11. History of coronary artery disease. Continue the current medical management. Dictated By: STEFFANY JESUS/ADRIA Conf#: [id number] DID#: [id number]
[2016-09-19 08:16] LABS: AADO2 Arterial 84.1 mmHg (7.0-24.0); Allen Test ACCEPTAB; Arterial Base Excess -4.3 mmol/L (-3.0-3); Arterial COHb 0.2 % (0.0-3.0); Arterial Fraction of Oxyhgb 95.7 % (93.0-99.0); Arterial HCO3 20.9 mmol/L (22.0-26.0); Arterial MetHb 0.2 % (0.0-1.5); Arterial Total Hemglobin 11.3 g/dl (12.0-18.0); Blood Gas PS 10; MODE VENT - CPAP
[2016-09-19] MEDS: VORICONAZOLE 200 MG TAB NGT SCH ×2 (08:32→20:52)
[2016-09-19] MEDS: HEPARIN 5,000 UNIT/0.5 ML SYG SC SCH ×2 (08:36→22:02)
[2016-09-19] MEDS: INSULIN GLARGINE [LANtus] 3 ML PEN SC SCH (08:37)
[2016-09-19] MEDS ORDERED: METHYLPREDNISOLONE 40 MG INJ IV SCH (09:00)
[2016-09-19] MEDS ORDERED: METOPROLOL 25 MG TAB GTB SCH (09:00)
--- NOTE | 2016-09-19 09:02 | RADRPT ---
PROCEDURE: XR Chest. CLINICAL INDICATION: Shortness of breath. TECHNIQUE: Single frontal view. COMPARISON: 09/16/2016. FINDINGS: The endotracheal tube, nasogastric tube, and right internal jugular vein dialysis catheter remain in satisfactory and unchanged position. A low lung volumes and atelectasis at the lung bases are unch anged. There is elevation of the right hemidiaphragm, unchanged. The heart is mildly enlarged. There are small bilateral pleural effusions. There is no pneumothorax. IMPRESSION: 1. No change from 09/16/2016. RPTAT: QQ .Esvin Mak MD, MD Date Time Electronically viewed and signed by .Esvin Mak MD, MD on 09/19/2016 09:02 .R/
[2016-09-19] MEDS ORDERED: INSULIN GLARGINE [LANtus] 3 ML PEN SC ONE (09:30)
[2016-09-19] MEDS ORDERED: METHYLPREDNISOLONE 40 MG INJ IV ONE (09:30)
[2016-09-19 09:57] LABS: LYMPHOCYTES # 0.5 10^3/ul (0.8-2.9); MONOCYTE # 0.1 10^3/ul (0.3-0.9); MYELOCYTES # 0.1
--- NOTE | 2016-09-19 10:47 | CONS ---
Date/Time of Note Date/Time of Note DATE: 09/19/16 TIME: 10:45 Consult Date/Type/Reason Admit Date/Time Sep 06, 2016 at 11:22 Type of Consultation: pulmonary Ordering Provider: PAMELA MARTE Subjective Tolerating CPAP trial this morning awake alert on mechanical ventilation Minimal secretions Objective Vital Signs Date Time Temp Pulse Resp B/P Pulse Ox O2 Delivery O2 Flow Rate FiO2 09/19/16 10:00 75 14 164/89 100 Mechanical Ventilator 09/19/16 09:20 30 09/19/16 08:00 98.3 Intake and Output 09/18/16 09/18/16 09/19/16 15:00 23:00 07:00 Intake Total 1312.69 ml 559.12 ml 474.89 ml Output Total 3500 ml 40 ml 0 ml Balance -2187.31 ml 519.12 ml 474.89 ml PHYSICAL EXAMINATION GENERAL: Elderly lady intubated on mechanical ventilation VITAL SIGNS: see below. HEENT: Pupils equal, round, and reactive to light. CARDIAC: S1, S2, CHEST: Diminished air entry bilaterally. ABDOMEN: Mildly distended. No bowel sounds. Obese no guarding or rebound EXTREMITIES: No cyanosis, clubbing edema +2 NEUROLOGIC: Generalized weakness Results/Medications Result Diagram: 09/19/16 0430 09/19/16 0430 Results 24 hrs Laboratory Tests Test 09/18/16 12:40 09/18/16 15:15 09/18/16 16:53 09/18/16 21:23 Bedside Glucose 201 227 H 230 H Arterial Blood HCO3 22.4 Arterial Blood Base Excess -2.4 Arterial Blood Oxygen Saturation 95.2 Sage Test ACCEPTAB Arterial Blood Gas Puncture Site Right Radial Arterial Blood Carboxyhemoglobin 0 Arterial Blood Date Drawn 09/18/2016 3:05:41 PM Arterial Blood Methemoglobin 0.2 Arterial Blood pCO2 (Temp correct) 38.5 Arterial Blood pH (Temp corrected) 7.383 Arterial Blood pO2 (Temp corrected) 77.3 L Blood Gas A-a O2 Differential 91.4 H Blood Gas Actual Respiration Rate 15 Blood Gas Low PEEP Setting 5.0 Blood Gas Modality VENT - CPAP Blood Gas Notified Time 09/18/2016 3:14:19 PM Blood Gas Notified Whom JLD Blood Gas Pressure Support 10 Blood Gas Specimen Source Blood arterial Blood Gas Temperature 37.0 FiO2 30.0 Oxyhemoglobin Percent 95.0 Total Hemoglobin 10.4 L Test 09/19/16 04:30 09/19/16 05:22 09/19/16 07:00 09/19/16 08:32 Anion Gap 25 H Band Neutrophils % 4.0 Blood Morphology Comment Blood Urea Nitrogen 81 H Calcium Level 8.4 Carbon Dioxide Level 19 L Chloride Level 94 L Creatinine 1.99 H Glucose Level 188 Hematocrit 28.2 L Hemoglobin 10.0 L Lymphocytes # 0.5 L Lymphocytes % 4.0 L Magnesium Level 1.9 Mean Corpuscular Hemoglobin 30.8 Mean Corpuscular Hemoglobin Concent 35.6 Mean Corpuscular Volume 86.4 Mean Platelet Volume 7.9 Metamyelocytes # 0.1 Metamyelocytes % 1.0 H Monocytes # 0.1 L Monocytes % 1.0 Myelocytes # 0.1 Myelocytes % 1.0 H Neutrophils # 11.0 H Neutrophils % 89.0 H Phosphorus Level 4.1 Platelet Count 226 Potassium Level 4.7 Red Blood Count 3.26 L Red Cell Distribution Width 20.8 H Sodium Level 133 L White Blood Count 12.4 H Bedside Glucose 246 H 226 H Arterial Blood HCO3 20.9 L Arterial Blood Base Excess -4.3 L Arterial Blood Oxygen Saturation 96.1 Sage Test ACCEPTAB Arterial Blood Gas Puncture Site Right Radial Arterial Blood Carboxyhemoglobin 0.2 Arterial Blood Date Drawn 09/19/2016 7:40:39 AM Arterial Blood Methemoglobin 0.2 Arterial Blood pCO2 (Temp correct) 38.6 Arterial Blood pH (Temp corrected) 7.351 Arterial Blood pO2 (Temp corrected) 84.4 Blood Gas A-a O2 Differential 84.1 H Blood Gas Actual Respiration Rate 15 Blood Gas Low PEEP Setting 5.0 Blood Gas Modality VENT - CPAP Blood Gas Notified Time 09/19/2016 8:16:17 AM Blood Gas Notified Whom JLD Blood Gas Pressure Support 10 Blood Gas Specimen Source Blood arterial Blood Gas Temperature 37.0 FiO2 30.0 Oxyhemoglobin Percent 95.7 Total Hemoglobin 11.3 L Medications Current Medications Piperacillin Sod/ Tazobactam Sod (Zosyn 2.25gm/ 50ml (Pmx)) 50 ml @ 100 mls/hr Q8 IVPB Last administered on 09/19/16at 05:14; Admin Dose 100 MLS/HR; Start at 14:00 Pantoprazole (Protonix Iv) 40 mg DAILY@06 IV Last administered on 09/19/16at 05 :13; Admin Dose 40 MG; Start 09/07/16 at 06:00 Ondansetron HCl (Zofran Inj) 4 mg Q6H PRN IV NAUSEA AND/OR VOMITING; Start at 11:30 Miscellaneous Information 1 ea NOTE XX ; Start 09/06/16 at 12:00 Glucose (Glutose) 15 gm Q15M PRN PO DECREASED GLUCOSE; Start 09/06/16 at 12:00 Glucose (Glutose) 22.5 gm Q15M PRN PO DECREASED GLUCOSE; Start 09/06/16 at 12: 00 Dextrose (D50w Syringe) 25 ml Q15M PRN IV DECREASED GLUCOSE; Start 09/06/16 at 12:00 Dextrose (D50w Syringe) 50 ml Q15M PRN IV DECREASED GLUCOSE; Start 09/06/16 at 12:00 Glucagon (Glucagen) 1 mg Q15M PRN IM DECREASED GLUCOSE; Start 09/06/16 at 12: 00 Glucose 15 gm 15 gm Q15M PRN BUCCAL DECREASED GLUCOSE; Start 09/06/16 at 12:00 Propofol 100 ml @ 2.445 mls/ hr Q12H IV Last administered on 09/18/16at 21:53 ; Admin Dose 9.78 MLS/HR; Start 09/06/16 at 19:00 Norepinephrine/ Dextrose (Levophed/D5W) 500 ml @ 1.87 mls/hr TITRATE IV ; Start 09/07/16 at 10:00 Insulin Aspart (Novolog Insulin Pen) NOVOLOG *MODERATE* ALGORI... Q4 SC Last administered on 09/19/16at 08:38; Admin Dose 6 UNIT; Start 09/11/16 at 13:00 Epoetin Kobi (Epogen (Esrd)) 10,000 units MoWeFr@17 SC Last administered on at 16:40; Admin Dose 10,000 UNITS; Start 09/12/16 at 17:00 Voriconazole (Vfend) 200 mg BID NGT Last administered on 09/19/16at 08:32; Admin Dose 200 MG; Start 09/12/16 at 21:00 Heparin Sodium (Porcine) (Heparin (5000 Units/0.5 ml)) 5,000 unit BID SC Last administered on 09/19/16at 08:36; Admin Dose 5,000 UNIT; Start 09/13/16 at 21: 00 Hydralazine HCl (Apresoline) 10 mg Q4H PRN IV ELEVATED BLOOD PRESSURE; Start 09/18/16 at 19:00 Hydralazine HCl (Apresoline) 25 mg Q8 GTB ; Start 09/19/16 at 14:00 Metoprolol Tartrate (Lopressor) 25 mg BID GTB Last administered on 09/19/16at 08:33; Admin Dose 25 MG; Start 09/19/16 at 09:00 Insulin Glargine (Lantus) 35 unit BID SC ; Start 09/19/16 at 21:00 Methylprednisolone Sodium Succinate (Solu-Medrol) 60 mg QAM IV ; Start at 09:00 Assessment/Plan Chief Complaint/Hosp Course ASSESSMENT AND PLAN: 1.Hypoxemic and hypercapnic respiratory failure secondary to likely volume overload on top of significant morbid obesity and restrictive lung disease. Failed extubation continues mechanical ventilation. Tolerating CPAP trial again this morning 2. Morbid obesity 3. Chronic kidney disease 4. Significant anemia following epistaxis 5. Questionable distal pulmonary embolus doubt any hemodynamic significance, negative Dopplers for deep vein thrombosis Plan 1. Continue assist-control mechanical ventilation will consider extubation no significant stridor and adequate cuff leak 2. Renal failure with volume removal. 3. Nocturnal noninvasive positive pressure ventilation postextubation if extubated 4. Aspiration precautions. 5. Deep vein thrombosis and gastrointestinal prophylaxis. 6. Given her body habitus, the patient is at risk of recurrent hypoxemic and hypercapnic respiratory failure. Problems: MARCIA BAIN MD, [facility] Sep 19, 2016 10:47
[2016-09-19] MEDS: ALBUTEROL/IPRATROPIUM (NEB) 3 ML AMP HHN SCH ×2 (13:56→20:04)
--- NOTE | 2016-09-19 15:20 | CONS ---
Date/Time of Note Date/Time of Note DATE: 09/19/16 TIME: 15:15 Assessment/Plan Assessment/Plan Chief Complaint/Hosp Course Imp: 1.Positive troponin-minmal in setting of esrd-Now trended negative 2.CHF-? systolic and diastolic acute on chronic 3.HTN 4. CKD on HD 5.anemia-requiring transfusions 6.Coagulopathy-resolved 7.H/O PAF in SR currently 8. Edema-improving significantly Recc: -Tele -serial ecg's -trend cardiac enzymes -Continue HD for volume removal -Follow hgb closely -Increase BB and continue hydralazine -Continue abx's/anti-fungals Problems: Consultation Date/Type/Reason Admit Date/Time Sep 06, 2016 at 11:22 Initial Consult Date 09/07/2016 Type of Consultation: Cardiology Reason for Consultation CHF/nstemi Referring Provider: PAMELA MARTE Exam/Review of Systems Vital Signs Vitals Vital Signs Date Time Temp Pulse Resp B/P Pulse Ox O2 Delivery O2 Flow Rate FiO2 09/19/16 13:00 85 20 137/77 100 Nasal Cannula 3.0 09/19/16 12:00 98.3 09/19/16 11:04 30 Intake and Output 09/18/16 09/18/16 09/19/16 15:00 23:00 07:00 Intake Total 1312.69 ml 559.12 ml 474.89 ml Output Total 3500 ml 40 ml 0 ml Balance -2187.31 ml 519.12 ml 474.89 ml Exam Review of Systems: CONSTITUTIONAL: No fevers, chills. PULMONARY: s/p extubation CARDIOVASCULAR: No chest pain/palpitations GASTROINTESTINAL: No nausea/vomiting. GENITOURINARY: No hematuria/dysuria. MUSCULOSKELETAL: No myagias/arthalgias. PSYCHIATRIC: The patient denies depression. NEUROLOGIC: lethargic Constitutional: alert Psych: no complaints Head: normocephalic ENMT: mucosa pink and moist Neck: jvd (9 cm water), supple Respiratory: diminished breath sounds (at bases/B) Cardiovascular: regular rate and rhythm Gastrointestinal: non-tender, soft Musculoskeletal: muscle tone Extremities: normal pulses Neurological: other (No focal deficits) Results Result Diagram: 09/19/16 0430 09/19/16 0430 Results 24 hrs Laboratory Tests Test 09/18/16 16:53 09/18/16 21:23 09/19/16 04:30 09/19/16 05:22 Bedside Glucose 227 H 230 H 246 H Anion Gap 25 H Band Neutrophils % 4.0 Blood Morphology Comment Blood Urea Nitrogen 81 H Calcium Level 8.4 Carbon Dioxide Level 19 L Chloride Level 94 L Creatinine 1.99 H Glucose Level 188 Hematocrit 28.2 L Hemoglobin 10.0 L Lymphocytes # 0.5 L Lymphocytes % 4.0 L Magnesium Level 1.9 Mean Corpuscular Hemoglobin 30.8 Mean Corpuscular Hemoglobin Concent 35.6 Mean Corpuscular Volume 86.4 Mean Platelet Volume 7.9 Metamyelocytes # 0.1 Metamyelocytes % 1.0 H Monocytes # 0.1 L Monocytes % 1.0 Myelocytes # 0.1 Myelocytes % 1.0 H Neutrophils # 11.0 H Neutrophils % 89.0 H Phosphorus Level 4.1 Platelet Count 226 Potassium Level 4.7 Red Blood Count 3.26 L Red Cell Distribution Width 20.8 H Sodium Level 133 L White Blood Count 12.4 H Test 09/19/16 07:00 09/19/16 08:32 09/19/16 13:02 Arterial Blood HCO3 20.9 L Arterial Blood Base Excess -4.3 L Arterial Blood Oxygen Saturation 96.1 Sage Test ACCEPTAB Arterial Blood Gas Puncture Site Right Radial Arterial Blood Carboxyhemoglobin 0.2 Arterial Blood Date Drawn 09/19/2016 7:40:39 AM Arterial Blood Methemoglobin 0.2 Arterial Blood pCO2 (Temp correct) 38.6 Arterial Blood pH (Temp corrected) 7.351 Arterial Blood pO2 (Temp corrected) 84.4 Blood Gas A-a O2 Differential 84.1 H Blood Gas Actual Respiration Rate 15 Blood Gas Low PEEP Setting 5.0 Blood Gas Modality VENT - CPAP Blood Gas Notified Time 09/19/2016 8:16:17 AM Blood Gas Notified Whom JLD Blood Gas Pressure Support 10 Blood Gas Specimen Source Blood arterial Blood Gas Temperature 37.0 FiO2 30.0 Oxyhemoglobin Percent 95.7 Total Hemoglobin 11.3 L Bedside Glucose 226 H 126 Medications Medications Current Medications Piperacillin Sod/ Tazobactam Sod (Zosyn 2.25gm/ 50ml (Pmx)) 50 ml @ 100 mls/hr Q8 IVPB Last administered on 09/19/16at 14:32; Admin Dose 100 MLS/HR; Start 12 /17/16 at 14:00 Pantoprazole (Protonix Iv) 40 mg DAILY@06 IV Last administered on 09/19/16at 05 :13; Admin Dose 40 MG; Start 09/07/16 at 06:00 Ondansetron HCl (Zofran Inj) 4 mg Q6H PRN IV NAUSEA AND/OR VOMITING; Start at 11:30 Miscellaneous Information 1 ea NOTE XX ; Start 09/06/16 at 12:00 Glucose (Glutose) 15 gm Q15M PRN PO DECREASED GLUCOSE; Start 09/06/16 at 12:00 Glucose (Glutose) 22.5 gm Q15M PRN PO DECREASED GLUCOSE; Start 09/06/16 at 12: 00 Dextrose (D50w Syringe) 25 ml Q15M PRN IV DECREASED GLUCOSE; Start 09/06/16 at 12:00 Dextrose (D50w Syringe) 50 ml Q15M PRN IV DECREASED GLUCOSE; Start 09/06/16 at 12:00 Glucagon (Glucagen) 1 mg Q15M PRN IM DECREASED GLUCOSE; Start 09/06/16 at 12: 00 Glucose 15 gm 15 gm Q15M PRN BUCCAL DECREASED GLUCOSE; Start 09/06/16 at 12:00 Propofol 100 ml @ 2.445 mls/ hr Q12H IV Last administered on 09/18/16at 21:53 ; Admin Dose 9.78 MLS/HR; Start 09/06/16 at 19:00 Norepinephrine/ Dextrose (Levophed/D5W) 500 ml @ 1.87 mls/hr TITRATE IV ; Start 09/07/16 at 10:00 Insulin Aspart (Novolog Insulin Pen) NOVOLOG *MODERATE* ALGORI... Q4 SC Last administered on 09/19/16at 08:38; Admin Dose 6 UNIT; Start 09/11/16 at 13:00 Epoetin Kobi (Epogen (Esrd)) 10,000 units MoWeFr@17 SC Last administered on at 16:40; Admin Dose 10,000 UNITS; Start 09/12/16 at 17:00 Voriconazole (Vfend) 200 mg BID NGT Last administered on 09/19/16at 08:32; Admin Dose 200 MG; Start 09/12/16 at 21:00 Heparin Sodium (Porcine) (Heparin (5000 Units/0.5 ml)) 5,000 unit BID SC Last administered on 09/19/16at 08:36; Admin Dose 5,000 UNIT; Start 09/13/16 at 21: 00 Hydralazine HCl (Apresoline) 10 mg Q4H PRN IV ELEVATED BLOOD PRESSURE; Start 09/18/16 at 19:00 Hydralazine HCl (Apresoline) 25 mg Q8 GTB ; Start 09/19/16 at 14:00 Metoprolol Tartrate (Lopressor) 25 mg BID GTB Last administered on 09/19/16at 08:33; Admin Dose 25 MG; Start 09/19/16 at 09:00 Insulin Glargine (Lantus) 35 unit BID SC ; Start 09/19/16 at 21:00 Methylprednisolone Sodium Succinate (Solu-Medrol) 60 mg QAM IV ; Start at 09:00 KAJAL MCKINNEY Sep 19, 2016 15:20
[2016-09-19] MEDS: EPOETIN 10000 UNITS/1 ML INJ (ESRD) SC SCH (17:00)
[2016-09-19] MEDS: METOPROLOL 50 MG TAB GTB SCH (20:52)
[2016-09-19] MEDS ORDERED: INSULIN GLARGINE [LANtus] 3 ML PEN SC SCH (21:00)
[2016-09-19] MEDS ORDERED: DIGOXIN 500 MCG INJ IV ONE (22:00)
[2016-09-19] MEDS: METOPROLOL 5 MG INJ IV SCH ×2 (22:02→22:28)
[2016-09-20] VITALS (76 sets, daily range): BP systolic 84–174; BP diastolic 43–131; PULSE 70–135; RESP 12–30
[2016-09-20] MEDS: INSULIN ASPART [NOVOLOG] 3 ML PEN SC SCH ×6 (01:00→21:00)
[2016-09-20 04:59] LABS: HEMATOCRIT 31.7 % (37.0-47.0); HEMOGLOBIN 10.6 g/dl (12.0-16.0); MEAN CORPUSCULAR HGB CONC 33.6 g/dl (32.0-37.0); MEAN CORPUSCULAR VOLUME 86.5 fl (82.0-101.0); MEAN PLATELET VOLUME 7.5 fl (7.4-10.4); PLATELET COUNT 243 10^3/UL (140-440); RED BLOOD COUNT 3.67 10^6/ul (4.20-5.40); RED CELL DISTRIBUTION WIDTH 20.3 % (11.5-14.5); UNCORRECTED WBC 19.4 10^3/ul (4.8-10.8); WHITE BLOOD COUNT 19.4 10^3/ul (4.8-10.8)
[2016-09-20] MEDS: PIPER-TAZO 2.25 GM (PMX) 50 ML IVPB SCH ×3 (05:00→22:04)
[2016-09-20] MEDS: PANTOPRAZOLE 40 MG INJ IV SCH (05:00)
[2016-09-20 05:03] LABS: CONDITION 1; LH ANALYZER COMMENTS 1
[2016-09-20 05:33] LABS: POTASSIUM 4.5 mmol/L (3.5-5.1)
[2016-09-20 05:36] LABS: CALCIUM 9.2 mg/dl (8.4-10.2); CREATININE 2.1 mg/dl (0.44-1.00); PHOSPHORUS 5.3 mg/dl (2.5-4.9)
[2016-09-20] MEDS ORDERED: DEXTROSE 5%-0.45% NACL 1,000 ML IV ONE (07:00)
[2016-09-20] MEDS ORDERED: SOD CHLORIDE 0.9% 1,000 ML IV SCH (07:00)
[2016-09-20] MEDS: PROPOFOL 100 ML IV SCH ×2 (07:15→19:00)
[2016-09-20 07:19] LABS: LYMPHOCYTES # 2.1 10^3/ul (0.8-2.9); MONOCYTE # 2.1 10^3/ul (0.3-0.9); NEUTROPHIL # 15.1 10^3/ul (1.6-7.5)
[2016-09-20 07:20] LABS: ANISOCYTOSIS 2+; TARGET CELLS FEW
[2016-09-20 07:21] LABS: SCHISTOCYTES FEW
[2016-09-20 07:22] LABS: PLATELET ESTIMATE PLT APPEAR ADEQUATE
--- NOTE | 2016-09-20 07:29 | RADRPT ---
PROCEDURE: XR Chest. CLINICAL INDICATION: Pneumonia. Congestive heart failure. TECHNIQUE: Portable single view of the chest COMPARISON: 09/19 FINDINGS: Endotracheal and nasogastric tubes have been removed. Right central line and left PICC line remain in place. Reduced lung volumes and cardiomegaly again seen. Stable pulmonary vascular congestion. No large effusion. Bibasilar atelectasis. IMPRESSION: Removal of endotracheal and nasogastric tubes. Otherwise stable exam. RPTAT: [facility] Physician Esvin Date Time Electronically viewed and signed by Mara Davis Physician on 09/20/2016 07:29 LE/
[2016-09-20] MEDS: ALBUTEROL/IPRATROPIUM (NEB) 3 ML AMP HHN SCH ×3 (07:58→19:31)
[2016-09-20 08:48] LABS: AADO2 Arterial 68.5 mmHg (7.0-24.0); Allen Test ACCEPTAB; Arterial Base Excess -3.9 mmol/L (-3.0-3); Arterial COHb 0.5 % (0.0-3.0); Arterial Fraction of Oxyhgb 92.7 % (93.0-99.0); Arterial MetHb 0.2 % (0.0-1.5); Arterial Total Hemglobin 11.5 g/dl (12.0-18.0); MODE NASAL CANNULA
[2016-09-20] MEDS: METHYLPREDNISOLONE 125 MG INJ IV SCH (09:34)
[2016-09-20] MEDS: HEPARIN 5,000 UNIT/0.5 ML SYG SC SCH ×2 (09:36→21:19)
--- NOTE | 2016-09-20 10:21 | CONS ---
Date/Time of Note Date/Time of Note DATE: 09/20/16 TIME: 10:19 Consult Date/Type/Reason Admit Date/Time Sep 06, 2016 at 11:22 Type of Consultation: pulmonary Ordering Provider: PAMELA MARTE Subjective Extubated yesterday remains stable overnight Less responsive this morning No sedation according to staff. Currently saturating adequately on nasal cannula Objective Vital Signs Date Time Temp Pulse Resp B/P Pulse Ox O2 Delivery O2 Flow Rate FiO2 09/20/16 09:30 78 12 125/64 100 Nasal Cannula 09/20/16 08:00 97.9 09/20/16 07:59 2.0 09/19/16 20:12 28 Intake and Output 09/19/16 09/19/16 09/20/16 15:00 23:00 07:00 Intake Total 604.89 ml 50 ml 350 ml Output Total 2030 ml 60 ml 40 ml Balance -1425.11 ml -10 ml 310 ml PHYSICAL EXAMINATION GENERAL: Elderly lady on nasal cannula oxygen VITAL SIGNS: see below. HEENT: Pupils equal, round, and reactive to light. CARDIAC: S1, S2, CHEST: Diminished air entry bilaterally. ABDOMEN: Mildly distended. No bowel sounds. Obese no guarding or rebound EXTREMITIES: No cyanosis, clubbing edema +2 NEUROLOGIC: Generalized weakness Results/Medications Result Diagram: 09/20/16 0430 09/20/16 0430 Results 24 hrs Laboratory Tests Test 09/19/16 13:02 09/19/16 17:21 09/19/16 21:46 09/20/16 01:17 Bedside Glucose 126 137 162 92 Test 09/20/16 04:30 09/20/16 04:40 09/20/16 04:56 09/20/16 05:10 Anion Gap 25 H Anisocytosis 2+ Blood Morphology Comment Blood Urea Nitrogen 76 H Calcium Level 9.2 Carbon Dioxide Level 22 Chloride Level 97 Creatinine 2.10 H Glucose Level 33 #*L Hematocrit 31.7 L Hemoglobin 10.6 L Lymphocytes # 2.1 Lymphocytes % 11.0 L Magnesium Level 2.0 Mean Corpuscular Hemoglobin 29.0 Mean Corpuscular Hemoglobin Concent 33.6 Mean Corpuscular Volume 86.5 Mean Platelet Volume 7.5 Monocytes # 2.1 H Monocytes % 11.0 Neutrophils # 15.1 H Neutrophils % 78.0 H Nucleated Red Blood Cells # Nucleated Red Blood Cells % 8.0 H Phosphorus Level 5.3 H Platelet Count 243 Platelet Estimate PLT APPEAR ADEQUATE Potassium Level 4.5 Red Blood Count 3.67 L Red Cell Distribution Width 20.3 H Schistocytes FEW Sodium Level 139 Target Cells FEW White Blood Count 19.4 #H Bedside Glucose 35 *L 162 146 Test 09/20/16 05:32 09/20/16 07:00 09/20/16 09:33 Bedside Glucose 111 72 Arterial Blood HCO3 22.0 Arterial Blood Base Excess -3.9 L Arterial Blood Oxygen Saturation 93.4 L Sage Test ACCEPTAB Arterial Blood Gas Puncture Site Right Radial Arterial Blood Carboxyhemoglobin 0.5 Arterial Blood Date Drawn 09/20/2016 8:30:07 AM Arterial Blood Methemoglobin 0.2 Arterial Blood pCO2 (Temp correct) 43.5 Arterial Blood pH (Temp corrected) 7.322 L Arterial Blood pO2 (Temp corrected) 72.6 L Blood Gas A-a O2 Differential 68.5 H Blood Gas Modality NASAL CANNULA Blood Gas Notified Time 09/20/2016 8:48:40 AM Blood Gas Notified Whom DT Blood Gas Specimen Source Blood arterial Blood Gas Temperature 37.0 FiO2 27.0 Oxyhemoglobin Percent 92.7 L Total Hemoglobin 11.5 L Medications Current Medications Piperacillin Sod/ Tazobactam Sod (Zosyn 2.25gm/ 50ml (Pmx)) 50 ml @ 100 mls/hr Q8 IVPB Last administered on 09/20/16at 05:00; Admin Dose 100 MLS/HR; Start at 14:00 Pantoprazole (Protonix Iv) 40 mg DAILY@06 IV Last administered on 09/20/16at 05 :00; Admin Dose 40 MG; Start 09/07/16 at 06:00 Ondansetron HCl (Zofran Inj) 4 mg Q6H PRN IV NAUSEA AND/OR VOMITING; Start at 11:30 Miscellaneous Information 1 ea NOTE XX ; Start 09/06/16 at 12:00 Glucose (Glutose) 15 gm Q15M PRN PO DECREASED GLUCOSE; Start 09/06/16 at 12:00 Glucose (Glutose) 22.5 gm Q15M PRN PO DECREASED GLUCOSE; Start 09/06/16 at 12: 00 Dextrose (D50w Syringe) 25 ml Q15M PRN IV DECREASED GLUCOSE; Start 09/06/16 at 12:00 Dextrose (D50w Syringe) 50 ml Q15M PRN IV DECREASED GLUCOSE Last administered on 09/20/16at 04:51; Admin Dose 50 ML; Start 09/06/16 at 12:00 Glucagon (Glucagen) 1 mg Q15M PRN IM DECREASED GLUCOSE; Start 09/06/16 at 12: 00 Glucose 15 gm 15 gm Q15M PRN BUCCAL DECREASED GLUCOSE; Start 09/06/16 at 12:00 Propofol 100 ml @ 2.445 mls/ hr Q12H IV Last administered on 09/18/16at 21:53 ; Admin Dose 9.78 MLS/HR; Start 09/06/16 at 19:00 Norepinephrine/ Dextrose (Levophed/D5W) 500 ml @ 1.87 mls/hr TITRATE IV ; Start 09/07/16 at 10:00 Insulin Aspart (Novolog Insulin Pen) NOVOLOG *MODERATE* ALGORI... Q4 SC Last administered on 09/19/16at 21:55; Admin Dose 4 UNIT; Start 09/11/16 at 13:00 Epoetin Kobi (Epogen (Esrd)) 10,000 units MoWeFr@17 SC Last administered on at 16:40; Admin Dose 10,000 UNITS; Start 09/12/16 at 17:00 Voriconazole (Vfend) 200 mg BID NGT Last administered on 09/19/16at 20:52; Admin Dose 200 MG; Start 09/12/16 at 21:00 Heparin Sodium (Porcine) (Heparin (5000 Units/0.5 ml)) 5,000 unit BID SC Last administered on 09/20/16at 09:36; Admin Dose 5,000 UNIT; Start 09/13/16 at 21: 00 Hydralazine HCl (Apresoline) 10 mg Q4H PRN IV ELEVATED BLOOD PRESSURE; Start 09/18/16 at 19:00 Hydralazine HCl (Apresoline) 25 mg Q8 GTB Last administered on 09/20/16at 05:01 ; Admin Dose 25 MG; Start 09/19/16 at 14:00 Methylprednisolone Sodium Succinate (Solu-Medrol) 60 mg QAM IV Last administered on 09/20/16at 09:34; Admin Dose 60 MG; Start 09/20/16 at 09:00 Metoprolol Tartrate (Lopressor) 50 mg BID GTB Last administered on 09/19/16at 20:52; Admin Dose 50 MG; Start 09/19/16 at 21:00 Metoprolol Tartrate 5 mg 5 mg Q4H PRN IV HR>110; Start 09/19/16 at 22:00 Dextrose/Sodium Chloride (D5-1/2ns) 1,000 ml @ 75 mls/hr [id number] IV ; Start at 10:30 Assessment/Plan Chief Complaint/Hosp Course ASSESSMENT AND PLAN: 1.Hypoxemic and hypercapnic respiratory failure secondary to likely volume overload on top of significant morbid obesity and restrictive lung disease. Patient extubated yesterday consent for worsening hypercapnia. 2. Morbid obesity 3. Chronic kidney disease 4. Significant anemia following epistaxis 5. Questionable distal pulmonary embolus doubt any hemodynamic significance, negative Dopplers for deep vein thrombosis Plan 1. Trial of noninvasive positive pressure ventilation 2. Renal failure with volume removal. 3. Bronchodilators 4. Aspiration precautions. 5. Deep vein thrombosis and gastrointestinal prophylaxis. Discussed with primary team Problems: MARCIA BAIN MD, [facility] Sep 20, 2016 10:21
--- NOTE | 2016-09-20 10:32 | CONS ---
Date/Time of Note Date/Time of Note DATE: 09/20/16 TIME: 10:28 Assessment/Plan Assessment/Plan Chief Complaint/Hosp Course Imp: 1.Positive troponin-minmal in setting of esrd-Now trended negative 2.CHF-? systolic and diastolic acute on chronic 3.HTN 4. CKD on HD 5.anemia-requiring transfusions 6.Coagulopathy-resolved 7.PAF overnight now in SR currently 8. Edema-improving significantly Recc: -Tele -serial ecg's -trend cardiac enzymes -Continue HD for volume removal -Follow hgb closely -start asa given now PAF and nstemi and follow hgb closely -Continue BB and continue hydralazine -Continue abx's/anti-fungals Problems: Consultation Date/Type/Reason Admit Date/Time Sep 06, 2016 at 11:22 Initial Consult Date 09/07/2016 Type of Consultation: Cardiology Reason for Consultation CHF/PAF Referring Provider: PAMELA MARTE Exam/Review of Systems Vital Signs Vitals Vital Signs Date Time Temp Pulse Resp B/P Pulse Ox O2 Delivery O2 Flow Rate FiO2 09/20/16 09:30 78 12 125/64 100 Nasal Cannula 09/20/16 08:00 97.9 09/20/16 07:59 2.0 09/19/16 20:12 28 Intake and Output 09/19/16 09/19/16 09/20/16 15:00 23:00 07:00 Intake Total 604.89 ml 50 ml 350 ml Output Total 2030 ml 60 ml 40 ml Balance -1425.11 ml -10 ml 310 ml Exam Review of Systems: CONSTITUTIONAL: No fevers, chills. PULMONARY: No sob CARDIOVASCULAR: No chest pain/palpitations GASTROINTESTINAL: No nausea/vomiting. GENITOURINARY: No hematuria/dysuria. MUSCULOSKELETAL: No myagias/arthalgias. PSYCHIATRIC: The patient denies depression. NEUROLOGIC: lethargic Constitutional: other (sleeping) Psych: no complaints Head: normocephalic ENMT: mucosa pink and moist Neck: jvd (9 cm water), supple Respiratory: diminished breath sounds (at bases/B) Cardiovascular: regular rate and rhythm Gastrointestinal: non-tender, soft Musculoskeletal: muscle tone (normal) Extremities: edema (traced bilateral) Neurological: lethargic Results Result Diagram: 09/20/16 0430 09/20/16 0430 Results 24 hrs Laboratory Tests Test 09/19/16 13:02 09/19/16 17:21 09/19/16 21:46 09/20/16 01:17 Bedside Glucose 126 137 162 92 Test 09/20/16 04:30 09/20/16 04:40 09/20/16 04:56 09/20/16 05:10 Anion Gap 25 H Anisocytosis 2+ Blood Morphology Comment Blood Urea Nitrogen 76 H Calcium Level 9.2 Carbon Dioxide Level 22 Chloride Level 97 Creatinine 2.10 H Glucose Level 33 #*L Hematocrit 31.7 L Hemoglobin 10.6 L Lymphocytes # 2.1 Lymphocytes % 11.0 L Magnesium Level 2.0 Mean Corpuscular Hemoglobin 29.0 Mean Corpuscular Hemoglobin Concent 33.6 Mean Corpuscular Volume 86.5 Mean Platelet Volume 7.5 Monocytes # 2.1 H Monocytes % 11.0 Neutrophils # 15.1 H Neutrophils % 78.0 H Nucleated Red Blood Cells # Nucleated Red Blood Cells % 8.0 H Phosphorus Level 5.3 H Platelet Count 243 Platelet Estimate PLT APPEAR ADEQUATE Potassium Level 4.5 Red Blood Count 3.67 L Red Cell Distribution Width 20.3 H Schistocytes FEW Sodium Level 139 Target Cells FEW White Blood Count 19.4 #H Bedside Glucose 35 *L 162 146 Test 09/20/16 05:32 09/20/16 07:00 09/20/16 09:33 Bedside Glucose 111 72 Arterial Blood HCO3 22.0 Arterial Blood Base Excess -3.9 L Arterial Blood Oxygen Saturation 93.4 L Sage Test ACCEPTAB Arterial Blood Gas Puncture Site Right Radial Arterial Blood Carboxyhemoglobin 0.5 Arterial Blood Date Drawn 09/20/2016 8:30:07 AM Arterial Blood Methemoglobin 0.2 Arterial Blood pCO2 (Temp correct) 43.5 Arterial Blood pH (Temp corrected) 7.322 L Arterial Blood pO2 (Temp corrected) 72.6 L Blood Gas A-a O2 Differential 68.5 H Blood Gas Modality NASAL CANNULA Blood Gas Notified Time 09/20/2016 8:48:40 AM Blood Gas Notified Whom DT Blood Gas Specimen Source Blood arterial Blood Gas Temperature 37.0 FiO2 27.0 Oxyhemoglobin Percent 92.7 L Total Hemoglobin 11.5 L Medications Medications Current Medications Piperacillin Sod/ Tazobactam Sod (Zosyn 2.25gm/ 50ml (Pmx)) 50 ml @ 100 mls/hr Q8 IVPB Last administered on 09/20/16at 05:00; Admin Dose 100 MLS/HR; Start at 14:00 Pantoprazole (Protonix Iv) 40 mg DAILY@06 IV Last administered on 09/20/16at 05 :00; Admin Dose 40 MG; Start 09/07/16 at 06:00 Ondansetron HCl (Zofran Inj) 4 mg Q6H PRN IV NAUSEA AND/OR VOMITING; Start at 11:30 Miscellaneous Information 1 ea NOTE XX ; Start 09/06/16 at 12:00 Glucose (Glutose) 15 gm Q15M PRN PO DECREASED GLUCOSE; Start 09/06/16 at 12:00 Glucose (Glutose) 22.5 gm Q15M PRN PO DECREASED GLUCOSE; Start 09/06/16 at 12: 00 Dextrose (D50w Syringe) 25 ml Q15M PRN IV DECREASED GLUCOSE; Start 09/06/16 at 12:00 Dextrose (D50w Syringe) 50 ml Q15M PRN IV DECREASED GLUCOSE Last administered on 09/20/16at 04:51; Admin Dose 50 ML; Start 09/06/16 at 12:00 Glucagon (Glucagen) 1 mg Q15M PRN IM DECREASED GLUCOSE; Start 09/06/16 at 12: 00 Glucose 15 gm 15 gm Q15M PRN BUCCAL DECREASED GLUCOSE; Start 09/06/16 at 12:00 Propofol 100 ml @ 2.445 mls/ hr Q12H IV Last administered on 09/18/16at 21:53 ; Admin Dose 9.78 MLS/HR; Start 09/06/16 at 19:00 Norepinephrine/ Dextrose (Levophed/D5W) 500 ml @ 1.87 mls/hr TITRATE IV ; Start 09/07/16 at 10:00 Insulin Aspart (Novolog Insulin Pen) NOVOLOG *MODERATE* ALGORI... Q4 SC Last administered on 09/19/16at 21:55; Admin Dose 4 UNIT; Start 09/11/16 at 13:00 Epoetin Kobi (Epogen (Esrd)) 10,000 units MoWeFr@17 SC Last administered on at 16:40; Admin Dose 10,000 UNITS; Start 09/12/16 at 17:00 Voriconazole (Vfend) 200 mg BID NGT Last administered on 09/19/16at 20:52; Admin Dose 200 MG; Start 09/12/16 at 21:00 Heparin Sodium (Porcine) (Heparin (5000 Units/0.5 ml)) 5,000 unit BID SC Last administered on 09/20/16at 09:36; Admin Dose 5,000 UNIT; Start 09/13/16 at 21: 00 Hydralazine HCl (Apresoline) 10 mg Q4H PRN IV ELEVATED BLOOD PRESSURE; Start 09/18/16 at 19:00 Hydralazine HCl (Apresoline) 25 mg Q8 GTB Last administered on 09/20/16at 05:01 ; Admin Dose 25 MG; Start 09/19/16 at 14:00 Methylprednisolone Sodium Succinate (Solu-Medrol) 60 mg QAM IV Last administered on 09/20/16at 09:34; Admin Dose 60 MG; Start 09/20/16 at 09:00 Metoprolol Tartrate (Lopressor) 50 mg BID GTB Last administered on 09/19/16at 20:52; Admin Dose 50 MG; Start 09/19/16 at 21:00 Metoprolol Tartrate 5 mg 5 mg Q4H PRN IV HR>110; Start 09/19/16 at 22:00 Dextrose/Sodium Chloride (D5-1/2ns) 1,000 ml @ 75 mls/hr [id number] IV ; Start at 10:30 KAJAL MCKINNEY Sep 20, 2016 10:32
[2016-09-20] MEDS: DEXTROSE 5%-0.45% NACL 1,000 ML IV SCH (10:46)
--- NOTE | 2016-09-20 11:42 | PN ---
Date/Time of Note Date/Time of Note DATE: 09/19/16 TIME: 11:37 Assessment/Plan VTE Prophylaxis VTE Prophylaxis Intervention: SCD's Lines/Catheters IV [facility]from [facility] JUAN PABLO Urinary Cath still in place: No Assessment/Plan Assessment/Plan [facility] 1. Hospital day 13 for this 71 yo woman who is now post-extubation for the second time, following admission for acute respiratory failure secondary to CHF and volume overload related to end-state renal disease. She is now much more fluid-balanced on hemodialysis, followed closely by Dr. Speedy Peacock. No wheezing now on exam. * Solumedrol dose consolidated this AM at 60 mg IV q24h * Plan to monitor overnight in ICU, given her brittle respiratory status. 2. Congestive heart failure, systolic acute on chronic, cardiomyopathy with LVEF 40-45. Elevated troponin / NSTEMI secondary to demand ischemia. Paroxysmal atrial fibrillation. 3. End stage renal disease, on hemodialysis for volume management 4. Pneumonia possibly secondary to aspiration. Sepsis with septic shock secondary to pneumonia. Now off pressors, afebrile, and with normalized WBC. * Continue Zosyn 5. Diabetes type 2, with sugars of 246 and 226 this morning on the higher dose of Lantus 35-units q12h. * Insulin orders will require modification now that she is off tube feedings. * Swallowing study planned for tomorrow morning 6. Hypertension * Continue low-dose Lopressor 7. Chronic hypochromic anemia secondary to chronic disease, stable Hct at 28.2% . 8. UTI secondary to yeast. Repeat UA was positive for leukocyte esterase and culture showing yeast >100K, non-albicans again. * Continue Voriconazole 200 mg daily 9. Coagulopathy. Upper extremity DVT--superficial venous thrombosis in the cephalic vein in the left upper arm. Negative lower extremity Doppler yesterday for DVT. * Resumed Heparin for DVT prevention. * Repeat Doppler anticipated in 1 to 2 weeks 10. Prophylaxis: Heparin for DVT ppx and Protonix for GI ppx 11. Disposition: Transfer to telemetry tomorrow anticipated. Continued hemodialysis. Vivian Alatorre MD PhD [phone] Subjective 24 Hr Interval Summary Free Text/Dictation Feeling much better after extubation. No pain complaints or nausea. Refusing her Epo injection, for unclear reasons. Her sisters are traveling this afternoon to be with her, but no visitors were present through the several hours when I was checking on her. Exam/Review of Systems Vital Signs Vitals Vital Signs Date Time Temp Pulse Resp B/P Pulse Ox O2 Delivery O2 Flow Rate FiO2 09/20/16 10:45 76 100 30 09/20/16 09:30 12 125/64 Nasal Cannula 09/20/16 08:00 97.9 09/20/16 07:59 2.0 Intake and Output 09/19/16 09/19/16 09/20/16 15:00 23:00 07:00 Intake Total 604.89 ml 50 ml 350 ml Output Total 2030 ml 135 ml 40 ml Balance -1425.11 ml -85 ml 310 ml Exam Constitutional: Alert, speaking in short phrases after extubation. Respiratory: Clear lungs, no crackles or wheezes. Cardiovascular: nl pulses, regular rate and rhythm Gastrointestinal: non-tender, soft, non-tympanic Musculoskeletal: 1+ pitting edema, symmetric pulses. Neurological: Cranial nerves, motor and light touch sensation intact. Toes downgoing. Results Result Diagram: 09/20/16 0430 09/20/16 0430 Results 24 hrs Laboratory Tests Test 09/19/16 13:02 09/19/16 17:21 09/19/16 21:46 09/20/16 01:17 Bedside Glucose 126 137 162 92 Test 09/20/16 04:30 09/20/16 04:40 09/20/16 04:56 09/20/16 05:10 Anion Gap 25 H Anisocytosis 2+ Blood Morphology Comment Blood Urea Nitrogen 76 H Calcium Level 9.2 Carbon Dioxide Level 22 Chloride Level 97 Creatinine 2.10 H Glucose Level 33 #*L Hematocrit 31.7 L Hemoglobin 10.6 L Lymphocytes # 2.1 Lymphocytes % 11.0 L Magnesium Level 2.0 Mean Corpuscular Hemoglobin 29.0 Mean Corpuscular Hemoglobin Concent 33.6 Mean Corpuscular Volume 86.5 Mean Platelet Volume 7.5 Monocytes # 2.1 H Monocytes % 11.0 Neutrophils # 15.1 H Neutrophils % 78.0 H Nucleated Red Blood Cells # Nucleated Red Blood Cells % 8.0 H Phosphorus Level 5.3 H Platelet Count 243 Platelet Estimate PLT APPEAR ADEQUATE Potassium Level 4.5 Red Blood Count 3.67 L Red Cell Distribution Width 20.3 H Schistocytes FEW Sodium Level 139 Target Cells FEW White Blood Count 19.4 #H Bedside Glucose 35 *L 162 146 Test 09/20/16 05:32 09/20/16 07:00 09/20/16 09:33 Bedside Glucose 111 72 Arterial Blood HCO3 22.0 Arterial Blood Base Excess -3.9 L Arterial Blood Oxygen Saturation 93.4 L Sage Test ACCEPTAB Arterial Blood Gas Puncture Site Right Radial Arterial Blood Carboxyhemoglobin 0.5 Arterial Blood Date Drawn 09/20/2016 8:30:07 AM Arterial Blood Methemoglobin 0.2 Arterial Blood pCO2 (Temp correct) 43.5 Arterial Blood pH (Temp corrected) 7.322 L Arterial Blood pO2 (Temp corrected) 72.6 L Blood Gas A-a O2 Differential 68.5 H Blood Gas Modality NASAL CANNULA Blood Gas Notified Time 09/20/2016 8:48:40 AM Blood Gas Notified Whom DT Blood Gas Specimen Source Blood arterial Blood Gas Temperature 37.0 FiO2 27.0 Oxyhemoglobin Percent 92.7 L Total Hemoglobin 11.5 L Medications Medications Current Medications Piperacillin Sod/ Tazobactam Sod (Zosyn 2.25gm/ 50ml (Pmx)) 50 ml @ 100 mls/hr Q8 IVPB Last administered on 09/20/16at 05:00; Admin Dose 100 MLS/HR; Start at 14:00 Pantoprazole (Protonix Iv) 40 mg DAILY@06 IV Last administered on 09/20/16at 05 :00; Admin Dose 40 MG; Start 09/07/16 at 06:00 Ondansetron HCl (Zofran Inj) 4 mg Q6H PRN IV NAUSEA AND/OR VOMITING; Start at 11:30 Miscellaneous Information 1 ea NOTE XX ; Start 09/06/16 at 12:00 Glucose (Glutose) 15 gm Q15M PRN PO DECREASED GLUCOSE; Start 09/06/16 at 12:00 Glucose (Glutose) 22.5 gm Q15M PRN PO DECREASED GLUCOSE; Start 09/06/16 at 12: 00 Dextrose (D50w Syringe) 25 ml Q15M PRN IV DECREASED GLUCOSE; Start 09/06/16 at 12:00 Dextrose (D50w Syringe) 50 ml Q15M PRN IV DECREASED GLUCOSE Last administered on 09/20/16at 04:51; Admin Dose 50 ML; Start 09/06/16 at 12:00 Glucagon (Glucagen) 1 mg Q15M PRN IM DECREASED GLUCOSE; Start 09/06/16 at 12: 00 Glucose 15 gm 15 gm Q15M PRN BUCCAL DECREASED GLUCOSE; Start 09/06/16 at 12:00 Propofol 100 ml @ 2.445 mls/ hr Q12H IV Last administered on 09/18/16at 21:53 ; Admin Dose 9.78 MLS/HR; Start 09/06/16 at 19:00 Norepinephrine/ Dextrose (Levophed/D5W) 500 ml @ 1.87 mls/hr TITRATE IV ; Start 09/07/16 at 10:00 Insulin Aspart (Novolog Insulin Pen) NOVOLOG *MODERATE* ALGORI... Q4 SC Last administered on 09/19/16at 21:55; Admin Dose 4 UNIT; Start 09/11/16 at 13:00 Epoetin Kobi (Epogen (Esrd)) 10,000 units MoWeFr@17 SC Last administered on at 16:40; Admin Dose 10,000 UNITS; Start 09/12/16 at 17:00 Voriconazole (Vfend) 200 mg BID NGT Last administered on 09/19/16at 20:52; Admin Dose 200 MG; Start 09/12/16 at 21:00 Heparin Sodium (Porcine) (Heparin (5000 Units/0.5 ml)) 5,000 unit BID SC Last administered on 09/20/16at 09:36; Admin Dose 5,000 UNIT; Start 09/13/16 at 21: 00 Hydralazine HCl (Apresoline) 10 mg Q4H PRN IV ELEVATED BLOOD PRESSURE; Start 09/18/16 at 19:00 Hydralazine HCl (Apresoline) 25 mg Q8 GTB Last administered on 09/20/16at 05:01 ; Admin Dose 25 MG; Start 09/19/16 at 14:00 Methylprednisolone Sodium Succinate (Solu-Medrol) 60 mg QAM IV Last administered on 09/20/16at 09:34; Admin Dose 60 MG; Start 09/20/16 at 09:00 Metoprolol Tartrate (Lopressor) 50 mg BID GTB Last administered on 09/19/16at 20:52; Admin Dose 50 MG; Start 09/19/16 at 21:00 Metoprolol Tartrate 5 mg 5 mg Q4H PRN IV HR>110; Start 09/19/16 at 22:00 Dextrose/Sodium Chloride (D5-1/2ns) 1,000 ml @ 40 mls/hr Q24H IV Last administered on 09/20/16at 10:46; Admin Dose 75 MLS/HR; Start 09/20/16 at 10:30 Aspirin (Ecotrin) 325 mg DAILY PO ; Start 09/20/16 at 11:00 Amiodarone HCl (Cordarone) 200 mg BID PO ; Start 09/20/16 at 21:00 MARISA ALATORRE M.D. Sep 20, 2016 11:42 administered on 09/20/16at 10:46; Admin Dose 75 MLS/HR; Start 09/20/16 at 10:30 Aspirin (Ecotrin) 325 mg DAILY PO ; Start 09/20/16 at 11:00 Amiodarone HCl (Cordarone) 200 mg BID PO ; Start 09/20/16 at 21:00 MARISA ALATORRE M.D. Sep 20, 2016 11:42
--- NOTE | 2016-09-20 13:53 | PN ---
DATE: 09/20/2016 SUBJECTIVE: The patient was extubated yesterday, currently on BiPAP. The patient is on hemodialysi s, tolerating well. No other acute events noted. OBJECTIVE: VITAL SIGNS: Blood pressure is 125/64, respiration 12, pulse 78, temperature 98.6. HEENT: Head is normocephalic. NECK: Supple. HEART: Regular rate. LUNGS: Show diminished breath sounds at base. ABDOMEN: Soft, nontender to palpation without rebound or guarding. EXTREMITIES: Negative for clubbing, cyanosis. Positive edema. DERMATOLOGIC: No rashes. MUSCULOSKELETAL: No joint effusions. NEUROLOGIC: No change in exam. MEDICATIONS: The patient's medications have been reviewed. LABORATORY DATA: Shows sodium 139, potassium 4.5, chloride 97, BUN 76, creatinine 2.10. White coun t 19.4, hemoglobin 10.6, hematocrit 31.7, platelet count 243. ASSESSMENT AND PLAN: 1. Anuric acute kidney injury on top of chronic kidney disease stage IV. Likely now progressed to end-stage renal disease. The patient is currently receiving daily dialysis for volume removal and s olute clearance. We will anticipate dialysis again today and tomorrow. 2. Volume overload. Continue ultrafiltration with dialysis. 3. Hypokalemia, improved. 4. Hyponatremia, improved. Continue to monitor. 5. Respiratory status, status post extubation. The patient is currently on BiPAP, continue to maria de jesus tor closely. 6. Sepsis, status post shock. Continue antibiotic regimen. 7. Diabetes. Continue current insulin regimen. 8. Hypertension. Continue current blood pressure regimen. 9. Encephalopathy, etiology toxic metabolic. Continue to monitor. 10. Dysphagia. The patient is currently n.p.o., swallow evaluation pending. 11. History of coronary artery disease. Continue medical management. Dictated By: STEFFANY JESUS/ADRIA Conf#: [id number] DID#: [id number]
--- NOTE | 2016-09-20 15:16 | PN ---
Date/Time of Note Date/Time of Note DATE: 09/20/16 TIME: 15:14 Assessment/Plan VTE Prophylaxis VTE Prophylaxis Intervention: SCD's Lines/Catheters IV [facility] Type ([facility] PICC Line (PERMA-CATH) Central line still needed: Yes Urinary Cath still in place: No Assessment/Plan Assessment/Plan 1. Hospital day 14 for this 71 yo woman who is now post-extubation for the second time, following admission for acute respiratory failure secondary to CHF and volume overload related to end-state renal disease. She is now much more fluid-balanced on hemodialysis, followed closely by Dr. Speedy Peacock. No wheezing now on exam. * Solumedrol dose consolidated this AM at 60 mg IV q24h * Plan to monitor overnight in ICU, given her brittle respiratory status. Consider transfer to tele in AM if more awake and she can control secretions/ airway. Case d/w Dr. Daniel. 2. Congestive heart failure, systolic acute on chronic, cardiomyopathy with LVEF 40-45. Elevated troponin / NSTEMI secondary to demand ischemia. Paroxysmal atrial fibrillation. 3. End stage renal disease, on hemodialysis for volume management. HD today. 4. Pneumonia possibly secondary to aspiration. Sepsis with septic shock secondary to pneumonia. Now off pressors, afebrile, and with normalized WBC. * Continue Zosyn 5. Diabetes type 2, with sugars of 246 and 226 this morning on the higher dose of Lantus 35-units q12h. * Insulin orders will require modification now that she is off tube feedings. * Swallowing study planned for tomorrow morning 6. Hypertension * Continue low-dose Lopressor 7. Chronic hypochromic anemia secondary to chronic disease, stable Hct at 28.2% . 8. UTI secondary to yeast. Repeat UA was positive for leukocyte esterase and culture showing yeast >100K, non-albicans again. * Continue Voriconazole 200 mg daily 9. Coagulopathy. Upper extremity DVT--superficial venous thrombosis in the cephalic vein in the left upper arm. Negative lower extremity Doppler yesterday for DVT. * Resumed Heparin for DVT prevention. * Repeat Doppler anticipated in 1 to 2 weeks 10. Prophylaxis: Heparin for DVT ppx and Protonix for GI ppx 11. Disposition: Transfer to telemetry tomorrow anticipated if stable from a respiratory standpoint. Subjective 24 Hr Interval Summary Free Text/Dictation Extubated yesterday. Slighlty more somulent today. Exam/Review of Systems Vital Signs Vitals Vital Signs Date Time Temp Pulse Resp B/P Pulse Ox O2 Delivery O2 Flow Rate FiO2 09/20/16 13:36 77 18 09/20/16 11:30 140/72 100 BIPAP 09/20/16 10:45 30 09/20/16 08:00 97.9 09/20/16 07:59 2.0 Intake and Output 09/19/16 09/19/16 09/20/16 15:00 23:00 07:00 Intake Total 604.89 ml 50 ml 350 ml Output Total 2030 ml 135 ml 40 ml Balance -1425.11 ml -85 ml 310 ml Exam Constitutional: other Psych: no complaints Head: normocephalic Eyes: nl conjunctiva Respiratory: congested cough Cardiovascular: regular rate and rhythm Gastrointestinal: soft Musculoskeletal: nl extremities to inspection Results Result Diagram: 09/20/16 0430 09/20/16 0430 Results 24 hrs Laboratory Tests Test 09/19/16 17:21 09/19/16 21:46 09/20/16 01:17 09/20/16 04:30 Bedside Glucose 137 162 92 Anion Gap 25 H Anisocytosis 2+ Blood Morphology Comment Blood Urea Nitrogen 76 H Calcium Level 9.2 Carbon Dioxide Level 22 Chloride Level 97 Creatinine 2.10 H Glucose Level 33 #*L Hematocrit 31.7 L Hemoglobin 10.6 L Lymphocytes # 2.1 Lymphocytes % 11.0 L Magnesium Level 2.0 Mean Corpuscular Hemoglobin 29.0 Mean Corpuscular Hemoglobin Concent 33.6 Mean Corpuscular Volume 86.5 Mean Platelet Volume 7.5 Monocytes # 2.1 H Monocytes % 11.0 Neutrophils # 15.1 H Neutrophils % 78.0 H Nucleated Red Blood Cells # Nucleated Red Blood Cells % 8.0 H Phosphorus Level 5.3 H Platelet Count 243 Platelet Estimate PLT APPEAR ADEQUATE Potassium Level 4.5 Red Blood Count 3.67 L Red Cell Distribution Width 20.3 H Schistocytes FEW Sodium Level 139 Target Cells FEW White Blood Count 19.4 #H Test 09/20/16 04:40 09/20/16 04:56 09/20/16 05:10 09/20/16 05:32 Bedside Glucose 35 *L 162 146 111 Test 09/20/16 07:00 09/20/16 09:33 09/20/16 13:16 Arterial Blood HCO3 22.0 Arterial Blood Base Excess -3.9 L Arterial Blood Oxygen Saturation 93.4 L Sage Test ACCEPTAB Arterial Blood Gas Puncture Site Right Radial Arterial Blood Carboxyhemoglobin 0.5 Arterial Blood Date Drawn 09/20/2016 8:30:07 AM Arterial Blood Methemoglobin 0.2 Arterial Blood pCO2 (Temp correct) 43.5 Arterial Blood pH (Temp corrected) 7.322 L Arterial Blood pO2 (Temp corrected) 72.6 L Blood Gas A-a O2 Differential 68.5 H Blood Gas Modality NASAL CANNULA Blood Gas Notified Time 09/20/2016 8:48:40 AM Blood Gas Notified Whom DT Blood Gas Specimen Source Blood arterial Blood Gas Temperature 37.0 FiO2 27.0 Oxyhemoglobin Percent 92.7 L Total Hemoglobin 11.5 L Bedside Glucose 72 138 Medications Medications Current Medications Piperacillin Sod/ Tazobactam Sod (Zosyn 2.25gm/ 50ml (Pmx)) 50 ml @ 100 mls/hr Q8 IVPB Last administered on 09/20/16at 14:58; Admin Dose 100 MLS/HR; Start at 14:00 Pantoprazole (Protonix Iv) 40 mg DAILY@06 IV Last administered on 09/20/16at 05 :00; Admin Dose 40 MG; Start 09/07/16 at 06:00 Ondansetron HCl (Zofran Inj) 4 mg Q6H PRN IV NAUSEA AND/OR VOMITING; Start at 11:30 Miscellaneous Information 1 ea NOTE XX ; Start 09/06/16 at 12:00 Glucose (Glutose) 15 gm Q15M PRN PO DECREASED GLUCOSE; Start 09/06/16 at 12:00 Glucose (Glutose) 22.5 gm Q15M PRN PO DECREASED GLUCOSE; Start 09/06/16 at 12: 00 Dextrose (D50w Syringe) 25 ml Q15M PRN IV DECREASED GLUCOSE; Start 09/06/16 at 12:00 Dextrose (D50w Syringe) 50 ml Q15M PRN IV DECREASED GLUCOSE Last administered on 09/20/16at 04:51; Admin Dose 50 ML; Start 09/06/16 at 12:00 Glucagon (Glucagen) 1 mg Q15M PRN IM DECREASED GLUCOSE; Start 09/06/16 at 12: 00 Glucose 15 gm 15 gm Q15M PRN BUCCAL DECREASED GLUCOSE; Start 09/06/16 at 12:00 Propofol 100 ml @ 2.445 mls/ hr Q12H IV Last administered on 09/18/16at 21:53 ; Admin Dose 9.78 MLS/HR; Start 09/06/16 at 19:00 Norepinephrine/ Dextrose (Levophed/D5W) 500 ml @ 1.87 mls/hr TITRATE IV ; Start 09/07/16 at 10:00 Insulin Aspart (Novolog Insulin Pen) NOVOLOG *MODERATE* ALGORI... Q4 SC Last administered on 09/19/16at 21:55; Admin Dose 4 UNIT; Start 09/11/16 at 13:00 Epoetin Kobi (Epogen (Esrd)) 10,000 units MoWeFr@17 SC Last administered on 16:40; Admin Dose 10,000 UNITS; Start 09/12/16 at 17:00 Voriconazole (Vfend) 200 mg BID NGT Last administered on 09/19/16 20:52; Admin Dose 200 MG; Start 09/12/16 at 21:00 Heparin Sodium (Porcine) (Heparin (5000 Units/0.5 ml)) 5,000 unit BID SC Last administered on 09/20/16at 09:36; Admin Dose 5,000 UNIT; Start 09/13/16 at 21: 00 Hydralazine HCl (Apresoline) 10 mg Q4H PRN IV ELEVATED BLOOD PRESSURE; Start 09/18/16 at 19:00 Hydralazine HCl (Apresoline) 25 mg Q8 GTB Last administered on 09/20/16at 05:01 ; Admin Dose 25 MG; Start 09/19/16 at 14:00 Methylprednisolone Sodium Succinate (Solu-Medrol) 60 mg QAM IV Last administered on 09/20/16at 09:34; Admin Dose 60 MG; Start 09/20/16 at 09:00 Metoprolol Tartrate (Lopressor) 50 mg BID GTB Last administered on 09/19/16at 20:52; Admin Dose 50 MG; Start 09/19/16 at 21:00 Metoprolol Tartrate 5 mg 5 mg Q4H PRN IV HR>110; Start 09/19/16 at 22:00 Dextrose/Sodium Chloride (D5-1/2ns) 1,000 ml @ 40 mls/hr Q24H IV Last administered on 09/20/16at 10:46; Admin Dose 75 MLS/HR; Start 09/20/16 at 10:30 Aspirin (Ecotrin) 325 mg DAILY PO ; Start 09/20/16 at 11:00 Amiodarone HCl (Cordarone) 200 mg BID PO ; Start 09/20/16 at 21:00 RIGOBERTO SILVERIO MD Sep 20, 2016 15:16
[2016-09-20] MEDS: METOPROLOL 5 MG INJ IV PRN (16:27)
[2016-09-20] MEDS: METOPROLOL 50 MG TAB GTB SCH ×2 (17:24→21:00)
[2016-09-20] MEDS: VORICONAZOLE 200 MG TAB NGT SCH ×2 (17:24→21:18)
[2016-09-20] MEDS: ASPIRIN (EC) 325 MG TAB PO SCH (17:24)
[2016-09-20] MEDS ORDERED: DIGOXIN 500 MCG INJ IV ONE ×2 (18:00→18:06)
[2016-09-20] MEDS ORDERED: AMIODARONE 150MG/D5W BOLUS 100 ML IV ONE (18:00)
[2016-09-20] MEDS ORDERED: AMIODARONE 150MG/D5W BOLUS 100 ML ONE (18:07)
[2016-09-20] MEDS ORDERED: AMIODARONE 900 MG in DEXTROSE 5% 482 ML IV SCH (18:30)
[2016-09-20] MEDS: AMIODARONE 200 MG TAB PO SCH (21:00)
[2016-09-21] VITALS (79 sets, daily range): BP systolic 99–181; BP diastolic 49–145; PULSE 70–142; RESP 11–35
[2016-09-21] MEDS: INSULIN ASPART [NOVOLOG] 3 ML PEN SC SCH ×6 (01:00→21:55)
[2016-09-21] MEDS: DEXTROSE 5%-0.45% NACL 1,000 ML IV SCH (03:21)
[2016-09-21] MEDS: hydrALAzine 20 MG INJ IV PRN ×2 (03:49→23:47)
[2016-09-21 04:56] LABS: POTASSIUM 4.6 mmol/L (3.5-5.1)
[2016-09-21 04:59] LABS: CREATININE 1.83 mg/dl (0.44-1.00)
[2016-09-21 05:00] LABS: CALCIUM 8.8 mg/dl (8.4-10.2); MAGNESIUM 1.9 mg/dl (1.7-2.5); PHOSPHORUS 5.1 mg/dl (2.5-4.9)
[2016-09-21 05:12] LABS: HEMATOCRIT 30.2 % (37.0-47.0); HEMOGLOBIN 10.3 g/dl (12.0-16.0); MEAN CORPUSCULAR HEMOGLOBIN 29.7 pg (29.0-33.0); MEAN CORPUSCULAR VOLUME 87.3 fl (82.0-101.0); MEAN PLATELET VOLUME 7.7 fl (7.4-10.4); PLATELET COUNT 206 10^3/UL (140-440); RED BLOOD COUNT 3.45 10^6/ul (4.20-5.40); RED CELL DISTRIBUTION WIDTH 19.7 % (11.5-14.5); UNCORRECTED WBC 13.7 10^3/ul (4.8-10.8); WHITE BLOOD COUNT 13.7 10^3/ul (4.8-10.8)
[2016-09-21] MEDS: PANTOPRAZOLE 40 MG INJ IV SCH (05:53)
[2016-09-21] MEDS: PIPER-TAZO 2.25 GM (PMX) 50 ML IVPB SCH ×3 (05:54→21:50)
[2016-09-21 06:26] LABS: CONDITION 1; LH ANALYZER COMMENTS 1; SUSPECT 1
[2016-09-21] MEDS: PROPOFOL 100 ML IV SCH ×2 (07:00→17:01)
[2016-09-21] MEDS: METOPROLOL 50 MG TAB GTB SCH ×2 (08:49→21:49)
[2016-09-21] MEDS: METHYLPREDNISOLONE 125 MG INJ IV SCH (08:49)
[2016-09-21] MEDS: VORICONAZOLE 200 MG TAB NGT SCH ×2 (08:49→22:02)
[2016-09-21] MEDS: ASPIRIN (EC) 325 MG TAB PO SCH (08:50)
[2016-09-21] MEDS: AMIODARONE 200 MG TAB PO SCH ×3 (08:50→21:49)
[2016-09-21] MEDS: HEPARIN 5,000 UNIT/0.5 ML SYG SC SCH ×2 (08:51→21:57)
[2016-09-21] MEDS: METOPROLOL 5 MG INJ IV PRN (09:01)
[2016-09-21] MEDS: ALBUTEROL/IPRATROPIUM (NEB) 3 ML AMP HHN SCH ×3 (09:21→20:41)
[2016-09-21 09:56] LABS: LYMPHOCYTES # 0.4 10^3/ul (0.8-2.9); NEUTROPHIL # 12.1 10^3/ul (1.6-7.5)
[2016-09-21] MEDS ORDERED: ALBUMIN HUMAN 25% 100 ML ONE (10:04)
[2016-09-21] MEDS ORDERED: ALBUMIN HUMAN 25% 100 ML IV ONE (10:30)
--- NOTE | 2016-09-21 10:38 | CONS ---
Date/Time of Note Date/Time of Note DATE: 09/21/16 TIME: 10:37 Consult Date/Type/Reason Admit Date/Time Sep 06, 2016 at 11:22 Type of Consultation: pulmonary Ordering Provider: PAMELA MARTE Subjective More alert today more agitation Continues nasal cannula and/or Ventimask Currently having hemodialysis Objective Vital Signs Date Time Temp Pulse Resp B/P Pulse Ox O2 Delivery O2 Flow Rate FiO2 09/21/16 09:21 86 24 97 Venti Mask 15.0 50 09/21/16 09:00 176/145 09/21/16 08:00 98.4 Intake and Output 09/20/16 09/20/16 09/21/16 15:00 23:00 07:00 Intake Total 700 ml 673.2 ml 433.0 ml Output Total 1500 ml 0 ml 40 ml Balance -800 ml 673.2 ml 393.0 ml PHYSICAL EXAMINATION GENERAL: Elderly lady on nasal cannula oxygen VITAL SIGNS: see below. HEENT: Pupils equal, round, and reactive to light. CARDIAC: S1, S2, CHEST: Diminished air entry bilaterally. ABDOMEN: Mildly distended. No bowel sounds. Obese no guarding or rebound EXTREMITIES: No cyanosis, clubbing edema +2 NEUROLOGIC: Generalized weakness Results/Medications Result Diagram: 09/21/16 0320 09/21/16 0320 Results 24 hrs Laboratory Tests Test 09/20/16 13:16 09/20/16 17:39 09/20/16 21:13 09/21/16 01:23 Bedside Glucose 138 154 119 112 Test 09/21/16 03:20 09/21/16 05:33 09/21/16 08:26 Anion Gap 23 H Band Neutrophils % 2.0 Blood Morphology Comment Blood Urea Nitrogen 49 #H Calcium Level 8.8 Carbon Dioxide Level 22 Chloride Level 95 L Creatinine 1.83 H Glucose Level 87 # Hematocrit 30.2 L Hemoglobin 10.3 L Lymphocytes # 0.4 L Lymphocytes % 3.0 L Magnesium Level 1.9 Mean Corpuscular Hemoglobin 29.7 Mean Corpuscular Hemoglobin Concent 34.0 Mean Corpuscular Volume 87.3 Mean Platelet Volume 7.7 Monocytes # 1.0 H Monocytes % 7.0 Neutrophils # 12.1 H Neutrophils % 88.0 H Nucleated Red Blood Cells # Nucleated Red Blood Cells % 6.0 H Phosphorus Level 5.1 H Platelet Count 206 Potassium Level 4.6 Red Blood Count 3.45 L Red Cell Distribution Width 19.7 H Sodium Level 135 White Blood Count 13.7 #H Bedside Glucose 95 84 Medications Current Medications Piperacillin Sod/ Tazobactam Sod (Zosyn 2.25gm/ 50ml (Pmx)) 50 ml @ 100 mls/hr Q8 IVPB Last administered on 09/21/16 05:54; Admin Dose 100 MLS/HR; Start at 14:00 Pantoprazole (Protonix Iv) 40 mg DAILY@06 IV Last administered on 09/21/16 05: 53; Admin Dose 40 MG; Start 09/07/16 at 06:00 Ondansetron HCl (Zofran Inj) 4 mg Q6H PRN IV NAUSEA AND/OR VOMITING; Start at 11:30 Miscellaneous Information 1 ea NOTE XX ; Start 09/06/16 at 12:00 Glucose (Glutose) 15 gm Q15M PRN PO DECREASED GLUCOSE; Start 09/06/16 at 12:00 Glucose (Glutose) 22.5 gm Q15M PRN PO DECREASED GLUCOSE; Start 09/06/16 at 12: 00 Dextrose (D50w Syringe) 25 ml Q15M PRN IV DECREASED GLUCOSE; Start 09/06/16 at 12:00 Dextrose (D50w Syringe) 50 ml Q15M PRN IV DECREASED GLUCOSE Last administered on 09/20/16at 04:51; Admin Dose 50 ML; Start 09/06/16 at 12:00 Glucagon (Glucagen) 1 mg Q15M PRN IM DECREASED GLUCOSE; Start 09/06/16 at 12: 00 Glucose 15 gm 15 gm Q15M PRN BUCCAL DECREASED GLUCOSE; Start 09/06/16 at 12:00 Propofol 100 ml @ 2.445 mls/ hr Q12H IV Last administered on 09/18/16at 21:53 ; Admin Dose 9.78 MLS/HR; Start 09/06/16 at 19:00 Norepinephrine/ Dextrose (Levophed/D5W) 500 ml @ 1.87 mls/hr TITRATE IV ; Start 09/07/16 at 10:00 Insulin Aspart (Novolog Insulin Pen) NOVOLOG *MODERATE* ALGORI... Q4 SC Last administered on 09/20/16at 17:42; Admin Dose 2 UNIT; Start 09/11/16 at 13:00 Epoetin Kobi (Epogen (Esrd)) 10,000 units MoWeFr@17 SC Last administered on at 16:40; Admin Dose 10,000 UNITS; Start 09/12/16 at 17:00 Voriconazole (Vfend) 200 mg BID NGT Last administered on 09/21/16 08:49; Admin Dose 200 MG; Start 09/12/16 at 21:00 Heparin Sodium (Porcine) (Heparin (5000 Units/0.5 ml)) 5,000 unit BID SC Last administered on 09/21/16 08:51; Admin Dose 5,000 UNIT; Start 09/13/16 at 21:00 Hydralazine HCl (Apresoline) 10 mg Q4H PRN IV ELEVATED BLOOD PRESSURE Last administered on 09/21/16 03:49; Admin Dose 10 MG; Start 09/18/16 at 19:00 Hydralazine HCl (Apresoline) 25 mg Q8 GTB Last administered on 09/21/16 05:53; Admin Dose 25 MG; Start 09/19/16 at 14:00 Methylprednisolone Sodium Succinate (Solu-Medrol) 60 mg QAM IV Last administered on 09/21/16 08:49; Admin Dose 60 MG; Start 09/20/16 at 09:00 Metoprolol Tartrate (Lopressor) 50 mg BID GTB Last administered on 09/21/16 08: 49; Admin Dose 50 MG; Start 09/19/16 at 21:00 Metoprolol Tartrate 5 mg 5 mg Q4H PRN IV HR>110 Last administered on 09/21/16 09:01; Admin Dose 5 MG; Start 09/19/16 at 22:00 Dextrose/Sodium Chloride (D5-1/2ns) 1,000 ml @ 40 mls/hr Q24H IV Last administered on 09/21/16 03:21; Admin Dose 40 MLS/HR; Start 09/20/16 at 10:30 Aspirin (Ecotrin) 325 mg DAILY PO Last administered on 09/21/16 08:50; Admin Dose 325 MG; Start 09/20/16 at 11:00 Amiodarone HCl 200 mg 200 mg BID PO Last administered on 09/21/16 08:50; Admin Dose 200 MG; Start 09/20/16 at 21:00 Amiodarone HCl 900 mg/Dextrose 500 ml @ 0 mls/hr Q0M IV Last administered on at 18:42; Admin Dose 33.33 MLS/HR; Start 09/20/16 at 18:30; Stop 09/21/16 at 18:29 Albumin Human (Albumin Human 25%) 100 ml @ 100 mls/hr ONCE ONCE IV ; Start 09/21/16 at 10:30; Stop 09/21/16 at 11:29 Assessment/Plan Chief Complaint/Hosp Course ASSESSMENT AND PLAN: 1.Hypoxemic and hypercapnic respiratory failure secondary to likely volume overload on top of significant morbid obesity and restrictive lung disease. Patient extubated yesterday consent for worsening hypercapnia. 2. Morbid obesity 3. Chronic kidney disease 4. Significant anemia following epistaxis 5. Questionable distal pulmonary embolus doubt any hemodynamic significance, negative Dopplers for deep vein thrombosis Plan 1. Trial of noninvasive positive pressure ventilation 2. Renal failure with volume removal as tolerated 3. Bronchodilators 4. Aspiration precautions. 5. Deep vein thrombosis and gastrointestinal prophylaxis. Discussed with primary team Keep patient intensive care unit as overall status remains questionable Problems: MARCIA BAIN MD, [facility] Sep 21, 2016 10:38
--- NOTE | 2016-09-21 11:10 | PN ---
Date/Time of Note Date/Time of Note DATE: 09/21/16 TIME: 11:04 Assessment/Plan VTE Prophylaxis VTE Prophylaxis Intervention: SCD's Lines/Catheters IV Catheter Type (from Nrs): PERMA CATH Central line still needed: Yes Urinary Cath still in place: No Reason Cath still needed: pres ulcer contaminated by urine Assessment/Plan Assessment/Plan 1. Hospital day 15 for this 71 yo woman who is now post-extubation for the second time, following admission for acute respiratory failure secondary to CHF and volume overload related to end-state renal disease. She is now much more fluid-balanced on daily hemodialysis, followed closely by Dr. Speedy Peacock. * Solumedrol dose consolidated this AM at 60 mg IV q24h * Case discussed extensively with Dr. Daniel, and given her brittle respiratory status, she will remain in the ICU. 2. Congestive heart failure, systolic acute on chronic, cardiomyopathy with LVEF 40-45. Elevated troponin / NSTEMI secondary to demand ischemia. Paroxysmal atrial fibrillation, but now in SR. Appreciate assistance from Dr. Del Toro. 3. End stage renal disease, on hemodialysis for volume management. Daily HD since 09/19. 4. Pneumonia possibly secondary to aspiration. Sepsis with septic shock secondary to pneumonia. Now off pressors, afebrile, and with improving WBC ( she is on solumedrol). * Continue Zosyn. 5. Diabetes type 2, with sugars of 85-105 this morning on the higher dose of Lantus 35-units q12h. * Insulin orders will require modification now that she is off tube feedings. * Swallowing re-evaluation study planned for tomorrow morning when she is more awake. She failed yesterday. 6. Hypertension * Continue anti-hypertensives. 7. Chronic hypochromic anemia secondary to chronic disease, stable Hct. 8. UTI secondary to yeast. Repeat UA was positive for leukocyte esterase and culture showing yeast >100K, non-albicans again. 9. Coagulopathy. Upper extremity DVT--superficial venous thrombosis in the cephalic vein in the left upper arm. Negative lower extremity Doppler yesterday for DVT. * Resumed Heparin for DVT prevention. * Repeat Doppler anticipated in 1 to 2 weeks 10. Prophylaxis: Heparin for DVT ppx and Protonix for GI ppx 11. Nutrition: As NGT is in, will re-start TF with initial goal of 30 ml/hour. 12. Disposition: Remains in the ICU secondary to tenuous respiratory state and high risk of re-intubation. Subjective 24 Hr Interval Summary Free Text/Dictation More alert today. She opens her eyes and can say her name. Exam/Review of Systems Vital Signs Vitals Vital Signs Date Time Temp Pulse Resp B/P Pulse Ox O2 Delivery O2 Flow Rate FiO2 09/21/16 10:50 89 20 09/21/16 09:21 97 Venti Mask 15.0 50 09/21/16 09:00 176/145 09/21/16 08:00 98.4 Intake and Output 09/20/16 09/20/16 09/21/16 15:00 23:00 07:00 Intake Total 700 ml 673.2 ml 433.0 ml Output Total 1500 ml 0 ml 40 ml Balance -800 ml 673.2 ml 393.0 ml Exam Constitutional: alert Head: normocephalic Eyes: nl conjunctiva ENMT: nl external ears & nose Neck: supple Respiratory: diminished breath sounds Cardiovascular: regular rate and rhythm Gastrointestinal: soft Musculoskeletal: swelling Results Result Diagram: 09/21/16 0320 09/21/16 0320 Results 24 hrs Laboratory Tests Test 09/20/16 13:16 09/20/16 17:39 09/20/16 21:13 09/21/16 01:23 Bedside Glucose 138 154 119 112 Test 09/21/16 03:20 09/21/16 05:33 09/21/16 08:26 Anion Gap 23 H Band Neutrophils % 2.0 Blood Morphology Comment Blood Urea Nitrogen 49 #H Calcium Level 8.8 Carbon Dioxide Level 22 Chloride Level 95 L Creatinine 1.83 H Glucose Level 87 # Hematocrit 30.2 L Hemoglobin 10.3 L Lymphocytes # 0.4 L Lymphocytes % 3.0 L Magnesium Level 1.9 Mean Corpuscular Hemoglobin 29.7 Mean Corpuscular Hemoglobin Concent 34.0 Mean Corpuscular Volume 87.3 Mean Platelet Volume 7.7 Monocytes # 1.0 H Monocytes % 7.0 Neutrophils # 12.1 H Neutrophils % 88.0 H Nucleated Red Blood Cells # Nucleated Red Blood Cells % 6.0 H Phosphorus Level 5.1 H Platelet Count 206 Potassium Level 4.6 Red Blood Count 3.45 L Red Cell Distribution Width 19.7 H Sodium Level 135 White Blood Count 13.7 #H Bedside Glucose 95 84 Medications Medications Current Medications Piperacillin Sod/ Tazobactam Sod (Zosyn 2.25gm/ 50ml (Pmx)) 50 ml @ 100 mls/hr Q8 IVPB Last administered on 09/21/16 05:54; Admin Dose 100 MLS/HR; Start at 14:00 Pantoprazole (Protonix Iv) 40 mg DAILY@06 IV Last administered on 09/21/16 05: 53; Admin Dose 40 MG; Start 09/07/16 at 06:00 Ondansetron HCl (Zofran Inj) 4 mg Q6H PRN IV NAUSEA AND/OR VOMITING; Start at 11:30 Miscellaneous Information 1 ea NOTE XX ; Start 09/06/16 at 12:00 Glucose (Glutose) 15 gm Q15M PRN PO DECREASED GLUCOSE; Start 09/06/16 at 12:00 Glucose (Glutose) 22.5 gm Q15M PRN PO DECREASED GLUCOSE; Start 09/06/16 at 12: 00 Dextrose (D50w Syringe) 25 ml Q15M PRN IV DECREASED GLUCOSE; Start 09/06/16 at 12:00 Dextrose (D50w Syringe) 50 ml Q15M PRN IV DECREASED GLUCOSE Last administered on 09/20/16at 04:51; Admin Dose 50 ML; Start 09/06/16 at 12:00 Glucagon (Glucagen) 1 mg Q15M PRN IM DECREASED GLUCOSE; Start 09/06/16 at 12: 00 Glucose 15 gm 15 gm Q15M PRN BUCCAL DECREASED GLUCOSE; Start 09/06/16 at 12:00 Propofol 100 ml @ 2.445 mls/ hr Q12H IV Last administered on 09/18/16at 21:53 ; Admin Dose 9.78 MLS/HR; Start 09/06/16 at 19:00 Norepinephrine/ Dextrose (Levophed/D5W) 500 ml @ 1.87 mls/hr TITRATE IV ; Start 09/07/16 at 10:00 Insulin Aspart (Novolog Insulin Pen) NOVOLOG *MODERATE* ALGORI... Q4 SC Last administered on 09/20/16at 17:42; Admin Dose 2 UNIT; Start 09/11/16 at 13:00 Epoetin Kobi (Epogen (Esrd)) 10,000 units MoWeFr@17 SC Last administered on at 16:40; Admin Dose 10,000 UNITS; Start 09/12/16 at 17:00 Voriconazole (Vfend) 200 mg BID NGT Last administered on 09/21/16 08:49; Admin Dose 200 MG; Start 09/12/16 at 21:00 Heparin Sodium (Porcine) (Heparin (5000 Units/0.5 ml)) 5,000 unit BID SC Last administered on 09/21/16 08:51; Admin Dose 5,000 UNIT; Start 09/13/16 at 21:00 Hydralazine HCl (Apresoline) 10 mg Q4H PRN IV ELEVATED BLOOD PRESSURE Last administered on 09/21/16 03:49; Admin Dose 10 MG; Start 09/18/16 at 19:00 Hydralazine HCl (Apresoline) 25 mg Q8 GTB Last administered on 09/21/16 05:53; Admin Dose 25 MG; Start 09/19/16 at 14:00 Methylprednisolone Sodium Succinate (Solu-Medrol) 60 mg QAM IV Last administered on 09/21/16 08:49; Admin Dose 60 MG; Start 09/20/16 at 09:00 Metoprolol Tartrate (Lopressor) 50 mg BID GTB Last administered on 09/21/16 08: 49; Admin Dose 50 MG; Start 09/19/16 at 21:00 Metoprolol Tartrate 5 mg 5 mg Q4H PRN IV HR>110 Last administered on 09/21/16 09:01; Admin Dose 5 MG; Start 09/19/16 at 22:00 Dextrose/Sodium Chloride (D5-1/2ns) 1,000 ml @ 40 mls/hr Q24H IV Last administered on 09/21/16 03:21; Admin Dose 40 MLS/HR; Start 09/20/16 at 10:30 Aspirin (Ecotrin) 325 mg DAILY PO Last administered on 09/21/16 08:50; Admin Dose 325 MG; Start 09/20/16 at 11:00 Amiodarone HCl 200 mg 200 mg BID PO Last administered on 09/21/16 08:50; Admin Dose 200 MG; Start 09/20/16 at 21:00 Amiodarone HCl 900 mg/Dextrose 500 ml @ 0 mls/hr Q0M IV Last administered on at 18:42; Admin Dose 33.33 MLS/HR; Start 09/20/16 at 18:30; Stop 09/21/16 at 18:29 Albumin Human (Albumin Human 25%) 100 ml @ 100 mls/hr ONCE ONCE IV ; Start 09/21/16 at 10:30; Stop 09/21/16 at 11:29 RIGOBERTO SILVERIO MD Sep 21, 2016 11:10
--- NOTE | 2016-09-21 11:18 | CONS ---
Date/Time of Note Date/Time of Note DATE: 09/21/16 TIME: 11:16 Assessment/Plan Assessment/Plan Chief Complaint/Hosp Course Imp: 1.Positive troponin-minmal in setting of esrd-Now trended negative 2.CHF-? systolic and diastolic acute on chronic 3.HTN 4. CKD on HD 5.anemia-requiring transfusions 6.Coagulopathy-resolved 7.PAF overnight now in SR currently 8. Edema-improving significantly Recc: -Tele -serial ecg's -trend cardiac enzymes -Continue HD for volume removal -Follow hgb closely -start asa given now PAF and nstemi and follow hgb closely -Continue BB and continue hydralazine -Continue abx's/anti-fungals -Continue IV amio to protocol and then resume PO amiodarone Problems: Consultation Date/Type/Reason Admit Date/Time Sep 06, 2016 at 11:22 Initial Consult Date 09/07/2016 Type of Consultation: Cardiology Reason for Consultation AF/CHF Referring Provider: PAMELA MARTE Exam/Review of Systems Vital Signs Vitals Vital Signs Date Time Temp Pulse Resp B/P Pulse Ox O2 Delivery O2 Flow Rate FiO2 09/21/16 10:50 89 20 09/21/16 09:21 97 Venti Mask 15.0 50 09/21/16 09:00 176/145 09/21/16 08:00 98.4 Intake and Output 09/20/16 09/20/16 09/21/16 15:00 23:00 07:00 Intake Total 700 ml 673.2 ml 433.0 ml Output Total 1500 ml 0 ml 40 ml Balance -800 ml 673.2 ml 393.0 ml Exam Review of Systems: CONSTITUTIONAL: No fevers, chills. PULMONARY: mild sob CARDIOVASCULAR: No chest pain/palpitations GASTROINTESTINAL: No nausea/vomiting. GENITOURINARY: No hematuria/dysuria. MUSCULOSKELETAL: No myagias/arthalgias. PSYCHIATRIC: The patient denies depression. NEUROLOGIC: generalized weakness Constitutional: alert Psych: no complaints Head: normocephalic ENMT: mucosa pink and moist Neck: jvd (9 ncm water), supple Respiratory: diminished breath sounds (at bases/B) Cardiovascular: regular rate and rhythm Gastrointestinal: non-tender, soft Musculoskeletal: muscle tone (normal) Extremities: pitting pedal edema (Bilateral) Results Result Diagram: 09/21/16 0320 09/21/16 0320 Results 24 hrs Laboratory Tests Test 09/20/16 13:16 09/20/16 17:39 09/20/16 21:13 09/21/16 01:23 Bedside Glucose 138 154 119 112 Test 09/21/16 03:20 09/21/16 05:33 09/21/16 08:26 Anion Gap 23 H Band Neutrophils % 2.0 Blood Morphology Comment Blood Urea Nitrogen 49 #H Calcium Level 8.8 Carbon Dioxide Level 22 Chloride Level 95 L Creatinine 1.83 H Glucose Level 87 # Hematocrit 30.2 L Hemoglobin 10.3 L Lymphocytes # 0.4 L Lymphocytes % 3.0 L Magnesium Level 1.9 Mean Corpuscular Hemoglobin 29.7 Mean Corpuscular Hemoglobin Concent 34.0 Mean Corpuscular Volume 87.3 Mean Platelet Volume 7.7 Monocytes # 1.0 H Monocytes % 7.0 Neutrophils # 12.1 H Neutrophils % 88.0 H Nucleated Red Blood Cells # Nucleated Red Blood Cells % 6.0 H Phosphorus Level 5.1 H Platelet Count 206 Potassium Level 4.6 Red Blood Count 3.45 L Red Cell Distribution Width 19.7 H Sodium Level 135 White Blood Count 13.7 #H Bedside Glucose 95 84 Medications Medications Current Medications Piperacillin Sod/ Tazobactam Sod (Zosyn 2.25gm/ 50ml (Pmx)) 50 ml @ 100 mls/hr Q8 IVPB Last administered on 09/21/16 05:54; Admin Dose 100 MLS/HR; Start at 14:00 Pantoprazole (Protonix Iv) 40 mg DAILY@06 IV Last administered on 09/21/16 05: 53; Admin Dose 40 MG; Start 09/07/16 at 06:00 Ondansetron HCl (Zofran Inj) 4 mg Q6H PRN IV NAUSEA AND/OR VOMITING; Start at 11:30 Miscellaneous Information 1 ea NOTE XX ; Start 09/06/16 at 12:00 Glucose (Glutose) 15 gm Q15M PRN PO DECREASED GLUCOSE; Start 09/06/16 at 12:00 Glucose (Glutose) 22.5 gm Q15M PRN PO DECREASED GLUCOSE; Start 09/06/16 at 12: 00 Dextrose (D50w Syringe) 25 ml Q15M PRN IV DECREASED GLUCOSE; Start 09/06/16 at 12:00 Dextrose (D50w Syringe) 50 ml Q15M PRN IV DECREASED GLUCOSE Last administered on 09/20/16at 04:51; Admin Dose 50 ML; Start 09/06/16 at 12:00 Glucagon (Glucagen) 1 mg Q15M PRN IM DECREASED GLUCOSE; Start 09/06/16 at 12: 00 Glucose 15 gm 15 gm Q15M PRN BUCCAL DECREASED GLUCOSE; Start 09/06/16 at 12:00 Propofol 100 ml @ 2.445 mls/ hr Q12H IV Last administered on 09/18/16at 21:53 ; Admin Dose 9.78 MLS/HR; Start 09/06/16 at 19:00 Norepinephrine/ Dextrose (Levophed/D5W) 500 ml @ 1.87 mls/hr TITRATE IV ; Start 09/07/16 at 10:00 Insulin Aspart (Novolog Insulin Pen) NOVOLOG *MODERATE* ALGORI... Q4 SC Last administered on 09/20/16at 17:42; Admin Dose 2 UNIT; Start 09/11/16 at 13:00 Epoetin Kobi (Epogen (Esrd)) 10,000 units MoWeFr@17 SC Last administered on at 16:40; Admin Dose 10,000 UNITS; Start 09/12/16 at 17:00 Voriconazole (Vfend) 200 mg BID NGT Last administered on 09/21/16 08:49; Admin Dose 200 MG; Start 09/12/16 at 21:00 Heparin Sodium (Porcine) (Heparin (5000 Units/0.5 ml)) 5,000 unit BID SC Last administered on 09/21/16 08:51; Admin Dose 5,000 UNIT; Start 09/13/16 at 21:00 Hydralazine HCl (Apresoline) 10 mg Q4H PRN IV ELEVATED BLOOD PRESSURE Last administered on 09/21/16 03:49; Admin Dose 10 MG; Start 09/18/16 at 19:00 Hydralazine HCl (Apresoline) 25 mg Q8 GTB Last administered on 09/21/16 05:53; Admin Dose 25 MG; Start 09/19/16 at 14:00 Methylprednisolone Sodium Succinate (Solu-Medrol) 60 mg QAM IV Last administered on 09/21/16 08:49; Admin Dose 60 MG; Start 09/20/16 at 09:00 Metoprolol Tartrate (Lopressor) 50 mg BID GTB Last administered on 09/21/16 08: 49; Admin Dose 50 MG; Start 09/19/16 at 21:00 Metoprolol Tartrate 5 mg 5 mg Q4H PRN IV HR>110 Last administered on 09/21/16 09:01; Admin Dose 5 MG; Start 09/19/16 at 22:00 Dextrose/Sodium Chloride (D5-1/2ns) 1,000 ml @ 40 mls/hr Q24H IV Last administered on 09/21/16 03:21; Admin Dose 40 MLS/HR; Start 09/20/16 at 10:30 Aspirin (Ecotrin) 325 mg DAILY PO Last administered on 09/21/16 08:50; Admin Dose 325 MG; Start 09/20/16 at 11:00 Amiodarone HCl 200 mg 200 mg BID PO ; Start 09/20/16 at 21:00 Amiodarone HCl 900 mg/Dextrose 500 ml @ 0 mls/hr Q0M IV Last administered on at 18:42; Admin Dose 33.33 MLS/HR; Start 09/20/16 at 18:30; Stop 09/21/16 at 18:29 Albumin Human (Albumin Human 25%) 100 ml @ 100 mls/hr ONCE ONCE IV ; Start 09/21/16 at 10:30; Stop 09/21/16 at 11:29 KAJAL MCKINNEY Sep 21, 2016 11:18
--- NOTE | 2016-09-21 18:10 | PN ---
DATE: 09/21/2016 SUBJECTIVE: The patient is currently on dialysis, tolerating well. The patient was placed on amiod arone drip due to rapid AFib overnight. The patient remains on BiPAP. No other acute events noted. OBJECTIVE: VITAL SIGNS: Blood pressure is 176/140, respirations 20, pulse 105, temperature 98.4. HEENT: Head is normocephalic. NECK: Supple. HEART: Regular rate. LUNGS: Show diminished breath sounds at base. ABDOMEN: Soft, nontender to palpation. No rebound or guarding. EXTREMITIES: Negative for clubbing or cyanosis. Positive edema. DERMATOLOGIC: No rashes. MUSCULOSKELETAL: No joint effusions. NEUROLOGIC: No change in exam. MEDICATIONS: The patient's medications have been reviewed. LABORATORY DATA: Shows sodium 135, potassium 4.6, chloride 95, BUN 49, creatinine 1.83. White coun t 13.7, hemoglobin 10.3, hematocrit 32, platelet count is 206. ASSESSMENT AND PLAN: 1. Anuric acute kidney injury on top of chronic kidney disease, stage IV, now likely progressed to end-stage renal disease. The patient has been receiving daily dialysis for solute clearance and vol ume removal. The patient will be dialyzed today and tomorrow for ultrafiltration and solute clearan ce. Monitor closely. 2. Volume overload. Continue ultrafiltration with dialysis. 3. Hypokalemia, improved. 4. Hyponatremia, improved. 5. Respiratory failure, status post extubation. The patient is currently on BiPAP. Continue to mo nitor closely. 6. Sepsis, status post shock. Continue current antibiotic regimen. 7. Diabetes. Continue Accu-Cheks and sliding scale. 8. Hypertension. Continue current blood pressure regimen. 9. Atrial fibrillation with rapid rate. Continue amiodarone drip. 10. Encephalopathy, etiology toxic metabolic. Continue to monitor. 11. Dysphagia. The patient is currently n.p.o. Continue to monitor. 12. History of coronary artery disease. Continue medical management. Dictated By: STEFFANY JESUS/ADRIA Conf#: [id number] DID#: [id number]
[2016-09-22] VITALS (44 sets, daily range): BP systolic 77–176; BP diastolic 30–138; PULSE 67–135; RESP 17–31
[2016-09-22] MEDS: INSULIN ASPART [NOVOLOG] 3 ML PEN SC SCH ×6 (01:04→22:44)
[2016-09-22 05:18] LABS: HEMATOCRIT 30.3 % (37.0-47.0); HEMOGLOBIN 10.2 g/dl (12.0-16.0); MEAN CORPUSCULAR HEMOGLOBIN 29.6 pg (29.0-33.0); MEAN CORPUSCULAR HGB CONC 33.5 g/dl (32.0-37.0); MEAN CORPUSCULAR VOLUME 88.2 fl (82.0-101.0); MEAN PLATELET VOLUME 7.6 fl (7.4-10.4); PLATELET COUNT 192 10^3/UL (140-440); RED BLOOD COUNT 3.44 10^6/ul (4.20-5.40); RED CELL DISTRIBUTION WIDTH 21.9 % (11.5-14.5); UNCORRECTED WBC 14.8 10^3/ul (4.8-10.8); WHITE BLOOD COUNT 14.8 10^3/ul (4.8-10.8)
[2016-09-22 05:34] LABS: CONDITION 1; LH ANALYZER COMMENTS 1; SUSPECT 1
[2016-09-22 05:41] LABS: POTASSIUM 4.7 mmol/L (3.5-5.1)
[2016-09-22 05:44] LABS: CREATININE 2.23 mg/dl (0.44-1.00)
[2016-09-22 05:45] LABS: MAGNESIUM 2.1 mg/dl (1.7-2.5); PHOSPHORUS 6.6 mg/dl (2.5-4.9)
[2016-09-22] MEDS: PANTOPRAZOLE 40 MG INJ IV SCH (06:11)
[2016-09-22] MEDS: PIPER-TAZO 2.25 GM (PMX) 50 ML IVPB SCH ×3 (06:12→22:41)
[2016-09-22] MEDS: PROPOFOL 100 ML IV SCH ×2 (06:39→17:06)
[2016-09-22] MEDS ORDERED: SUCCINYLCHOLINE CHLORIDE 100 MG/5 ML SYG IV ONE (07:00)
[2016-09-22] MEDS ORDERED: ETOMIDATE 20 MG INJ ONE (07:00)
[2016-09-22] MEDS: ALBUTEROL/IPRATROPIUM (NEB) 3 ML AMP HHN SCH ×3 (08:54→19:19)
[2016-09-22] MEDS: METOPROLOL 50 MG TAB GTB SCH ×2 (09:00→21:00)
[2016-09-22] MEDS: VORICONAZOLE 200 MG TAB NGT SCH ×2 (09:06→22:40)
[2016-09-22] MEDS: ASPIRIN (EC) 325 MG TAB PO SCH (09:06)
[2016-09-22] MEDS: METHYLPREDNISOLONE 125 MG INJ IV SCH (09:06)
[2016-09-22] MEDS: AMIODARONE 200 MG TAB PO SCH ×2 (09:07→21:00)
--- NOTE | 2016-09-22 09:09 | PN ---
DATE: 09/22/2016 SUBJECTIVE: The patient remains on BiPAP, had some respiratory distress. The patient had hemodialy sis yesterday, tolerated it well. The patient scheduled for dialysis this morning. No other events noted. OBJECTIVE: VITAL SIGNS: Blood pressure 132/89, respirations 23, pulse 103, temperature 98.6. I's AND O'S: The patient had 1400 in with 3 liters removed with hemodialysis. HEENT: Head is normocephalic. NECK: Supple. HEART: Regular rate. LUNGS: Show diminished breath sounds at the base. ABDOMEN: Soft, nontender to palpation without rebound or guarding. EXTREMITIES: Negative for clubbing, cyanosis. Positive edema. DERMATOLOGIC: No rashes. MUSCULOSKELETAL: No joint effusions. NEUROLOGIC: No change in exam. MEDICATIONS: The patient's medications have been reviewed. LABORATORY DATA: Sodium 137, potassium 4.7, chloride 100, BUN 54, creatinine 2.23. White count 14. 8, hemoglobin 10.2, hematocrit .3, platelet count is 192. ASSESSMENT AND PLAN: 1. Anuric acute kidney injury on top of chronic kidney disease stage IV. Now likely progressive en d-stage renal disease. The patient is scheduled for hemodialysis today. We will dialyze 3 hours, _ ____ bath, calcium 2.5, ultrafiltrate as tolerated. 2. Volume overload. Continue ultrafiltration dialysis. 3. Respiratory failure. The patient is status post extubation, currently on BiPAP, continue. 4. Sepsis, status post shock. Continue current antibiotic regimen. 5. Diabetes. Continue Accu-Cheks and insulin sliding scale. 6. Hypertension. Continue current blood pressure regimen. 7. Atrial fibrillation with rapid rate. Continue amiodarone. 8. Encephalopathy, etiology is toxic metabolic. Continue to monitor. 9. Dysphagia status post nasogastric tube. Continue tube feeding. 10. History of coronary artery disease. Continue medical management. Dictated By: STEFFANY JESUS/ADRIA Conf#: [id number] DID#: [id number]
[2016-09-22 09:27] LABS: LYMPHOCYTES # 1.2 10^3/ul (0.8-2.9); NEUTROPHIL # 12.6 10^3/ul (1.6-7.5); PLATELET ESTIMATE PLT APPEAR ADEQUATE
--- NOTE | 2016-09-22 09:56 | CONS ---
Date/Time of Note Date/Time of Note DATE: 09/22/16 TIME: 09:51 Assessment/Plan Assessment/Plan Chief Complaint/Hosp Course Imp: 1.Positive troponin-minmal in setting of esrd-Now trended negative 2.CHF-systolic and diastolic acute on chronic. EF 45% by echo this admit 3.HTN 4. CKD on HD 5.anemia-requiring transfusions 6.Coagulopathy-resolved 7.PAF-now back in SR currently 8. Edema-improving significantly 9. Resp distress s/p extubation Recc: -Tele -serial ecg's -Continue HD for volume removal nand is to have session today -Follow hgb closely -start asa/sq heparin as tolerated given now PAF and nstemi and follow hgb closely -Continue BB and continue hydralazine as tolerated only -Continue abx's/anti-fungals -Continue PO amiodarone s/p IV load Problems: Consultation Date/Type/Reason Admit Date/Time Sep 06, 2016 at 11:22 Initial Consult Date 09/07/2016 Type of Consultation: Cardiology Reason for Consultation PAF Referring Provider: PAMELA MARTE Exam/Review of Systems Vital Signs Vitals Vital Signs Date Time Temp Pulse Resp B/P Pulse Ox O2 Delivery O2 Flow Rate FiO2 09/22/16 08:54 103 30 98 100 09/22/16 07:00 132/89 09/22/16 06:00 Nasal Cannula 2.0 09/22/16 04:45 98.2 Intake and Output 09/21/16 09/21/16 09/22/16 15:00 23:00 07:00 Intake Total 999.6 ml 260 ml 240 ml Output Total 3500 ml 60 ml 50 ml Balance -2500.4 ml 200 ml 190 ml Exam Review of Systems: CONSTITUTIONAL: No fevers, chills. PULMONARY: on face mask/mild resp distress CARDIOVASCULAR: No chest pain/palpitations GASTROINTESTINAL: No nausea/vomiting. GENITOURINARY: No hematuria/dysuria. MUSCULOSKELETAL: No myagias/arthalgias. PSYCHIATRIC: The patient denies depression. NEUROLOGIC: No weakness Constitutional: alert Psych: no complaints Head: normocephalic ENMT: intubated, mucosa pink and moist Neck: jvd (9cm water), supple Respiratory: diminished breath sounds Cardiovascular: regular rate and rhythm Gastrointestinal: soft Musculoskeletal: muscle tone Extremities: pitting pedal edema (Bilateral) Neurological: lethargic Results Result Diagram: 09/22/16 0450 09/22/16 0450 Results 24 hrs Laboratory Tests Test 09/21/16 12:22 09/21/16 17:03 09/21/16 21:53 09/22/16 01:00 Bedside Glucose 147 278 H 203 226 H Test 09/22/16 04:50 09/22/16 06:13 09/22/16 09:19 Anion Gap 23 H Blood Morphology Comment Blood Urea Nitrogen 54 H Calcium Level 9.0 Carbon Dioxide Level 19 L Chloride Level 100 Creatinine 2.23 H Glucose Level 134 # Hematocrit 30.3 L Hemoglobin 10.2 L Lymphocytes # 1.2 Lymphocytes % 8.0 L Magnesium Level 2.1 Mean Corpuscular Hemoglobin 29.6 Mean Corpuscular Hemoglobin Concent 33.5 Mean Corpuscular Volume 88.2 Mean Platelet Volume 7.6 Monocytes # 1.0 H Monocytes % 7.0 Neutrophils # 12.6 H Neutrophils % 85.0 H Nucleated Red Blood Cells # Nucleated Red Blood Cells % 5.0 H Phosphorus Level 6.6 H Platelet Count 192 Platelet Estimate PLT APPEAR ADEQUATE Potassium Level 4.7 Red Blood Count 3.44 L Red Cell Distribution Width 21.9 H Sodium Level 137 White Blood Count 14.8 H Bedside Glucose 208 195 Medications Medications Current Medications Piperacillin Sod/ Tazobactam Sod (Zosyn 2.25gm/ 50ml (Pmx)) 50 ml @ 100 mls/hr Q8 IVPB Last administered on 09/22/16 06:12; Admin Dose 100 MLS/HR; Start at 14:00 Pantoprazole (Protonix Iv) 40 mg DAILY@06 IV Last administered on 09/22/16 06: 11; Admin Dose 40 MG; Start 09/07/16 at 06:00 Ondansetron HCl (Zofran Inj) 4 mg Q6H PRN IV NAUSEA AND/OR VOMITING; Start at 11:30 Miscellaneous Information 1 ea NOTE XX ; Start 09/06/16 at 12:00 Glucose (Glutose) 15 gm Q15M PRN PO DECREASED GLUCOSE; Start 09/06/16 at 12:00 Glucose (Glutose) 22.5 gm Q15M PRN PO DECREASED GLUCOSE; Start 09/06/16 at 12: 00 Dextrose (D50w Syringe) 25 ml Q15M PRN IV DECREASED GLUCOSE; Start 09/06/16 at 12:00 Dextrose (D50w Syringe) 50 ml Q15M PRN IV DECREASED GLUCOSE Last administered on 09/20/16at 04:51; Admin Dose 50 ML; Start 09/06/16 at 12:00 Glucagon (Glucagen) 1 mg Q15M PRN IM DECREASED GLUCOSE; Start 09/06/16 at 12: 00 Glucose 15 gm 15 gm Q15M PRN BUCCAL DECREASED GLUCOSE; Start 09/06/16 at 12:00 Propofol 100 ml @ 2.445 mls/ hr Q12H IV Last administered on 09/18/16at 21:53 ; Admin Dose 9.78 MLS/HR; Start 09/06/16 at 19:00 Norepinephrine/ Dextrose (Levophed/D5W) 500 ml @ 1.87 mls/hr TITRATE IV ; Start 09/07/16 at 10:00 Insulin Aspart (Novolog Insulin Pen) NOVOLOG *MODERATE* ALGORI... Q4 SC Last administered on 09/22/16 09:21; Admin Dose 4 UNIT; Start 09/11/16 at 13:00 Epoetin Kobi (Epogen (Esrd)) 10,000 units MoWeFr@17 SC Last administered on at 16:40; Admin Dose 10,000 UNITS; Start 09/12/16 at 17:00 Voriconazole (Vfend) 200 mg BID NGT Last administered on 09/22/16 09:06; Admin Dose 200 MG; Start 09/12/16 at 21:00 Heparin Sodium (Porcine) (Heparin (5000 Units/0.5 ml)) 5,000 unit BID SC Last administered on 09/21/16 21:57; Admin Dose 5,000 UNIT; Start 09/13/16 at 21:00 Hydralazine HCl (Apresoline) 10 mg Q4H PRN IV ELEVATED BLOOD PRESSURE Last administered on 09/21/16 23:47; Admin Dose 10 MG; Start 09/18/16 at 19:00 Hydralazine HCl (Apresoline) 25 mg Q8 GTB Last administered on 09/22/16 06:12; Admin Dose 25 MG; Start 09/19/16 at 14:00 Methylprednisolone Sodium Succinate (Solu-Medrol) 60 mg QAM IV Last administered on 09/22/16 09:06; Admin Dose 60 MG; Start 09/20/16 at 09:00 Metoprolol Tartrate (Lopressor) 50 mg BID GTB Last administered on 09/21/16 21: 49; Admin Dose 50 MG; Start 09/19/16 at 21:00 Metoprolol Tartrate (Lopressor) 5 mg Q4H PRN IV HR>110 Last administered on 09/21 09:01; Admin Dose 5 MG; Start 09/19/16 at 22:00 Aspirin (Ecotrin) 325 mg DAILY PO Last administered on 09/22/16 09:06; Admin Dose 325 MG; Start 09/20/16 at 11:00 Amiodarone HCl (Cordarone) 200 mg BID PO Last administered on 09/22/16 09:07; Admin Dose 200 MG; Start 09/20/16 at 21:00 KAJAL MCIKNNEY Sep 22, 2016 09:56
[2016-09-22] MEDS: HEPARIN 5,000 UNIT/0.5 ML SYG SC SCH ×2 (10:02→22:45)
--- NOTE | 2016-09-22 11:16 | CONS ---
Date/Time of Note Date/Time of Note DATE: 09/22/16 TIME: 11:15 Consult Date/Type/Reason Admit Date/Time Sep 06, 2016 at 11:22 Type of Consultation: pulmonary Ordering Provider: PAMELA MARTE Subjective Increased generalized weakness Continues facemask O2 Did not tolerate BiPAP secondary to agitation claustrophobia Objective Vital Signs Date Time Temp Pulse Resp B/P Pulse Ox O2 Delivery O2 Flow Rate FiO2 09/22/16 09:30 105 25 93 Mask 09/22/16 08:54 100 09/22/16 08:00 98.4 09/22/16 06:00 2.0 Intake and Output 09/21/16 09/21/16 09/22/16 15:00 23:00 07:00 Intake Total 999.6 ml 260 ml 240 ml Output Total 3500 ml 60 ml 50 ml Balance -2500.4 ml 200 ml 190 ml PHYSICAL EXAMINATION GENERAL: Elderly lady on Ventimask oxygen VITAL SIGNS: see below. HEENT: Pupils equal, round, and reactive to light. CARDIAC: S1, S2, CHEST: Diminished air entry bilaterally. Bilateral rales ABDOMEN: Mildly distended. No bowel sounds. Obese no guarding or rebound EXTREMITIES: No cyanosis, clubbing edema +2 NEUROLOGIC: Generalized weakness Results/Medications Result Diagram: 09/22/16 0450 09/22/16 0450 Results 24 hrs Laboratory Tests Test 09/21/16 12:22 09/21/16 17:03 09/21/16 21:53 09/22/16 01:00 Bedside Glucose 147 278 H 203 226 H Test 09/22/16 04:50 09/22/16 06:13 09/22/16 09:19 Anion Gap 23 H Blood Morphology Comment Blood Urea Nitrogen 54 H Calcium Level 9.0 Carbon Dioxide Level 19 L Chloride Level 100 Creatinine 2.23 H Glucose Level 134 # Hematocrit 30.3 L Hemoglobin 10.2 L Lymphocytes # 1.2 Lymphocytes % 8.0 L Magnesium Level 2.1 Mean Corpuscular Hemoglobin 29.6 Mean Corpuscular Hemoglobin Concent 33.5 Mean Corpuscular Volume 88.2 Mean Platelet Volume 7.6 Monocytes # 1.0 H Monocytes % 7.0 Neutrophils # 12.6 H Neutrophils % 85.0 H Nucleated Red Blood Cells # Nucleated Red Blood Cells % 5.0 H Phosphorus Level 6.6 H Platelet Count 192 Platelet Estimate PLT APPEAR ADEQUATE Potassium Level 4.7 Red Blood Count 3.44 L Red Cell Distribution Width 21.9 H Sodium Level 137 White Blood Count 14.8 H Bedside Glucose 208 195 Medications Current Medications Piperacillin Sod/ Tazobactam Sod (Zosyn 2.25gm/ 50ml (Pmx)) 50 ml @ 100 mls/hr Q8 IVPB Last administered on 09/22/16 06:12; Admin Dose 100 MLS/HR; Start at 14:00 Pantoprazole (Protonix Iv) 40 mg DAILY@06 IV Last administered on 09/22/16 06: 11; Admin Dose 40 MG; Start 09/07/16 at 06:00 Ondansetron HCl (Zofran Inj) 4 mg Q6H PRN IV NAUSEA AND/OR VOMITING; Start at 11:30 Miscellaneous Information 1 ea NOTE XX ; Start 09/06/16 at 12:00 Glucose (Glutose) 15 gm Q15M PRN PO DECREASED GLUCOSE; Start 09/06/16 at 12:00 Glucose (Glutose) 22.5 gm Q15M PRN PO DECREASED GLUCOSE; Start 09/06/16 at 12: 00 Dextrose (D50w Syringe) 25 ml Q15M PRN IV DECREASED GLUCOSE; Start 09/06/16 at 12:00 Dextrose (D50w Syringe) 50 ml Q15M PRN IV DECREASED GLUCOSE Last administered on 09/20/16at 04:51; Admin Dose 50 ML; Start 09/06/16 at 12:00 Glucagon (Glucagen) 1 mg Q15M PRN IM DECREASED GLUCOSE; Start 09/06/16 at 12: 00 Glucose 15 gm 15 gm Q15M PRN BUCCAL DECREASED GLUCOSE; Start 09/06/16 at 12:00 Propofol 100 ml @ 2.445 mls/ hr Q12H IV Last administered on 09/18/16at 21:53 ; Admin Dose 9.78 MLS/HR; Start 09/06/16 at 19:00 Norepinephrine/ Dextrose (Levophed/D5W) 500 ml @ 1.87 mls/hr TITRATE IV ; Start 09/07/16 at 10:00 Insulin Aspart (Novolog Insulin Pen) NOVOLOG *MODERATE* ALGORI... Q4 SC Last administered on 09/22/16 09:21; Admin Dose 4 UNIT; Start 09/11/16 at 13:00 Epoetin Kobi (Epogen (Esrd)) 10,000 units MoWeFr@17 SC Last administered on at 16:40; Admin Dose 10,000 UNITS; Start 09/12/16 at 17:00 Voriconazole (Vfend) 200 mg BID NGT Last administered on 09/22/16 09:06; Admin Dose 200 MG; Start 09/12/16 at 21:00 Heparin Sodium (Porcine) (Heparin (5000 Units/0.5 ml)) 5,000 unit BID SC Last administered on 09/22/16 10:02; Admin Dose 5,000 UNIT; Start 09/13/16 at 21:00 Hydralazine HCl (Apresoline) 10 mg Q4H PRN IV ELEVATED BLOOD PRESSURE Last administered on 09/21/16 23:47; Admin Dose 10 MG; Start 09/18/16 at 19:00 Hydralazine HCl (Apresoline) 25 mg Q8 GTB Last administered on 09/22/16 06:12; Admin Dose 25 MG; Start 09/19/16 at 14:00 Methylprednisolone Sodium Succinate (Solu-Medrol) 60 mg QAM IV Last administered on 09/22/16 09:06; Admin Dose 60 MG; Start 09/20/16 at 09:00 Metoprolol Tartrate (Lopressor) 50 mg BID GTB Last administered on 09/21/16 21: 49; Admin Dose 50 MG; Start 09/19/16 at 21:00 Metoprolol Tartrate (Lopressor) 5 mg Q4H PRN IV HR>110 Last administered on 09/21 09:01; Admin Dose 5 MG; Start 09/19/16 at 22:00 Aspirin (Ecotrin) 325 mg DAILY PO Last administered on 09/22/16 09:06; Admin Dose 325 MG; Start 09/20/16 at 11:00 Amiodarone HCl (Cordarone) 200 mg BID PO Last administered on 09/22/16 09:07; Admin Dose 200 MG; Start 09/20/16 at 21:00 Assessment/Plan Chief Complaint/Hosp Course ASSESSMENT AND PLAN: 1.Hypoxemic and hypercapnic respiratory failure secondary to likely volume overload on top of significant morbid obesity and restrictive lung disease. Significant risk of reintubation 2. Morbid obesity 3. Chronic kidney disease 4. Significant anemia following epistaxis 5. Questionable distal pulmonary embolus doubt any hemodynamic significance, negative Dopplers for deep vein thrombosis Plan 1. Continue facemask O2 BiPAP if tolerated if reintubated will require tracheostomy. Family are aware 2. Renal failure with volume removal as tolerated 3. Bronchodilators 4. Aspiration precautions. 5. Deep vein thrombosis and gastrointestinal prophylaxis. Discussed with primary team Problems: MARCIA BAIN MD, [facility] Sep 22, 2016 11:16
--- NOTE | 2016-09-22 11:23 | PN ---
Date/Time of Note Date/Time of Note DATE: 09/22/16 TIME: 11:20 Assessment/Plan VTE Prophylaxis VTE Prophylaxis Intervention: SCD's Lines/Catheters IV Catheter Type (from Nrs): PICC Line Central line still needed: Yes Urinary Cath still in place: Yes Reason Cath still needed: pres ulcer contaminated by urine Assessment/Plan Assessment/Plan 1. Hospital day 16 for this 71 yo woman who is now post-extubation for the second time, following admission for acute respiratory failure secondary to CHF and volume overload related to end-state renal disease. Dr. Speedy Peacock to perform HD again today. * Solumedrol dose consolidated this AM at 60 mg IV q24h * Case discussed extensively with Dr. Daniel, and given her brittle respiratory status, she will remain in the ICU. 2. Congestive heart failure, systolic acute on chronic, cardiomyopathy with LVEF 40-45. Elevated troponin / NSTEMI secondary to demand ischemia. Paroxysmal atrial fibrillation, but now in SR. Appreciate assistance from Dr. Del Toro. 3. End stage renal disease, on hemodialysis for volume management. Daily HD since 09/19. 4. Pneumonia possibly secondary to aspiration. Sepsis with septic shock secondary to pneumonia. Now off pressors, afebrile, and with improving WBC ( she is on solumedrol). * Continue Zosyn. 5. Diabetes type 2, with sugars of 85-105 this morning on the higher dose of Lantus 35-units q12h. * Insulin orders will require modification now that she is off tube feedings. * Swallowing re-evaluation study planned for tomorrow morning when she is more awake. She failed yesterday. 6. Hypertension * Continue anti-hypertensives. 7. Chronic hypochromic anemia secondary to chronic disease, stable Hct. 8. UTI secondary to yeast. Repeat UA was positive for leukocyte esterase and culture showing yeast >100K, non-albicans again. 9. Coagulopathy. Upper extremity DVT--superficial venous thrombosis in the cephalic vein in the left upper arm. Negative lower extremity Doppler yesterday for DVT. * Resumed Heparin for DVT prevention. * Repeat Doppler anticipated in 1 to 2 weeks 10. Prophylaxis: Heparin for DVT ppx and Protonix for GI ppx 11. Nutrition: As NGT is in, will re-start TF with initial goal of 30 ml/hour. 12. Disposition: Remains in the ICU secondary to tenuous respiratory state and high risk of re-intubation. Subjective 24 Hr Interval Summary Free Text/Dictation Breathing more labored today. Was on bipap, but did not tolerate secondary to agitation/anxiety. More comfortable on Facemask. HD scheduled for later today. Exam/Review of Systems Vital Signs Vitals Vital Signs Date Time Temp Pulse Resp B/P Pulse Ox O2 Delivery O2 Flow Rate FiO2 09/22/16 09:30 105 25 93 Mask 09/22/16 08:54 100 09/22/16 08:00 98.4 09/22/16 06:00 2.0 Intake and Output 09/21/16 09/21/16 09/22/16 15:00 23:00 07:00 Intake Total 999.6 ml 260 ml 240 ml Output Total 3500 ml 60 ml 50 ml Balance -2500.4 ml 200 ml 190 ml Exam Constitutional: obese, other (More distressed/anxious) Head: normocephalic Eyes: nl conjunctiva Neck: supple Respiratory: crackles/rales, other Cardiovascular: regular rate and rhythm Gastrointestinal: other (hematomas on bilateral lower quadrants.), soft Extremities: normal pulses Results Result Diagram: 09/22/16 0450 09/22/16 0450 Results 24 hrs Laboratory Tests Test 09/21/16 12:22 09/21/16 17:03 09/21/16 21:53 09/22/16 01:00 Bedside Glucose 147 278 H 203 226 H Test 09/22/16 04:50 09/22/16 06:13 09/22/16 09:19 Anion Gap 23 H Blood Morphology Comment Blood Urea Nitrogen 54 H Calcium Level 9.0 Carbon Dioxide Level 19 L Chloride Level 100 Creatinine 2.23 H Glucose Level 134 # Hematocrit 30.3 L Hemoglobin 10.2 L Lymphocytes # 1.2 Lymphocytes % 8.0 L Magnesium Level 2.1 Mean Corpuscular Hemoglobin 29.6 Mean Corpuscular Hemoglobin Concent 33.5 Mean Corpuscular Volume 88.2 Mean Platelet Volume 7.6 Monocytes # 1.0 H Monocytes % 7.0 Neutrophils # 12.6 H Neutrophils % 85.0 H Nucleated Red Blood Cells # Nucleated Red Blood Cells % 5.0 H Phosphorus Level 6.6 H Platelet Count 192 Platelet Estimate PLT APPEAR ADEQUATE Potassium Level 4.7 Red Blood Count 3.44 L Red Cell Distribution Width 21.9 H Sodium Level 137 White Blood Count 14.8 H Bedside Glucose 208 195 Medications Medications Current Medications Piperacillin Sod/ Tazobactam Sod (Zosyn 2.25gm/ 50ml (Pmx)) 50 ml @ 100 mls/hr Q8 IVPB Last administered on 09/22/16 06:12; Admin Dose 100 MLS/HR; Start at 14:00 Pantoprazole (Protonix Iv) 40 mg DAILY@06 IV Last administered on 09/22/16 06: 11; Admin Dose 40 MG; Start 09/07/16 at 06:00 Ondansetron HCl (Zofran Inj) 4 mg Q6H PRN IV NAUSEA AND/OR VOMITING; Start at 11:30 Miscellaneous Information 1 ea NOTE XX ; Start 09/06/16 at 12:00 Glucose (Glutose) 15 gm Q15M PRN PO DECREASED GLUCOSE; Start 09/06/16 at 12:00 Glucose (Glutose) 22.5 gm Q15M PRN PO DECREASED GLUCOSE; Start 09/06/16 at 12: 00 Dextrose (D50w Syringe) 25 ml Q15M PRN IV DECREASED GLUCOSE; Start 09/06/16 at 12:00 Dextrose (D50w Syringe) 50 ml Q15M PRN IV DECREASED GLUCOSE Last administered on 09/20/16at 04:51; Admin Dose 50 ML; Start 09/06/16 at 12:00 Glucagon (Glucagen) 1 mg Q15M PRN IM DECREASED GLUCOSE; Start 09/06/16 at 12: 00 Glucose 15 gm 15 gm Q15M PRN BUCCAL DECREASED GLUCOSE; Start 09/06/16 at 12:00 Propofol 100 ml @ 2.445 mls/ hr Q12H IV Last administered on 09/18/16at 21:53 ; Admin Dose 9.78 MLS/HR; Start 09/06/16 at 19:00 Norepinephrine/ Dextrose (Levophed/D5W) 500 ml @ 1.87 mls/hr TITRATE IV ; Start 09/07/16 at 10:00 Insulin Aspart (Novolog Insulin Pen) NOVOLOG *MODERATE* ALGORI... Q4 SC Last administered on 09/22/16 09:21; Admin Dose 4 UNIT; Start 09/11/16 at 13:00 Epoetin Kobi (Epogen (Esrd)) 10,000 units MoWeFr@17 SC Last administered on at 16:40; Admin Dose 10,000 UNITS; Start 09/12/16 at 17:00 Voriconazole (Vfend) 200 mg BID NGT Last administered on 09/22/16 09:06; Admin Dose 200 MG; Start 09/12/16 at 21:00 Heparin Sodium (Porcine) (Heparin (5000 Units/0.5 ml)) 5,000 unit BID SC Last administered on 09/22/16 10:02; Admin Dose 5,000 UNIT; Start 09/13/16 at 21:00 Hydralazine HCl (Apresoline) 10 mg Q4H PRN IV ELEVATED BLOOD PRESSURE Last administered on 09/21/16 23:47; Admin Dose 10 MG; Start 09/18/16 at 19:00 Hydralazine HCl (Apresoline) 25 mg Q8 GTB Last administered on 09/22/16 06:12; Admin Dose 25 MG; Start 09/19/16 at 14:00 Methylprednisolone Sodium Succinate (Solu-Medrol) 60 mg QAM IV Last administered on 09/22/16 09:06; Admin Dose 60 MG; Start 09/20/16 at 09:00 Metoprolol Tartrate (Lopressor) 50 mg BID GTB Last administered on 09/21/16 21: 49; Admin Dose 50 MG; Start 09/19/16 at 21:00 Metoprolol Tartrate (Lopressor) 5 mg Q4H PRN IV HR>110 Last administered on 09/21 09:01; Admin Dose 5 MG; Start 09/19/16 at 22:00 Aspirin (Ecotrin) 325 mg DAILY PO Last administered on 09/22/16 09:06; Admin Dose 325 MG; Start 09/20/16 at 11:00 Amiodarone HCl (Cordarone) 200 mg BID PO Last administered on 09/22/16 09:07; Admin Dose 200 MG; Start 09/20/16 at 21:00 RIGOBERTO SILVERIO MD Sep 22, 2016 11:23
[2016-09-22] MEDS: EPOETIN 10000 UNITS/1 ML INJ (ESRD) SC SCH (17:40)
[2016-09-22 23:31] LABS: AADO2 Arterial 337.5 mmHg (7.0-24.0); Arterial Base Excess -6.7 mmol/L (-3.0-3); Arterial COHb 0.1 % (0.0-3.0); Arterial Fraction of Oxyhgb 91.4 % (93.0-99.0); Arterial HCO3 23.5 mmol/L (22.0-26.0); Arterial MetHb 0.1 % (0.0-1.5); Arterial Total Hemglobin 10.9 g/dl (12.0-18.0); MODE MASK - SIMPLE
[2016-09-23] VITALS (85 sets, daily range): BP systolic 64–166; BP diastolic 25–143; PULSE 73–122; RESP 12–31
[2016-09-23] MEDS: PROPOFOL 100 ML IV SCH ×3 (00:08→19:31)
[2016-09-23] MEDS: INSULIN ASPART [NOVOLOG] 3 ML PEN SC SCH ×6 (01:25→21:01)
[2016-09-23] MEDS ORDERED: NORepinephrine 8MG/250 ML (PMX 250 ML IV SCH (02:30)
--- NOTE | 2016-09-23 04:33 | RADRPT ---
PROCEDURE: Chest. CLINICAL INDICATION: Chest pain. TECHNIQUE: Single frontal view of the chest was obtained. COMPARISON: 09/20/2016. FINDINGS: There is an endotracheal tube 4 cm above the josé. There is a nasogastric tube extending to the s tomach. There is a right-sided Perma-Cath extending to the SVC. There is opacification of the righ t hemithorax. The cardiac silhouette is partially obscured. The aortic arch is unremarkable. The l eft lung is clear. There is no pneumothorax. IMPRESSION: Opacification of the right hemithorax, new compared with the prior study, suggestive of right lung c ollapse. Tubes and line in place. .Max Bella MD, MD Date Time Electronically viewed and signed by .Max Bella MD, on 09/23/2016 04:33 .T/
[2016-09-23 05:04] LABS: HEMATOCRIT 26.9 % (37.0-47.0); HEMOGLOBIN 9.3 g/dl (12.0-16.0); MEAN CORPUSCULAR HEMOGLOBIN 30.3 pg (29.0-33.0); MEAN CORPUSCULAR HGB CONC 34.7 g/dl (32.0-37.0); MEAN CORPUSCULAR VOLUME 87.3 fl (82.0-101.0); PLATELET COUNT 154 10^3/UL (140-440); RED BLOOD COUNT 3.08 10^6/ul (4.20-5.40); WHITE BLOOD COUNT 13.7 10^3/ul (4.8-10.8)
[2016-09-23 05:05] LABS: CONDITION 1; LH ANALYZER COMMENTS 1; SUSPECT 1; UNCORRECTED WBC 15.4 10^3/ul (4.8-10.8)
[2016-09-23 05:21] LABS: POTASSIUM 4.4 mmol/L (3.5-5.1)
[2016-09-23 05:24] LABS: CREATININE 2.55 mg/dl (0.44-1.00)
[2016-09-23 05:25] LABS: CALCIUM 8.6 mg/dl (8.4-10.2); MAGNESIUM 2.1 mg/dl (1.7-2.5); PHOSPHORUS 6.3 mg/dl (2.5-4.9)
[2016-09-23] MEDS: PIPER-TAZO 2.25 GM (PMX) 50 ML IVPB SCH ×2 (05:28→13:53)
[2016-09-23] MEDS: PANTOPRAZOLE 40 MG INJ IV SCH (05:28)
[2016-09-23 07:48] LABS: ANISOCYTOSIS 2+; LYMPHOCYTES # 0.8 10^3/ul (0.8-2.9); MONOCYTE # 0.7 10^3/ul (0.3-0.9); NEUTROPHIL # 12.2 10^3/ul (1.6-7.5); PLATELET ESTIMATE PLT APPEAR DECREASED
--- NOTE | 2016-09-23 07:51 | RADRPT ---
PROCEDURE: XR Chest 1 View. CLINICAL INDICATION: Shortness of breath, pneumonia, congestive heart failure TECHNIQUE: AP view of the chest were obtained. COMPARISON: September 23, 2016 FINDINGS: Heart borders are obscured by the opacities. Endotracheal and nasogastric tubes are stable. Right- sided dialysis catheter is unchanged. Complete opacification of the right hemithorax is stable. Pa tchy left lower lobe infiltrates combined with small pleural effusion have increased. The osseous structures appear stable. IMPRESSION: Continued complete opacification of the right hemithorax, likely corresponding to complete atelectas is/consolidation of the right lung combined with pleural effusion. Interval increase in patchy left lower lobe infiltrates. Stable support lines and tubes. RPTAT: AA .Fahad Winslow MD, MD Date Time Electronically viewed and signed by .Fahad Winslow MD, on 09/23/2016 07:51 .P/
[2016-09-23] MEDS: ALBUTEROL/IPRATROPIUM (NEB) 3 ML AMP HHN SCH (08:00)
[2016-09-23 08:19] LABS: Allen Test ACCEPTAB; Arterial Base Excess -4.8 mmol/L (-3.0-3); Arterial COHb 0.3 % (0.0-3.0); Arterial Fraction of Oxyhgb 98.2 % (93.0-99.0); Arterial MetHb 0.1 % (0.0-1.5); Arterial Total Hemglobin 9.6 g/dl (12.0-18.0); MODE VENT - AC
[2016-09-23] MEDS: METOPROLOL 50 MG TAB GTB SCH ×2 (09:00→21:00)
[2016-09-23] MEDS: AMIODARONE 200 MG TAB PO SCH ×2 (09:00→21:03)
--- NOTE | 2016-09-23 09:31 | CONS ---
Date/Time of Note Date/Time of Note DATE: 09/23/16 TIME: 09:28 Assessment/Plan Assessment/Plan Additional Assessment/Plan 1.Positive troponin-minmal in setting of esrd - no interventions planned. 2.CHF-systolic and diastolic acute on chronic. EF 45% by echo this admit - remove fluid with HD 3.HTN - modest Rx, will monitor. 4. CKD on HD - con't to keep euvolemic. 5.anemia-requiring transfusions - H/H stable 6.Coagulopathy-resolved 7.PAF-now back in SR currently - rate controlled 8. Edema-improving significantly 9. Resp distress s/p extubation Consultation Date/Type/Reason Admit Date/Time Sep 06, 2016 at 11:22 Type of Consultation: pulmonary Referring Provider: PAMELA MARTE 24 HR Interval Summary Free Text/Dictation No acute change - con't to keep euvolemic. 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) Exam/Review of Systems Vital Signs Vitals Vital Signs Date Time Temp Pulse Resp B/P Pulse Ox O2 Delivery O2 Flow Rate FiO2 09/23/16 09:08 92 21 100 60 09/23/16 06:00 120/55 Mechanical Ventilator 09/23/16 04:00 98.5 09/22/16 23:00 12.0 Intake and Output 09/22/16 09/22/16 09/23/16 15:00 23:00 07:00 Intake Total 430 ml 300 ml 390.245 ml Output Total 2700 ml Balance -2270 ml 300 ml 390.245 ml Exam General: WN/WD/NAD, AOx 0 HEENT: Unicetric/atraumatic/EOMI (does not follow commands) NECK: JVD elevated, no thyromegaly, intub Lymph: no lymphadenopathy HEART: regular with no S3, II/ systolic murmur at apex LUNGS: Coarse sounds ABD: soft, NT, ND, +BS : Intact Neuro: non focal SKIN: chronic changes EXT: trace edema Results Result Diagram: 09/23/16 0430 09/23/16 0430 Results 24 hrs Laboratory Tests Test 09/22/16 14:32 09/22/16 17:33 09/22/16 22:42 09/22/16 23:06 Bedside Glucose 311 H 274 H 306 H Arterial Blood HCO3 23.5 Arterial Blood Base Excess -6.7 L Arterial Blood Oxygen Saturation 91.6 L Sage Test N/A Arterial Blood Gas Puncture Site Right Brachial Arterial Blood Carboxyhemoglobin 0.1 Arterial Blood Date Drawn 09/15/2016 11:17:50 PM Arterial Blood Methemoglobin 0.1 Arterial Blood pCO2 (Temp correct) 74.5 H Arterial Blood pH (Temp corrected) 7.116 *L Arterial Blood pO2 (Temp corrected) 74.2 L Blood Gas A-a O2 Differential 337.5 H Blood Gas Critical Value Read Back Buffy CAMPOS RN Blood Gas Modality MASK - SIMPLE Blood Gas Notified Time 09/22/2016 11:30:59 PM Blood Gas Notified Whom KM Blood Gas Specimen Source Blood arterial Blood Gas Temperature 37.0 FiO2 69.0 Oxyhemoglobin Percent 91.4 L Total Hemoglobin 10.9 L Test 09/23/16 01:23 09/23/16 04:30 09/23/16 05:25 09/23/16 07:00 Bedside Glucose 279 H 166 Anion Gap 24 H Anisocytosis 2+ Blood Morphology Comment Blood Urea Nitrogen 64 H Calcium Level 8.6 Carbon Dioxide Level 19 L Chloride Level 98 Creatinine 2.55 H Glucose Level 160 Hematocrit 26.9 L Hemoglobin 9.3 L Lymphocytes # 0.8 Lymphocytes % 6.0 L Magnesium Level 2.1 Mean Corpuscular Hemoglobin 30.3 Mean Corpuscular Hemoglobin Concent 34.7 Mean Corpuscular Volume 87.3 Mean Platelet Volume 8.0 Monocytes # 0.7 Monocytes % 5.0 Neutrophils # 12.2 H Neutrophils % 89.0 H Nucleated Red Blood Cells # Nucleated Red Blood Cells % 12.0 H Phosphorus Level 6.3 H Platelet Count 154 Platelet Estimate PLT APPEAR DECREASED Potassium Level 4.4 Red Blood Count 3.08 L Red Cell Distribution Width 22.0 H Sodium Level 137 White Blood Count 13.7 H Arterial Blood HCO3 19.0 L Arterial Blood Base Excess -4.8 L Arterial Blood Oxygen Saturation 98.6 H Sage Test ACCEPTAB Arterial Blood Gas Puncture Site Right Radial Arterial Blood Carboxyhemoglobin 0.3 Arterial Blood Date Drawn 09/23/2016 7:50:45 AM Arterial Blood Methemoglobin 0.1 Arterial Blood pCO2 (Temp correct) 30.5 L Arterial Blood pH (Temp corrected) 7.412 Arterial Blood pO2 (Temp corrected) 155.4 H Blood Gas A-a O2 Differential 383.0 H Blood Gas Actual Respiration Rate 20 Blood Gas Low PEEP Setting 5.0 Blood Gas Modality VENT - AC Blood Gas Notified Time 09/23/2016 8:19:27 AM Blood Gas Notified Whom JLD Blood Gas Respiration Rate 20.0 Blood Gas Specimen Source Blood arterial Blood Gas Temperature 37.0 Blood Gas Tidal Volume 500.0 FiO2 80.0 Oxyhemoglobin Percent 98.2 Total Hemoglobin 9.6 L Medications Medications Current Medications Piperacillin Sod/ Tazobactam Sod (Zosyn 2.25gm/ 50ml (Pmx)) 50 ml @ 100 mls/hr Q8 IVPB Last administered on 09/23/16 05:28; Admin Dose 100 MLS/HR; Start at 14:00 Pantoprazole (Protonix Iv) 40 mg DAILY@06 IV Last administered on 09/23/16 05: 28; Admin Dose 40 MG; Start 09/07/16 at 06:00 Ondansetron HCl (Zofran Inj) 4 mg Q6H PRN IV NAUSEA AND/OR VOMITING; Start at 11:30 Miscellaneous Information 1 ea NOTE XX ; Start 09/06/16 at 12:00 Glucose (Glutose) 15 gm Q15M PRN PO DECREASED GLUCOSE; Start 09/06/16 at 12:00 Glucose (Glutose) 22.5 gm Q15M PRN PO DECREASED GLUCOSE; Start 09/06/16 at 12: 00 Dextrose (D50w Syringe) 25 ml Q15M PRN IV DECREASED GLUCOSE; Start 09/06/16 at 12:00 Dextrose (D50w Syringe) 50 ml Q15M PRN IV DECREASED GLUCOSE Last administered on 09/20/16at 04:51; Admin Dose 50 ML; Start 09/06/16 at 12:00 Glucagon (Glucagen) 1 mg Q15M PRN IM DECREASED GLUCOSE; Start 09/06/16 at 12: 00 Glucose 15 gm 15 gm Q15M PRN BUCCAL DECREASED GLUCOSE; Start 09/06/16 at 12:00 Norepinephrine/ Dextrose (Levophed/D5W) 500 ml @ 1.87 mls/hr TITRATE IV ; Start 09/07/16 at 10:00 Insulin Aspart (Novolog Insulin Pen) NOVOLOG *MODERATE* ALGORI... Q4 SC Last administered on 09/23/16 05:27; Admin Dose 2 UNIT; Start 09/11/16 at 13:00 Epoetin Kobi (Epogen (Esrd)) 10,000 units MoWeFr@17 SC Last administered on 09/22 17:40; Admin Dose 10,000 UNITS; Start 09/12/16 at 17:00 Voriconazole (Vfend) 200 mg BID NGT Last administered on 09/22/16 22:40; Admin Dose 200 MG; Start 09/12/16 at 21:00 Heparin Sodium (Porcine) (Heparin (5000 Units/0.5 ml)) 5,000 unit BID SC Last administered on 09/22/16 22:45; Admin Dose 5,000 UNIT; Start 09/13/16 at 21:00 Hydralazine HCl (Apresoline) 10 mg Q4H PRN IV ELEVATED BLOOD PRESSURE Last administered on 09/21/16 23:47; Admin Dose 10 MG; Start 09/18/16 at 19:00 Hydralazine HCl (Apresoline) 25 mg Q8 GTB Last administered on 09/22/16 14:35; Admin Dose 25 MG; Start 09/19/16 at 14:00 Methylprednisolone Sodium Succinate (Solu-Medrol) 60 mg QAM IV Last administered on 09/22/16 09:06; Admin Dose 60 MG; Start 09/20/16 at 09:00 Metoprolol Tartrate (Lopressor) 50 mg BID GTB Last administered on 09/21/16 21: 49; Admin Dose 50 MG; Start 09/19/16 at 21:00 Metoprolol Tartrate (Lopressor) 5 mg Q4H PRN IV HR>110 Last administered on 09/21 09:01; Admin Dose 5 MG; Start 09/19/16 at 22:00 Aspirin (Ecotrin) 325 mg DAILY PO Last administered on 09/22/16 09:06; Admin Dose 325 MG; Start 09/20/16 at 11:00 Amiodarone HCl 200 mg 200 mg BID PO Last administered on 09/22/16 21:00; Admin Dose 200 MG; Start 09/20/16 at 21:00 Propofol 100 ml @ 2.445 mls/ hr Q12H IV Last administered on 09/23/16 00:08; Admin Dose 2.445 MLS/HR; Start 09/23/16 at 00:00 Norepinephrine 16 mg/Dextrose 500 ml @ 1.87 mls/hr TITRATE IV ; Start 09/23/16 at 02:30 Norepinephrine (Levophed) 250 ml @ 1.875 mls/ hr TITRATE IV Last administered on 09/23/16 02:49; Admin Dose 3.75 MLS/HR; Start 09/23/16 at 02:30 MILLY ARIZMENDI MD Sep 23, 2016 09:30
[2016-09-23] MEDS: ASPIRIN (EC) 325 MG TAB PO SCH (10:02)
[2016-09-23] MEDS: VORICONAZOLE 200 MG TAB NGT SCH ×2 (10:03→21:03)
[2016-09-23] MEDS: HEPARIN 5,000 UNIT/0.5 ML SYG SC SCH ×2 (10:14→21:02)
[2016-09-23] MEDS: METHYLPREDNISOLONE 125 MG INJ IV SCH (10:36)
--- NOTE | 2016-09-23 10:49 | PN ---
DATE: 09/23/2016 SUBJECTIVE: The patient overnight was reintubated and placed on pressor support. Yesterday the pat ient had hemodialysis with 2.5 liters removed. No acute events noted. No hemoptysis, hematemesis o r hematochezia. OBJECTIVE: VITAL SIGNS: Blood pressure is 120/55, respirations 20, pulse 95, temperature 98.7. HEENT: Head is normocephalic. NECK: Supple. HEART: Regular rate. LUNGS: Show diminished breath sounds at bases, right greater than left. ABDOMEN: Soft, nontender to palpation without rebound or guarding. EXTREMITIES: Negative for clubbing, cyanosis. Trace edema. DERMATOLOGIC: No rashes. MUSCULOSKELETAL: No joint effusions. NEUROLOGIC: No change in exam. MEDICATIONS: Reviewed. LABORATORY DATA: Showed his white count 13.7, hemoglobin ____, hematocrit 26.9, platelet count is 1 54. Sodium 137, potassium 4.4, chloride 98, BUN 64, creatinine 2.55, phosphorous 6.3. IMAGING: The patient's chest x-ray shows opacification of the right hemothorax and increase in patc hy infiltrates. ASSESSMENT AND PLAN: 1. Anuric acute kidney injury on top of chronic kidney disease stage IV, now likely progressed to e nd-stage renal disease. The patient has been receiving near daily dialysis for solute clearance and volume removal. We will continue dialysis for today if patient remains hemodynamically stable. 2. Volume overload, improving. Continue ultrafiltration with dialysis if patient is hemodynamicall y stable and able to tolerate. 3. Respiratory failure, reintubated yesterday. Vent settings have been reviewed. ABG is reviewed. Follow up with Pulmonary. 4. Right lung opacification. Etiology may be secondary to mucous plug or atelectasis/pleural effus ion. Follow up with Pulmonary and monitor. 5. Sepsis. The patient is currently on antibiotic therapy, on pressor support. Will continue. 6. Diabetes. Continue Accu-Cheks and sliding scale. 7. History of hypertension. We will continue to monitor. Hold blood pressure medications as jone ambrosio is currently in shock. 8. Atrial fibrillation, rapid rate. Continue amiodarone. 9. Encephalopathy, etiology is toxic metabolic. Continue to monitor. 10. Dysphagia, status post NG tube. Continue tube feeding. 11. History of coronary artery disease. Continue medical management. Dictated By: STEFFANY JESUS/ADRIA Conf#: [id number] DID#: [id number]
--- NOTE | 2016-09-23 11:20 | CONS ---
Date/Time of Note Date/Time of Note DATE: 09/23/16 TIME: 11:02 Consult Date/Type/Reason Admit Date/Time Sep 06, 2016 at 11:22 Type of Consultation: pulmonary Ordering Provider: PAMELA MARTE Subjective Intubated yesterday for hypercapniec resp failure Now comfortable on vent. Objective Vital Signs Date Time Temp Pulse Resp B/P Pulse Ox O2 Delivery O2 Flow Rate FiO2 09/23/16 09:08 92 21 100 60 09/23/16 06:00 120/55 Mechanical Ventilator 09/23/16 04:00 98.5 09/22/16 23:00 12.0 Intake and Output 09/22/16 09/22/16 09/23/16 15:00 23:00 07:00 Intake Total 430 ml 300 ml 390.245 ml Output Total 2700 ml Balance -2270 ml 300 ml 390.245 ml PHYSICAL EXAMINATION GENERAL: Elderly lady on mechanical ventilation. VITAL SIGNS: see below. HEENT: Pupils equal, round, and reactive to light. CARDIAC: S1, S2, CHEST: Diminished air entry bilaterally. Bilateral rales ABDOMEN: Mildly distended. No bowel sounds. Obese no guarding or rebound EXTREMITIES: No cyanosis, clubbing edema +2 NEUROLOGIC: Generalized weakness Results/Medications Result Diagram: 09/23/16 0430 09/23/16 0430 Results 24 hrs Laboratory Tests Test 09/22/16 14:32 09/22/16 17:33 09/22/16 22:42 09/22/16 23:06 Bedside Glucose 311 H 274 H 306 H Arterial Blood HCO3 23.5 Arterial Blood Base Excess -6.7 L Arterial Blood Oxygen Saturation 91.6 L Sage Test N/A Arterial Blood Gas Puncture Site Right Brachial Arterial Blood Carboxyhemoglobin 0.1 Arterial Blood Date Drawn 09/22/2016 11:17:00 PM Arterial Blood Methemoglobin 0.1 Arterial Blood pCO2 (Temp correct) 74.5 H Arterial Blood pH (Temp corrected) 7.116 *L Arterial Blood pO2 (Temp corrected) 74.2 L Blood Gas A-a O2 Differential 337.5 H Blood Gas Critical Value Read Back Buffy CAMPOS RN Blood Gas Modality MASK - SIMPLE Blood Gas Notified Time 09/22/2016 11:30:00 PM Blood Gas Notified Whom KM Blood Gas Specimen Source Blood arterial Blood Gas Temperature 37.0 FiO2 69.0 Oxyhemoglobin Percent 91.4 L Total Hemoglobin 10.9 L Test 09/23/16 01:23 09/23/16 04:30 09/23/16 05:25 09/23/16 07:00 Bedside Glucose 279 H 166 Anion Gap 24 H Anisocytosis 2+ Blood Morphology Comment Blood Urea Nitrogen 64 H Calcium Level 8.6 Carbon Dioxide Level 19 L Chloride Level 98 Creatinine 2.55 H Glucose Level 160 Hematocrit 26.9 L Hemoglobin 9.3 L Lymphocytes # 0.8 Lymphocytes % 6.0 L Magnesium Level 2.1 Mean Corpuscular Hemoglobin 30.3 Mean Corpuscular Hemoglobin Concent 34.7 Mean Corpuscular Volume 87.3 Mean Platelet Volume 8.0 Monocytes # 0.7 Monocytes % 5.0 Neutrophils # 12.2 H Neutrophils % 89.0 H Nucleated Red Blood Cells # Nucleated Red Blood Cells % 12.0 H Phosphorus Level 6.3 H Platelet Count 154 Platelet Estimate PLT APPEAR DECREASED Potassium Level 4.4 Red Blood Count 3.08 L Red Cell Distribution Width 22.0 H Sodium Level 137 White Blood Count 13.7 H Arterial Blood HCO3 19.0 L Arterial Blood Base Excess -4.8 L Arterial Blood Oxygen Saturation 98.6 H Sage Test ACCEPTAB Arterial Blood Gas Puncture Site Right Radial Arterial Blood Carboxyhemoglobin 0.3 Arterial Blood Date Drawn 09/23/2016 7:50:45 AM Arterial Blood Methemoglobin 0.1 Arterial Blood pCO2 (Temp correct) 30.5 L Arterial Blood pH (Temp corrected) 7.412 Arterial Blood pO2 (Temp corrected) 155.4 H Blood Gas A-a O2 Differential 383.0 H Blood Gas Actual Respiration Rate 20 Blood Gas Low PEEP Setting 5.0 Blood Gas Modality VENT - AC Blood Gas Notified Time 09/23/2016 8:19:27 AM Blood Gas Notified Whom JLD Blood Gas Respiration Rate 20.0 Blood Gas Specimen Source Blood arterial Blood Gas Temperature 37.0 Blood Gas Tidal Volume 500.0 FiO2 80.0 Oxyhemoglobin Percent 98.2 Total Hemoglobin 9.6 L Test 09/23/16 10:20 Bedside Glucose 221 H Medications Current Medications Piperacillin Sod/ Tazobactam Sod (Zosyn 2.25gm/ 50ml (Pmx)) 50 ml @ 100 mls/hr Q8 IVPB Last administered on 09/23/16t 05:28; Admin Dose 100 MLS/HR; Start 12/ 17/16 at 14:00 Pantoprazole (Protonix Iv) 40 mg DAILY@06 IV Last administered on 09/23/16 05: 28; Admin Dose 40 MG; Start 09/07/16 at 06:00 Ondansetron HCl (Zofran Inj) 4 mg Q6H PRN IV NAUSEA AND/OR VOMITING; Start at 11:30 Miscellaneous Information 1 ea NOTE XX ; Start 09/06/16 at 12:00 Glucose (Glutose) 15 gm Q15M PRN PO DECREASED GLUCOSE; Start 09/06/16 at 12:00 Glucose (Glutose) 22.5 gm Q15M PRN PO DECREASED GLUCOSE; Start 09/06/16 at 12: 00 Dextrose (D50w Syringe) 25 ml Q15M PRN IV DECREASED GLUCOSE; Start 09/06/16 at 12:00 Dextrose (D50w Syringe) 50 ml Q15M PRN IV DECREASED GLUCOSE Last administered on 09/20/16at 04:51; Admin Dose 50 ML; Start 09/06/16 at 12:00 Glucagon (Glucagen) 1 mg Q15M PRN IM DECREASED GLUCOSE; Start 09/06/16 at 12: 00 Glucose 15 gm 15 gm Q15M PRN BUCCAL DECREASED GLUCOSE; Start 09/06/16 at 12:00 Norepinephrine/ Dextrose (Levophed/D5W) 500 ml @ 1.87 mls/hr TITRATE IV ; Start 09/07/16 at 10:00 Insulin Aspart (Novolog Insulin Pen) NOVOLOG *MODERATE* ALGORI... Q4 SC Last administered on 09/23/16 10:23; Admin Dose 6 UNIT; Start 09/11/16 at 13:00 Epoetin Kobi (Epogen (Esrd)) 10,000 units MoWeFr@17 SC Last administered on 09/22 17:40; Admin Dose 10,000 UNITS; Start 09/12/16 at 17:00 Voriconazole (Vfend) 200 mg BID NGT Last administered on 09/23/16 10:03; Admin Dose 200 MG; Start 09/12/16 at 21:00 Heparin Sodium (Porcine) (Heparin (5000 Units/0.5 ml)) 5,000 unit BID SC Last administered on 09/23/16 10:14; Admin Dose 5,000 UNIT; Start 09/13/16 at 21:00 Hydralazine HCl (Apresoline) 10 mg Q4H PRN IV ELEVATED BLOOD PRESSURE Last administered on 09/21/16 23:47; Admin Dose 10 MG; Start 09/18/16 at 19:00 Hydralazine HCl (Apresoline) 25 mg Q8 GTB Last administered on 09/22/16 14:35; Admin Dose 25 MG; Start 09/19/16 at 14:00 Methylprednisolone Sodium Succinate (Solu-Medrol) 60 mg QAM IV Last administered on 09/23/16 10:36; Admin Dose 60 MG; Start 09/20/16 at 09:00 Metoprolol Tartrate (Lopressor) 50 mg BID GTB Last administered on 09/21/16 21: 49; Admin Dose 50 MG; Start 09/19/16 at 21:00 Metoprolol Tartrate (Lopressor) 5 mg Q4H PRN IV HR>110 Last administered on 09/21 09:01; Admin Dose 5 MG; Start 09/19/16 at 22:00 Aspirin (Ecotrin) 325 mg DAILY PO Last administered on 09/23/16 10:02; Admin Dose 325 MG; Start 09/20/16 at 11:00 Amiodarone HCl 200 mg 200 mg BID PO Last administered on 09/23/16 09:00; Admin Dose 200 MG; Start 09/20/16 at 21:00 Propofol 100 ml @ 2.445 mls/ hr Q12H IV Last administered on 09/23/16 09:33; Admin Dose 12.225 MLS/HR; Start 09/23/16 at 00:00 Norepinephrine 16 mg/Dextrose 500 ml @ 1.87 mls/hr TITRATE IV ; Start 09/23/16 at 02:30 Norepinephrine (Levophed) 250 ml @ 1.875 mls/ hr TITRATE IV Last administered on 09/23/16 02:49; Admin Dose 3.75 MLS/HR; Start 09/23/16 at 02:30 Assessment/Plan Chief Complaint/Hosp Course ASSESSMENT AND PLAN: 1.Hypoxemic and hypercapnic respiratory failure secondary to likely volume overload on top of significant morbid obesity and restrictive lung disease. Reintubated 09/23/16 2. Morbid obesity 3. Chronic kidney disease 4. Significant anemia following epistaxis 5. Questionable distal pulmonary embolus doubt any hemodynamic significance, negative Dopplers for deep vein thrombosis Plan 1. Continue vent. no further weaning. Will need trach per family wishes. 2. Renal failure with volume removal as tolerated 3. Bronchodilators 4. Aspiration precautions. 5. Deep vein thrombosis and gastrointestinal prophylaxis. Discussed with primary team Problems: MARCIA BAIN MD, [facility] Sep 23, 2016 11:20
--- NOTE | 2016-09-23 11:48 | PN ---
Date/Time of Note Date/Time of Note DATE: 09/23/16 TIME: 11:35 Assessment/Plan VTE Prophylaxis VTE Prophylaxis Intervention: heparin Lines/Catheters IV Catheter Type (from Nrs): Peripheral IV Urinary Cath still in place: No Assessment/Plan Assessment/Plan 71 yo female with 1. Recurrent acute on chronic respiratory failure and patient had to be reintubated again overnight for the 3rd time on this admission now Discussed with Dr Daniel and patient current family billing representative, patient's cousin, tracheostomy needed along with PEG placement Continue HD for volume removal and vent support On Solumedrol 60 mg IV qdaily for now Pulmonary/Dr Daniel following Decision to proceed with trach and peg 2. Congestive heart failure, systolic acute on chronic, cardiomyopathy with EF 40-45, and also with ESRD On HD for volume management and Cardiology following, HD today again Continue current medications Follow up Nephrology and cardiology recommendations 3. Elevated troponin / NSTEMI secondary to demand ischemia Appreciate Cardiology recommendations 3. Pneumonia possibly secondary to aspiration, continue Zosyn for now 4. Diabetes mellitus Type 2, now with hyperglycemia again Back on TF so will resume Lantus units bid, continue moderate SSI Continue tube feeding to goal of 50 cc/hr 5. Sepsis with Septic Shock 2/2 Pneumonia, Back on pressors post intubation last night Will titrate off pressors as tolerated, continue Zosyn and back on Vent again. Continue supportive care. Afebrile and WBC wnl 6. Hypertension: Hypotensive post intubation, on Levo, Back on low dose Bblock for HR control. 7. End-stage renal disease on hemodialysis. HD mon/thu/thu. However has been dialyzed daily so far for volume management. Follow up Nephrology today. 8. Chronic hypochromic anemia secondary to chronic disease, stable H/H, continue monitor. 9. Paroxysmal atrial fibrillation, need to resume BBlock for HR control and also Amio Monitor, further recs per cardiology. 10. UTI secondary to yeast: Repeat UA with LE and culture with yeast >100K, non albicans again. Continue Voriconazole 200 mg per OGT bid (day#12/14) D/c'd [place] 11. Coagulopathy: resolved, resumed Heparin ppx dose 12. Superficial venous thrombosis in the left cephalic vein in the upper arm. warm compresses since patient with coagulopathy Repeat Doppler in 1 to 2 weeks Prophylaxis: Heparin for DVT ppx and Protonix for GI ppx Disposition: Back on Vent again and HD today again and weaning protocol ongoing. Subjective 24 Hr Interval Summary Free Text/Dictation Patient had to be re intubated overnight for the 3rd time Needs tracheostomy and IPA [place] will determine if can be done here at [facility] vs needs transfer for procedure and subacute placement On Levo and needs HR control Exam/Review of Systems Vital Signs Vitals Vital Signs Date Time Temp Pulse Resp B/P Pulse Ox O2 Delivery O2 Flow Rate FiO2 09/23/16 11:05 112 20 100 60 09/23/16 06:00 120/55 Mechanical Ventilator 09/23/16 04:00 98.5 09/22/16 23:00 12.0 Intake and Output 09/22/16 09/22/16 09/23/16 15:00 23:00 07:00 Intake Total 430 ml 300 ml 390.245 ml Output Total 2700 ml Balance -2270 ml 300 ml 390.245 ml Exam Constitutional: other (sedated and intubated ) Respiratory: diminished breath sounds (bilaterally ), other (on Vent ) Cardiovascular: irregular rhythm (A fib ) Gastrointestinal: non-tender, other (tolerating Tube feeding ), soft Musculoskeletal: other (anasarca ) Extremities: normal pulses Neurological: other (intubated and sedated ) Results Result Diagram: 09/23/16 0430 09/23/16 0430 Results 24 hrs Laboratory Tests Test 09/22/16 14:32 09/22/16 17:33 09/22/16 22:42 09/22/16 23:06 Bedside Glucose 311 H 274 H 306 H Arterial Blood HCO3 23.5 Arterial Blood Base Excess -6.7 L Arterial Blood Oxygen Saturation 91.6 L Sage Test N/A Arterial Blood Gas Puncture Site Right Brachial Arterial Blood Carboxyhemoglobin 0.1 Arterial Blood Date Drawn 09/22/2016 11:17:00 PM Arterial Blood Methemoglobin 0.1 Arterial Blood pCO2 (Temp correct) 74.5 H Arterial Blood pH (Temp corrected) 7.116 *L Arterial Blood pO2 (Temp corrected) 74.2 L Blood Gas A-a O2 Differential 337.5 H Blood Gas Critical Value Read Back Buffy CAMPOS RN Blood Gas Modality MASK - SIMPLE Blood Gas Notified Time 09/22/2016 11:30:00 PM Blood Gas Notified Whom KM Blood Gas Specimen Source Blood arterial Blood Gas Temperature 37.0 FiO2 69.0 Oxyhemoglobin Percent 91.4 L Total Hemoglobin 10.9 L Test 09/23/16 01:23 09/23/16 04:30 09/23/16 05:25 09/23/16 07:00 Bedside Glucose 279 H 166 Anion Gap 24 H Anisocytosis 2+ Blood Morphology Comment Blood Urea Nitrogen 64 H Calcium Level 8.6 Carbon Dioxide Level 19 L Chloride Level 98 Creatinine 2.55 H Glucose Level 160 Hematocrit 26.9 L Hemoglobin 9.3 L Lymphocytes # 0.8 Lymphocytes % 6.0 L Magnesium Level 2.1 Mean Corpuscular Hemoglobin 30.3 Mean Corpuscular Hemoglobin Concent 34.7 Mean Corpuscular Volume 87.3 Mean Platelet Volume 8.0 Monocytes # 0.7 Monocytes % 5.0 Neutrophils # 12.2 H Neutrophils % 89.0 H Nucleated Red Blood Cells # Nucleated Red Blood Cells % 12.0 H Phosphorus Level 6.3 H Platelet Count 154 Platelet Estimate PLT APPEAR DECREASED Potassium Level 4.4 Red Blood Count 3.08 L Red Cell Distribution Width 22.0 H Sodium Level 137 White Blood Count 13.7 H Arterial Blood HCO3 19.0 L Arterial Blood Base Excess -4.8 L Arterial Blood Oxygen Saturation 98.6 H Sage Test ACCEPTAB Arterial Blood Gas Puncture Site Right Radial Arterial Blood Carboxyhemoglobin 0.3 Arterial Blood Date Drawn 09/23/2016 7:50:45 AM Arterial Blood Methemoglobin 0.1 Arterial Blood pCO2 (Temp correct) 30.5 L Arterial Blood pH (Temp corrected) 7.412 Arterial Blood pO2 (Temp corrected) 155.4 H Blood Gas A-a O2 Differential 383.0 H Blood Gas Actual Respiration Rate 20 Blood Gas Low PEEP Setting 5.0 Blood Gas Modality VENT - AC Blood Gas Notified Time 09/23/2016 8:19:27 AM Blood Gas Notified Whom JLD Blood Gas Respiration Rate 20.0 Blood Gas Specimen Source Blood arterial Blood Gas Temperature 37.0 Blood Gas Tidal Volume 500.0 FiO2 80.0 Oxyhemoglobin Percent 98.2 Total Hemoglobin 9.6 L Test 09/23/16 10:20 Bedside Glucose 221 H Medications Medications Current Medications Piperacillin Sod/ Tazobactam Sod (Zosyn 2.25gm/ 50ml (Pmx)) 50 ml @ 100 mls/hr Q8 IVPB Last administered on 09/23/16 05:28; Admin Dose 100 MLS/HR; Start at 14:00 Pantoprazole (Protonix Iv) 40 mg DAILY@06 IV Last administered on 09/23/16 05: 28; Admin Dose 40 MG; Start 09/07/16 at 06:00 Ondansetron HCl (Zofran Inj) 4 mg Q6H PRN IV NAUSEA AND/OR VOMITING; Start at 11:30 Miscellaneous Information 1 ea NOTE XX ; Start 09/06/16 at 12:00 Glucose (Glutose) 15 gm Q15M PRN PO DECREASED GLUCOSE; Start 09/06/16 at 12:00 Glucose (Glutose) 22.5 gm Q15M PRN PO DECREASED GLUCOSE; Start 09/06/16 at 12: 00 Dextrose (D50w Syringe) 25 ml Q15M PRN IV DECREASED GLUCOSE; Start 09/06/16 at 12:00 Dextrose (D50w Syringe) 50 ml Q15M PRN IV DECREASED GLUCOSE Last administered on 09/20/16at 04:51; Admin Dose 50 ML; Start 09/06/16 at 12:00 Glucagon (Glucagen) 1 mg Q15M PRN IM DECREASED GLUCOSE; Start 09/06/16 at 12: 00 Glucose 15 gm 15 gm Q15M PRN BUCCAL DECREASED GLUCOSE; Start 09/06/16 at 12:00 Norepinephrine/ Dextrose (Levophed/D5W) 500 ml @ 1.87 mls/hr TITRATE IV ; Start 09/07/16 at 10:00 Insulin Aspart (Novolog Insulin Pen) NOVOLOG *MODERATE* ALGORI... Q4 SC Last administered on 09/23/16 10:23; Admin Dose 6 UNIT; Start 09/11/16 at 13:00 Epoetin Kobi (Epogen (Esrd)) 10,000 units MoWeFr@17 SC Last administered on 09/22 17:40; Admin Dose 10,000 UNITS; Start 09/12/16 at 17:00 Voriconazole (Vfend) 200 mg BID NGT Last administered on 09/23/16 10:03; Admin Dose 200 MG; Start 09/12/16 at 21:00 Heparin Sodium (Porcine) (Heparin (5000 Units/0.5 ml)) 5,000 unit BID SC Last administered on 09/23/16 10:14; Admin Dose 5,000 UNIT; Start 09/13/16 at 21:00 Hydralazine HCl (Apresoline) 10 mg Q4H PRN IV ELEVATED BLOOD PRESSURE Last administered on 09/21/16 23:47; Admin Dose 10 MG; Start 09/18/16 at 19:00 Hydralazine HCl (Apresoline) 25 mg Q8 GTB Last administered on 09/22/16 14:35; Admin Dose 25 MG; Start 09/19/16 at 14:00 Methylprednisolone Sodium Succinate (Solu-Medrol) 60 mg QAM IV Last administered on 09/23/16 10:36; Admin Dose 60 MG; Start 09/20/16 at 09:00 Metoprolol Tartrate (Lopressor) 50 mg BID GTB Last administered on 09/21/16 21: 49; Admin Dose 50 MG; Start 09/19/16 at 21:00 Metoprolol Tartrate (Lopressor) 5 mg Q4H PRN IV HR>110 Last administered on 09/21 09:01; Admin Dose 5 MG; Start 09/19/16 at 22:00 Aspirin (Ecotrin) 325 mg DAILY PO Last administered on 09/23/16 10:02; Admin Dose 325 MG; Start 09/20/16 at 11:00 Amiodarone HCl 200 mg 200 mg BID PO Last administered on 09/23/16 09:00; Admin Dose 200 MG; Start 09/20/16 at 21:00 Propofol 100 ml @ 2.445 mls/ hr Q12H IV Last administered on 09/23/16 09:33; Admin Dose 12.225 MLS/HR; Start 09/23/16 at 00:00 Norepinephrine 16 mg/Dextrose 500 ml @ 1.87 mls/hr TITRATE IV ; Start 09/23/16 at 02:30 Norepinephrine (Levophed) 250 ml @ 1.875 mls/ hr TITRATE IV Last administered on 09/23/16 02:49; Admin Dose 3.75 MLS/HR; Start 09/23/16 at 02:30 CRISTY INMAN Sep 23, 2016 11:47
[2016-09-23] MEDS: IPRATROPIUM (HFA) 12.9 GM INHALER INH SCH ×2 (13:37→19:42)
[2016-09-23] MEDS: ALBUTEROL HFA 8 GM INHALER INH SCH ×2 (13:37→19:42)
[2016-09-23] MEDS ORDERED: INSULIN GLARGINE [LANtus] 3 ML PEN SC SCH (21:00)
[2016-09-24] VITALS (60 sets, daily range): BP systolic 82–175; BP diastolic 30–144; PULSE 64–98; RESP 16–23
[2016-09-24] MEDS: ALBUTEROL HFA 8 GM INHALER INH SCH ×4 (01:37→20:57)
[2016-09-24] MEDS: IPRATROPIUM (HFA) 12.9 GM INHALER INH SCH ×4 (01:37→20:57)
[2016-09-24] MEDS: INSULIN ASPART [NOVOLOG] 3 ML PEN SC SCH ×6 (01:45→21:52)
[2016-09-24] MEDS: PIPER-TAZO 2.25 GM (PMX) 50 ML IVPB SCH ×4 (01:50→21:40)
[2016-09-24 04:55] LABS: POTASSIUM 4.2 mmol/L (3.5-5.1)
[2016-09-24 04:57] LABS: CREATININE 2.29 mg/dl (0.44-1.00)
[2016-09-24 04:58] LABS: CALCIUM 8.1 mg/dl (8.4-10.2); HEMATOCRIT 25.6 % (37.0-47.0); HEMOGLOBIN 9.2 g/dl (12.0-16.0); MEAN CORPUSCULAR HEMOGLOBIN 31.6 pg (29.0-33.0); MEAN CORPUSCULAR HGB CONC 36.1 g/dl (32.0-37.0); MEAN CORPUSCULAR VOLUME 87.5 fl (82.0-101.0); MEAN PLATELET VOLUME 8.3 fl (7.4-10.4); PHOSPHORUS 4.4 mg/dl (2.5-4.9); PLATELET COUNT 127 10^3/UL (140-440); RED BLOOD COUNT 2.93 10^6/ul (4.20-5.40); RED CELL DISTRIBUTION WIDTH 22.4 % (11.5-14.5); UNCORRECTED WBC 14.2 10^3/ul (4.8-10.8); WHITE BLOOD COUNT 14.2 10^3/ul (4.8-10.8)
[2016-09-24 05:28] LABS: CONDITION 1; LH ANALYZER COMMENTS 1; SUSPECT 1
[2016-09-24] MEDS: PANTOPRAZOLE 40 MG INJ IV SCH (06:17)
[2016-09-24 08:10] LABS: AADO2 Arterial 124.5 mmHg (7.0-24.0); Allen Test ACCEPTAB; Arterial Base Excess -2.6 mmol/L (-3.0-3); Arterial COHb 0.3 % (0.0-3.0); Arterial Fraction of Oxyhgb 89.9 % (93.0-99.0); Arterial HCO3 20.2 mmol/L (22.0-26.0); Arterial MetHb 0.1 % (0.0-1.5); MODE VENT - AC
[2016-09-24] MEDS: METHYLPREDNISOLONE 125 MG INJ IV SCH (08:36)
[2016-09-24] MEDS: ASPIRIN (EC) 325 MG TAB PO SCH (08:36)
[2016-09-24] MEDS: VORICONAZOLE 200 MG TAB NGT SCH ×2 (08:36→21:40)
[2016-09-24] MEDS: AMIODARONE 200 MG TAB PO SCH ×2 (08:36→21:41)
[2016-09-24] MEDS: HEPARIN 5,000 UNIT/0.5 ML SYG SC SCH (08:40)
--- NOTE | 2016-09-24 08:42 | RADRPT ---
PROCEDURE: XR Chest. CLINICAL INDICATION: Shortness of breath. TECHNIQUE: Single frontal view. COMPARISON: 09/23/2016. FINDINGS: The endotracheal tube, nasogastric tube, left arm PICC line, and right internal jugular vein dialysi s catheter remain in position. Previously noted opacification throughout the right lung is improved . There is patchy air space disease throughout the left lung consistent with pneumonia. The heart is enlarged. There is a right pleural effusion loculated superiorly and probable atelectasis in the right upper l obe. There is no pneumothorax. IMPRESSION: 1. Improved aeration of the right lung. 2. No other change from 09/23/2016. RPTAT: QQ .Esvin Mak MD, MD Date Time Electronically viewed and signed by .Esvin Mak MD, on 09/24/2016 08:42 .R/
[2016-09-24] MEDS: METOPROLOL 50 MG TAB GTB SCH ×2 (09:00→21:00)
--- NOTE | 2016-09-24 09:42 | PN ---
DATE: 09/24/2016 SUBJECTIVE: The patient had hemodialysis yesterday, tolerated well with 1.5 liters removed. The pa dominick remains on pressor support low dose of Levophed. No other acute events noted overnight. No h emoptysis, hematemesis or hematochezia. OBJECTIVE: VITAL SIGNS: Blood pressure 126/31, respiratory rate 20, pulse 77, temperature 98.1. I'S and O'S: Showed 1.6 liters in, 1 liter removed. HEENT: Head is normocephalic. NECK: Supple. HEART: Regular rate. LUNGS: Show diminished breath sounds at the base, right greater than left. ABDOMEN: Soft, nontender to palpation, no rebound or guarding. EXTREMITIES: Negative for clubbing or cyanosis. Trace edema. DERMATOLOGIC: No rashes. MUSCULOSKELETAL: No joint effusions. NEUROLOGIC: No change in exam. MEDICATIONS: Patient's medication reviewed. LABORATORY DATA: Shows sodium 131, potassium 4.2, chloride 95, bicarbonate 19, BUN 57, creatinine 2 .29. White count 14.3, hemoglobin 9.2, hematocrit 25.6, and platelet count is 127. ASSESSMENT AND PLAN: 1. Acute kidney injury on top of chronic kidney disease stage IV, now likely progressed to end-stag e renal disease. The patient has been receiving daily dialysis for solute clearance and volume teresa blair. The plan would be to possibly hold dialysis today. We will follow the patient's chest x-ray. If findings continue to show pulmonary congestion would order a round of dialysis today, otherwise, anticipate dialysis tomorrow. 2. Volume overload, improving. We will continue ultrafiltration with dialysis. 3. Ventilator dependent respiratory failure. Vent settings have been reviewed. ABG has been revie wed. Continue to monitor. 4. Right lung opacification, possibly secondary to mucous plug or atelectasis. We will follow up c hest x-ray today. Follow up with pulmonary. 5. Septic shock. The patient is currently on antibiotic therapy, on pressor support. We will cont inue to monitor, continue to wean off pressor if possible. 6. Diabetes, continue Accu-Cheks and sliding scale. 7. Mineral bone disorder. Monitor calcium and phosphorus levels. No need for phosphate binders. 8. Hyponatremia, etiology secondary to end-stage renal disease. Continue to monitor sodium levels. Continue to minimize free water intake. 9. Atrial fibrillation with episodes of rapid rate. Continue medical management. 10. Dysphagia. NG tube. Continue tube feeding. 11. History of coronary artery disease. Continue medical management. 12. Anemia of chronic kidney disease. We will continue to monitor hemoglobin and hematocrit levels . We will give Epogen with hemodialysis. Dictated By: STEFFANY JESUS/ADRIA Conf#: [id number] DID#: [id number]
[2016-09-24 09:51] LABS: ANISOCYTOSIS 2+; BURR CELLS OCCASIONAL; LYMPHOCYTES # 0.6 10^3/ul (0.8-2.9); MONOCYTE # 0.9 10^3/ul (0.3-0.9); NEUTROPHIL # 12.8 10^3/ul (1.6-7.5)
--- NOTE | 2016-09-24 10:10 | PN ---
Date/Time of Note Date/Time of Note DATE: 09/24/16 TIME: 09:37 Assessment/Plan VTE Prophylaxis VTE Prophylaxis Intervention: heparin Lines/Catheters IV Catheter Type (from Nrs): PICC Line (permacath) Central line still needed: Yes (RUE and permcath for HD ) Urinary Cath still in place: No Assessment/Plan Assessment/Plan 71 yo female with 1. Recurrent acute on chronic respiratory failure and patient had to be reintubated again overnight for the 3rd time on this admission now Discussed with Dr Daniel and patient current family credit and collections representative, patient's cousin, tracheostomy needed along with PEG placement Continue HD for volume removal and vent support On Solumedrol 60 mg IV qdaily for now Pulmonary/Dr Daniel following Decision to proceed with trach and peg 2. Congestive heart failure, systolic acute on chronic, cardiomyopathy with EF 40-45%, and also with ESRD On HD for volume management and Cardiology following, HD today again Continue current medications Follow up Nephrology and cardiology recommendations 3. Elevated troponin / NSTEMI secondary to demand ischemia Appreciate Cardiology recommendations 3. Pneumonia possibly secondary to aspiration, continue Zosyn for now 4. Diabetes mellitus Type 2, now with hyperglycemia again Back on TF so will resume Lantus units bid, continue moderate SSI Continue tube feeding to goal of 30 cc/hr with [employer]. PEG tube once Tracheostomy done. 5. Sepsis with Septic Shock 2/2 Pneumonia, OFF pressors this AM and Labs wnl Continue Zosyn. Continue supportive care. Afebrile and WBC wnl 6. Hypertension: Off Levo, Back on low dose Bblock for HR control. 7. End-stage renal disease on hemodialysis. HD thu/thu/thu. However has been dialyzed daily so far for volume management. Follow up Nephrology today, no HD today as CXR better today. 8. Chronic hypochromic anemia secondary to chronic disease, stable H/H, continue monitor. 9. Paroxysmal atrial fibrillation, resumed BBlock for HR control and also Amio Monitor, further recs per cardiology. 10. UTI secondary to yeast: Repeat UA with LE and culture with yeast >100K, non albicans again. Continue Voriconazole 200 mg per OGT bid (day#13/14). 11. Coagulopathy: resolved, resumed Heparin ppx dose 12. Superficial venous thrombosis in the left cephalic vein in the upper arm. warm compresses since patient with coagulopathy Repeat Doppler in 1 to 2 weeks Prophylaxis: Heparin for DVT ppx and Protonix for GI ppx Disposition: Back on Vent again and HD today again and at this point will need Tracheostomy and PEG. Subjective 24 Hr Interval Summary Free Text/Dictation Patient stable and off levo, back in SR Will need Tracheostomy and PEG bertram Exam/Review of Systems Vital Signs Vitals Vital Signs Date Time Temp Pulse Resp B/P Pulse Ox O2 Delivery O2 Flow Rate FiO2 09/24/16 09:00 73 20 114/37 97 Mechanical Ventilator 09/24/16 07:00 98.2 09/24/16 05:51 30 09/22/16 23:00 12.0 Intake and Output 09/23/16 09/23/16 09/24/16 15:00 23:00 07:00 Intake Total 348 ml 989.975 ml 364.366 ml Output Total 20 ml 1500 ml 0 ml Balance 328 ml -510.025 ml 364.366 ml Exam Constitutional: other (sedated and intubated) Respiratory: diminished breath sounds (Left lung >RLL) Gastrointestinal: non-tender, soft Extremities: normal pulses, other (diffuse anasarca ) Neurological: other (sedated and intubated ) Results Result Diagram: 09/24/16 0410 09/24/16 0410 Results 24 hrs Laboratory Tests Test 09/23/16 10:20 09/23/16 13:13 09/23/16 18:32 09/23/16 20:59 Bedside Glucose 221 H 240 H 266 H 232 H Test 09/24/16 01:37 09/24/16 04:10 09/24/16 05:57 09/24/16 07:00 Bedside Glucose 174 199 Anion Gap 21 H Blood Morphology Comment Blood Urea Nitrogen 57 H Calcium Level 8.1 L Carbon Dioxide Level 19 L Chloride Level 95 L Creatinine 2.29 H Glucose Level 149 Hematocrit 25.6 L Hemoglobin 9.2 L Magnesium Level 2.0 Mean Corpuscular Hemoglobin 31.6 Mean Corpuscular Hemoglobin Concent 36.1 Mean Corpuscular Volume 87.5 Mean Platelet Volume 8.3 Nucleated Red Blood Cells # Phosphorus Level 4.4 Platelet Count 127 L Potassium Level 4.2 Red Blood Count 2.93 L Red Cell Distribution Width 22.4 H Sodium Level 131 L White Blood Count 14.2 H Arterial Blood HCO3 20.2 L Arterial Blood Base Excess -2.6 Arterial Blood Oxygen Saturation 90.3 L Sage Test ACCEPTAB Arterial Blood Gas Puncture Site Right Radial Arterial Blood Carboxyhemoglobin 0.3 Arterial Blood Date Drawn 09/24/2016 7:40:00 AM Arterial Blood Methemoglobin 0.1 Arterial Blood pCO2 (Temp correct) 28.2 L Arterial Blood pH (Temp corrected) 7.473 H Arterial Blood pO2 (Temp corrected) 56.3 L Blood Gas A-a O2 Differential 124.5 H Blood Gas Actual Respiration Rate 20 Blood Gas Low PEEP Setting 5.0 Blood Gas Modality VENT - AC Blood Gas Notified Time 09/24/2016 8:10:00 AM Blood Gas Notified Whom JLD Blood Gas Respiration Rate 20.0 Blood Gas Specimen Source Blood arterial Blood Gas Temperature 37.0 Blood Gas Tidal Volume 500.0 FiO2 30.0 Oxyhemoglobin Percent 89.9 L Total Hemoglobin 10.0 L Test 09/24/16 08:39 Bedside Glucose 228 H Medications Medications Current Medications Piperacillin Sod/ Tazobactam Sod (Zosyn 2.25gm/ 50ml (Pmx)) 50 ml @ 100 mls/hr Q8 IVPB Last administered on 09/24/16 06:17; Admin Dose 100 MLS/HR; Start at 14:00 Pantoprazole (Protonix Iv) 40 mg DAILY@06 IV Last administered on 09/24/16 06: 17; Admin Dose 40 MG; Start 09/07/16 at 06:00 Ondansetron HCl (Zofran Inj) 4 mg Q6H PRN IV NAUSEA AND/OR VOMITING; Start at 11:30 Miscellaneous Information 1 ea NOTE XX ; Start 09/06/16 at 12:00 Glucose (Glutose) 15 gm Q15M PRN PO DECREASED GLUCOSE; Start 09/06/16 at 12:00 Glucose (Glutose) 22.5 gm Q15M PRN PO DECREASED GLUCOSE; Start 09/06/16 at 12: 00 Dextrose (D50w Syringe) 25 ml Q15M PRN IV DECREASED GLUCOSE; Start 09/06/16 at 12:00 Dextrose (D50w Syringe) 50 ml Q15M PRN IV DECREASED GLUCOSE Last administered on 09/20/16at 04:51; Admin Dose 50 ML; Start 09/06/16 at 12:00 Glucagon (Glucagen) 1 mg Q15M PRN IM DECREASED GLUCOSE; Start 09/06/16 at 12: 00 Glucose (Glutose) 15 gm Q15M PRN BUCCAL DECREASED GLUCOSE; Start 09/06/16 at 12:00 Insulin Aspart (Novolog Insulin Pen) NOVOLOG *MODERATE* ALGORI... Q4 SC Last administered on 09/24/16 08:41; Admin Dose 8 UNIT; Start 09/11/16 at 13:00 Epoetin Kobi (Epogen (Esrd)) 10,000 units MoWeFr@17 SC Last administered on 09/22 17:40; Admin Dose 10,000 UNITS; Start 09/12/16 at 17:00 Voriconazole (Vfend) 200 mg BID NGT Last administered on 09/24/16 08:36; Admin Dose 200 MG; Start 09/12/16 at 21:00 Heparin Sodium (Porcine) (Heparin (5000 Units/0.5 ml)) 5,000 unit BID SC Last administered on 09/24/16 08:40; Admin Dose 5,000 UNIT; Start 09/13/16 at 21:00 Hydralazine HCl (Apresoline) 10 mg Q4H PRN IV ELEVATED BLOOD PRESSURE Last administered on 09/21/16 23:47; Admin Dose 10 MG; Start 09/18/16 at 19:00 Hydralazine HCl (Apresoline) 25 mg Q8 GTB Last administered on 09/22/16 14:35; Admin Dose 25 MG; Start 09/19/16 at 14:00 Methylprednisolone Sodium Succinate (Solu-Medrol) 60 mg QAM IV Last administered on 09/24/16 08:36; Admin Dose 60 MG; Start 09/20/16 at 09:00 Metoprolol Tartrate (Lopressor) 50 mg BID GTB Last administered on 09/21/16 21: 49; Admin Dose 50 MG; Start 09/19/16 at 21:00 Metoprolol Tartrate (Lopressor) 5 mg Q4H PRN IV HR>110 Last administered on 09/21 09:01; Admin Dose 5 MG; Start 09/19/16 at 22:00 Aspirin (Ecotrin) 325 mg DAILY PO Last administered on 09/24/16 08:36; Admin Dose 325 MG; Start 09/20/16 at 11:00 Amiodarone HCl 200 mg 200 mg BID PO Last administered on 09/24/16 08:36; Admin Dose 200 MG; Start 09/20/16 at 21:00 Propofol 100 ml @ 2.445 mls/ hr Q12H IV Last administered on 09/23/16 19:31; Admin Dose 12.225 MLS/HR; Start 09/23/16 at 00:00 Norepinephrine/ Dextrose (Levophed/D5W) 500 ml @ 1.87 mls/hr TITRATE IV ; Start 09/23/16 at 02:30 Insulin Glargine (Lantus) 20 unit QHS SC Last administered on 09/23/16 21:02; Admin Dose 20 UNIT; Start 09/23/16 at 21:00 CRISTY INMAN Sep 24, 2016 09:59
[2016-09-24] MEDS ORDERED: ALTEPLASE (CATHFLO) 2 MG INJ CATHETER PRN (11:30)
[2016-09-24] MEDS ORDERED: ALTEPLASE (CATHFLO) 2 MG INJ CATHETER ONE (11:30)
[2016-09-24] MEDS: PROPOFOL 100 ML IV SCH ×2 (12:00→16:52)
[2016-09-24] MEDS: INSULIN GLARGINE [LANtus] 3 ML PEN SC SCH ×2 (12:32→21:50)
--- NOTE | 2016-09-24 13:07 | CONS ---
Date/Time of Note Date/Time of Note DATE: 09/24/16 TIME: 13:04 Assessment/Plan Assessment/Plan Chief Complaint/Hosp Course Imp: 1.Positive troponin-minmal in setting of esrd-Now trended negative 2.CHF-systolic and diastolic acute on chronic. EF 45% by echo this admit 3.HTN 4. CKD on HD 5.anemia-requiring transfusions 6.Coagulopathy-resolved 7.PAF-back in SR currently 8. Edema-improving significantly 9. Resp failure s/p re-intubation Recc: -Tele -serial ecg's -Continue HD for volume removal -Follow hgb closely -start asa/sq heparin as tolerated given now PAF and nstemi and follow hgb closely -Continue BB and continue hydralazine as tolerated only -Continue abx's/anti-fungals -Continue PO amiodarone s/p IV load -Considering trach at this time Problems: Consultation Date/Type/Reason Admit Date/Time Sep 06, 2016 at 11:22 Initial Consult Date 09/07/2016 Type of Consultation: Cardiology Reason for Consultation CHF/NSTEMI Referring Provider: PAMELA MARTE Exam/Review of Systems Vital Signs Vitals Vital Signs Date Time Temp Pulse Resp B/P Pulse Ox O2 Delivery O2 Flow Rate FiO2 09/24/16 10:30 67 20 97/40 99 Mechanical Ventilator 09/24/16 08:00 40 09/24/16 07:00 98.2 09/22/16 23:00 12.0 Intake and Output 09/23/16 09/23/16 09/24/16 15:00 23:00 07:00 Intake Total 348 ml 989.975 ml 395.304 ml Output Total 20 ml 1500 ml 0 ml Balance 328 ml -510.025 ml 395.304 ml Exam Review of Systems: CONSTITUTIONAL: No fevers, chills. PULMONARY: intubated CARDIOVASCULAR: No obvious chest pain/palpitations GASTROINTESTINAL: No nausea/vomiting. GENITOURINARY: No hematuria/dysuria. MUSCULOSKELETAL: No obvious myagias/arthalgias. PSYCHIATRIC: The patient denies depression. NEUROLOGIC: sedated Constitutional: other (sedated) Psych: no complaints Head: normocephalic ENMT: intubated, mucosa pink and moist Neck: jvd (9 cm watyer), supple Respiratory: diminished breath sounds (at bases/B) Cardiovascular: regular rate and rhythm Gastrointestinal: non-tender, soft Musculoskeletal: muscle tone (normal) Extremities: pitting pedal edema (Bilateral LE) Neurological: other (sedated) Results Result Diagram: 09/24/16 0410 09/24/16 0410 Results 24 hrs Laboratory Tests Test 09/23/16 13:13 09/23/16 18:32 09/23/16 20:59 09/24/16 01:37 Bedside Glucose 240 H 266 H 232 H 174 Test 09/24/16 04:10 09/24/16 05:57 09/24/16 07:00 09/24/16 08:39 Anion Gap 21 H Anisocytosis 2+ Blood Morphology Comment Blood Urea Nitrogen 57 H Calcium Level 8.1 L Carbon Dioxide Level 19 L Chloride Level 95 L Creatinine 2.29 H Differential Comment MANUAL DIFF Glucose Level 149 Hematocrit 25.6 L Hemoglobin 9.2 L Large Platelets OCCASIONAL Lymphocytes # 0.6 L Lymphocytes % 4.0 L Magnesium Level 2.0 Mean Corpuscular Hemoglobin 31.6 Mean Corpuscular Hemoglobin Concent 36.1 Mean Corpuscular Volume 87.5 Mean Platelet Volume 8.3 Monocytes # 0.9 Monocytes % 6.0 Neutrophils # 12.8 H Neutrophils % 90.0 H Nucleated Red Blood Cells # Nucleated Red Blood Cells % 6.0 H Phosphorus Level 4.4 Platelet Count 127 L Potassium Level 4.2 Red Blood Count 2.93 L Red Cell Distribution Width 22.4 H Sodium Level 131 L White Blood Count 14.2 H Bedside Glucose 199 228 H Arterial Blood HCO3 20.2 L Arterial Blood Base Excess -2.6 Arterial Blood Oxygen Saturation 90.3 L Sage Test ACCEPTAB Arterial Blood Gas Puncture Site Right Radial Arterial Blood Carboxyhemoglobin 0.3 Arterial Blood Date Drawn 09/24/2016 7:40:00 AM Arterial Blood Methemoglobin 0.1 Arterial Blood pCO2 (Temp correct) 28.2 L Arterial Blood pH (Temp corrected) 7.473 H Arterial Blood pO2 (Temp corrected) 56.3 L Blood Gas A-a O2 Differential 124.5 H Blood Gas Actual Respiration Rate 20 Blood Gas Low PEEP Setting 5.0 Blood Gas Modality VENT - AC Blood Gas Notified Time 09/24/2016 8:10:00 AM Blood Gas Notified Whom JLD Blood Gas Respiration Rate 20.0 Blood Gas Specimen Source Blood arterial Blood Gas Temperature 37.0 Blood Gas Tidal Volume 500.0 FiO2 30.0 Oxyhemoglobin Percent 89.9 L Total Hemoglobin 10.0 L Test 09/24/16 12:29 Bedside Glucose 167 Medications Medications Current Medications Piperacillin Sod/ Tazobactam Sod (Zosyn 2.25gm/ 50ml (Pmx)) 50 ml @ 100 mls/hr Q8 IVPB Last administered on 09/24/16 06:17; Admin Dose 100 MLS/HR; Start at 14:00 Pantoprazole (Protonix Iv) 40 mg DAILY@06 IV Last administered on 09/24/16 06: 17; Admin Dose 40 MG; Start 09/07/16 at 06:00 Ondansetron HCl (Zofran Inj) 4 mg Q6H PRN IV NAUSEA AND/OR VOMITING; Start at 11:30 Miscellaneous Information 1 ea NOTE XX ; Start 09/06/16 at 12:00 Glucose (Glutose) 15 gm Q15M PRN PO DECREASED GLUCOSE; Start 09/06/16 at 12:00 Glucose (Glutose) 22.5 gm Q15M PRN PO DECREASED GLUCOSE; Start 09/06/16 at 12: 00 Dextrose (D50w Syringe) 25 ml Q15M PRN IV DECREASED GLUCOSE; Start 09/06/16 at 12:00 Dextrose (D50w Syringe) 50 ml Q15M PRN IV DECREASED GLUCOSE Last administered on 09/20/16at 04:51; Admin Dose 50 ML; Start 09/06/16 at 12:00 Glucagon (Glucagen) 1 mg Q15M PRN IM DECREASED GLUCOSE; Start 09/06/16 at 12: 00 Glucose (Glutose) 15 gm Q15M PRN BUCCAL DECREASED GLUCOSE; Start 09/06/16 at 12:00 Insulin Aspart (Novolog Insulin Pen) NOVOLOG *MODERATE* ALGORI... Q4 SC Last administered on 09/24/16 12:31; Admin Dose 2 UNIT; Start 09/11/16 at 13:00 Epoetin Kobi (Epogen (Esrd)) 10,000 units MoWeFr@17 SC Last administered on 09/22 17:40; Admin Dose 10,000 UNITS; Start 09/12/16 at 17:00 Voriconazole (Vfend) 200 mg BID NGT Last administered on 09/24/16 08:36; Admin Dose 200 MG; Start 09/12/16 at 21:00 Heparin Sodium (Porcine) (Heparin (5000 Units/0.5 ml)) 5,000 unit BID SC Last administered on 09/24/16 08:40; Admin Dose 5,000 UNIT; Start 09/13/16 at 21:00 Hydralazine HCl (Apresoline) 10 mg Q4H PRN IV ELEVATED BLOOD PRESSURE Last administered on 09/21/16 23:47; Admin Dose 10 MG; Start 09/18/16 at 19:00 Hydralazine HCl (Apresoline) 25 mg Q8 GTB Last administered on 09/22/16 14:35; Admin Dose 25 MG; Start 09/19/16 at 14:00 Methylprednisolone Sodium Succinate (Solu-Medrol) 60 mg QAM IV Last administered on 09/24/16 08:36; Admin Dose 60 MG; Start 09/20/16 at 09:00 Metoprolol Tartrate (Lopressor) 50 mg BID GTB Last administered on 09/21/16 21: 49; Admin Dose 50 MG; Start 09/19/16 at 21:00 Metoprolol Tartrate (Lopressor) 5 mg Q4H PRN IV HR>110 Last administered on 09/21 09:01; Admin Dose 5 MG; Start 09/19/16 at 22:00 Aspirin (Ecotrin) 325 mg DAILY PO Last administered on 09/24/16 08:36; Admin Dose 325 MG; Start 09/20/16 at 11:00 Amiodarone HCl 200 mg 200 mg BID PO Last administered on 09/24/16 08:36; Admin Dose 200 MG; Start 09/20/16 at 21:00 Propofol 100 ml @ 2.445 mls/ hr Q12H IV Last administered on 09/23/16 19:31; Admin Dose 12.225 MLS/HR; Start 09/23/16 at 00:00 Norepinephrine/ Dextrose (Levophed/D5W) 500 ml @ 1.87 mls/hr TITRATE IV ; Start 09/23/16 at 02:30 Insulin Glargine (Lantus) 20 unit BID SC Last administered on 09/24/16 12:32; Admin Dose 20 UNIT; Start 09/24/16 at 12:30 KAJAL MCKINNEY Sep 24, 2016 13:07
--- NOTE | 2016-09-24 15:29 | CONS ---
Date/Time of Note Date/Time of Note DATE: 09/24/16 TIME: 15:25 Consult Date/Type/Reason Admit Date/Time Sep 06, 2016 at 11:22 Type of Consultation: Pulm Ordering Provider: PAMELA MARTE Subjective No new events. Remains intubated. Hemodynamically stale. Moderate secretions Objective Vital Signs Date Time Temp Pulse Resp B/P Pulse Ox O2 Delivery O2 Flow Rate FiO2 09/24/16 15:00 66 20 104/38 100 Mechanical Ventilator 09/24/16 12:00 98.2 09/24/16 08:00 40 09/22/16 23:00 12.0 Intake and Output 09/23/16 09/23/16 09/24/16 15:00 23:00 07:00 Intake Total 348 ml 989.975 ml 395.304 ml Output Total 20 ml 1500 ml 0 ml Balance 328 ml -510.025 ml 395.304 ml PHYSICAL EXAMINATION GENERAL: Elderly lady on mechanical ventilation. VITAL SIGNS: see below. HEENT: Pupils equal, round, and reactive to light. CARDIAC: S1, S2, CHEST: Diminished air entry bilaterally. Bilateral rales ABDOMEN: Mildly distended. No bowel sounds. Obese no guarding or rebound EXTREMITIES: No cyanosis, clubbing edema +2 NEUROLOGIC: Generalized weakness Results/Medications Result Diagram: 09/24/16 0410 09/24/16 0410 Results 24 hrs cxr right upper lobe consolidation elevated diaphragms. low lung volumes. Laboratory Tests Test 09/23/16 18:32 09/23/16 20:59 09/24/16 01:37 09/24/16 04:10 Bedside Glucose 266 H 232 H 174 Anion Gap 21 H Anisocytosis 2+ Blood Morphology Comment Blood Urea Nitrogen 57 H Calcium Level 8.1 L Carbon Dioxide Level 19 L Chloride Level 95 L Creatinine 2.29 H Differential Comment MANUAL DIFF Glucose Level 149 Hematocrit 25.6 L Hemoglobin 9.2 L Large Platelets OCCASIONAL Lymphocytes # 0.6 L Lymphocytes % 4.0 L Magnesium Level 2.0 Mean Corpuscular Hemoglobin 31.6 Mean Corpuscular Hemoglobin Concent 36.1 Mean Corpuscular Volume 87.5 Mean Platelet Volume 8.3 Monocytes # 0.9 Monocytes % 6.0 Neutrophils # 12.8 H Neutrophils % 90.0 H Nucleated Red Blood Cells # Nucleated Red Blood Cells % 6.0 H Phosphorus Level 4.4 Platelet Count 127 L Potassium Level 4.2 Red Blood Count 2.93 L Red Cell Distribution Width 22.4 H Sodium Level 131 L White Blood Count 14.2 H Test 09/24/16 05:57 09/24/16 07:00 09/24/16 08:39 09/24/16 12:29 Bedside Glucose 199 228 H 167 Arterial Blood HCO3 20.2 L Arterial Blood Base Excess -2.6 Arterial Blood Oxygen Saturation 90.3 L Sage Test ACCEPTAB Arterial Blood Gas Puncture Site Right Radial Arterial Blood Carboxyhemoglobin 0.3 Arterial Blood Date Drawn 09/24/2016 7:40:00 AM Arterial Blood Methemoglobin 0.1 Arterial Blood pCO2 (Temp correct) 28.2 L Arterial Blood pH (Temp corrected) 7.473 H Arterial Blood pO2 (Temp corrected) 56.3 L Blood Gas A-a O2 Differential 124.5 H Blood Gas Actual Respiration Rate 20 Blood Gas Low PEEP Setting 5.0 Blood Gas Modality VENT - AC Blood Gas Notified Time 09/24/2016 8:10:00 AM Blood Gas Notified Whom JLD Blood Gas Respiration Rate 20.0 Blood Gas Specimen Source Blood arterial Blood Gas Temperature 37.0 Blood Gas Tidal Volume 500.0 FiO2 30.0 Oxyhemoglobin Percent 89.9 L Total Hemoglobin 10.0 L Medications Current Medications Piperacillin Sod/ Tazobactam Sod (Zosyn 2.25gm/ 50ml (Pmx)) 50 ml @ 100 mls/hr Q8 IVPB Last administered on 09/24/16 14:33; Admin Dose 100 MLS/HR; Start at 14:00 Pantoprazole (Protonix Iv) 40 mg DAILY@06 IV Last administered on 09/24/16 06: 17; Admin Dose 40 MG; Start 09/07/16 at 06:00 Ondansetron HCl (Zofran Inj) 4 mg Q6H PRN IV NAUSEA AND/OR VOMITING; Start at 11:30 Miscellaneous Information 1 ea NOTE XX ; Start 09/06/16 at 12:00 Glucose (Glutose) 15 gm Q15M PRN PO DECREASED GLUCOSE; Start 09/06/16 at 12:00 Glucose (Glutose) 22.5 gm Q15M PRN PO DECREASED GLUCOSE; Start 09/06/16 at 12: 00 Dextrose (D50w Syringe) 25 ml Q15M PRN IV DECREASED GLUCOSE; Start 09/06/16 at 12:00 Dextrose (D50w Syringe) 50 ml Q15M PRN IV DECREASED GLUCOSE Last administered on 09/20/16at 04:51; Admin Dose 50 ML; Start 09/06/16 at 12:00 Glucagon (Glucagen) 1 mg Q15M PRN IM DECREASED GLUCOSE; Start 09/06/16 at 12: 00 Glucose (Glutose) 15 gm Q15M PRN BUCCAL DECREASED GLUCOSE; Start 09/06/16 at 12:00 Insulin Aspart (Novolog Insulin Pen) NOVOLOG *MODERATE* ALGORI... Q4 SC Last administered on 09/24/16 12:31; Admin Dose 2 UNIT; Start 09/11/16 at 13:00 Epoetin Kobi (Epogen (Esrd)) 10,000 units MoWeFr@17 SC Last administered on 09/22 17:40; Admin Dose 10,000 UNITS; Start 09/12/16 at 17:00 Voriconazole (Vfend) 200 mg BID NGT Last administered on 09/24/16 08:36; Admin Dose 200 MG; Start 09/12/16 at 21:00 Heparin Sodium (Porcine) (Heparin (5000 Units/0.5 ml)) 5,000 unit BID SC Last administered on 09/24/16 08:40; Admin Dose 5,000 UNIT; Start 09/13/16 at 21:00 Hydralazine HCl (Apresoline) 10 mg Q4H PRN IV ELEVATED BLOOD PRESSURE Last administered on 09/21/16 23:47; Admin Dose 10 MG; Start 09/18/16 at 19:00 Hydralazine HCl (Apresoline) 25 mg Q8 GTB Last administered on 09/22/16 14:35; Admin Dose 25 MG; Start 09/19/16 at 14:00 Methylprednisolone Sodium Succinate (Solu-Medrol) 60 mg QAM IV Last administered on 09/24/16 08:36; Admin Dose 60 MG; Start 09/20/16 at 09:00 Metoprolol Tartrate (Lopressor) 50 mg BID GTB Last administered on 09/21/16 21: 49; Admin Dose 50 MG; Start 09/19/16 at 21:00 Metoprolol Tartrate (Lopressor) 5 mg Q4H PRN IV HR>110 Last administered on 09/21 09:01; Admin Dose 5 MG; Start 09/19/16 at 22:00 Aspirin (Ecotrin) 325 mg DAILY PO Last administered on 09/24/16 08:36; Admin Dose 325 MG; Start 09/20/16 at 11:00 Amiodarone HCl 200 mg 200 mg BID PO Last administered on 09/24/16 08:36; Admin Dose 200 MG; Start 09/20/16 at 21:00 Propofol 100 ml @ 2.445 mls/ hr Q12H IV Last administered on 09/23/16 19:31; Admin Dose 12.225 MLS/HR; Start 09/23/16 at 00:00 Norepinephrine/ Dextrose (Levophed/D5W) 500 ml @ 1.87 mls/hr TITRATE IV Last administered on 09/24/16 14:07; Admin Dose 0.93 MLS/HR; Start 09/23/16 at 02:30 Insulin Glargine (Lantus) 20 unit BID SC Last administered on 09/24/16 12:32; Admin Dose 20 UNIT; Start 09/24/16 at 12:30 Assessment/Plan Chief Complaint/Hosp Course ASSESSMENT AND PLAN: 1.Hypoxemic and hypercapnic respiratory failure secondary to likely volume overload on top of significant morbid obesity and restrictive lung disease. Reintubated 09/23/16 2. Morbid obesity 3. Chronic kidney disease 4. Significant anemia following epistaxis 5. Questionable distal pulmonary embolus doubt any hemodynamic significance, negative Dopplers for deep vein thrombosis Plan 1. Continue vent. no further weaning. Pending trach. Hold off bronchoscopy now as will require bronchoscopy during tracheostomy placement. 2. Renal failure with volume removal as tolerated 3. Bronchodilators 4. Aspiration precautions. 5. Deep vein thrombosis and gastrointestinal prophylaxis. Discussed with primary team Problems: MARCIA BAIN MD, [facility] Sep 24, 2016 15:29
[2016-09-24] MEDS: EPOETIN 10000 UNITS/1 ML INJ (ESRD) SC SCH (16:57)
[2016-09-24] MEDS ORDERED: INSULIN GLARGINE [LANtus] 3 ML PEN SC SCH (21:00)
[2016-09-25] VITALS (56 sets, daily range): BP systolic 65–172; BP diastolic 38–123; PULSE 60–87; RESP 19–29
[2016-09-25] MEDS: PROPOFOL 100 ML IV SCH ×3 (01:14→17:36)
[2016-09-25] MEDS: ALBUTEROL HFA 8 GM INHALER INH SCH ×4 (01:50→19:32)
[2016-09-25] MEDS: IPRATROPIUM (HFA) 12.9 GM INHALER INH SCH ×4 (01:50→19:32)
[2016-09-25] MEDS: INSULIN ASPART [NOVOLOG] 3 ML PEN SC SCH ×6 (02:04→21:28)
[2016-09-25 05:21] LABS: HEMATOCRIT 24.8 % (37.0-47.0); HEMOGLOBIN 9.1 g/dl (12.0-16.0); MEAN CORPUSCULAR HGB CONC 36.7 g/dl (32.0-37.0); MEAN PLATELET VOLUME 8.1 fl (7.4-10.4); PLATELET COUNT 130 10^3/UL (140-440); RED BLOOD COUNT 2.85 10^6/ul (4.20-5.40); RED CELL DISTRIBUTION WIDTH 23.5 % (11.5-14.5); UNCORRECTED WBC 13.5 10^3/ul (4.8-10.8); WHITE BLOOD COUNT 13.5 10^3/ul (4.8-10.8)
[2016-09-25 05:26] LABS: POTASSIUM 4.1 mmol/L (3.5-5.1)
[2016-09-25 05:29] LABS: CREATININE 2.82 mg/dl (0.44-1.00); PHOSPHORUS 5.2 mg/dl (2.5-4.9)
[2016-09-25 05:30] LABS: CALCIUM 8.6 mg/dl (8.4-10.2)
[2016-09-25 06:07] LABS: CONDITION 1; LH ANALYZER COMMENTS 1
[2016-09-25] MEDS: PANTOPRAZOLE 40 MG INJ IV SCH (06:38)
[2016-09-25] MEDS: PIPER-TAZO 2.25 GM (PMX) 50 ML IVPB SCH ×3 (06:38→21:27)
[2016-09-25] MEDS: VORICONAZOLE 200 MG TAB NGT SCH ×2 (08:04→21:26)
[2016-09-25] MEDS: METHYLPREDNISOLONE 125 MG INJ IV SCH (08:04)
[2016-09-25] MEDS: AMIODARONE 200 MG TAB PO SCH ×2 (08:05→21:26)
[2016-09-25] MEDS: ASPIRIN (EC) 325 MG TAB PO SCH (08:05)
[2016-09-25] MEDS: INSULIN GLARGINE [LANtus] 3 ML PEN SC SCH (08:12)
[2016-09-25] MEDS: METOPROLOL 50 MG TAB GTB SCH ×2 (09:00→21:27)
[2016-09-25 09:44] LABS: LYMPHOCYTES # 0.3 10^3/ul (0.8-2.9); MONOCYTE # 0.3 10^3/ul (0.3-0.9); NEUTROPHIL # 12.2 10^3/ul (1.6-7.5)
[2016-09-25 09:45] LABS: BURR CELLS OCCASIONAL; TEAR DROP CELLS RARE
--- NOTE | 2016-09-25 09:59 | PN ---
Date/Time of Note Date/Time of Note DATE: 09/25/16 TIME: 09:42 Assessment/Plan VTE Prophylaxis VTE Prophylaxis Intervention: SCD's Lines/Catheters IV Catheter Type (from Nrs): PREMACATH Urinary Cath still in place: No Assessment/Plan Assessment/Plan 71 yo female with 1. 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 Congestive heart failure, systolic acute on chronic, cardiomyopathy with EF 40-45%, and also with ESRD On HD for volume management and Cardiology following, HD today, patient with significant Anasarca still Continue current medications Follow up Nephrology and cardiology recommendations 3. Elevated troponin / NSTEMI secondary to demand ischemia Appreciate Cardiology recommendations 3. Pneumonia possibly secondary to aspiration, continue Zosyn for now 4. Diabetes mellitus Type 2, now with hyperglycemia again Back on TF so will resume Lantus 20 units bid, continue moderate SSI Continue tube feeding to goal of 30 cc/hr with [employer] [facility]. PEG tube once Tracheostomy done. 5. Sepsis with Septic Shock 2/2 Pneumonia, OFF pressors this AM and Labs wnl Continue Zosyn. Continue supportive care. Afebrile and WBC wnl 6. Hypertension: Off Levo, Back on low dose Bblock for HR control. 7. End-stage renal disease on hemodialysis. HD mon/thu/fri. However has been dialyzed daily so far for volume management. Follow up Nephrology today, HD today. 8. Chronic hypochromic anemia secondary to chronic disease, stable H/H, continue monitor. 9. Paroxysmal atrial fibrillation, resumed Amiodarone for HR control and also BBlock as tolerated. Monitor, further recs per cardiology. 10. UTI secondary to yeast: non albicans finishing course of Voriconazole 200 mg per OGT bid today (day#14/14). 11. Coagulopathy: resolved, but now with noted positive FOB, d/c Heparin ppx dose 12. Superficial venous thrombosis in the left cephalic vein in the upper arm. warm compresses since patient with coagulopathy Repeat Doppler in 1 week Prophylaxis: Heparin for DVT ppx and Protonix for GI ppx Disposition: Back on Vent again for the 3rd time and HD today and Awaiting transfer to [place] for Tracheostomy , PEG and subacute care, discussed with Pulmonary Subjective 24 Hr Interval Summary Free Text/Dictation Patient sedated and intubated Needs HD today Per [facility] [place] patient needs to be transferred to [place] for PEG/Tracheostomy and subacute/respiratory care, arrangements in process currently. Exam/Review of Systems Vital Signs Vitals Vital Signs Date Time Temp Pulse Resp B/P Pulse Ox O2 Delivery O2 Flow Rate FiO2 09/25/16 08:57 80 22 100 30 09/25/16 08:00 130/112 Mechanical Ventilator 09/25/16 07:30 97.8 09/22/16 23:00 12.0 Intake and Output 09/24/16 09/24/16 09/25/16 15:00 23:00 07:00 Intake Total 364.349 ml 498.900 ml 317.55 ml Balance 364.349 ml 498.900 ml 317.55 ml Exam Constitutional: other (sedated and intubated ) Respiratory: diminished breath sounds (biaterally bases >> upper lobes), other (on mechanical ventilation ) Cardiovascular: irregular rhythm (a fib controlled ) Gastrointestinal: non-tender, other (on Tube feeding ), soft Musculoskeletal: other (anasarca diffuse ) Extremities: edema (diffuse ), normal pulses Neurological: other (sedated and intubated ) Results Result Diagram: 09/25/16 0415 09/25/16 0415 Results 24 hrs Laboratory Tests Test 09/24/16 12:29 09/24/16 16:00 09/24/16 17:01 09/24/16 21:46 Bedside Glucose 167 188 215 Stool Occult Blood POSITIVE Test 09/25/16 02:00 09/25/16 04:14 09/25/16 04:15 09/25/16 08:08 Bedside Glucose 205 194 181 Anion Gap 26 H Blood Morphology Comment Blood Urea Nitrogen 78 H Calcium Level 8.6 Carbon Dioxide Level 18 L Chloride Level 95 L Creatinine 2.82 H Differential Comment MANUAL DIFF Glucose Level 176 Hematocrit 24.8 L Hemoglobin 9.1 L Magnesium Level 2.0 Mean Corpuscular Hemoglobin 32.0 Mean Corpuscular Hemoglobin Concent 36.7 Mean Corpuscular Volume 87.0 Mean Platelet Volume 8.1 Nucleated Red Blood Cells # Phosphorus Level 5.2 H Platelet Count 130 L Potassium Level 4.1 Red Blood Count 2.85 L Red Cell Distribution Width 23.5 H Sodium Level 135 White Blood Count 13.5 H Medications Medications Current Medications Piperacillin Sod/ Tazobactam Sod (Zosyn 2.25gm/ 50ml (Pmx)) 50 ml @ 100 mls/hr Q8 IVPB Last administered on 09/25/16 06:38; Admin Dose 100 MLS/HR; Start at 14:00 Pantoprazole (Protonix Iv) 40 mg DAILY@06 IV Last administered on 09/25/16 06: 38; Admin Dose 40 MG; Start 09/07/16 at 06:00 Ondansetron HCl (Zofran Inj) 4 mg Q6H PRN IV NAUSEA AND/OR VOMITING; Start at 11:30 Miscellaneous Information 1 ea NOTE XX ; Start 09/06/16 at 12:00 Glucose (Glutose) 15 gm Q15M PRN PO DECREASED GLUCOSE; Start 09/06/16 at 12:00 Glucose (Glutose) 22.5 gm Q15M PRN PO DECREASED GLUCOSE; Start 09/06/16 at 12: 00 Dextrose (D50w Syringe) 25 ml Q15M PRN IV DECREASED GLUCOSE; Start 09/06/16 at 12:00 Dextrose (D50w Syringe) 50 ml Q15M PRN IV DECREASED GLUCOSE Last administered on 09/20/16at 04:51; Admin Dose 50 ML; Start 09/06/16 at 12:00 Glucagon (Glucagen) 1 mg Q15M PRN IM DECREASED GLUCOSE; Start 09/06/16 at 12: 00 Glucose (Glutose) 15 gm Q15M PRN BUCCAL DECREASED GLUCOSE; Start 09/06/16 at 12:00 Insulin Aspart (Novolog Insulin Pen) NOVOLOG *MODERATE* ALGORI... Q4 SC Last administered on 09/25/16 08:11; Admin Dose 4 UNIT; Start 09/11/16 at 13:00 Epoetin Kobi (Epogen (Esrd)) 10,000 units MoWeFr@17 SC Last administered on 09/24 16:57; Admin Dose 10,000 UNITS; Start 09/12/16 at 17:00 Voriconazole (Vfend) 200 mg BID NGT Last administered on 09/25/16 08:04; Admin Dose 200 MG; Start 09/12/16 at 21:00 Hydralazine HCl (Apresoline) 10 mg Q4H PRN IV ELEVATED BLOOD PRESSURE Last administered on 09/21/16 23:47; Admin Dose 10 MG; Start 09/18/16 at 19:00 Hydralazine HCl (Apresoline) 25 mg Q8 GTB Last administered on 09/25/16 06:39; Admin Dose 25 MG; Start 09/19/16 at 14:00 Methylprednisolone Sodium Succinate (Solu-Medrol) 60 mg QAM IV Last administered on 09/25/16 08:04; Admin Dose 60 MG; Start 09/20/16 at 09:00 Metoprolol Tartrate (Lopressor) 50 mg BID GTB Last administered on 09/21/16 21: 49; Admin Dose 50 MG; Start 09/19/16 at 21:00 Metoprolol Tartrate (Lopressor) 5 mg Q4H PRN IV HR>110 Last administered on 09/21 09:01; Admin Dose 5 MG; Start 09/19/16 at 22:00 Aspirin (Ecotrin) 325 mg DAILY PO Last administered on 09/25/16 08:05; Admin Dose 325 MG; Start 09/20/16 at 11:00 Amiodarone HCl 200 mg 200 mg BID PO Last administered on 09/25/16 08:05; Admin Dose 200 MG; Start 09/20/16 at 21:00 Propofol 100 ml @ 2.445 mls/ hr Q12H IV Last administered on 09/25/16 09:13; Admin Dose 12.225 MLS/HR; Start 09/23/16 at 00:00 Norepinephrine/ Dextrose (Levophed/D5W) 500 ml @ 1.87 mls/hr TITRATE IV Last administered on 09/24/16 14:07; Admin Dose 0.93 MLS/HR; Start 09/23/16 at 02:30 Insulin Glargine (Lantus) 20 unit BID SC Last administered on 09/25/16 08:12; Admin Dose 20 UNIT; Start 09/24/16 at 12:30 CRISTY INMAN Sep 25, 2016 09:53
--- NOTE | 2016-09-25 11:23 | CONS ---
Date/Time of Note Date/Time of Note DATE: 09/25/16 TIME: 11:21 Assessment/Plan Assessment/Plan Chief Complaint/Hosp Course Imp: 1.Positive troponin-minmal in setting of esrd-Now trended negative 2.CHF-systolic and diastolic acute on chronic. EF 45% by echo this admit 3.HTN 4. CKD on HD 5.anemia-requiring transfusions 6.Coagulopathy-resolved 7.PAF-back in SR currently 8. Edema-improving significantly 9. Resp failure s/p re-intubation Recc: -Tele -serial ecg's -Continue aggresive HD for volume removal -Follow hgb closely -Contiue asa/sq heparin as tolerated given now PAF and nstemi and follow hgb closely -Continue BB and continue hydralazine as tolerated only -Continue abx's/anti-fungals -Continue PO amiodarone s/p IV load -Considering trach at this time Problems: Consultation Date/Type/Reason Admit Date/Time Sep 06, 2016 at 11:22 Initial Consult Date 09/07/2016 Type of Consultation: Cardiology Reason for Consultation CHF Referring Provider: PAMELA MARTE Exam/Review of Systems Vital Signs Vitals Vital Signs Date Time Temp Pulse Resp B/P Pulse Ox O2 Delivery O2 Flow Rate FiO2 09/25/16 10:16 76 20 100 30 09/25/16 10:00 93/57 Mechanical Ventilator 09/25/16 07:30 97.8 09/22/16 23:00 12.0 Intake and Output 09/24/16 09/24/16 09/25/16 15:00 23:00 07:00 Intake Total 364.349 ml 498.900 ml 317.55 ml Balance 364.349 ml 498.900 ml 317.55 ml Exam Review of Systems: CONSTITUTIONAL: No fevers, chills. PULMONARY: intubated CARDIOVASCULAR: No obvious chest pain/palpitations GASTROINTESTINAL: No nausea/vomiting. GENITOURINARY: No hematuria/dysuria. MUSCULOSKELETAL: No obvious myagias/arthalgias. PSYCHIATRIC: No documented depression. NEUROLOGIC: No focal weakness Constitutional: other (sedated) Psych: no complaints Head: normocephalic ENMT: intubated Neck: jvd (9 cm water), supple Respiratory: diminished breath sounds (at bases/B) Cardiovascular: regular rate and rhythm Gastrointestinal: non-tender, soft Musculoskeletal: muscle tone (normal) Extremities: pitting pedal edema (bilateral) Neurological: other (No focal deficits) Results Result Diagram: 09/25/16 0415 09/25/16 0415 Results 24 hrs Laboratory Tests Test 09/24/16 12:29 09/24/16 16:00 09/24/16 17:01 09/24/16 21:46 Bedside Glucose 167 188 215 Stool Occult Blood POSITIVE Test 09/25/16 02:00 09/25/16 04:14 09/25/16 04:15 09/25/16 08:08 Bedside Glucose 205 194 181 Anion Gap 26 H Band Neutrophils % 6.0 H Blood Morphology Comment Blood Urea Nitrogen 78 H Calcium Level 8.6 Carbon Dioxide Level 18 L Chloride Level 95 L Creatinine 2.82 H Differential Comment MANUAL DIFF Glucose Level 176 Hematocrit 24.8 L Hemoglobin 9.1 L Lymphocytes # 0.3 L Lymphocytes % 2.0 L Magnesium Level 2.0 Mean Corpuscular Hemoglobin 32.0 Mean Corpuscular Hemoglobin Concent 36.7 Mean Corpuscular Volume 87.0 Mean Platelet Volume 8.1 Monocytes # 0.3 Monocytes % 2.0 Neutrophils # 12.2 H Neutrophils % 90.0 H Nucleated Red Blood Cells # Nucleated Red Blood Cells % 11.0 H Phosphorus Level 5.2 H Platelet Count 130 L Potassium Level 4.1 Red Blood Count 2.85 L Red Cell Distribution Width 23.5 H Sodium Level 135 Tear Drop Cells RARE White Blood Count 13.5 H Medications Medications Current Medications Piperacillin Sod/ Tazobactam Sod (Zosyn 2.25gm/ 50ml (Pmx)) 50 ml @ 100 mls/hr Q8 IVPB Last administered on 09/25/16 06:38; Admin Dose 100 MLS/HR; Start at 14:00 Pantoprazole (Protonix Iv) 40 mg DAILY@06 IV Last administered on 09/25/16 06: 38; Admin Dose 40 MG; Start 09/07/16 at 06:00 Ondansetron HCl (Zofran Inj) 4 mg Q6H PRN IV NAUSEA AND/OR VOMITING; Start at 11:30 Miscellaneous Information 1 ea NOTE XX ; Start 09/06/16 at 12:00 Glucose (Glutose) 15 gm Q15M PRN PO DECREASED GLUCOSE; Start 09/06/16 at 12:00 Glucose (Glutose) 22.5 gm Q15M PRN PO DECREASED GLUCOSE; Start 09/06/16 at 12: 00 Dextrose (D50w Syringe) 25 ml Q15M PRN IV DECREASED GLUCOSE; Start 09/06/16 at 12:00 Dextrose (D50w Syringe) 50 ml Q15M PRN IV DECREASED GLUCOSE Last administered on 09/20/16at 04:51; Admin Dose 50 ML; Start 09/06/16 at 12:00 Glucagon (Glucagen) 1 mg Q15M PRN IM DECREASED GLUCOSE; Start 09/06/16 at 12: 00 Glucose (Glutose) 15 gm Q15M PRN BUCCAL DECREASED GLUCOSE; Start 09/06/16 at 12:00 Insulin Aspart (Novolog Insulin Pen) NOVOLOG *MODERATE* ALGORI... Q4 SC Last administered on 09/25/16 08:11; Admin Dose 4 UNIT; Start 09/11/16 at 13:00 Epoetin Kobi (Epogen (Esrd)) 10,000 units MoWeFr@17 SC Last administered on 09/24 16:57; Admin Dose 10,000 UNITS; Start 09/12/16 at 17:00 Voriconazole (Vfend) 200 mg BID NGT Last administered on 09/25/16 08:04; Admin Dose 200 MG; Start 09/12/16 at 21:00 Hydralazine HCl (Apresoline) 10 mg Q4H PRN IV ELEVATED BLOOD PRESSURE Last administered on 09/21/16 23:47; Admin Dose 10 MG; Start 09/18/16 at 19:00 Hydralazine HCl (Apresoline) 25 mg Q8 GTB Last administered on 09/25/16 06:39; Admin Dose 25 MG; Start 09/19/16 at 14:00 Methylprednisolone Sodium Succinate (Solu-Medrol) 60 mg QAM IV Last administered on 09/25/16 08:04; Admin Dose 60 MG; Start 09/20/16 at 09:00 Metoprolol Tartrate (Lopressor) 50 mg BID GTB Last administered on 09/21/16 21: 49; Admin Dose 50 MG; Start 09/19/16 at 21:00 Metoprolol Tartrate (Lopressor) 5 mg Q4H PRN IV HR>110 Last administered on 09/21 09:01; Admin Dose 5 MG; Start 09/19/16 at 22:00 Aspirin (Ecotrin) 325 mg DAILY PO Last administered on 09/25/16 08:05; Admin Dose 325 MG; Start 09/20/16 at 11:00 Amiodarone HCl 200 mg 200 mg BID PO Last administered on 09/25/16 08:05; Admin Dose 200 MG; Start 09/20/16 at 21:00 Propofol 100 ml @ 2.445 mls/ hr Q12H IV Last administered on 09/25/16 09:13; Admin Dose 12.225 MLS/HR; Start 09/23/16 at 00:00 Norepinephrine/ Dextrose (Levophed/D5W) 500 ml @ 1.87 mls/hr TITRATE IV Last administered on 09/24/16 14:07; Admin Dose 0.93 MLS/HR; Start 09/23/16 at 02:30 Insulin Glargine (Lantus) 25 unit BID SC ; Start 09/25/16 at 21:00 KAJAL MCKINNEY Sep 25, 2016 11:23
--- NOTE | 2016-09-25 12:27 | CONS ---
Date/Time of Note Date/Time of Note DATE: 09/25/16 TIME: 12:26 Consult Date/Type/Reason Admit Date/Time Sep 06, 2016 at 11:22 Type of Consultation: Pulm Ordering Provider: PAMELA MARTE Subjective Awake, follows simple commands off sedation. Hemodynamically stable. Objective Vital Signs Date Time Temp Pulse Resp B/P Pulse Ox O2 Delivery O2 Flow Rate FiO2 09/25/16 11:15 80 20 100 30 09/25/16 10:00 93/57 Mechanical Ventilator 09/25/16 07:30 97.8 09/22/16 23:00 12.0 Intake and Output 09/24/16 09/24/16 09/25/16 15:00 23:00 07:00 Intake Total 364.349 ml 498.900 ml 317.55 ml Balance 364.349 ml 498.900 ml 317.55 ml PHYSICAL EXAMINATION GENERAL: Elderly lady on mechanical ventilation. VITAL SIGNS: see below. HEENT: Pupils equal, round, and reactive to light. CARDIAC: S1, S2, CHEST: Diminished air entry bilaterally. Bilateral rales ABDOMEN: Mildly distended. No bowel sounds. Obese no guarding or rebound EXTREMITIES: No cyanosis, clubbing edema +2 NEUROLOGIC: Generalized weakness Results/Medications Result Diagram: 09/25/16 0415 09/25/16 0415 Results 24 hrs Laboratory Tests Test 09/24/16 12:29 09/24/16 16:00 09/24/16 17:01 09/24/16 21:46 Bedside Glucose 167 188 215 Stool Occult Blood POSITIVE Test 09/25/16 02:00 09/25/16 04:14 09/25/16 04:15 09/25/16 08:08 Bedside Glucose 205 194 181 Anion Gap 26 H Band Neutrophils % 6.0 H Blood Morphology Comment Blood Urea Nitrogen 78 H Calcium Level 8.6 Carbon Dioxide Level 18 L Chloride Level 95 L Creatinine 2.82 H Differential Comment MANUAL DIFF Glucose Level 176 Hematocrit 24.8 L Hemoglobin 9.1 L Lymphocytes # 0.3 L Lymphocytes % 2.0 L Magnesium Level 2.0 Mean Corpuscular Hemoglobin 32.0 Mean Corpuscular Hemoglobin Concent 36.7 Mean Corpuscular Volume 87.0 Mean Platelet Volume 8.1 Monocytes # 0.3 Monocytes % 2.0 Neutrophils # 12.2 H Neutrophils % 90.0 H Nucleated Red Blood Cells # Nucleated Red Blood Cells % 11.0 H Phosphorus Level 5.2 H Platelet Count 130 L Potassium Level 4.1 Red Blood Count 2.85 L Red Cell Distribution Width 23.5 H Sodium Level 135 Tear Drop Cells RARE White Blood Count 13.5 H Medications Current Medications Piperacillin Sod/ Tazobactam Sod (Zosyn 2.25gm/ 50ml (Pmx)) 50 ml @ 100 mls/hr Q8 IVPB Last administered on 09/25/16 06:38; Admin Dose 100 MLS/HR; Start at 14:00 Pantoprazole (Protonix Iv) 40 mg DAILY@06 IV Last administered on 09/25/16 06: 38; Admin Dose 40 MG; Start 09/07/16 at 06:00 Ondansetron HCl (Zofran Inj) 4 mg Q6H PRN IV NAUSEA AND/OR VOMITING; Start at 11:30 Miscellaneous Information 1 ea NOTE XX ; Start 09/06/16 at 12:00 Glucose (Glutose) 15 gm Q15M PRN PO DECREASED GLUCOSE; Start 09/06/16 at 12:00 Glucose (Glutose) 22.5 gm Q15M PRN PO DECREASED GLUCOSE; Start 09/06/16 at 12: 00 Dextrose (D50w Syringe) 25 ml Q15M PRN IV DECREASED GLUCOSE; Start 09/06/16 at 12:00 Dextrose (D50w Syringe) 50 ml Q15M PRN IV DECREASED GLUCOSE Last administered on 09/20/16at 04:51; Admin Dose 50 ML; Start 09/06/16 at 12:00 Glucagon (Glucagen) 1 mg Q15M PRN IM DECREASED GLUCOSE; Start 09/06/16 at 12: 00 Glucose (Glutose) 15 gm Q15M PRN BUCCAL DECREASED GLUCOSE; Start 09/06/16 at 12:00 Insulin Aspart (Novolog Insulin Pen) NOVOLOG *MODERATE* ALGORI... Q4 SC Last administered on 09/25/16 08:11; Admin Dose 4 UNIT; Start 09/11/16 at 13:00 Epoetin Kobi (Epogen (Esrd)) 10,000 units MoWeFr@17 SC Last administered on 09/24 16:57; Admin Dose 10,000 UNITS; Start 09/12/16 at 17:00 Voriconazole (Vfend) 200 mg BID NGT Last administered on 09/25/16 08:04; Admin Dose 200 MG; Start 09/12/16 at 21:00 Hydralazine HCl (Apresoline) 10 mg Q4H PRN IV ELEVATED BLOOD PRESSURE Last administered on 09/21/16 23:47; Admin Dose 10 MG; Start 09/18/16 at 19:00 Hydralazine HCl (Apresoline) 25 mg Q8 GTB Last administered on 09/25/16 06:39; Admin Dose 25 MG; Start 09/19/16 at 14:00 Methylprednisolone Sodium Succinate (Solu-Medrol) 60 mg QAM IV Last administered on 09/25/16 08:04; Admin Dose 60 MG; Start 09/20/16 at 09:00 Metoprolol Tartrate (Lopressor) 50 mg BID GTB Last administered on 09/21/16 21: 49; Admin Dose 50 MG; Start 09/19/16 at 21:00 Metoprolol Tartrate (Lopressor) 5 mg Q4H PRN IV HR>110 Last administered on 09/21 09:01; Admin Dose 5 MG; Start 09/19/16 at 22:00 Aspirin (Ecotrin) 325 mg DAILY PO Last administered on 09/25/16 08:05; Admin Dose 325 MG; Start 09/20/16 at 11:00 Amiodarone HCl 200 mg 200 mg BID PO Last administered on 09/25/16 08:05; Admin Dose 200 MG; Start 09/20/16 at 21:00 Propofol 100 ml @ 2.445 mls/ hr Q12H IV Last administered on 09/25/16 09:13; Admin Dose 12.225 MLS/HR; Start 09/23/16 at 00:00 Norepinephrine/ Dextrose (Levophed/D5W) 500 ml @ 1.87 mls/hr TITRATE IV Last administered on 09/24/16 14:07; Admin Dose 0.93 MLS/HR; Start 09/23/16 at 02:30 Insulin Glargine (Lantus) 25 unit BID SC ; Start 09/25/16 at 21:00 Assessment/Plan Chief Complaint/Hosp Course ASSESSMENT AND PLAN: 1.Hypoxemic and hypercapnic respiratory failure secondary to likely volume overload on top of significant morbid obesity and restrictive lung disease. Reintubated 09/23/16 2. Morbid obesity 3. Chronic kidney disease 4. Significant anemia following epistaxis 5. Questionable distal pulmonary embolus doubt any hemodynamic significance, negative Dopplers for deep vein thrombosis Plan 1. Continue vent. no further weaning. Pending trach. Hold off bronchoscopy now as will require bronchoscopy during tracheostomy placement. 2. Renal failure with volume removal as tolerated 3. Bronchodilators 4. Aspiration precautions. 5. Deep vein thrombosis and gastrointestinal prophylaxis. Discussed with primary team Pending transfer to [facility] for trach placement. Problems: MARCIA BAIN MD, [facility] Sep 25, 2016 12:27
[2016-09-25] MEDS ORDERED: HEPARIN 1000 UNITS/ML 10 ML INJ CATHETER ONE (12:30)
--- NOTE | 2016-09-25 13:03 | CONS ---
Date/Time of Note Date/Time of Note DATE: 09/25/16 TIME: 13:00 Consult Date/Type/Reason Admit Date/Time Sep 06, 2016 at 11:22 Type of Consultation: neph Ordering Provider: PAMELA MARTE The patient had hemodialysis yesterday, tolerated well with 1.5 liters removed. The patient remains on pressor support low dose of Levophed. No other acute events noted overnight. No hemoptysis, hematemesis or hematochezia. Objective Vital Signs Date Time Temp Pulse Resp B/P Pulse Ox O2 Delivery O2 Flow Rate FiO2 09/25/16 12:00 98.2 80 20 65/46 100 Mechanical Ventilator 09/25/16 11:15 30 09/22/16 23:00 12.0 Intake and Output 09/24/16 09/24/16 09/25/16 15:00 23:00 07:00 Intake Total 364.349 ml 498.900 ml 317.55 ml Balance 364.349 ml 498.900 ml 317.55 ml HEENT: Head is normocephalic. NECK: Supple. HEART: Regular rate. LUNGS: Show diminished breath sounds at bases, right greater than left. ABDOMEN: Soft, nontender to palpation without rebound or guarding. EXTREMITIES: Negative for clubbing, cyanosis. Trace edema. DERMATOLOGIC: No rashes. MUSCULOSKELETAL: No joint effusions. NEUROLOGIC: No change in exam. Results/Medications Result Diagram: 09/25/16 0415 09/25/16 0415 Results 24 hrs Laboratory Tests Test 09/24/16 16:00 09/24/16 17:01 09/24/16 21:46 09/25/16 02:00 Stool Occult Blood POSITIVE Bedside Glucose 188 215 205 Test 09/25/16 04:14 09/25/16 04:15 09/25/16 08:08 Bedside Glucose 194 181 Anion Gap 26 H Band Neutrophils % 6.0 H Blood Morphology Comment Blood Urea Nitrogen 78 H Calcium Level 8.6 Carbon Dioxide Level 18 L Chloride Level 95 L Creatinine 2.82 H Differential Comment MANUAL DIFF Glucose Level 176 Hematocrit 24.8 L Hemoglobin 9.1 L Lymphocytes # 0.3 L Lymphocytes % 2.0 L Magnesium Level 2.0 Mean Corpuscular Hemoglobin 32.0 Mean Corpuscular Hemoglobin Concent 36.7 Mean Corpuscular Volume 87.0 Mean Platelet Volume 8.1 Monocytes # 0.3 Monocytes % 2.0 Neutrophils # 12.2 H Neutrophils % 90.0 H Nucleated Red Blood Cells # Nucleated Red Blood Cells % 11.0 H Phosphorus Level 5.2 H Platelet Count 130 L Potassium Level 4.1 Red Blood Count 2.85 L Red Cell Distribution Width 23.5 H Sodium Level 135 Tear Drop Cells RARE White Blood Count 13.5 H Medications Current Medications Piperacillin Sod/ Tazobactam Sod (Zosyn 2.25gm/ 50ml (Pmx)) 50 ml @ 100 mls/hr Q8 IVPB Last administered on 09/25/16 06:38; Admin Dose 100 MLS/HR; Start at 14:00 Pantoprazole (Protonix Iv) 40 mg DAILY@06 IV Last administered on 09/25/16 06: 38; Admin Dose 40 MG; Start 09/07/16 at 06:00 Ondansetron HCl (Zofran Inj) 4 mg Q6H PRN IV NAUSEA AND/OR VOMITING; Start at 11:30 Miscellaneous Information 1 ea NOTE XX ; Start 09/06/16 at 12:00 Glucose (Glutose) 15 gm Q15M PRN PO DECREASED GLUCOSE; Start 09/06/16 at 12:00 Glucose (Glutose) 22.5 gm Q15M PRN PO DECREASED GLUCOSE; Start 09/06/16 at 12: 00 Dextrose (D50w Syringe) 25 ml Q15M PRN IV DECREASED GLUCOSE; Start 09/06/16 at 12:00 Dextrose (D50w Syringe) 50 ml Q15M PRN IV DECREASED GLUCOSE Last administered on 09/20/16at 04:51; Admin Dose 50 ML; Start 09/06/16 at 12:00 Glucagon (Glucagen) 1 mg Q15M PRN IM DECREASED GLUCOSE; Start 09/06/16 at 12: 00 Glucose (Glutose) 15 gm Q15M PRN BUCCAL DECREASED GLUCOSE; Start 09/06/16 at 12:00 Insulin Aspart (Novolog Insulin Pen) NOVOLOG *MODERATE* ALGORI... Q4 SC Last administered on 09/25/16 08:11; Admin Dose 4 UNIT; Start 09/11/16 at 13:00 Epoetin Kobi (Epogen (Esrd)) 10,000 units MoWeFr@17 SC Last administered on 09/24 16:57; Admin Dose 10,000 UNITS; Start 09/12/16 at 17:00 Voriconazole (Vfend) 200 mg BID NGT Last administered on 09/25/16 08:04; Admin Dose 200 MG; Start 09/12/16 at 21:00 Hydralazine HCl (Apresoline) 10 mg Q4H PRN IV ELEVATED BLOOD PRESSURE Last administered on 09/21/16 23:47; Admin Dose 10 MG; Start 09/18/16 at 19:00 Hydralazine HCl (Apresoline) 25 mg Q8 GTB Last administered on 09/25/16 06:39; Admin Dose 25 MG; Start 09/19/16 at 14:00 Methylprednisolone Sodium Succinate (Solu-Medrol) 60 mg QAM IV Last administered on 09/25/16 08:04; Admin Dose 60 MG; Start 09/20/16 at 09:00 Metoprolol Tartrate (Lopressor) 50 mg BID GTB Last administered on 09/21/16 21: 49; Admin Dose 50 MG; Start 09/19/16 at 21:00 Metoprolol Tartrate (Lopressor) 5 mg Q4H PRN IV HR>110 Last administered on 09/21 09:01; Admin Dose 5 MG; Start 09/19/16 at 22:00 Aspirin (Ecotrin) 325 mg DAILY PO Last administered on 09/25/16 08:05; Admin Dose 325 MG; Start 09/20/16 at 11:00 Amiodarone HCl 200 mg 200 mg BID PO Last administered on 09/25/16 08:05; Admin Dose 200 MG; Start 09/20/16 at 21:00 Propofol 100 ml @ 2.445 mls/ hr Q12H IV Last administered on 09/25/16 09:13; Admin Dose 12.225 MLS/HR; Start 09/23/16 at 00:00 Norepinephrine/ Dextrose (Levophed/D5W) 500 ml @ 1.87 mls/hr TITRATE IV Last administered on 09/24/16 14:07; Admin Dose 0.93 MLS/HR; Start 09/23/16 at 02:30 Insulin Glargine (Lantus) 25 unit BID SC ; Start 09/25/16 at 21:00 Assessment/Plan Chief Complaint/Hosp Course 1. Anuric acute kidney injury on top of chronic kidney disease stage IV, most likely with progression to end-stage renal disease. The patient is currently dialysis dependent. The patient has been receiving daily dialysis for solute clearance and volume removal. On hd today after a day of. We will monitor closely. 2. Volume overload secondary to congestive heart failure, acute kidney injury. The patient is nearing euvolemic status. We will continue ultrafiltration with dialysis as needed. 3. Hypokalemia, repleted with potassium chloride. 4. Anemia. Continue to monitor hemoglobin and hematocrit levels, transfuse as needed. We will give Epogen as needed as well. 5. .Hypoxemic and hypercapnic respiratory failure secondary to likely volume overload on top of significant morbid obesity and restrictive lung disease. Reintubated 09/23/16. plan on trach and no further weaning 6. Sepsis, status post shock, currently on antibiotics, continue. 7. Diabetes. Continue current insulin regimen. 8. Hypertension. Continue current blood pressure regimen. Continue ultrafiltration dialysis. 9. Acute encephalopathy. Etiology is toxic metabolic. Continue to monitor. 10. Arrhythmia, currently stable. Follow up with cardiology. 11. History of Clostridium difficile colitis status post treatment. 12. Elevated troponin, possible non-ST segment elevation myocardial infarction , questionable demand ischemia. Continue current medical management. Problems: GORDY CHAMBERLAIN MD Sep 25, 2016 13:03
--- NOTE | 2016-09-25 15:47 | PDOCDIS ---
Discharge Instructions CONDITION Patient Condition: Good HOME CARE INSTRUCTIONS: Special Diet: CONTINOUS FEEDS ACTIVITY: Activity Restrictions Comment: bed ridden FOLLOW UP/APPOINTMENTS Appointments Transfer to [facility] Dr García for accepting physician CRISTY INMAN Sep 25, 2016 15:47
--- NOTE | 2016-09-25 17:35 | DS ---
DATE OF ADMISSION: 09/06/2016 DATE OF DISCHARGE: 09/25/2016 ADMITTING PHYSICIAN: Dr. Pizarro PRIMARY CARE PHYSICIAN: Dr. Roldan CONSULTANTS DURING THIS ADMISSION: Dr. Daniel from pulmonary critical care, Dr. Del Toro from [facility], Dr. Peacock from Nephrology. BRIEF HISTORY OF PRESENT ILLNESS: This is a 71-year-old female with history of congestive heart quiana lure, ejection fraction of 40%, end-stage renal disease, now on hemodialysis, a lot of issues with v olume status post prolonged hospitalization at [facility] where she had respiratory failure and intubation. HOSPITAL COURSE: The patient was being transferred apparently from [place] to a local skilled [facility] facility and it is unclear if she even made it to the skilled [facility] facility, s he had to be directed here at [facility] and again in respiratory failure, requiri ng intubation. She was intubated. Her dialysis was restarted and she was admitted to the intensive care unit. HOSPITAL COURSE: The patient was admitted to the ICU. She has required more frequent dialysis for volume management. She has been on treatment with Zosyn for possible aspiration pneumonia. She als o has been on treatment for Charlene, non-albicans in the urine and has completed treatment with Vor iconazole as of today. Her Lazo catheter was discontinued earlier as she has minimal urine output anyway. Her traditional dialysis is Thursday, Thursday, Thursday, again she has been dialyzed more faisal quently for volume management. She still has some anasarca, but volume is much improved. She is ge tting Epogen with dialysis. She is still on Zosyn, as of today, but can be discontinued in the next few days. She has had multiple episodes of pulmonary edema that require additional dialysis. She was extubated twice already during this hospitalization with requirement reintubation within 24 hour s due to respiratory failure. She has had episode of stridor and tracheal stenosis requiring reintu bation. At this point, according to the treating team and also pulmonary critical care, Dr. Daniel , the patient needs to be trached and pegged if the family wants to remain aggressive for her care. After discussion with the family, they want her trached and pegged. They want to give her a chanc e. They put her as a CHEMICAL CODE, but wants her to continue dialysis and ventilatory support and treatment of any underlying acute infection or acute disease. She has been off pressors for the pas t 2 days after being reintubated. Her systolic blood pressures are in the 120s today. She is in at [facility] fibrillation paroxysmal, but mostly rate controlled in the 70s. She is on propofol for sedatio n. On minimal propofol, she is actually awake and following basic commands. She remains afebrile. She will be transferred to [facility] today for tracheostomy and PEG tube placement and also further r espiratory care. She also has diabetes mellitus, she is back on Lantus 25 units b.i.d. along with a sliding scale insulin. She did have an episode of C. diff colitis at [facility], which is resolved. We repeated here, has been negative. She has not required any additional treatment for C. diff. She has had 1 episode of fecal occult blood positive. Therefore, her heparin is on hold c urrently. Her hemoglobin is stable. On admission, she had coagulopathy, which is resolved now. DISPOSITION: Transfer to [facility]. DISCHARGE CONDITION: Currently hemodynamically stable, but still requiring mechanical ventilation f or respiratory support and dialysis for renal replacement. FOLLOWUP: The patient is to follow up with Dr. García, who is the admitting physician at [facility]. Phone number is [phone]. She is to continue dialysis. She was on a Thursday, Thursday, Thursday schedule here and also follow up with cardiology while at [facility]. The patient does have paroxysma l atrial fibrillation, currently controlled. DISCHARGE DIAGNOSES: 1. Recurrent episodes of respiratory failure with chronic respiratory failure, now requiring PEG an d tray. 2. Congestive heart failure, systolic, acute on chronic with cardiomyopathy, ejection fraction of 4 0%. 3. End-stage renal disease. 4. Status post NSTEMI secondary to demand ischemia. 5. Diabetes mellitus. 6. Status post sepsis, septic shock secondary to possible aspiration pneumonia. 7. Hypertension. 8. Chronic anemia secondary to chronic disease. 9. Paroxysmal atrial fibrillation. 10. Yeast, non-albicans urinary tract infection , status post treatment. 11. Coagulopathy, resolved. 12. Superficial venous thrombus in left cephalic vein left upper arm, conservative management. DISCHARGE MEDICATIONS: 1. Albuterol HFA 4 puffs q.6h. 2. Alteplase capsule as needed for PICC line. 3. Amiodarone 200 mg p.o. twice daily. 4. Aspirin 325 mg p.o. daily. 5. Sliding scale insulin. 6. Epogen 10,000 units every Thursday, Thursday, Thursday. 7. Hydralazine 10 mg IV 4 hours as needed for systolic blood pressure above 160. 8. Lantus 25 units subcutaneously twice daily. 9. Ipratropium HFA 4 puffs inhaled q.6h. 10. Solu-Medrol 60 mg IV daily. She is on a taper. 11. Metoprolol 50 mg p.o. twice daily. 12. Zofran 4 mg IV q.6h. p.r.n. nausea, vomiting. 13. Protonix 40 mg IV daily. 14. Zosyn 225 grams q. 8 hours for 1 more week. 15. Propofol for sedation. 16. Voriconazole 200 mg per G-tube b.i.d. Last dose to be on ____. Therefore, on the day of discharge, her last dose can be given prior to discharge from [facility] to [facility]. Dictated By: CRISTY HOPE/ADRIA Conf#: [id number] DID#: [id number]
[2016-09-25] MEDS ORDERED: INSULIN GLARGINE [LANtus] 3 ML PEN SC SCH (21:00)
--- NOTE | 2016-09-30 13:21 | PQ ---
Date/Time of Note Date/Time of Note DATE: 09/30/16 TIME: 13: Physician Query Documentation Clarification Dear Dr. inman, A review of the medical record found a need for documentation clarification. Please clarify if the following diagnosis: Sepsis H & P : "admitted at an outside hospital over the past few weeks for apparent sepsis" Dr. Peacock - "Possible sepsis secondary to pneumonia" --- 09/06 09/06-- WBC = 9.8 --> 11.4-->19.4 ( 09/20) HR = 74, 79, 88 Norepinephrine IV started 09/06 + Cefepime HCl + Vancomycin + Metronidazole + Piperacillin DC Summary- 6. " Status post sepsis, septic shock secondary to possible aspiration pneumonia." 09/11 - "Sepsis with Septic Shock 2/2 Pneumonia, off pressors," Was: ( x ) Present on admission ( ) Not present on admission ( ) Clinically undetermined Please provide your response by clicking edit document, making your choice ( x ), click ok and finally click sign. Thank you for your time. James Pascual RN, BSN, CCS, CCDS Clinical Sql Report Writer Health Information Management, [facility] and Coding Services [phone] Room # 1525 - [address]~ [id number] JAMES PASCUAL Sep 30, 2016 13:21 CRISTY INMAN Oct 01, 2016 20:29
== END 2016-09-25 23:34 | disposition short-term general hospital (02) | DRG 870 ==
LOC: E/R 06:02 → ICU 11:22
PROVIDERS: ADMIT Family Medicine; ATTEND Internal Medicine
PROC: 5A1955Z Respiratory Ventilation, Greater than 96 Consecutive Hours (ICD-10-PCS; principal; 2016-09-06)
PROC: 0BH17EZ Insertion of Endotracheal Airway into Trachea, Via Natural or Artificial Opening (ICD-10-PCS; 2016-09-06)
PROC: 02HV33Z Insertion of Infusion Device into Superior Vena Cava, Percutaneous Approach (ICD-10-PCS; 2016-09-07)
PROC: 30233K1 Transfusion of Nonautologous Frozen Plasma into Peripheral Vein, Percutaneous Approach (ICD-10-PCS; 2016-09-07)
PROC: 5A1D60Z (ICD-10-PCS; 2016-09-08)
PROC: 30233N1 Transfusion of Nonautologous Red Blood Cells into Peripheral Vein, Percutaneous Approach (ICD-10-PCS; 2016-09-08)
PROC: 5A1945Z Respiratory Ventilation, 24-96 Consecutive Hours (ICD-10-PCS; 2016-09-22)
PROC: 0BH17EZ Insertion of Endotracheal Airway into Trachea, Via Natural or Artificial Opening (ICD-10-PCS; 2016-09-22)
DX: A41.9 Sepsis, unspecified organism (principal); R65.21 Severe sepsis with septic shock; J69.0 Pneumonitis due to inhalation of food and vomit; G92 Toxic encephalopathy; I50.33 Acute on chronic diastolic (congestive) heart failure; N17.9 Acute kidney failure, unspecified; J96.00 Acute respiratory failure, unspecified whether with hypoxia or hypercapnia; J96.02 Acute respiratory failure with hypercapnia; A04.7 Enterocolitis due to Clostridium difficile; N18.6 End stage renal disease; J96.01 Acute respiratory failure with hypoxia; I42.9 Cardiomyopathy, unspecified; N39.0 Urinary tract infection, site not specified; I13.2 Hypertensive heart and chronic kidney disease with heart failure and with stage 5 chronic kidney disease, or end stage renal disease; I82.612 Acute embolism and thrombosis of superficial veins of left upper extremity; B37.49 Other urogenital candidiasis; K92.1 Melena; I48.0 Paroxysmal atrial fibrillation; Z68.33 Body mass index [BMI] 33.0-33.9, adult; Z99.2 Dependence on renal dialysis; R51 Headache; E11.65 Type 2 diabetes mellitus with hyperglycemia; E66.9 Obesity, unspecified; D50.9 Iron deficiency anemia, unspecified
CPT/HCPCS: 31500; 36415; 36430; 36569; 36600; 70450; 71010; 71275; 74000; 76937; 80048; 80053; 80061; 80069; 81001; 81003; 82270; 82550; 82553; 82803; 82947; 82962; 83036; 83540; 83605; 83735; 83880; 84100; 84132; 84443; 84484; 85025; 85610; 85730; 86850; 86900; 86901; 86920; 87040; 87075; 87081; 87086; 90935; 92610; 93005; 93306; 93923; 93965; 93971; 94002; 94003; 94640; 94644; 94660; 94664; 94770; 96365; 96366; 96368; 96372; 96375; C9113; J0282; J0330; J0360; J0886; J1644; J1815; J2920; J2930; J2997; J3370; J3475; J3480; J7030; J7040; J7050; P9016; P9047; P9059; Q9967